=== PATIENT | female | born 1970 | race Caucasian/White ===

== ENCOUNTER 2020-03-18 14:50 | Outpatient (REF) | payer OTHER, SELFPAY ==
--- NOTE | 2020-03-18 14:58 | XR_ITS ---
EXAMINATION: LEFT ANKLE AND LEFT FOOT. CLINICAL INFORMATION: Pain left ankle and left foot. COMPARISON: None TECHNIQUE: 3 views left foot and 2 views left ankle. FINDINGS: LEFT FOOT : There is no visible acute fracture, dislocation or subluxation. LEFT ANKLE: There is a moderate lateral malleolar soft tissue swelling. The ankle mortise and subtalar joints are normal. A small calcaneal heel and retrocalcaneal spurs seen. The soft tissues are normal. IMPRESSION: Unremarkable left foot exam Moderate lateral malleolar soft tissue swelling likely ankle sprain. No visible acute fracture or dislocation seen. Small calcaneal heel and retrocalcaneal enthesophytes.
== END 2020-03-18 14:51 | disposition home or self-care (01) ==
LOC: HO.HMGCX 14:50
PROVIDERS: PCP Nurse Practitioner Family; Visit Provider Hospitalist
DX: M25.572 Pain in left ankle and joints of left foot (principal)
CPT/HCPCS: 73600; 73630

== ENCOUNTER 2020-03-26 02:09 | Emergency (ER) | payer OTHER, SELFPAY ==
[2020-03-26 02:24] VITALS: BP 140/84; PULSE 99; RESP 16; TEMP 37; O2SAT 99; BMI 29.0
--- NOTE | 2020-03-26 02:35 | ED_ITS ---
HPI - Wound/Laceration General Chief Complaint: Wound/Laceration Stated Complaint: Hand Lac Time Seen by Provider: 03/26/20 02:35 History of Present Illness HPI narrative: Patient is a 49-year-old female presents today after cutting her right hand using a knife. It was accidental in nature. Patient not on blood thinners. No systemic complaints. Able to move her fingers well. Bleeding control. Came in for further evaluation. Related Data Home Medications Medication Instructions Recorded Confirmed albuterol sulfate 90 mcg/actuation INHALATION 03/18/20 aerosol inhaler alogliptin 25 mg tablet mg PO 03/18/20 atorvastatin 40 mg tablet 40 mg PO DAILY 03/18/20 beclomethasone dipropionate 80 1 inh INHALATION BID 03/18/20 mcg/actuation HFA breath activated aerosol blood sugar diagnostic #10 ea 03/18/20 blood-glucose meter #1 ea 03/18/20 cholecalciferol (vitamin D3) 50 50 mcg PO BEDTIME 03/18/20 mcg (2,000 unit) capsule clonazepam 0.5 mg tablet 0 mg PO 03/18/20 cyclobenzaprine 10 mg tablet 10 mg PO TID 03/18/20 divalproex 250 mg tablet,delayed 250 mg PO DAILY 03/18/20 release divalproex 500 mg tablet,delayed mg PO 03/18/20 release duloxetine 60 mg capsule,delayed mg PO 03/18/20 release empagliflozin 10 mg tablet 10 mg PO DAILY 03/18/20 flu vacc [id number] 6mos up(PF) ml IM 03/18/20 furosemide 20 mg tablet 20 mg PO DAILY 03/18/20 furosemide 40 mg tablet 40 mg PO DAILY 03/18/20 glimepiride 2 mg tablet 2 mg PO 03/18/20 insulin glargine 100 unit/mL (3 unit SUBCUT 03/18/20 mL) subcutaneous pen levothyroxine 88 mcg tablet 88 mcg PO DAILY 03/18/20 nitrofurantoin 1 cap PO BID 03/18/20 monohydrate/macrocrystals 100 mg capsule ondansetron HCl 4 mg tablet mg PO 03/18/20 oxycodone 5 mg tablet mg PO 03/18/20 pantoprazole 40 mg tablet,delayed 40 mg PO DAILY 03/18/20 release pen needle, diabetic 31 gauge x #1200 ea 10/19/20 5/16 pentosan polysulfate sodium 100 mg 100 mg PO TID 03/18/20 capsule phenazopyridine 100 mg tablet 100 mg PO TID 03/18/20 phenazopyridine 200 mg tablet 200 mg PO TID 03/18/20 suvorexant 15 mg tablet 15 mg PO BEDTIME PRN 03/18/20 triamcinolone acetonide 0.1 % applic TOPICAL 03/18/20 topical cream Previous Rx's Medication Instructions Recorded loratadine 10 mg tablet 10 mg PO DAILY 90 Days #90 tab 03/07/20 sumatriptan succinate 25 mg tablet 25 mg PO ONCE PRN 90 Days #30 tab 03/10/20 prednisone 20 mg tablet 20 mg PO .COMPLEX #18 tab 03/18/20 ropinirole 1 mg tablet 1 mg PO TID #90 tab 03/22/20 Allergies Allergy/AdvReac Type Severity Reaction Status Date / Time No Known Allergies Allergy Verified 03/26/20 02:35 Review of Systems Review of Systems: Constitutional: No Weight loss, No Fever, No Chills, No Night Sweats, No Fatigue, No Malaise ENT/Mouth: No Hearing loss, No Ear Pain, No Nasal Congestion, No Sinus Pain, No Hoarseness, No sore throat, No Rhinorrhea, No Swallowing Difficulty Eyes: No Eye Pain, No Swelling, No Redness, No Foreign Body, No Discharge, No Vision Changes Cardiovascular: No Chest Pain, No SOB, No Dyspnea on Exertion, No Orthopnea, No Edema, No Palpitations Respiratory: No Cough, No Sputum, No Wheezing, No Smoke Exposure, No Dyspnea Gastrointestinal: No Nausea, No Vomiting, No Diarrhea, No Constipation, No abdominal Pain, No Hematochezia, No Melena Genitourinary: no irregular bleeding, No Dysuria, No Urinary Frequency, No Hematuria, No Urinary Incontinence, No Urgency, No Flank Pain, No Urinary Flow Changes, No Hesitancy Musculoskeletal: No joint pain, No Myalgias, No Joint Swelling Skin: Positive laceration to the right hand Neuro: No Weakness, No Numbness, No Paresthesias, No Loss of Consciousness, No Dizziness, No Headache Psych: No Anxiety/Panic, No Depression, No SI/HI/AH/VH, No Social Issues, Heme/Lymph: No Bruising, No Bleeding,No Lymphadenopathy Endocrine: No Polyuria, No Polydipsia, No Temperature Intolerance [facility] Past Medical History Attestation statement: The following information was validated with the patient. Social History Social History Advance Directives: No Advance Directives Information Provided: No Physical Exam Vital Signs: Vital Signs: Vital Signs Temp Pulse Resp BP Pulse Ox 03/26/20 02:24 98.6 F 99 16 140/84 H 99 Body Mass Index 29.0 Appearance: Alert. Oriented X3. No acute distress. Eyes: Pupils equal, round and reactive to light. ENT: Pharynx normal. Neck: Normal inspection. Neck supple. No lymph nodes noted. No crepitus CVS: Normal heart rate and rhythm. Pulses normal. Normal S1 and S2 Respiratory: No respiratory distress. Breath sounds normal. No Wheezing. No rales Abdomen: Soft and nontender. No rigidity. No distention. good BS x4 Skin: Right hand Positive 3 cm laceration to the palmar surface of the hypothenar area. Down to subcutaneous fat. There is good flexion of the pinky at metacarpal pharyngeal joint, proximal IP and distal IP joint. Capillary refill less than 2 seconds. Sensation over the median radial and ulnar nerve intact. Extremities: No lower extremity edema. Neurovascular intact to all extremities. No Lacerations. No Rash Neuro: Oriented X 3. No motor deficit. No sensory deficit. Moving all extermities. No slurred speech Procedures Laceration Laceration 1: Site: hand Side (If applicable): right Size (cm): 3 Description: linear Depth: simple, single layer Local Anesthetic: lidocaine 1% Amount of anesthesia used (mL): 3 Pre-repair: wound explored Skin layer closed with: nylon Size (cm): 5-0 Number of sutures: 3 Technique: simple, interrupted MDM - Wound/Laceration MDM Narrative Medical decision making narrative: Patient's wound closed. No distress. Will discharge patient home. Neurovascularly intact. No evidence of any tendon injury on full exploration of the wound. The hand and fingers were put through full range of motion Differential Diagnosis Differential diagnosis: Likely laceration Medical Records Attestation: I reviewed the patient's medical records. Discharge Plan Discharge Clinical Impression: Laceration Instructions: Laceration (ED) Prescriptions: No Action loratadine [Allergy Relief (loratadine)] 10 mg tablet 10 mg PO DAILY 90 Days Qty: 90 RF: 0 sumatriptan succinate 25 mg tablet 25 mg PO ONCE PRN (Reason: migraine headache) 90 Days Qty: 30 RF: 0 ropinirole 1 mg tablet 1 mg PO TID Qty: 90 RF: 1 Felicita Wang U-100 Insulin 100 unit/mL (3 mL) insulin pen subcut RF: 0 divalproex 500 mg tablet,delayed release (DR/EC) PO RF: 0 pantoprazole 40 mg tablet,delayed release (DR/EC) 40 mg PO DAILY RF: 0 ondansetron HCl 4 mg tablet PO RF: 0 Elmiron 100 mg capsule 100 mg PO TID RF: 0 levothyroxine 88 mcg tablet 88 mcg PO DAILY RF: 0 atorvastatin 40 mg tablet 40 mg PO DAILY RF: 0 duloxetine 60 mg capsule,delayed release(DR/EC) PO RF: 0 albuterol sulfate 90 mcg/actuation HFA aerosol inhaler inhalation RF: 0 glimepiride 2 mg tablet 2 mg PO RF: 0 Belsomra 15 mg tablet 15 mg PO BEDTIME PRNRF: 0 Qvar RediHaler 80 mcg/actuation HFA aerosol breath activated 1 inh inhalation BID RF: 0 clonazepam 0.5 mg tablet 0 mg PO RF: 0 Fluzone Quad [id number] (PF) 60 mcg (15 mcg x 4)/0.5 mL syringe IM RF: 0 (DME) blood-glucose meter Kit See Rx Instructions ea .ROUTE TID Qty: 1 RF: 0 (DME) FreeStyle Lite Strips Strip See Rx Instructions ea Not Applicable TID Qty: 10 RF: 0 alogliptin 25 mg tablet PO RF: 0 divalproex 250 mg tablet,delayed release (DR/EC) 250 mg PO DAILY RF: 0 furosemide 40 mg tablet 40 mg PO DAILY RF: 0 triamcinolone acetonide 0.1 % cream topical RF: 0 nitrofurantoin monohyd/m-cryst 100 mg capsule 1 cap PO BID RF: 0 (DME) pen needle, diabetic 31 gauge x 5/16 needle See Rx Instructions ea subcut DAILY Qty: 1200 RF: 0 furosemide 20 mg tablet 20 mg PO DAILY RF: 0 oxycodone 5 mg tablet PO RF: 0 cholecalciferol (vitamin D3) 50 mcg (2,000 unit) capsule 50 mcg PO BEDTIME RF: 0 phenazopyridine 100 mg tablet 100 mg PO TID RF: 0 cyclobenzaprine 10 mg tablet 10 mg PO TID RF: 0 phenazopyridine 200 mg tablet 200 mg PO TID RF: 0 Jardiance 10 mg tablet 10 mg PO DAILY RF: 0 prednisone 20 mg tablet 20 mg PO .COMPLEX Qty: 18 RF: 0 Referrals: Tamar Jacome MD [Emergency Provider] - 10 days
[2020-03-26] MEDS: Lidocaine HCl 1 % MPF 5 ML VIAL SUBCUT (02:45)
== END 2020-03-26 03:31 | disposition home or self-care (01) ==
PROVIDERS: Emergency Provider Emergency Medicine Emergency Medical Services; PCP Nurse Practitioner Family
DX: S61.411A Laceration without foreign body of right hand, initial encounter (principal); M79.641 Pain in right hand; W26.0XXA Contact with knife, initial encounter; Y93.G3 Activity, cooking and baking; Y92.000 Kitchen of unspecified non-institutional (private) residence as the place of occurrence of the external cause; Z79.899 Other long term (current) drug therapy
CPT/HCPCS: 12002; 99283; 99284

== ENCOUNTER 2020-04-09 13:14 | Outpatient (REF) | payer OTHER, SELFPAY ==
--- NOTE | 2020-04-09 13:20 | MM_ITS ---
EXAMINATION: BONE DENSITOMETRY CLINICAL INDICATION: Osteopenia. COMPARISON: Previous BD dated 04/08/2018 and baseline BD dated 03/27/2014. TECHNIQUE: Using a [employer] DXA System (software version: 13.1) manufactured by [employer], dual-energy x-ray absorptiometry was performed of the lumbar spine and left hip. The images are of good technical quality. Summary results are attached. FINDINGS: AP SPINE L1-L4: Current: BMD 1.100 g/cm2, Z-score -0.7, T-score -0.7, normal, 1.0% increase from previous, 0.2% decrease from baseline (<5% change is not significant). Prior: BMD 1.089 g/cm2. Baseline: BMD 1.102 g/cm2. LEFT FEMUR, NECK: Current: BMD 0.788 g/cm2, Z-score -1.3, T-score -1.8, osteopenia. Prior: BMD 0.773 g/cm2. Baseline: BMD 0.829 g/cm2. LEFT FEMUR, TOTAL: Current: BMD 0.860 g/cm2, Z-score -1.1, T-score -1.2, osteopenia, 1.8% decrease from previous, 8.6% decrease from baseline (<5% change is not significant). Prior: BMD 0.876 g/cm2. Baseline: BMD 0.941 g/cm2. IDENTIFIED RISK FACTORS: Early menopause, secondary osteoporosis, history of fracture (adult), osteoporosis, recurrent falls, height loss, low calcium intake. HISTORY OF FRACTURE: Ribs, extremities. MEDICATIONS: Calcium supplements or multivitamin, vitamin D. MM/XR DEXA axial skeleton IMPRESSION: 1. DIAGNOSIS: Osteopenia based on the lowest T-score value of -1.8 in the femoral neck applying World Health Organization criteria. 2. 10-YEAR FRACTURE RISK PREDICTION, FRAX: Major osteoporotic fracture (clinical spine, forearm, hip or shoulder) 10.2%. Hip fracture 1.2%. 3. Treatment Recommendations: NOF guidelines recommend consideration for treatment in postmenopausal women and men age 50 and older presenting with the following: -A hip or vertebral (clinical or morphometric) fracture. -T-score less than or equal to -2.5 at the femoral neck or spine after appropriate evaluation to exclude secondary causes. -Low bone mass at the hip or spine and a 10-year fracture probability by FRAX of greater than or equal to 3% for hip fracture or greater than or equal to 20% for major osteoporotic fracture based on the [place] adapted WHO algorithm. 4. Other Recommendations: All treatment decisions require clinical judgment and consideration of individual patient factors, including patient preferences, comorbidities, previous drug use, risk factors not captured in the FRAX model (e.g. frailty, falls, vitamin D deficiency, increased bone turnover, interval significant decline in bone density) and possible under or overestimation of fracture risk by FRAX. Additional medical evaluation for secondary cause of low bone mineral density may be appropriate. FUTURE SCAN RECOMMENDATION: People with diagnosed cases of osteoporosis or at high risk for fracture should have regular bone mineral density tests. For patients eligible for Medicare, routine testing is allowed once every 2 years. The testing frequency can be increased to one year for patients who have rapidly progressing disease, those who are receiving or discontinuing medical therapy to restore bone mass, or have additional risk factors.
--- NOTE | 2020-04-09 13:20 | MM_ITS ---
EXAMINATION: MM SCREENING DIGITAL BREAST TOMOSYNTHESIS, BILATERAL CLINICAL INFORMATION: Screening. Asymptomatic. Prior remote history reduction mammoplasty 2001. The lifetime risk of breast cancer based on the Tyrer-Cuzick Model is 11%. COMPARISON: Mammography: 04/08/2018, 08/10/2016 TECHNIQUE: Digital breast tomosynthesis is performed in both the craniocaudal and mediolateral oblique views along with computer-aided detection (CAD). Synthesized 2D images are generated from the tomosynthesis. FINDINGS: The breasts are almost entirely fatty (ACR BI-RADS breast composition Category a). Background stromal tissue is stable. There is minor scarring again seen consistent with the remote reduction mammoplasty. There is no developing density or interval mass or architectural abnormality. Numerous lucent centered calcifications of fat necrosis or distributed right breast and there are some scattered benign calcifications again seen on the left, some appear to be vascular. There are no significant changes. MM/MM tomosynthesis screening BI IMPRESSION: No significant changes from prior studies. ASSESSMENT: BI-RADS 2: Benign RECOMMENDATION: Routine annual mammography screening. This patient's information was entered into a reminder system with a target due date for their next mammogram.
== END 2020-04-09 13:15 | disposition home or self-care (01) ==
LOC: HO.MAMMO 13:14
PROVIDERS: PCP Nurse Practitioner Family; Visit Provider Nurse Practitioner Family
DX: M85.80 Other specified disorders of bone density and structure, unspecified site (principal); Z78.0 Asymptomatic menopausal state
CPT/HCPCS: 77063; 77067; 77080

== ENCOUNTER 2020-04-25 18:05 | Emergency (ER) | payer OTHER, SELFPAY ==
[2020-04-25 18:30] VITALS: BP 121/77; PULSE 87; RESP 18; TEMP 37.1; O2SAT 100; BMI 31.4
--- NOTE | 2020-04-25 19:08 | ED_ITS ---
HPI - General Adult General Chief complaint: General Medical Stated complaint: covid swab Time Seen by Provider: 04/25/20 18:58 Source: patient Mode of arrival: ambulatory Limitations: no limitations History of Present Illness HPI narrative: Patient presents to ED for body aches, fatigue, loss of smell, and loss of taste for the past 2 days. Patient states no one else at home having similar symptoms. Patient states no cough, chest pain, or shortness of breaths Related Data Home Medications Medication Instructions Recorded Confirmed albuterol sulfate 90 mcg/actuation INHALATION 03/18/20 04/04/20 aerosol inhaler alogliptin 25 mg tablet mg PO 03/18/20 04/04/20 atorvastatin 40 mg tablet 40 mg PO DAILY 03/18/20 04/04/20 beclomethasone dipropionate 80 1 inh INHALATION BID 03/18/20 04/04/20 mcg/actuation HFA breath activated aerosol blood sugar diagnostic #10 ea 03/18/20 04/04/20 blood-glucose meter #1 ea 03/18/20 04/04/20 clonazepam 0.5 mg tablet 0 mg PO 03/18/20 04/04/20 cyclobenzaprine 10 mg tablet 10 mg PO TID 03/18/20 04/04/20 divalproex 250 mg tablet,delayed 250 mg PO DAILY 03/18/20 04/04/20 release divalproex 500 mg tablet,delayed mg PO 03/18/20 04/04/20 release duloxetine 60 mg capsule,delayed mg PO 03/18/20 04/04/20 release empagliflozin 10 mg tablet 10 mg PO DAILY 03/18/20 04/04/20 flu vacc [id number] 6mos up(PF) ml IM 03/18/20 04/04/20 furosemide 20 mg tablet 20 mg PO DAILY 03/18/20 04/04/20 glimepiride 2 mg tablet 2 mg PO 03/18/20 04/04/20 insulin glargine 100 unit/mL (3 unit SUBCUT 03/18/20 04/04/20 mL) subcutaneous pen levothyroxine 88 mcg tablet 88 mcg PO DAILY 03/18/20 04/04/20 nitrofurantoin 1 cap PO BID 03/18/20 04/04/20 monohydrate/macrocrystals 100 mg capsule ondansetron HCl 4 mg tablet mg PO 03/18/20 04/04/20 oxycodone 5 mg tablet mg PO 03/18/20 04/04/20 pantoprazole 40 mg tablet,delayed 40 mg PO DAILY 03/18/20 04/04/20 release pen needle, diabetic 31 gauge x #1200 ea 03/18/20 04/04/2010/13 pentosan polysulfate sodium 100 mg 100 mg PO TID 03/18/20 04/04/20 capsule phenazopyridine 100 mg tablet 100 mg PO TID 03/18/20 04/04/20 phenazopyridine 200 mg tablet 200 mg PO TID 03/18/20 04/04/20 suvorexant 15 mg tablet 15 mg PO BEDTIME PRN 03/18/20 04/04/20 triamcinolone acetonide 0.1 % applic TOPICAL 03/18/20 04/04/20 topical cream Previous Rx's Medication Instructions Recorded loratadine 10 mg tablet 10 mg PO DAILY 90 Days #90 tab 03/07/20 sumatriptan succinate 25 mg tablet 25 mg PO ONCE PRN 90 Days #30 tab 03/10/20 prednisone 20 mg tablet 20 mg PO .COMPLEX #18 tab 03/18/20 ropinirole 1 mg tablet 1 mg PO TID #90 tab 03/22/20 furosemide 40 mg tablet 40 mg PO DAILY #90 tab 04/04/20 cholecalciferol (vitamin D3) 50 50 mcg PO BEDTIME #90 cap 04/15/20 mcg (2,000 unit) capsule Allergies Allergy/AdvReac Type Severity Reaction Status Date / Time No Known Allergies Allergy Verified 04/25/20 18:41 Review of Systems Constitutional: Constitutional: Reports as per HPI, Reports no additional constitutional complaints, Reports body ache(s) and Reports chills Comments: loss of smell, loss of taste. Eyes: Eyes: Reports as per HPI and Reports no additional eye complaints ENT: Reports system reviewed and no additional complaints, except as documented and Reports as per HPI Cardiovascular: Cardiovascular: Reports as per HPI and Reports no additional cardiovascular complaints Respiratory: Respiratory: Reports as per HPI and Reports no additional respiratory complaints Gastrointestinal: Gastrointestinal: Reports no additional gastrointestinal complaints Musculoskeletal: Musculoskeletal: Reports no additional musculoskeletal complaints and Reports as per HPI Neurologic: Reports system reviewed and no additional complaints, except as documented and Reports as per HPI Psychiatric: Psychiatric: Reports no additional psychiatric complaints and Reports as per HPI [facility] Past Medical History Medical History (Updated 04/25/20 @ 19:21 by RENETTA Hernandez) Acute Crohn's disease Bipolar 1 disorder Family History Family History (Updated 04/04/20 @ 14:38 by MIKAYLA Swan) Father HTN (hypertension) Mother Heart disease Social History Social History (Updated 04/04/20 @ 14:39 by MIKAYLA Swan) Smoking Status: Never smoker Advance Directives: No Advance Directives Information Provided: Yes Physical Exam Vital Signs: Vital Signs: Last Vital Signs Temp 98.7 F 04/25/20 18:30 Pulse 87 04/25/20 18:30 Resp 18 04/25/20 18:30 BP 121/77 04/25/20 18:30 Pulse Ox 100 04/25/20 18:30 Body Mass Index 31.4 Const: General: cooperative, healthy appearing, comfortable, no acute distress and well developed Orientation/consciousness: oriented to person, oriented to place, oriented to time and patient oriented x3 HENMT: Head: Yes normal to inspection and Yes No palpable skull fracture present Eyes: General: appearance normal, both eyes and all related structures Neck: Neck: Yes normal visual inspection and Yes full ROM Chest: Chest palpation & inspection: normal inspection of the chest, normal palpation of entire chest wall and no localized rib tenderness Resp: Effort & Inspection: normal respiratory effort and able to speak in complete sentences Cardio: Jugular venous distension: no JVD Heart sounds: S1 normal heart sound present and S2 normal heart sound present GI: Inspection: Yes normal to inspection and No abdominal wall ecchymosis : General: No CVA tenderness and Yes no CVA tenderness Back/Spine/Pelvis: Back: no CVA tenderness, No CVA tenderness and No back tenderness Skin: General skin exam: no rashes or lesions noted Neuro: General: oriented to person, oriented to place, oriented to time, patient oriented x3 and CN's II-XI intact bilaterally Cranial nerves: Yes CN's II-XII intact bilaterally Extrem: General: Yes normal to inspection and Yes full ROM Psych: Appearance: grossly normal, well kempt and not disheveled Course Course Course Narrative: Patient will be swabbed for the COVID-19 virus. Patient educated on self-isolation. Reevaluation(s) Reevaluation #1: Patient is swabbed for COVID-19. Patient caring for her 1 7month oldgrandson. Patient informed to wear gloves and mask around her [id number] grandson. Time: 19:19 Medical Decision Making MDM Narrative Medical decision making narrative: viral syndrome Discharge Plan Discharge Clinical Impression: Acute viral syndrome Patient Disposition: Home, Self-Care Instructions: Viral Syndrome (ED) Additional Instructions: return to the ED immediately for any chest pain, shortness of breath, weakness, fever, chills,abdominal pain, coughing, nausea, vomiting, or any other concerning symptoms. Recommend 14 days self-isolation if COVID test come back positive. Prescriptions: No Action loratadine [Allergy Relief (loratadine)] 10 mg tablet 10 mg PO DAILY 90 Days Qty: 90 RF: 0 sumatriptan succinate 25 mg tablet 25 mg PO ONCE PRN (Reason: migraine headache) 90 Days Qty: 30 RF: 0 ropinirole 1 mg tablet 1 mg PO TID Qty: 90 RF: 1 furosemide 40 mg tablet 40 mg PO DAILY Qty: 90 RF: 0 cholecalciferol (vitamin D3) 50 mcg (2,000 unit) capsule 50 mcg PO BEDTIME Qty: 90 RF: 0 Basaglar KwikPen U-100 Insulin 100 unit/mL (3 mL) insulin pen subcut RF: 0 divalproex 500 mg tablet,delayed release (DR/EC) PO RF: 0 pantoprazole 40 mg tablet,delayed release (DR/EC) 40 mg PO DAILY RF: 0 ondansetron HCl 4 mg tablet PO RF: 0 Elmiron 100 mg capsule 100 mg PO TID RF: 0 levothyroxine 88 mcg tablet 88 mcg PO DAILY RF: 0 atorvastatin 40 mg tablet 40 mg PO DAILY RF: 0 duloxetine 60 mg capsule,delayed release(DR/EC) PO RF: 0 albuterol sulfate 90 mcg/actuation HFA aerosol inhaler inhalation RF: 0 glimepiride 2 mg tablet 2 mg PO RF: 0 Belsomra 15 mg tablet 15 mg PO BEDTIME PRNRF: 0 Qvar RediHaler 80 mcg/actuation HFA aerosol breath activated 1 inh inhalation BID RF: 0 clonazepam 0.5 mg tablet 0 mg PO RF: 0 Fluzone Quad [id number] (PF) 60 mcg (15 mcg x 4)/0.5 mL syringe IM RF: 0 (DME) blood-glucose meter Kit See Rx Instructions ea .ROUTE TID Qty: 1 RF: 0 (DME) FreeStyle Lite Strips Strip See Rx Instructions ea Not Applicable TID Qty: 10 RF: 0 alogliptin 25 mg tablet PO RF: 0 divalproex 250 mg tablet,delayed release (DR/EC) 250 mg PO DAILY RF: 0 triamcinolone acetonide 0.1 % cream topical RF: 0 nitrofurantoin monohyd/m-cryst 100 mg capsule 1 cap PO BID RF: 0 (DME) pen needle, diabetic 31 gauge x 5/16 needle See Rx Instructions ea subcut DAILY Qty: 1200 RF: 0 furosemide 20 mg tablet 20 mg PO DAILY RF: 0 oxycodone 5 mg tablet PO RF: 0 phenazopyridine 100 mg tablet 100 mg PO TID RF: 0 cyclobenzaprine 10 mg tablet 10 mg PO TID RF: 0 phenazopyridine 200 mg tablet 200 mg PO TID RF: 0 Jardiance 10 mg tablet 10 mg PO DAILY RF: 0 prednisone 20 mg tablet 20 mg PO .COMPLEX Qty: 18 RF: 0 Referrals: Anand Tabares, [employer] [Primary Care Provider] - 2 days (Viral syndrome. Covid testing pending. ) Interventions: ED Discharge Assessment Last Done: 04/25/20 19:46 Discharge Date/Time: 04/25/20 19:46 Print Language: Nepali
== END 2020-04-25 19:46 | disposition home or self-care (01) ==
PROVIDERS: Physician Assistant; Emergency Provider Emergency Medicine; PCP Nurse Practitioner Family
DX: B34.9 Viral infection, unspecified (principal); M79.10 Myalgia, unspecified site; R43.8 Other disturbances of smell and taste; Z20.828 Contact with and (suspected) exposure to other viral communicable diseases; Z79.899 Other long term (current) drug therapy
CPT/HCPCS: 99283; U0003

== ENCOUNTER → 2020-05-06 09:10 | Outpatient (BNVA) | payer OTHER, SELFPAY | PROVIDERS: PCP Internal Medicine; Referring Provider Nurse Practitioner Family; Visit Provider Internal Medicine | DX: D35.2 Benign neoplasm of pituitary gland (principal); E03.9 Hypothyroidism, unspecified; E55.9 Vitamin D deficiency, unspecified; E78.5 Hyperlipidemia, unspecified; I10 Essential (primary) hypertension; E11.65 Type 2 diabetes mellitus with hyperglycemia; Z79.4 Long term (current) use of insulin; M81.0 Age-related osteoporosis without current pathological fracture | CPT/HCPCS: 82947 ==

== ENCOUNTER 2020-05-13 12:56 | Outpatient (REF) | payer OTHER, SELFPAY ==
[2020-05-13 14:18] LABS: Glucose Urine UA >=1000 MG/DL (NEG); Leukocyte Esterase Urine NEG (NEG); Nitrite Urine NEG (NEG); PH 6.5 (5.0-8.0); Specific Gravity - Urine 1.015 (1.005-1.025); Urine Blood TRACE (NEG); Urine Ketones 5 MG/DL (NEG); Urine Protein NEG (NEG-TRACE)
[2020-05-13 14:24] LABS: Appearance Urine CLEAR; Color Urine YELLOW
[2020-05-13 15:00] LABS: Creatinine Urine 47.87 mg/dL; Microalbum/Creatinine Ratio Ur 16.7 ug/mg cr
[2020-05-13 15:06] LABS: RBC Urine 0-2 /HPF (0); Squamous Epithelial Cell Urine 1+ /LPF; WBC Urine 0-2 /HPF (0-4)
== END 2020-05-13 12:57 | disposition home or self-care (01) ==
LOC: HO.HMGCLDS 12:56
PROVIDERS: Internal Medicine; PCP Nurse Practitioner Family; Visit Provider Nurse Practitioner Family
DX: M81.0 Age-related osteoporosis without current pathological fracture (principal); E11.9 Type 2 diabetes mellitus without complications
CPT/HCPCS: 81001; 82043; 87086

== ENCOUNTER → 2020-05-14 14:43 | Outpatient (BNVA) | payer OTHER, SELFPAY | PROVIDERS: PCP Internal Medicine; Referring Provider Internal Medicine; Visit Provider Student in an Organized Health Care Education/Training Program | DX: Z76.89 Persons encountering health services in other specified circumstances (principal) ==

== ENCOUNTER 2020-05-16 12:18 | Emergency (ER) | payer OTHER, SELFPAY ==
[2020-05-16 12:28] VITALS: BP 141/80; PULSE 85; RESP 16; TEMP 37.3; O2SAT 100; BMI 29.6
--- NOTE | 2020-05-16 13:02 | ED_ITS ---
HPI - Female Genitourinary General Chief complaint: Urogenital-Female Stated complaint: dehydration Time Seen by Provider: 05/16/20 12:25 Source: patient Mode of arrival: ambulatory Limitations: no limitations History of Present Illness HPI Narrative: 49-year-old female who presents to the emergency department for e valuation of urinary frequency. The patient has noted increased urinary frequency for approximately 5-6 days. She states that over the past 24 hours she has been urinating every 5-10 minutes. She states that she has had to wear depends and she soaked through at least 8-10 depends per day. The patient denied increased thirst, change in her vision or dysuria. She does have diabetes mellitus and states that her glucose has been under good control ranging from 100-150. 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 Bobby who ordered a pituitary workup on the patient however the patient has not been able to get to the outpatient laboratory to get this testing done. The patient states she also has interstitial cystitis and frequent urinary tract infections. The patient did speak to her PCP who started her on ciprofloxacin 250 b.i.d. x3 days and the p atient has taken 1 dose of this medication. Patient states that she is feeling very weak and fatigued. She states that she believes that she is dehydrated secondary to the frequent urination. She denies nausea, vomiting or abdominal pain. The patient did have COVID-19 like symptoms approximately 2 weeks prior for tested negative for COVID-19 on April 25, 2020. Related Data Home Medications Medication Instructions Recorded Confirmed albuterol sulfate 90 mcg/actuation INHALATION 03/18/20 05/06/20 aerosol inhaler atorvastatin 40 mg tablet 40 mg PO DAILY 03/18/20 05/06/20 beclomethasone dipropionate 80 1 inh INHALATION BID 03/18/20 05/06/20 mcg/actuation HFA breath activated aerosol blood sugar diagnostic #10 ea 03/18/20 05/06/20 blood-glucose meter #1 ea 03/18/20 05/06/20 clonazepam 0.5 mg tablet 0 mg PO 03/18/20 05/06/20 duloxetine 60 mg capsule,delayed mg PO 03/18/20 05/02/20 release flu vacc [id number] 6mos up(PF) ml IM 03/18/20 05/02/20 levothyroxine 88 mcg tablet 88 mcg PO DAILY 03/18/20 05/06/20 nitrofurantoin 1 cap PO BID 03/18/20 05/06/20 monohydrate/macrocrystals 100 mg capsule ondansetron HCl 4 mg tablet mg PO 03/18/20 05/06/20 pantoprazole 40 mg tablet,delayed 40 mg PO DAILY 03/18/20 05/06/20 release pen needle, diabetic 31 gauge x #1200 ea 03/18/20 05/06/2010/13 pentosan polysulfate sodium 100 mg 100 mg PO TID 03/18/20 05/02/20 capsule phenazopyridine 100 mg tablet 100 mg PO TID 03/18/20 05/02/20 phenazopyridine 200 mg tablet 200 mg PO TID 03/18/20 05/02/20 suvorexant 15 mg tablet 15 mg PO BEDTIME PRN 03/18/20 05/06/20 triamcinolone acetonide 0.1 % applic TOPICAL 03/18/20 05/06/20 topical cream divalproex 500 mg tablet,delayed 1,000 mg PO BID tab 05/02/20 05/06/20 release oxybutynin chloride 5 mg tablet mg PO 05/06/20 05/06/20 Previous Rx's Medication Instructions Recorded loratadine 10 mg tablet 10 mg PO DAILY 90 Days #90 tab 03/07/20 sumatriptan succinate 25 mg tablet 25 mg PO ONCE PRN 90 Days #30 tab 03/10/20 insulin glargine 100 unit/mL (3 45 unit SUBCUT BID #15 ml 04/29/20 mL) subcutaneous pen cholecalciferol (vitamin D3) 50 50 mcg PO BEDTIME 90 Days #90 cap 05/02/20 mcg (2,000 unit) capsule ropinirole 1 mg tablet 3 mg PO DAILY 90 Days #270 tab 05/02/20 ciprofloxacin HCl 250 mg tablet 250 mg PO BID 3 Days #6 tab 05/15/20 glimepiride 2 mg tablet 2 mg PO DAILY #90 tab 05/16/20 Allergies Allergy/AdvReac Type Severity Reaction Status Date / Time amoxicillin [From Augmentin] Allergy Unknown diarrhea Verified 05/14/20 14:45 clavulanic acid Allergy Unknown diarrhea Verified 05/14/20 14:45 [From Augmentin] sulfamethoxazole Allergy Unknown yeast Verified 05/14/20 14:45 [From Bactrim] infection trimethoprim [From Bactrim] Allergy Unknown yeast Verified 05/14/20 14:45 infection Review of Systems Review of Systems: Yes all other systems are reviewed and are negative Constitutional: Constitutional: Reports as per HPI Eyes: Eyes: Reports as per HPI ENT: Reports as per HPI Cardiovascular: Cardiovascular: Reports as per HPI Respiratory: Respiratory: Reports as per HPI Gastrointestinal: Gastrointestinal: Reports as per HPI Genitourinary: Genitourinary: Reports as per HPI Musculoskeletal: Musculoskeletal: Reports as per HPI Integumentary/Breasts: Skin/Breast: Reports as per HPI Neurologic: Reports as per HPI and Reports Abnormal speech present Psychiatric: Psychiatric: Reports as per HPI Allergic/Immunologic: Allergic/Immunologic: Reports as per HPI [facility] Past Medical History Attestation statement: The following information was validated with the patient. [facility] Narrative: The patient denies tobacco, alcohol or drug use. Medical History Acute Crohn's disease Bipolar 1 disorder HLD (hyperlipidemia) HTN (hypertension) Hypothyroidism Interstitial cystitis Osteoporosis Pituitary macroadenoma T2DM (type 2 diabetes mellitus) Uncontrolled diabetes mellitus Vitamin D deficiency Surgical History History of bladder surgery History of section History of surgery History of tubal ligation LAP-BAND surgery status Status post breast reduction Family History Family History Father HTN (hypertension) Mother Heart disease Social History Social History Smoking Status: Never smoker Smoked in Last 30 Days: Yes Use of substances other than those prescribed or required for medical reasons: No Any prior treatment program specific to substance use: No Advance Directives: No Advance Directives Information Provided: No Physical Exam Vital Signs: Vital Signs: Last Vital Signs Temp 99.1 F 05/16/20 14:55 Pulse 65 05/16/20 14:55 Resp 16 05/16/20 14:55 BP 108/55 L 05/16/20 14:55 Pulse Ox 99 05/16/20 14:55 Body Mass Index 29.6 Const: General: cooperative and healthy appearing Nutritional Appearance: average body habitus Orientation/consciousness: oriented to person and oriented to place Limitations: no limitations HENMT: Head: Yes normal to inspection, Yes normocephalic and Yes atraumatic Ears: external ears normal General nose exam: Normal external nose present Face and sinus: Yes normal facial exam Mouth: Normal oral and palatal mucosa present Throat: Yes posterior oropharynx normal Eyes: General: appearance normal, both eyes and all related structures Alignment and Position: alignment normal Periorbital: periorbital findings normal Eyelids: Yes eyelids normal Conjunctivae: conjunctivae normal Sclerae: sclerae normal Pupils: Equal, round and reactive pupils present Direct Ophthalmoscopy: normal light reflex Neck: Neck: Yes normal visual inspection and Yes supple Thyroid: Thyroid normal Chest: Chest palpation & inspection: normal inspection of the chest and normal palpation of entire chest wall Resp: Effort & Inspection: normal respiratory effort and able to speak in complete sentences Auscultation: clear to auscultation bilaterally, no crackles, no rales and no rhonchi Cardio: Rate: regular rate Rhythm: regular rhythm Heart sounds: S1 normal heart sound present, S2 normal heart sound present and no murmurs GI: Inspection: Yes normal to inspection Palpation (GI): Soft to palpation, Tenderness to palpation present (GI) ([id number] suprapubic) and no guarding Auscultation: normal bowel sounds : General: Yes no CVA tenderness Back/Spine/Pelvis: Back: no CVA tenderness Cervical Spine: normal cervical lordosis Thoracic/Lumbar Spine: thoracic and lumbar spine normal to inspection Skin: General skin exam: no rashes or lesions noted Lesions: no lesions Rashes: no rashes Trauma: no lacerations or abrasions Neuro: General: oriented to person and oriented to place Cranial nerves: Yes CN's II-XII intact bilaterally and Yes Equal, round and reactive pupils present Cognition (Neuro): normal cognition Speech: Abnormal speech present Motor exam (neuro): 5/5 motor strength present throughout Extrem: Right upper extremity: normal to inspection and full ROM Psych: Appearance: grossly normal and well kempt Mental Status: mental status grossly normal Speech and movement: Normal speech and movement present Affect: normal affect Attitude: cooperative Thought process: Normal thought process present Thought content: Normal thought content present Insight: Good insight present (Psych) Judgement: Good judgement present (Psych) Course Course Course Narrative: 49-year-old female with history of diabetes mellitus and a recurrence pituitary macroadenoma currently undergoing evaluation by her donor specialist who presents emergency department for evaluation of urinary frequency. The patient's exam did reveal suprapubic tenderness otherwise was unremarkable. The differential does include diabetes insipidus verses urinary tract infection verses hyperglycemia as the cause of her symptoms. I did di scuss the patient's presentation with her donor specialist, Dr. Bobby who recommended checking the patient's sodium and serum osmolality. I did order blood work on this patient. I did speak to the lab about also getting the patient's endocrinology outpatient workup done today however so overall these tests need to be done between 7:00 a.m. and 10:00 a.m. and also need to be done after 12 hours of fasting therefore the patient will need to get these tests done as an outpatient I did discuss this with the patient. 1633: The patient's laboratory evaluation revealed a normal sodium of 137, elevated BUN of 24 with a normal creatinine of 1.0. The patient's serum glucose was elevated at 412. Serum osmoles were also elevated 313. Urinalysis did reveal white blood cells and bacteria with negative leukocyte esterase and negative nitrates. I I did discuss these findings with the patient's donor specialist. At this time, the patient's urinary frequency is most likely secondary to hyperglycemia and I did discuss this with the patient. The patient was ordered to get normal saline x1 L and regular insulin 10 units IV. The patient will be discharged home after she completes this treatment. She was advised to continue to try to be compliant with her diabetic diet and to continue to take her medications as prescribed by her providers. I did discuss getting the outpatient workup as ordered by her donor specialist with the patient and the need for her to Fast 12 hours prior to getting the studies and to get the studies at 7:00 a.m. in the morning. I did tell the patient to continue taking her ciprofloxacin as prescribed by her doctor. MDM - Female Genitourinary Lab Data Result diagrams: 05/16/20 13:47 05/16/20 13:47 Labs: Lab Results 05/16/20 05/16/20 05/16/20 Range/Units 13:47 13:47 13:47 WBC 12.2 H (4.8-10.8) X10*3/uL RBC 4.36 (4.20-5.50) X10*6/uL Hgb 13.7 (12.0-16.0) g/dl Hct 39.4 (37-47) % MCV 90.4 (80-98) fL MCH 31.4 (27.0-33.0) pg MCHC 34.8 (31.0-35.0) g/dl RDW 12.7 (11.0-16.0) % Plt Count 161 (160-400) X10*3/uL MPV 11.1 (9.4-12.3) fL Immature Gran % (Auto) 1.7 H (0.0-0.4) % Neut % (Auto) 45.3 (45-73) % Lymph % (Auto) 45.0 H (20-40) % Motley % (Auto) 7.6 (2-11) % Eos % (Auto) 0.2 (0-4) % Baso % (Auto) 0.2 (0-2) % Lymph # (Auto) 5.5 H (1.2-4.9) X10*3/uL Motley # (Auto) 0.9 (0.1-1.2) X10*3/uL Eos # (Auto) 0.0 (0.0-0.4) X10*3/uL Baso # (Auto) 0.0 (0.0-0.2) X10*3/uL Abs Immat Gran (auto) 0.21 H (0.00-0.03) X10*3/uL Absolute Neuts (auto) 5.5 (2.0-8.3) X10*3/uL Absolute Nucleated RBC 0.000 (0.0-0.012) X10*3/uL Nucleated RBC % (auto) 0.0 (0.0-0.2) /100WBC Smear Tech's Comments VERIFIED Sodium 137 (135-145) mmol/L Potassium 4.6 (3.3-5.1) mmol/l Chloride 98 (96-108) mmol/L Carbon Dioxide 29 (22-29) mmol/L Anion Gap 15 (12-20) BUN 24 H (9-16) mg/dL Creatinine 1.02 (0.5-1.4) mg/dL Estim Creat Clear Calc 70.9 Estimated GFR 57 Random Glucose 412 H* (60-115) mg/dL Osmolality 313 H (281-305) mosm/kg Lactic Acid (0.5-2.0) mmol/L Calcium 9.4 (8.4-10.2) mg/dL Total Bilirubin 0.3 (0.0-1.0) mg/dL AST 16 (5-31) U/L ALT 17 (0-31) U/L Alkaline Phosphatase 106 (39-117) U/L Total Protein 7.3 (6.5-8.0) g/dL Albumin 4.5 (3.5-5.0) g/dL Lipase 130 H (8-78) U/L Urine Color Urine Appearance Urine pH (5.0-8.0) Ur Specific Elgin (1.005-1.025) Urine Protein (NEG-TRACE) MG/DL Urine Glucose (UA) (NEG) MG/DL Urine Ketones (NEG) MG/DL Urine Blood (NEG) Urine Nitrite (NEG) Ur Leukocyte Esterase (NEG) Urine RBC (0) /HPF Urine WBC (0-4) /HPF Ur Squamous Epith Cells /LPF Urine Bacteria /LPF 05/16/20 05/16/20 Range/Units 13:47 13:47 WBC (4.8-10.8) X10*3/uL RBC (4.20-5.50) X10*6/uL Hgb (12.0-16.0) g/dl Hct (37-47) % MCV (80-98) fL MCH (27.0-33.0) pg MCHC (31.0-35.0) g/dl RDW (11.0-16.0) % Plt Count (160-400) X10*3/uL MPV (9.4-12.3) fL Immature Gran % (Auto) (0.0-0.4) % Neut % (Auto) (45-73) % Lymph % (Auto) (20-40) % Motley % (Auto) (2-11) % Eos % (Auto) (0-4) % Baso % (Auto) (0-2) % Lymph # (Auto) (1.2-4.9) X10*3/uL Motley # (Auto) (0.1-1.2) X10*3/uL Eos # (Auto) (0.0-0.4) X10*3/uL Baso # (Auto) (0.0-0.2) X10*3/uL Abs Immat Gran (auto) (0.00-0.03) X10*3/uL Absolute Neuts (auto) (2.0-8.3) X10*3/uL Absolute Nucleated RBC (0.0-0.012) X10*3/uL Nucleated RBC % (auto) (0.0-0.2) /100WBC Smear Tech's Comments Sodium (135-145) mmol/L Potassium (3.3-5.1) mmol/l Chloride (96-108) mmol/L Carbon Dioxide (22-29) mmol/L Anion Gap (12-20) BUN (9-16) mg/dL Creatinine (0.5-1.4) mg/dL Estim Creat Clear Calc Estimated GFR Random Glucose (60-115) mg/dL Osmolality (281-305) mosm/kg Lactic Acid 2.1 H* (0.5-2.0) mmol/L Calcium (8.4-10.2) mg/dL Total Bilirubin (0.0-1.0) mg/dL AST (5-31) U/L ALT (0-31) U/L Alkaline Phosphatase (39-117) U/L Total Protein (6.5-8.0) g/dL Albumin (3.5-5.0) g/dL Lipase (8-78) U/L Urine Color YELLOW Urine Appearance CLEAR Urine pH 6.0 (5.0-8.0) Ur Specific Elgin 1.020 (1.005-1.025) Urine Protein NEG (NEG-TRACE) MG/DL Urine Glucose (UA) >=1000 H (NEG) MG/DL Urine Ketones 5 (NEG) MG/DL Urine Blood 1+ H (NEG) Urine Nitrite NEG (NEG) Ur Leukocyte Esterase NEG (NEG) Urine RBC 1-4 (0) /HPF Urine WBC 15-29 H (0-4) /HPF Ur Squamous Epith Cells 1+ /LPF Urine Bacteria NONE /LPF Discharge Plan Discharge Clinical Impression: Acute hyperglycemia, Increased urinary frequency Urinary tract infection Qualifiers: Urinary tract infection type: acute cystitis Patient Disposition: Home, Self-Care Instructions: Urinary Tract Infection in Women (ED) Additional Instructions: Your urinary frequency is most likely caused by your high sugar as well as a urinary tract infection. Continue to follow your diabetic diet. Continue to take your medications for your diabetes as prescribed by your doctors. Finish the ciprofloxacin as prescribed by your doctor. Your donor specialist, Dr. Bobby ordered blood work to be done as an outpatient. This blood work needs to be done at between 7:00 a.m. and 10:00 a.m. you need to fast for 12 hours prior to getting this blood work. The [facility] outpatient laboratory opens at 6:30 a.m. and it is important that you get her early to get these labs done. Follow-up with your doctor in 2 days. Please return to emergency department if her symptoms get worse or if you develop any new symptoms that are concerning to you. Prescriptions: No Action loratadine [Allergy Relief (loratadine)] 10 mg tablet 10 mg PO DAILY 90 Days Qty: 90 RF: 0 sumatriptan succinate 25 mg tablet 25 mg PO ONCE PRN (Reason: migraine headache) 90 Days Qty: 30 RF: 0 insulin glargine [Basaglar KwikPen U-100 Insulin] 100 unit/mL (3 mL) insulin pen 45 unit subcut BID Qty: 15 RF: 0 ciprofloxacin HCl [Cipro] 250 mg tablet 250 mg PO BID 3 Days Qty: 6 RF: 0 glimepiride 2 mg tablet 2 mg PO DAILY Qty: 90 RF: 0 pantoprazole 40 mg tablet,delayed release (DR/EC) 40 mg PO DAILY RF: 0 ondansetron HCl 4 mg tablet PO RF: 0 Elmiron 100 mg capsule 100 mg PO TID RF: 0 levothyroxine 88 mcg tablet 88 mcg PO DAILY RF: 0 atorvastatin 40 mg tablet 40 mg PO DAILY RF: 0 duloxetine 60 mg capsule,delayed release(DR/EC) PO RF: 0 albuterol sulfate 90 mcg/actuation HFA aerosol inhaler inhalation RF: 0 Belsomra 15 mg tablet 15 mg PO BEDTIME PRNRF: 0 Qvar RediHaler 80 mcg/actuation HFA aerosol breath activated 1 inh inhalation BID RF: 0 clonazepam 0.5 mg tablet 0 mg PO RF: 0 Fluzone Quad [id number] (PF) 60 mcg (15 mcg x 4)/0.5 mL syringe IM RF: 0 (DME) blood-glucose meter Kit See Rx Instructions ea .ROUTE TID Qty: 1 RF: 0 (DME) FreeStyle Lite Strips Strip See Rx Instructions ea Not Applicable TID Qty: 10 RF: 0 triamcinolone acetonide 0.1 % cream topical RF: 0 nitrofurantoin monohyd/m-cryst 100 mg capsule 1 cap PO BID RF: 0 (DME) pen needle, diabetic 31 gauge x 5/16 needle See Rx Instructions ea subcut DAILY Qty: 1200 RF: 0 phenazopyridine 100 mg tablet 100 mg PO TID RF: 0 phenazopyridine 200 mg tablet 200 mg PO TID RF: 0 divalproex 500 mg tablet,delayed release (DR/EC) 1,000 mg PO BID RF: 0 cholecalciferol (vitamin D3) 50 mcg (2,000 unit) capsule 50 mcg PO BEDTIME 90 Days Qty: 90 RF: 3 ropinirole 1 mg tablet 3 mg PO DAILY 90 Days Qty: 270 RF: 1 oxybutynin chloride 5 mg tablet PO RF: 0
[2020-05-16 13:54] VITALS: BP 117/77; PULSE 101; RESP 16; O2SAT 97
[2020-05-16 13:59] LABS: Basophils Percent Auto 0.2 % (0-2); Eosinophils Percent Auto 0.2 % (0-4); Hematocrit 39.4 % (37-47); Hemoglobin 13.7 g/dl (12.0-16.0); Imm Gran Abs Auto 0.21 X10*3/uL (0.00-0.03); Imm Gran Pct Auto 1.7 % (0.0-0.4); Lymphocytes Absolute Auto 5.5 X10*3/uL (1.2-4.9); MANUAL DIFF FLAG SCAN; Mean Corpuscular HGB Conc 34.8 g/dl (31.0-35.0); Mean Corpuscular Hemoglobin 31.4 pg (27.0-33.0); Mean Corpuscular Volume 90.4 fL (80-98); Mean Platelet Volume 11.1 fL (9.4-12.3); Monocytes Absolute Auto 0.9 X10*3/uL (0.1-1.2); Monocytes Percent Auto 7.6 % (2-11); Neutrophils Absolute Auto 5.5 X10*3/uL (2.0-8.3); Neutrophils Percent Auto 45.3 % (45-73); Platelet Count 161 X10*3/uL (160-400); Red Blood Count 4.36 X10*6/uL (4.20-5.50); Red Cell Distribution Width 12.7 % (11.0-16.0); SCAN SMEAR FLAG 1; White Blood Count 12.2 X10*3/uL (4.8-10.8)
[2020-05-16 14:03] LABS: Glucose Urine UA >=1000 MG/DL (NEG); Leukocyte Esterase Urine NEG (NEG); Nitrite Urine NEG (NEG); Urine Blood 1+ (NEG); Urine Ketones 5 MG/DL (NEG); Urine Protein NEG (NEG-TRACE)
[2020-05-16 14:06] LABS: Appearance Urine CLEAR; Color Urine YELLOW
[2020-05-16 14:11] LABS: Squamous Epithelial Cell Urine 1+ /LPF; UACC CULT YES
[2020-05-16 14:26] LABS: SLIDE REVIEW VERIFIED
[2020-05-16 14:28] LABS: Lactic Acid 2.1 mmol/L (0.5-2.0)
[2020-05-16 14:37] LABS: Alanine Aminotransferase 17 U/L (0-31); Albumin Level 4.5 g/dL (3.5-5.0); Alkaline Phosphatase 106 U/L (39-117); Anion Gap 15 (12-20); Aspartate Amino Transferase 16 U/L (5-31); Bilirubin Total 0.3 mg/dL (0.0-1.0); Blood Urea Nitrogen 24 mg/dL (9-16); Calcium 9.4 mg/dL (8.4-10.2); Carbon Dioxide 29 mmol/L (22-29); Chloride 98 mmol/L (96-108); Creatinine Clr Calc Pharmacy 70.9; Estimated Glomerular Filt Rate 57; Potassium 4.6 mmol/l (3.3-5.1); Sodium 137 mmol/L (135-145); Total Protein 7.3 g/dL (6.5-8.0)
[2020-05-16 14:38] LABS: Glucose Random 412 mg/dL (60-115)
[2020-05-16 14:39] LABS: Osmolality, Serum 313 mosm/kg (281-305)
[2020-05-16 14:45] LABS: Lipase 130 U/L (8-78)
[2020-05-16 14:55] VITALS: BP 108/55; PULSE 65; RESP 16; TEMP 37.3; O2SAT 99
[2020-05-16 15:56] LABS: Reflex Lactate? Lactic Acid Added
--- NOTE | 2020-05-16 16:08 | PC.NURSE ---
Pt requested to be medicated w/ requip before repeat lactic is drawn- states she is unable to hold still for draw. Pharmacy called for med. RICARDO aware
[2020-05-16] MEDS: 0.9 % Sodium Chloride 1,000 ML 999 ML IV (16:12)
[2020-05-16] MEDS: Insulin Regular, Human 100 UNIT/ML 3 ML VIAL 10 UNIT IVPUSH (16:12)
[2020-05-16] MEDS: rOPINIRole HCL 2 MG TABLET 3 MG PO (16:20)
[2020-05-16 16:43] VITALS: BP 124/80; PULSE 96; RESP 18; TEMP 37; O2SAT 100
[2020-05-16 16:48] LABS: Glucose, Whole Blood 295 mg/dL (60-115)
--- NOTE | 2020-05-16 17:06 | PC.NURSE ---
Pt requesting to leave prior to lactic result, aware and ok. Pt reports increased restless leg pain despite Requip medication, declined further medication.
[2020-05-16 17:24] LABS: ~Lactic Acid-LAB USE ONLY 2.3 mmol/L (0.5-2.0)
--- NOTE | 2020-05-16 17:28 | PC.NURSE ---
REPEAT LACTIC CALLED TO ED AFTER PT WAS D/C ATTENDING MD NO LONGER ON SHIFT CURRENT ATTENDING MADE AWARE
[2020-05-16 18:48] LABS: Reflex Lactate? 2 Y
== END 2020-05-16 17:13 | disposition home or self-care (01) ==
PROVIDERS: Emergency Provider Emergency Medicine Emergency Medical Services; PCP Nurse Practitioner Family
DX: N30.00 Acute cystitis without hematuria (principal); E11.65 Type 2 diabetes mellitus with hyperglycemia; E86.0 Dehydration; Z79.899 Other long term (current) drug therapy; R35.0 Frequency of micturition; Z79.4 Long term (current) use of insulin
CPT/HCPCS: 36415; 80053; 81001; 81003; 82947; 83605; 83690; 83930; 85025; 87086; 96361; 96374; 99284; 99285

== ENCOUNTER → 2020-05-27 07:52 | Outpatient (BNVA) | payer OTHER, SELFPAY | PROVIDERS: PCP Nurse Practitioner Family; Visit Provider Internal Medicine | DX: Z76.89 Persons encountering health services in other specified circumstances (principal) ==

== ENCOUNTER 2020-06-10 07:51 | Outpatient (REF) | payer OTHER, SELFPAY ==
[2020-06-10 09:55] LABS: Estimated Average Glucose 217 mg/dL; Hemoglobin A1c % 9.2 %
[2020-06-10 09:57] LABS: Alanine Aminotransferase 19 U/L (0-31); Albumin Level 4.2 g/dL (3.5-5.0); Alkaline Phosphatase 107 U/L (39-117); Anion Gap 12 (12-20); Aspartate Amino Transferase 14 U/L (5-31); Bilirubin Total 0.4 mg/dL (0.0-1.0); Blood Urea Nitrogen 11 mg/dL (9-16); Calcium 8.7 mg/dL (8.4-10.2); Calcium 8.8 mg/dL (8.4-10.2); Carbon Dioxide 29 mmol/L (22-29); Chloride 101 mmol/L (96-108); Cholesterol 201 mg/dL; Estimated Glomerular Filt Rate > 60; Glucose Fasting 285 mg/dL (60-99); HDL Cholesterol 41 mg/dL; LDL Cholesterol Calculated 129 mg/dl; Phosphorus 4.2 mg/dL (2.7-4.5); Potassium 4.1 mmol/l (3.3-5.1); Sodium 138 mmol/L (135-145); Total Protein 6.5 g/dL (6.5-8.0); Triglycerides 156 mg/dL
[2020-06-10 10:21] LABS: Free T4 (Free Thyroxine) 0.73 ng/dL (0.71-1.85); Thyroid Stimulating Hormone 0.48 uIU/mL (0.32-4.0); Vitamin D 25-OH Total 24.9 ng/mL (>30)
[2020-06-10 10:36] LABS: Osmolality, Serum 298 mosm/kg (281-305)
[2020-06-10 11:05] LABS: Glucose Urine UA >=1000 MG/DL (NEG); Leukocyte Esterase Urine NEG (NEG); Nitrite Urine NEG (NEG); Specific Gravity - Urine 1.025 (1.005-1.025); Urine Blood TRACE (NEG); Urine Ketones NEG (NEG); Urine Protein NEG (NEG-TRACE)
[2020-06-10 11:24] LABS: Appearance Urine CLEAR; Color Urine YELLOW
[2020-06-10 11:29] LABS: Creatinine Urine 77.64 mg/dL
[2020-06-10 11:32] LABS: Osmolality Urine 846 mosm/kg (373-1093)
[2020-06-10 11:37] LABS: RBC Urine 0-2 /HPF (0); Squamous Epithelial Cell Urine TRACE /LPF
[2020-06-11 13:52] LABS: LDL Cholesterol Direct 136 mg/dL (<100)
[2020-06-11 17:27] LABS: Triiodothyronine T3 Total 111 ng/dL (76-181)
[2020-06-11 19:47] LABS: Sex Hormone Binding Globulin 64 nmol/L (17-124)
[2020-06-12 15:26] LABS: Calcium, Ionized 4.8 mg/dL (4.8-5.6); Prot Elec - Albumin 3.9 g/dL (3.8-4.8); Prot Elec - Alpha1 0.3 g/dL (0.2-0.3); Prot Elec - Alpha2 0.7 g/dL (0.5-0.9); Prot Elec - Beta 1 0.4 g/dL (0.4-0.6); Prot Elec - Beta 2 0.3 g/dL (0.2-0.5); Prot Elec - Gamma 0.7 g/dL (0.8-1.7); Prot Elec - Total Protein 6.3 g/dL (6.1-8.1)
[2020-06-12 17:22] LABS: Lutenizing Hormone <0.2 mIU/mL; Prolactin Undiluted <1.0 ng/mL
[2020-06-12 23:18] LABS: Adrenocorticotropic Hormone 43 pg/mL (6-50)
[2020-06-14 23:13] LABS: Estradiol Ultra Sensitive <2 pg/mL
[2020-06-15 21:02] LABS: IGF-1 (Somatomedin C) <10 ng/mL (50-317)
[2020-06-17 11:22] LABS: Calcium (PTHI) 8.8 mg/dL (8.6-10.4)
[2020-06-18 22:13] LABS: N-Telopeptide 45 (see note); NTXCreaRU 76 mg/dL (20-275)
[2020-06-20 15:48] LABS: Estradiol Free <0.04 pg/mL; Estradiol, Ultrasensitive <2 pg/mL
== END 2020-06-10 07:52 | disposition home or self-care (01) ==
LOC: HO.LAB 07:51
PROVIDERS: Internal Medicine; Physician Assistant; Absent Provider Nurse Practitioner Family; PCP Nurse Practitioner Family; Visit Provider Family Medicine Adult Medicine
DX: N39.0 Urinary tract infection, site not specified (principal); E11.65 Type 2 diabetes mellitus with hyperglycemia; D35.2 Benign neoplasm of pituitary gland; M81.0 Age-related osteoporosis without current pathological fracture; E55.9 Vitamin D deficiency, unspecified
CPT/HCPCS: 36415; 80053; 80061; 81001; 82024; 82040; 82306; 82310; 82330; 82523; 82533; 82670; 83001; 83002; 83036; 83721; 83930; 83935; 83970; 84075; 84100; 84146; 84155; 84165; 84270; 84305; 84439; 84443; 84480; 87086

== ENCOUNTER → 2020-07-01 08:34 | Outpatient (BNVA) | payer OTHER, SELFPAY | PROVIDERS: PCP Nurse Practitioner Family; Visit Provider Internal Medicine ==

== ENCOUNTER 2020-07-05 07:46 | Outpatient (REF) | payer OTHER, SELFPAY ==
[2020-07-08 23:18] LABS: Adrenocorticotropic Hormone 58 pg/mL (6-50)
[2020-07-12 09:22] LABS: Cortisol 60 Minute 13.1 mcg/dL
== END 2020-07-05 07:47 | disposition home or self-care (01) ==
LOC: HO.MDS 07:46
PROVIDERS: PCP Nurse Practitioner Family; Visit Provider Internal Medicine
DX: E27.40 Unspecified adrenocortical insufficiency (principal)
CPT/HCPCS: 36415; 82024; 82533; 96374; J0834

== ENCOUNTER → 2020-07-11 13:50 | Outpatient (BNVA) | payer OTHER, SELFPAY | PROVIDERS: PCP Nurse Practitioner Family; Visit Provider Internal Medicine | DX: E11.69 Type 2 diabetes mellitus with other specified complication (principal); D35.2 Benign neoplasm of pituitary gland; E03.9 Hypothyroidism, unspecified; E55.9 Vitamin D deficiency, unspecified; E78.5 Hyperlipidemia, unspecified; I10 Essential (primary) hypertension; M81.0 Age-related osteoporosis without current pathological fracture | CPT/HCPCS: 82947; 99212 ==

== ENCOUNTER 2020-08-08 12:19 | Outpatient (REF) | payer OTHER, SELFPAY | END 2020-08-08 12:20 | disposition home or self-care (01) | LOC: HO.LAB 12:19 | PROVIDERS: Visit Provider Nurse Practitioner Family | DX: J40 Bronchitis, not specified as acute or chronic (principal); Z20.822 Contact with and (suspected) exposure to COVID-19 | CPT/HCPCS: 36415; U0003; U0005 ==

== ENCOUNTER → 2020-09-04 08:53 | Outpatient (BNVA) | payer OTHER, SELFPAY | PROVIDERS: PCP Nurse Practitioner Family; Visit Provider Internal Medicine ==

== ENCOUNTER 2020-10-09 11:06 | Outpatient (REF) | payer OTHER, SELFPAY ==
[2020-10-09 13:55] LABS: MANUAL DIFF FLAG NO
[2020-10-09 14:02] LABS: Basophils Percent Auto 0.3 % (0-2); Eosinophils Percent Auto 0.6 % (0-4); Hematocrit 39.3 % (37-47); Hemoglobin 12.9 g/dl (12.0-16.0); Imm Gran Abs Auto 0.04 X10*3/uL (0.00-0.03); Imm Gran Pct Auto 0.6 % (0.0-0.4); Lymphocytes Absolute Auto 3.1 X10*3/uL (1.2-4.9); Lymphocytes Percent Auto 48.5 % (20-40); Mean Corpuscular HGB Conc 32.8 g/dl (31.0-35.0); Mean Corpuscular Hemoglobin 29.9 pg (27.0-33.0); Mean Corpuscular Volume 91.2 fL (80-98); Mean Platelet Volume 9.8 fL (9.4-12.3); Monocytes Absolute Auto 0.6 X10*3/uL (0.1-1.2); Monocytes Percent Auto 9.6 % (2-11); Neutrophils Absolute Auto 2.6 X10*3/uL (2.0-8.3); Neutrophils Percent Auto 40.4 % (45-73); Platelet Count 198 X10*3/uL (160-400); Red Blood Count 4.31 X10*6/uL (4.20-5.50); Red Cell Distribution Width 13.9 % (11.0-16.0); White Blood Count 6.5 X10*3/uL (4.8-10.8)
[2020-10-09 14:23] LABS: Glucose Urine UA NEG (NEG); Leukocyte Esterase Urine NEG (NEG); Nitrite Urine NEG (NEG); PH 7.5 (5.0-8.0); Urine Blood NEG (NEG); Urine Ketones NEG (NEG); Urine Protein NEG (NEG-TRACE)
[2020-10-09 14:28] LABS: Alanine Aminotransferase 20 U/L (0-31); Albumin Level 4.4 g/dL (3.5-5.0); Alkaline Phosphatase 78 U/L (39-117); Anion Gap 12 (12-20); Aspartate Amino Transferase 18 U/L (5-31); Bilirubin Total 0.4 mg/dL (0.0-1.0); Blood Urea Nitrogen 11 mg/dL (9-16); Calcium 8.9 mg/dL (8.4-10.2); Carbon Dioxide 31 mmol/L (22-29); Chloride 104 mmol/L (96-108); Cholesterol 183 mg/dL; Estimated Glomerular Filt Rate > 60; Glucose Random 133 mg/dL (60-115); HDL Cholesterol 61 mg/dL; LDL Cholesterol Calculated 97 mg/dl; Potassium 4.2 mmol/L (3.3-5.1); Sodium 143 mmol/L (135-145); Total Protein 6.8 g/dL (6.5-8.0); Triglycerides 125 mg/dL
[2020-10-09 14:34] LABS: Appearance Urine CLEAR; Color Urine YELLOW
[2020-10-09 14:42] LABS: Valproate 19.6 mcg/mL (50.0-100.0)
[2020-10-09 14:48] LABS: Ferritin 90 ng/mL (10-250)
[2020-10-09 14:50] LABS: RBC Urine 0-2 /HPF (0); Squamous Epithelial Cell Urine TRACE /LPF; WBC Urine 0 /HPF (0-4)
[2020-10-09 14:51] LABS: Thyroid Stimulating Hormone 1.41 uIU/mL (0.32-4.0); Vitamin D 25-OH Total 18.4 ng/mL (>30)
[2020-10-09 14:52] LABS: Iron 99 mcg/dL (30-160); Percent Iron Saturation 28 % (15-50); Total Iron Binding Capacity 353 mcg/dL (228-428); Unsaturated Iron Binding 254 ug/dL
== END 2020-10-09 11:07 | disposition home or self-care (01) ==
LOC: HO.HMGCLDS 11:06
PROVIDERS: Physician Assistant; Absent Provider Internal Medicine; PCP Nurse Practitioner Family; Referring Provider Psychiatry & Neurology Psychiatry; Visit Provider Nurse Practitioner Family
DX: D64.9 Anemia, unspecified (principal); Z79.899 Other long term (current) drug therapy
CPT/HCPCS: 36415; 80053; 80061; 80164; 81001; 81003; 82306; 82728; 83540; 84443; 85025

== ENCOUNTER 2020-10-15 22:19 | Emergency (ER) | payer OTHER, SELFPAY ==
--- NOTE | ~2020-10-15 | CT_ITS ---
EXAMINATION: CT CHEST WITHOUT CONTRAST CLINICAL INFORMATION: fall . COMPARISON: CT scan. TECHNIQUE: Multidetector volumetric imaging was performed from the thoracic inlet through the lung bases without contrast. Sagittal and coronal reformatted images were obtained on the technologist workstation. Soft tissue and lung algorithms evaluated. Thick slab MIP images were performed to increase nodule conspicuity. This CT examination was performed using dose optimization techniques as appropriate, variously including the following: *Automated exposure control *Adjustment of mA and/or kV according to patient size (this includes techniques or standardized protocols for targeted exams where dose is matched to indication/reason for exam; i.e. extremities or head) *Use of iterative reconstruction technique DLP: 541 mGy-cm. FINDINGS: LUNG: Bibasilar dependent atelectatic change. No dense consolidation. Central airways are unremarkable. MEDIASTINUM: The mediastinum is normal. The central vascular structures are unremarkable. No hilar or mediastinal lymphadenopathy. PERICARDIUM/PLEURA: No significant effusion. No pleural mass or thickening. THYROID/VISUALIZED LOWER NECK: Unremarkable. CHEST WALL/AXILLA: Unremarkable. VISUALIZED UPPER ABDOMEN: Unremarkable. BONES: There is a very subtle cortical irregularity along the anterior aspect of the right third rib with suggestion of chronic healed fracture of the anterior right fourth rib and slight deformity to the anterior right fifth rib. These may represent old healed injuries although had a more normal appearance on the 12/04/[address]/CT chest wo con IMPRESSION: Subtle deformities to the anterior right third, fourth, and fifth ribs likely representing subtle post running changes of indeterminate age although this had a more normal appearance on the 2016 CT scan. Would clinically correlate for point tenderness in this location. Otherwise no displaced rib fracture seen.
--- NOTE | ~2020-10-15 | CT_ITS ---
EXAMINATION: NONCONTRAST HEAD CT NONCONTRAST CERVICAL SPINE CT INDICATION INFORMATION: Fall COMPARISON: 11/11/2017 TECHNIQUE: Separate noncontrast CT examinations of the head and cervical spine were performed. Coronal head CT images and coronal and sagittal cervical spine images were created at the technologist workstation. DLP: 1758 mGy-cm DOSE LOWERING TECHNIQUES: This CT examination was performed using dose optimization techniques as appropriate, variously including the following: - Automated exposure control - Adjustment of mA and/or kV according to patient size (this includes techniques or standardized protocols for targeted exams were dose is matched to indication/reason for exam; i.e. extremities or head) - Use of iterative reconstruction technique FINDINGS: Head: There is no evidence of acute intracranial hemorrhage or territorial infarction. No abnormal mass-effect or midline shift is seen. Thompson to white matter differentiation is well preserved. No extra-axial fluid collections are identified. The ventricles are normal in size. Chronic changes related to transsphenoidal resection of pituitary mass. The osseous structures and soft tissues are normal. The mastoid air cells and visualized portions of the paranasal sinuses are well-aerated. Cervical spine: There is anatomic alignment of the vertebral bodies and posterior elements. Vertebral body heights are maintained. Intervertebral disc spaces are preserved. There is right-sided facet arthropathy at C5-C6. No evidence of acute fracture. No prevertebral soft tissue swelling. Visualized portions of the lung apices are unremarkable. The thyroid gland is unremarkable. CT/CT cervical spine wo con IMPRESSION: No acute findings identified in the head or cervical spine.
--- NOTE | ~2020-10-15 | CT_ITS ---
EXAMINATION: NONCONTRAST HEAD CT NONCONTRAST CERVICAL SPINE CT INDICATION INFORMATION: Fall COMPARISON: 11/11/2017 TECHNIQUE: Separate noncontrast CT examinations of the head and cervical spine were performed. Coronal head CT images and coronal and sagittal cervical spine images were created at the technologist workstation. DLP: 1758 mGy-cm DOSE LOWERING TECHNIQUES: This CT examination was performed using dose optimization techniques as appropriate, variously including the following: - Automated exposure control - Adjustment of mA and/or kV according to patient size (this includes techniques or standardized protocols for targeted exams were dose is matched to indication/reason for exam; i.e. extremities or head) - Use of iterative reconstruction technique FINDINGS: Head: There is no evidence of acute intracranial hemorrhage or territorial infarction. No abnormal mass-effect or midline shift is seen. Thompson to white matter differentiation is well preserved. No extra-axial fluid collections are identified. The ventricles are normal in size. Chronic changes related to transsphenoidal resection of pituitary mass. The osseous structures and soft tissues are normal. The mastoid air cells and visualized portions of the paranasal sinuses are well-aerated. Cervical spine: There is anatomic alignment of the vertebral bodies and posterior elements. Vertebral body heights are maintained. Intervertebral disc spaces are preserved. There is right-sided facet arthropathy at C5-C6. No evidence of acute fracture. No prevertebral soft tissue swelling. Visualized portions of the lung apices are unremarkable. The thyroid gland is unremarkable. CT/CT head/brain wo con IMPRESSION: No acute findings identified in the head or cervical spine.
[2020-10-15 22:33] VITALS: BP 129/74; PULSE 94; RESP 16; TEMP 36.6; O2SAT 98; BMI 27.4
--- NOTE | 2020-10-15 22:34 | ED_ITS ---
HPI - Fall General Chief Complaint: Fall Stated Complaint: fall Time Seen by Provider: 10/15/20 22:34 Source: patient and EMS Mode of arrival: EMS Limitations: no limitations History of Present Illness HPI Narrative: 50 yo female with HTN, HLD, DM - was carrying a carpet down the stairs and fell down 4 steps hitting head on metal door and a plastic large crate landed on chest c/o pain at sternum, no LOC, was not on floor for a long time MD complaint: fall Onset (ago): minute(s) Fall from: down stairs (#) (4) Fall witnessed: no Place fall occurred: home Loss of consciousness: none Prolonged down time: no Symptoms prior to fall: none Context: tripped/slipped Location of injury: head and chest Severity: moderate Quality: sharp Associated symptoms (after fall): denies Related Data Home Medications Medication Instructions Recorded Confirmed blood sugar diagnostic #10 ea 03/18/20 09/04/20 blood-glucose meter #1 ea 03/18/20 09/04/20 pen needle, diabetic 31 gauge x #1200 ea 03/18/20 09/04/2010/13 divalproex 500 mg tablet,delayed 1,000 mg PO BID tab 05/02/20 09/04/20 release oxybutynin chloride 5 mg tablet 5 mg PO tab 05/27/20 09/04/20 levothyroxine 100 mcg tablet 100 mcg PO DAILY 07/09/20 09/04/20 ondansetron HCl 4 mg tablet 4 mg PO DAILY PRN tab 07/11/20 09/04/20 suvorexant 15 mg tablet 15 mg PO BEDTIME PRN 07/11/20 09/04/20 clonazepam 0.5 mg tablet 0.5 mg PO PRN tab 09/04/20 09/04/20 duloxetine 60 mg capsule,delayed 60 mg PO cap 09/04/20 09/04/20 release pentosan polysulfate sodium 100 mg 100 mg PO TID 09/04/20 09/04/20 capsule Previous Rx's Medication Instructions Recorded pantoprazole 40 mg tablet,delayed 40 mg PO DAILY #90 tab 05/20/20 release flash glucose scanning reader #1 ea 05/27/20 flash glucose sensor #2 ea 05/27/20 atorvastatin 80 mg tablet 80 mg PO BEDTIME 30 Days #30 tab 07/01/20 cholecalciferol (vitamin D3) 50 50 mcg PO BEDTIME 90 Days #90 cap 07/01/20 mcg (2,000 unit) capsule albuterol sulfate 90 mcg/actuation 2 puff INHALATION Q6H PRN 3 Days 07/19/20 aerosol inhaler #8.5 g albuterol sulfate 90 mcg/actuation 2 puff INHALATION Q4-6H PRN #6.7 g 08/08/20 aerosol inhaler prednisone 20 mg tablet 20 mg PO DAILY 9 Days #18 tab 08/08/20 prednisone 5 mg tablet 5 mg PO DAILY 30 Days #30 tab 08/21/20 furosemide 40 mg tablet 40 mg PO DAILY #90 tab 08/27/20 insulin glargine 100 unit/mL (3 See Rx Instructions SUBCUT QPM 30 09/05/20 mL) subcutaneous pen Days #24 ml beclomethasone dipropionate 80 1 inh INHALATION BID #10.6 g 09/19/20 mcg/actuation HFA breath activated aerosol loratadine 10 mg tablet 10 mg PO DAILY #30 tab 09/19/20 ropinirole 1 mg tablet 3 mg PO DAILY 90 Days #270 tab 10/14/20 cyclobenzaprine 10 mg PO TID PRN #14 tab 10/15/20 hydrocodone-acetaminophen 1 tab PO Q6H PRN #12 tab 10/15/20 lidocaine 1 patch TOPICAL DAILY PRN #10 ea 10/15/20 Allergies Allergy/AdvReac Type Severity Reaction Status Date / Time No Known Allergies Allergy Verified 09/04/20 09:33 Review of Systems Review of Systems: Constitutional : No Fever, No Chills ENT/Mouth : No Ear Pain, No Hoarseness, No sore throat Eyes: No Eye Pain, No Swelling, No Redness, No Foreign Body Cardiovascular : pos Chest Pain, No SOB Respiratory : No Cough, No Dyspnea Gastrointestinal : No Nausea, No Vomiting, No Diarrhea, No abdominal Pain Genitourinary : No Dysuria, No Hematuria Musculoskeletal : no joint pain, No Myalgias, No Joint Swelling Skin : No Skin lacerations, No rash Neuro : No Weakness, No Numbness, No Loss of Consciousness, No Dizziness, No Headache Psych : No Anxiety/Panic, No Depression Heme/Lymph: no easy bruising, no Lymphadenopathy Endocrine : No Polyuria, No Polydipsia All other systems reviewed and are negative PMFSH Past Medical History Attestation statement: The following information was validated with the patient. Medical History Acute Crohn's disease Bipolar 1 disorder HLD (hyperlipidemia) HTN (hypertension) Hypothyroidism Interstitial cystitis Osteoporosis Pituitary macroadenoma T2DM (type 2 diabetes mellitus) Uncontrolled diabetes mellitus Vitamin D deficiency Surgical History History of bladder surgery History of section History of surgery History of tubal ligation LAP-BAND surgery status Status post breast reduction Family History Family History Father HTN (hypertension) Mother Heart disease Social History Social History Household Members: Children Smoking Status: Never smoker Advance Directives: No Advance Directives Information Provided: Yes Patient : No Physical Exam Vital Signs: Vital Signs: Last Vital Signs Temp 97.8 F 10/15/20 22:33 Pulse 94 10/15/20 22:33 Resp 16 10/15/20 22:33 BP 129/74 10/15/20 22:33 Pulse Ox 98 10/15/20 22:33 Body Mass Index 27.4 Appearance: slightly sedated, states she is sleepy due to taking care of a 2 year old. Oriented X3. No acute distress. Eyes: Pupils equal, round and reactive to light. ENT: Pharynx normal. Neck: Normal inspection. Neck supple. collar in place CVS: Normal heart rate and rhythm. Pulses normal. Chest: ttp along sternum Respiratory: No respiratory distress. Breath sounds normal. Abdomen: Soft and nontender. Back: mid thoracic ttp no step offs noted Skin: Skin warm and dry. Normal skin color. Normal skin turgor. Extremities: No lower extremity edema. No calf ttp full ROM OF extremities no pain Neuro: Oriented X 3. No motor deficit. No sensory deficit. Course Course Course Narrative: GCS 15, stable for DC< can go home with adult at this time, possible rib fractures not flail chest, she was very somnolent and snoring, I had to wake her up to discuss her findings, suspect her home medications interacting with hydrocodone at this time, discussed no obvious rib fracture but possible cortical irregularity could be injury but not displaced, aware of plan for DC MDM - Fall MDM Narrative Medical decision making narrative: 50 yo female fall down 4 stairs, no LOC, no AC therapy c/o head, some neck pain, sternum pain - at this time will need CT head/cervical spine/CT chest to r/o trauma, mechanical in nature, dispo per results and findings. Discharge Plan Discharge Clinical Impression: Fall Qualifiers: Encounter type: initial encounter Qualified Code(s): W19.XXXA - Unspecified fall, initial encounter Closed rib fracture Qualifiers: Encounter type: initial encounter Rib fracture type: multiple ribs Laterality: right Qualified Code(s): S22.41XA - Multiple fractures of ribs, right side, initial encounter for closed fracture Patient Disposition: Home, Self-Care Additional Instructions: return to ED for any worsening symptoms or concerns possible small cracks on anterior 3rd 4th 5th ribs not displaced, no heavy lifting over 10lbs for 2 weeks Prescriptions: New cyclobenzaprine 10 mg tablet 10 mg PO TID PRN (Reason: muscle spasm) Qty: 14 RF: 0 lidocaine 4 % adhesive patch,medicated 1 patch topical DAILY PRN (Reason: pain) Qty: 10 RF: 0 hydrocodone-acetaminophen 5-325 mg tablet 1 tab PO Q6H PRN (Reason: pain) Qty: 12 RF: 0 No Action pantoprazole 40 mg tablet,delayed release (DR/EC) 40 mg PO DAILY Qty: 90 RF: 0 albuterol sulfate [ProAir HFA] 90 mcg/actuation HFA aerosol inhaler 2 puff inhalation Q6H PRN (Reason: bronchospasm) 3 Days Qty: 8.5 RF: 0 prednisone 5 mg tablet 5 mg PO DAILY 30 Days Qty: 30 RF: 11 furosemide 40 mg tablet 40 mg PO DAILY Qty: 90 RF: 0 Lantus Solostar U-100 Insulin 100 unit/mL (3 mL) insulin pen See Rx Instructions subcut QPM 30 Days Qty: 24 RF: 3 beclomethasone dipropionate [Qvar RediHaler] 80 mcg/actuation HFA aerosol breath activated 1 inh inhalation BID Qty: 10.6 RF: 5 loratadine 10 mg tablet 10 mg PO DAILY Qty: 30 RF: 2 ropinirole 1 mg tablet 3 mg PO DAILY 90 Days Qty: 270 RF: 1 (DME) blood-glucose meter Kit See Rx Instructions ea .ROUTE TID Qty: 1 RF: 0 (DME) FreeStyle Lite Strips Strip See Rx Instructions ea Not Applicable TID Qty: 10 RF: 0 (DME) pen needle, diabetic 31 gauge x 5/16 needle See Rx Instructions ea subcut DAILY Qty: 1200 RF: 0 divalproex 500 mg tablet,delayed release (DR/EC) 1,000 mg PO BID RF: 0 ondansetron HCl 4 mg tablet 4 mg PO DAILY PRNRF: 0 suvorexant 15 mg tablet 15 mg PO BEDTIME PRNRF: 0 clonazepam 0.5 mg tablet 0.5 mg PO PRNRF: 0 duloxetine 60 mg capsule,delayed release(DR/EC) 60 mg PO RF: 0 pentosan polysulfate sodium 100 mg capsule 100 mg PO TID RF: 0 levothyroxine 100 mcg tablet 100 mcg PO DAILY RF: 0 albuterol sulfate 90 mcg/actuation HFA aerosol inhaler 2 puff inhalation Q4-6H PRN (Reason: shortness of breath or wheezing) Qty: 6.7 RF: 0 prednisone 20 mg tablet 20 mg PO DAILY 9 Days Qty: 18 RF: 0 oxybutynin chloride 5 mg tablet 5 mg PO RF: 0 atorvastatin 80 mg tablet 80 mg PO BEDTIME 30 Days Qty: 30 RF: 11 cholecalciferol (vitamin D3) 50 mcg (2,000 unit) capsule 50 mcg PO BEDTIME 90 Days Qty: 90 RF: 3 (DME) FreeStyle Kourtney 14 Day Sensor Kit See Rx Instructions .ROUTE .MEDSUPPLY Qty: 2 RF: 11 (DME) FreeStyle Kourtney 14 Day [place] Misc See Rx Instructions .ROUTE .MEDSUPPLY Qty: 1 RF: 0
[2020-10-15] MEDS: HYDROcodone Bit/Acetam 5/325 TABLET 1 TAB PO (22:58)
== END 2020-10-16 00:21 | disposition home or self-care (01) ==
PROVIDERS: Emergency Provider Emergency Medicine
DX: S22.41XA Multiple fractures of ribs, right side, initial encounter for closed fracture (principal); W10.8XXA Fall (on) (from) other stairs and steps, initial encounter; Y93.89 Activity, other specified; Y92.018 Other place in single-family (private) house as the place of occurrence of the external cause; Y99.9 Unspecified external cause status; I10 Essential (primary) hypertension; E78.5 Hyperlipidemia, unspecified; E11.9 Type 2 diabetes mellitus without complications; Z79.4 Long term (current) use of insulin; Z79.899 Other long term (current) drug therapy; Z79.02 Long term (current) use of antithrombotics/antiplatelets
CPT/HCPCS: 70450; 71250; 72125; 99283; 99284

== ENCOUNTER 2020-10-16 12:07 | Outpatient (REF) | payer OTHER, SELFPAY ==
--- NOTE | ~2020-10-16 | XR_ITS ---
EXAMINATION: RIGHT HAND X-RAY CLINICAL INFORMATION: Fall COMPARISON: None TECHNIQUE: 3 views of the right hand FINDINGS: Bone alignment is normal. No fracture or dislocation is seen. There is osteopenia. Joint spaces are normal. Soft tissues are normal. XR/XR hand wrist RT IMPRESSION: No fracture or dislocation seen. Osteopenia.
== END 2020-10-16 12:08 | disposition home or self-care (01) ==
LOC: HO.HMGCX 12:07
PROVIDERS: PCP Nurse Practitioner Family; Visit Provider Nurse Practitioner Family
DX: M25.531 Pain in right wrist (principal); Z91.81 History of falling
CPT/HCPCS: 73110; 73130

== ENCOUNTER 2020-11-24 21:03 | Emergency (ER) | payer OTHER, SELFPAY ==
[2020-11-24 21:09] VITALS: BP 142/68; PULSE 95; RESP 18; TEMP 36.8; O2SAT 98; BMI 29.0
--- NOTE | 2020-11-24 22:04 | ED.GENADULT ---
HPI - General Adult General Chief complaint: General Medical Stated complaint: MED REFILL Time Seen by Provider: 11/24/20 21:40 Source: patient Mode of arrival: ambulatory Limitations: no limitations History of Present Illness HPI narrative: 48-year-old female with below past medical history Presented today with complaint of back pain states she has had back pain for some time now worsened about a month ago when she had a fall she was already evaluated for this and had CT scans there was couple rib fractures and she has been prescribed pain medication to her doctor. States she gets oxycodone and another prescription was called in Wednesday however the prescription was called in for another narcotic medication and the pharmacy did not feel it and given this she still has pain. She otherwise denies any chest pain or shortness of breath. Pain is similar to previous this is no different, no GI symptoms. No fever. No knee injury. Onset (ago): day(s) Radiation: non-radiation Severity: moderate Quality: aching Pain Consistency: intermittent Relieving factors: none Exacerbating factors: none Associated symptoms: denies other symptoms Treatments prior to arrival: none Related Data Home Medications Medication Instructions Recorded Confirmed blood sugar diagnostic #10 ea 03/18/20 11/20/20 blood-glucose meter #1 ea 03/18/20 11/20/20 pen needle, diabetic 31 gauge x #1200 ea 03/18/20 11/20/2010/13 divalproex 500 mg tablet,delayed 1,000 mg PO BID tab 05/02/20 11/20/20 release levothyroxine 100 mcg tablet 100 mcg PO DAILY 07/09/20 11/20/20 ondansetron HCl 4 mg tablet 4 mg PO DAILY PRN tab 07/11/20 11/20/20 suvorexant 15 mg tablet 15 mg PO BEDTIME PRN 07/11/20 11/20/20 clonazepam 0.5 mg tablet 0.5 mg PO PRN tab 09/04/20 11/20/20 duloxetine 60 mg capsule,delayed 60 mg PO cap 09/04/20 11/20/20 release Previous Rx's Medication Instructions Recorded pantoprazole 40 mg tablet,delayed 40 mg PO DAILY #90 tab 05/20/20 release flash glucose scanning reader #1 ea 05/27/20 flash glucose sensor #2 ea 05/27/20 atorvastatin 80 mg tablet 80 mg PO BEDTIME 30 Days #30 tab 07/01/20 cholecalciferol (vitamin D3) 50 50 mcg PO BEDTIME 90 Days #90 cap 07/01/20 mcg (2,000 unit) capsule albuterol sulfate 90 mcg/actuation 2 puff INHALATION Q6H PRN 3 Days 07/19/20 aerosol inhaler #8.5 g albuterol sulfate 90 mcg/actuation 2 puff INHALATION Q4-6H PRN #6.7 g 08/08/20 aerosol inhaler furosemide 40 mg tablet 40 mg PO DAILY #90 tab 08/27/20 insulin glargine 100 unit/mL (3 See Rx Instructions SUBCUT QPM 30 09/05/20 mL) subcutaneous pen Days #24 ml beclomethasone dipropionate 80 1 inh INHALATION BID #10.6 g 09/19/20 mcg/actuation HFA breath activated aerosol loratadine 10 mg tablet 10 mg PO DAILY #30 tab 09/19/20 ropinirole 1 mg tablet 3 mg PO DAILY 90 Days #270 tab 10/14/20 hydrocodone 2.5 mg-acetaminophen 1 tab PO BID PRN 7 Days #14 tab 11/20/20 325 mg tablet cyclobenzaprine 5 mg PO BEDTIME PRN #14 tab 11/24/20 Allergies Allergy/AdvReac Type Severity Reaction Status Date / Time No Known Allergies Allergy Verified 11/20/20 10:03 Review of Systems Review of Systems: Constitutional: No Weight loss, No Fever, No Chills, No Night Sweats, No Fatigue, No Malaise ENT/Mouth: No Hearing loss, No Ear Pain, No Nasal Congestion, No Sinus Pain, No Hoarseness, No sore throat, No Rhinorrhea, No Swallowing Difficulty Eyes: No Eye Pain, No Swelling, No Redness, No Foreign Body, No Discharge, No Vision Changes Cardiovascular: No Chest Pain, No SOB, No Dyspnea on Exertion, No Orthopnea, No Edema, No Palpitations Respiratory: No Cough, No Sputum, No Wheezing, No Dyspnea Gastrointestinal: No Nausea, No Vomiting, No Diarrhea, No Constipation, No abdominal Pain, No Hematochezia, No Melena Genitourinary: No Dysuria, No Urinary Frequency, No Hematuria, No Urinary Incontinence, No Urgency, No Flank Pain, No Urinary Flow Changes, No Hesitancy Musculoskeletal: No joint pain, No Myalgias, No Joint Swelling, as noted per HPI Skin: No Skin Lesions, No rash Neuro: No Weakness, No Numbness, No Paresthesias, No Loss of Consciousness, No Dizziness, No Headache Psych: No Social Issues Heme/Lymph: No Bruising, No Bleeding,No Lymphadenopathy Endocrine: No Polyuria, No Polydipsia, No Temperature Intolerance Yes all other systems are reviewed and are negative [facility] Past Medical History Medical History Acute Crohn's disease Bipolar 1 disorder HLD (hyperlipidemia) HTN (hypertension) Hypothyroidism Interstitial cystitis Osteoporosis Pituitary macroadenoma T2DM (type 2 diabetes mellitus) Uncontrolled diabetes mellitus Vitamin D deficiency Surgical History History of bladder surgery History of section History of surgery History of tubal ligation LAP-BAND surgery status Status post breast reduction Family History Family History Father HTN (hypertension) Mother Heart disease Brother Mental health disorder Sister Mental health disorder Social History Social History Household Members: Children Housing: Apartment Patient Tobacco Use Status: Never used Tobacco e-Cigarette/Vaping Use: Never Used Second Hand Smoke Exposure: Yes Advance Directives: No Patient : No service: No Current occupational status: disabled Physical Exam Vital Signs: Vital Signs: Last Vital Signs Temp 98.2 F 11/24/20 21:09 Pulse 95 11/24/20 21:09 Resp 18 11/24/20 21:09 BP 142/68 H 11/24/20 21:09 Pulse Ox 98 11/24/20 21:09 Body Mass Index 29.0 Reviewed Const: General: cooperative and healthy appearing; No acute distress or intoxicated appearing Nutritional Appearance: average body habitus Orientation/consciousness: patient oriented x3 HENMT: Head: Yes normal to inspection Ears: hearing grossly normal bilaterally Eyes: General: appearance normal, both eyes and all related structures Visual Ferrera: normal visual ferrera by confrontation Neck: Neck: Yes normal visual inspection, No positive Brudzinski's sign, No positive Kernig's sign and No tender Thyroid: Thyroid normal Chest: Chest palpation & inspection: normal inspection of the chest Resp: Effort & Inspection: normal respiratory effort Auscultation: clear to auscultation bilaterally Cardio: Jugular venous distension: no JVD Rhythm: regular rhythm Heart sounds: S1 normal heart sound present and S2 normal heart sound present GI: Inspection: Yes normal to inspection Percussion: Yes normal to percussion Auscultation: normal bowel sounds : General: Yes no CVA tenderness Back/Spine/Pelvis: Back: no CVA tenderness Thoracic/Lumbar Spine: thoracic and lumbar spine normal to inspection Skin: General skin exam: no rashes or lesions noted Neuro: General: patient oriented x3 Extrem: General: Yes normal to inspection Course Course Course Narrative: mass pad reviewed pain prescriptions couple different providers aware of this. She will be given 5 mg oxycodone tablet here and Flexeril for home. Given today is Wednesday she can contact her primary care doctor for management of chronic pain. Otherwise exam is stable, will nontoxic appearing. Resting comfortably. She is out of bed ambulatory Steady/with gait. Discharge Plan Discharge Clinical Impression: Back pain Patient Disposition: Home, Self-Care Instructions: Back Pain (ED) Prescriptions: New cyclobenzaprine 5 mg tablet 5 mg PO BEDTIME PRN (Reason: muscle spasm) Qty: 14 RF: 0 No Action pantoprazole 40 mg tablet,delayed release (DR/EC) 40 mg PO DAILY Qty: 90 RF: 0 albuterol sulfate [ProAir HFA] 90 mcg/actuation HFA aerosol inhaler 2 puff inhalation Q6H PRN (Reason: bronchospasm) 3 Days Qty: 8.5 RF: 0 furosemide 40 mg tablet 40 mg PO DAILY Qty: 90 RF: 0 Lantus Solostar U-100 Insulin 100 unit/mL (3 mL) insulin pen See Rx Instructions subcut QPM 30 Days Qty: 24 RF: 3 beclomethasone dipropionate [Qvar RediHaler] 80 mcg/actuation HFA aerosol breath activated 1 inh inhalation BID Qty: 10.6 RF: 5 loratadine 10 mg tablet 10 mg PO DAILY Qty: 30 RF: 2 ropinirole 1 mg tablet 3 mg PO DAILY 90 Days Qty: 270 RF: 1 (DME) blood-glucose meter Kit See Rx Instructions ea .ROUTE TID Qty: 1 RF: 0 (DME) FreeStyle Lite Strips Strip See Rx Instructions ea Not Applicable TID Qty: 10 RF: 0 (DME) pen needle, diabetic 31 gauge x 5/16 needle See Rx Instructions ea subcut DAILY Qty: 1200 RF: 0 divalproex 500 mg tablet,delayed release (DR/EC) 1,000 mg PO BID RF: 0 ondansetron HCl 4 mg tablet 4 mg PO DAILY PRNRF: 0 suvorexant 15 mg tablet 15 mg PO BEDTIME PRNRF: 0 clonazepam 0.5 mg tablet 0.5 mg PO PRNRF: 0 duloxetine 60 mg capsule,delayed release(DR/EC) 60 mg PO RF: 0 levothyroxine 100 mcg tablet 100 mcg PO DAILY RF: 0 albuterol sulfate 90 mcg/actuation HFA aerosol inhaler 2 puff inhalation Q4-6H PRN (Reason: shortness of breath or wheezing) Qty: 6.7 RF: 0 hydrocodone-acetaminophen 2.5-325 mg tablet 1 tab PO BID PRN (Reason: pain) 7 Days Qty: 14 RF: 0 atorvastatin 80 mg tablet 80 mg PO BEDTIME 30 Days Qty: 30 RF: 11 cholecalciferol (vitamin D3) 50 mcg (2,000 unit) capsule 50 mcg PO BEDTIME 90 Days Qty: 90 RF: 3 (DME) FreeStyle Kourtney 14 Day Sensor Kit See Rx Instructions .ROUTE .MEDSUPPLY Qty: 2 RF: 11 (DME) FreeStyle Kourtney 14 Day [place] Misc See Rx Instructions .ROUTE .MEDSUPPLY Qty: 1 RF: 0 Referrals: Anand Tabares, TEMPLATE CLERK-BC [Primary Care Provider] - 1 week
[2020-11-24] MEDS: oxyCODONE HCl Immed Release 5 MG TABLET PO (22:32)
== END 2020-11-24 22:43 | disposition home or self-care (01) ==
PROVIDERS: Emergency Provider Internal Medicine; PCP Nurse Practitioner Family
DX: M54.9 Dorsalgia, unspecified (principal); S22.49XD Multiple fractures of ribs, unspecified side, subsequent encounter for fracture with routine healing; W19.XXXD Unspecified fall, subsequent encounter; I10 Essential (primary) hypertension; E11.9 Type 2 diabetes mellitus without complications; Z79.4 Long term (current) use of insulin; Z79.899 Other long term (current) drug therapy
CPT/HCPCS: 99283; 99284

== ENCOUNTER 2021-01-05 13:33 | Emergency (ER) | payer OTHER, SELFPAY | END 2021-01-05 15:48 | disposition left against medical advice (07) | PROVIDERS: Emergency Provider Emergency Medicine; PCP Nurse Practitioner Family | DX: R10.9 Unspecified abdominal pain (principal) ==

== ENCOUNTER 2021-02-24 09:17 | Outpatient (REF) | payer OTHER, SELFPAY ==
[2021-02-24 11:43] LABS: Estimated Average Glucose 280 mg/dL; Hemoglobin A1c % 11.4 %
[2021-02-24 11:54] LABS: Alanine Aminotransferase 37 U/L (0-31); Albumin Level 4.3 g/dL (3.5-5.0); Alkaline Phosphatase 57 U/L (39-117); Anion Gap 17 (12-20); Aspartate Amino Transferase 32 U/L (5-31); Bilirubin Total 0.7 mg/dL (0.0-1.0); Blood Urea Nitrogen 11 mg/dL (9-16); Calcium 8.9 mg/dL (8.4-10.2); Carbon Dioxide 25 mmol/L (22-29); Chloride 102 mmol/L (96-108); Cholesterol 222 mg/dL; Estimated Glomerular Filt Rate > 60; Glucose Random 97 mg/dL (60-115); HDL Cholesterol 45 mg/dL; LDL Cholesterol Calculated 148 mg/dl; Potassium 4.1 mmol/L (3.3-5.1); Sodium 140 mmol/L (135-145); Total Protein 6.9 g/dL (6.5-8.0); Triglycerides 149 mg/dL
[2021-02-24 12:07] LABS: Creatinine Urine 197.69 mg/dL
== END 2021-02-24 09:18 | disposition home or self-care (01) ==
LOC: HO.HMGCLDS 09:17
PROVIDERS: PCP Nurse Practitioner Family; Visit Provider Nurse Practitioner Family
DX: E11.69 Type 2 diabetes mellitus with other specified complication (principal); Z79.4 Long term (current) use of insulin
CPT/HCPCS: 36415; 80053; 80061; 82043; 83036

== ENCOUNTER 2021-03-09 09:10 | Emergency (ER) | payer OTHER, SELFPAY ==
[2021-03-09 09:49] VITALS: BP 128/89; PULSE 100; RESP 18; TEMP 35.8; O2SAT 99
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
== END 2021-03-09 11:47 | disposition home or self-care (01) ==
PROVIDERS: Emergency Provider Emergency Medicine; PCP Nurse Practitioner Family
DX: T23.261A Burn of second degree of back of right hand, initial encounter (principal); T31.0 Burns involving less than 10% of body surface; I10 Essential (primary) hypertension; E11.9 Type 2 diabetes mellitus without complications; Z79.4 Long term (current) use of insulin; Z79.899 Other long term (current) drug therapy; X10.0XXA Contact with hot drinks, initial encounter; Y93.9 Activity, unspecified; Y92.9 Unspecified place or not applicable; Y99.9 Unspecified external cause status
CPT/HCPCS: 99283

== ENCOUNTER 2021-03-11 09:33 | Outpatient (REF) | payer OTHER, SELFPAY ==
[2021-03-11 10:27] LABS: Blood Urea Nitrogen 12 mg/dL (9-16); Estimated Glomerular Filt Rate > 60
[2021-03-13 12:11] LABS: Prolactin <1.0 ng/mL
== END 2021-03-11 09:34 | disposition home or self-care (01) ==
LOC: HO.LAB 09:33
PROVIDERS: PCP Nurse Practitioner Family; Visit Provider Psychiatry & Neurology Neurology
DX: D35.2 Benign neoplasm of pituitary gland (principal)
CPT/HCPCS: 36415; 82565; 84146; 84520

== ENCOUNTER 2021-03-14 10:12 | Outpatient (RCR) | payer OTHER, SELFPAY | END 2021-05-28 13:29 | disposition home or self-care (01) | LOC: HO.WCC 10:12 | PROVIDERS: PCP Nurse Practitioner Family; Visit Provider Physician Assistant | DX: E11.628 Type 2 diabetes mellitus with other skin complications (principal); T23.292A Burn of second degree of multiple sites of left wrist and hand, initial encounter; T23.242A Burn of second degree of multiple left fingers (nail), including thumb, initial encounter; T31.0 Burns involving less than 10% of body surface; X10.2XXA Contact with fats and cooking oils, initial encounter; L08.9 Local infection of the skin and subcutaneous tissue, unspecified; Z79.2 Long term (current) use of antibiotics; E11.65 Type 2 diabetes mellitus with hyperglycemia; D35.2 Benign neoplasm of pituitary gland | CPT/HCPCS: 16020; 99213 ==

== ENCOUNTER 2021-03-14 12:43 | Emergency (ER) | payer OTHER, SELFPAY ==
--- NOTE | ~2021-03-14 | XR_ITS ---
EXAMINATION: XR CHEST CLINICAL INFORMATION: Chest pain COMPARISON: CT chest October 15, 2020 TECHNIQUE: Frontal view of the chest was obtained. FINDINGS: No significant abnormality is noted involving the heart, lungs, mediastinum, bony thorax or soft tissues. XR/XR chest 1V IMPRESSION: Unremarkable examination.
--- NOTE | ~2021-03-14 | XR_ITS ---
EXAMINATION: XR SOFT TISSUE NECK CLINICAL INDICATION: Throat pain. COMPARISON: CT cervical spine dated 10/15/2020. TECHNIQUE: 2 views of the soft tissue neck were obtained. FINDINGS: Soft tissue films of the neck demonstrate a normal larynx, pharynx and upper trachea. No soft tissue swelling or opaque foreign body is demonstrated. XR/XR soft tissue neck IMPRESSION: Unremarkable examination.
[2021-03-14 12:51] VITALS: PULSE 92; RESP 20; TEMP 36.7; O2SAT 100; BMI 29.8
--- NOTE | 2021-03-14 16:39 | ECG_ITS ---
Test Reason : CHEST PAIN Blood Pressure : / mmHG Vent. Rate : 091 BPM Atrial Rate : 091 BPM P-R Int : 126 ms QRS Dur : 102 ms QT Int : 410 ms P-R-T Axes : 025 -08 038 degrees QTc Int : 504 ms Normal sinus rhythm Nonspecific T wave abnormality Intra-ventricular conduction delay Abnormal ECG No significant changes seen Referred By: Tamar Jacome Electronically Signed By:LANE BEATTY MD
--- NOTE | 2021-03-14 16:41 | ED.GENADULT ---
HPI - General Adult General Chief complaint: General Medical Stated complaint: diff breathing Time Seen by Provider: 03/14/21 16:25 History of Present Illness HPI narrative: Patient is a 50-year-old female with a history of diabetes, hypertension, high cholesterol. Presented today with having pain in the epigastric area. Patient attempted to eat some crackers. Thought was heartburn. There is no shortness of breath no diaphoresis. The pain has been constant since last night. Presents to the emergency department for further evaluation. No coughing or congestion or upper respiratory symptoms. No diaphoresis. Patient claims he might have a small heart attack in the past. Patient is from home Related Data Home Medications Medication Instructions Recorded Confirmed blood sugar diagnostic #10 ea 03/18/20 02/27/21 blood-glucose meter #1 ea 03/18/20 02/27/21 divalproex 500 mg tablet,delayed 1,000 mg PO BID tab 05/02/20 02/27/21 release levothyroxine 100 mcg tablet 100 mcg PO DAILY 07/09/20 02/27/21 ondansetron HCl 4 mg tablet 4 mg PO DAILY PRN tab 07/11/20 02/27/21 suvorexant 15 mg tablet 15 mg PO BEDTIME PRN 07/11/20 02/27/21 clonazepam 0.5 mg tablet 0.5 mg PO PRN tab 09/04/20 02/27/21 duloxetine 60 mg capsule,delayed 60 mg PO cap 09/04/20 02/27/21 release Previous Rx's Medication Instructions Recorded atorvastatin 80 mg tablet 80 mg PO BEDTIME 30 Days #30 tab 07/01/20 cholecalciferol (vitamin D3) 50 50 mcg PO BEDTIME 90 Days #90 cap 07/01/20 mcg (2,000 unit) capsule albuterol sulfate 90 mcg/actuation 2 puff INHALATION Q6H PRN 3 Days 07/19/20 aerosol inhaler (ProAir HFA) #8.5 g beclomethasone dipropionate 80 1 inh INHALATION BID #10.6 g 09/19/20 mcg/actuation HFA breath activated aerosol (Qvar RediHaler) loratadine 10 mg tablet 10 mg PO DAILY #30 tab 09/19/20 ropinirole 1 mg tablet 3 mg PO DAILY 90 Days #270 tab 10/14/20 cyclobenzaprine 5 mg tablet 5 mg PO BEDTIME PRN #14 tab 11/24/20 diphenoxylate-atropine 2.5 1 tab PO BID PRN #20 tab 01/11/21 mg-0.025 mg tablet (Lomotil) diphenoxylate-atropine 2.5 1 tab PO BID PRN #30 tab 01/11/21 mg-0.025 mg tablet (Lomotil) ondansetron HCl 4 mg tablet 4 mg PO Q8H #20 tab 01/11/21 (Zofran) ondansetron HCl 4 mg tablet 4 mg PO Q8H #30 tab 01/11/21 (Zofran) pantoprazole 40 mg tablet,delayed 40 mg PO DAILY #90 tab 01/23/21 release insulin glargine 100 unit/mL (3 See Rx Instructions SUBCUT QPM 30 02/06/21 mL) subcutaneous pen (Lantus Days #24 ml Solostar U-100 Insulin) pen needle, diabetic 31 gauge x #1200 ea 02/11/2110/13 ezetimibe 10 mg tablet 10 mg PO DAILY 90 Days #90 tab 02/24/21 insulin lispro 200 unit/mL (3 mL) 8 unit SUBCUT TID 30 Days #3.6 ml 02/27/21 subcutaneous pen (Humalog KwikPen U-200 Insulin) albuterol sulfate 90 mcg/actuation 2 puff INHALATION Q4-6H PRN #6.7 g 03/06/21 aerosol inhaler bacitracin 500 unit/gram topical 1 appl TOPICAL BID 10 Days #28 g 03/09/21 ointment cephalexin 500 mg capsule 500 mg PO QID #28 cap 03/09/21 triamcinolone acetonide 55 mcg 2 spray INTRANASAL DAILY 7 Days 03/09/21 nasal spray aerosol (Nasacort) #16.9 ml ondansetron 4 mg disintegrating 4 mg PO TID PRN 5 Days #10 tab 03/14/21 tablet pantoprazole 40 mg tablet,delayed 40 mg PO DAILY 14 Days #14 tab 03/14/21 release (Protonix) Allergies Allergy/AdvReac Type Severity Reaction Status Date / Time No Known Allergies Allergy Verified 03/14/21 12:51 Review of Systems Review of Systems: No fever no chills no diaphoresis No cough no congestion or upper respiratory symptoms All systems reviewed otherwise negative Yes all other systems are reviewed and are negative FOR[facility]LY [facility], [facility] Past Medical History Attestation statement: The following information was validated with the patient. Medical History Acute Crohn's disease Bipolar 1 disorder GERD (gastroesophageal reflux disease) HLD (hyperlipidemia) HTN (hypertension) Hypothyroidism Interstitial cystitis Osteoporosis Pituitary macroadenoma T2DM (type 2 diabetes mellitus) Uncontrolled diabetes mellitus Vitamin D deficiency Surgical History History of bladder surgery History of section History of surgery History of tubal ligation LAP-BAND surgery status Status post breast reduction Family History Family History Father HTN (hypertension) Mother Heart disease Brother Mental health disorder Sister Mental health disorder Social History Social History Household Members: Children Housing: Apartment Patient Tobacco Use Status: Never used Tobacco e-Cigarette/Vaping Use: Never Used Second Hand Smoke Exposure: Yes Advance Directives: No Advance Directives Information Provided: Yes Patient : No service: No Current occupational status: disabled Physical Exam Vital Signs: Vital Signs: Last Vital Signs Temp 98.5 F 03/14/21 18:19 Pulse 92 03/14/21 18:19 Resp 20 03/14/21 18:19 BP 134/77 03/14/21 18:19 Pulse Ox 97 03/14/21 18:19 Body Mass Index 29.8 Appearance: Alert. Oriented X3. No acute distress. Eyes: Pupils equal, round and reactive to light. ENT: Pharynx normal. Neck: Normal inspection. Neck supple. No lymph nodes noted. No crepitus CVS: Normal heart rate and rhythm. Pulses normal. Normal S1 and S2 Respiratory: No respiratory distress. Breath sounds normal. No Wheezing. No rales Abdomen: Soft and nontender. No rigidity. No distention. good BS x4 Skin: Skin warm and dry. Normal skin color. Normal skin turgor. Extremities: No lower extremity edema. Neurovascular intact to all extremities. No Lacerations. No Rash Neuro: Oriented X 3. No motor deficit. No sensory deficit. Moving all extermities. No slurred speech Medical Decision Making MDM Narrative Medical decision making narrative: Patient has epigastric pain since yesterday. At 1st patient thought she had reflux. Try some Maalox and moderate relief. Try some crackers but did not make symptoms better. There is no change in voice. There is no change in being able to tolerate own saliva. Patient able to drink liquids without any disuse. No vomiting. No nausea. Patient's electrolytes are normal. LFTs are normal. Lipase is normal there is no evidence for pancreatitis the pain has been ongoing. One set of cardiac enzyme was negative. Pain greater than 6 hours history not consistent making symptom unlikely secondary to ACS. Patient's EKG showed a sinus pattern heart rate is 90 MI QRS QT within normal limits is no acute ST segment elevation. Will discharge patient home on PPI. Currently in stable condition. Symptom relief with Maalox. Lab Data Result diagrams: 03/14/21 17:20 03/14/21 17:20 Labs: Lab Results 03/14/21 03/14/21 03/14/21 Range/Units 17:20 17:20 17:20 WBC 13.5 H (4.8-10.8) X10*3/uL RBC 4.07 L (4.20-5.50) X10*6/uL Hgb 12.7 (12.0-16.0) g/dl Hct 36.2 L (37-47) % MCV 88.9 (80-98) fL MCH 31.2 (27.0-33.0) pg MCHC 35.1 H (31.0-35.0) g/dl RDW 13.0 (11.0-16.0) % Plt Count 139 L D (160-400) X10*3/uL MPV 9.3 L (9.4-12.3) fL Immature Gran % (Auto) 1.6 H (0.0-0.4) % Neut % (Auto) 65.6 (45-73) % Lymph % (Auto) 23.4 (20-40) % Ashe % (Auto) 9.1 (2-11) % Eos % (Auto) 0.2 (0-4) % Baso % (Auto) 0.1 (0-2) % Lymph # (Auto) 3.2 (1.2-4.9) X10*3/uL Ashe # (Auto) 1.2 (0.1-1.2) X10*3/uL Eos # (Auto) 0.0 (0.0-0.4) X10*3/uL Baso # (Auto) 0.0 (0.0-0.2) X10*3/uL Abs Immat Gran (auto) 0.21 H (0.00-0.03) X10*3/uL Absolute Neuts (auto) 8.8 H (2.0-8.3) X10*3/uL Absolute Nucleated RBC 0.000 (0.0-0.012) X10*3/uL Nucleated RBC % (auto) 0.0 (0.0-0.2) /100WBC PT 12.5 (9.9-13.0) SEC INR 1.1 (0.9-1.1) Sodium 138 (135-145) mmol/L Potassium 3.8 (3.3-5.1) mmol/L Chloride 101 (96-108) mmol/L Carbon Dioxide 30 H (22-29) mmol/L Anion Gap 11 L (12-20) BUN 4 L D (9-16) mg/dL Creatinine 0.78 (0.5-1.4) mg/dL Estim Creat Clear Calc 92.1 Estimated GFR > 60 Random Glucose 169 H (60-115) mg/dL Calcium 8.8 (8.4-10.2) mg/dL Total Bilirubin 0.7 (0.0-1.0) mg/dL Direct Bilirubin 0.2 (0.0-0.5) mg/dL AST 26 (5-31) U/L ALT 24 (0-31) U/L Alkaline Phosphatase 59 (39-117) U/L Troponin I High Sens (<3.5-17.0) ng/L Total Protein 6.8 (6.5-8.0) g/dL Albumin 4.3 (3.5-5.0) g/dL Lipase 40 (8-78) U/L 03/14/ Range/Units 17:20 WBC (4.8-10.8) X10*3/uL RBC (4.20-5.50) X10*6/uL Hgb (12.0-16.0) g/dl Hct (37-47) % MCV (80-98) fL MCH (27.0-33.0) pg MCHC (31.0-35.0) g/dl RDW (11.0-16.0) % Plt Count (160-400) X10*3/uL MPV (9.4-12.3) fL Immature Gran % (Auto) (0.0-0.4) % Neut % (Auto) (45-73) % Lymph % (Auto) (20-40) % Ashe % (Auto) (2-11) % Eos % (Auto) (0-4) % Baso % (Auto) (0-2) % Lymph # (Auto) (1.2-4.9) X10*3/uL Ashe # (Auto) (0.1-1.2) X10*3/uL Eos # (Auto) (0.0-0.4) X10*3/uL Baso # (Auto) (0.0-0.2) X10*3/uL Abs Immat Gran (auto) (0.00-0.03) X10*3/uL Absolute Neuts (auto) (2.0-8.3) X10*3/uL Absolute Nucleated RBC (0.0-0.012) X10*3/uL Nucleated RBC % (auto) (0.0-0.2) /100WBC PT (9.9-13.0) SEC INR (0.9-1.1) Sodium (135-145) mmol/L Potassium (3.3-5.1) mmol/L Chloride (96-108) mmol/L Carbon Dioxide (22-29) mmol/L Anion Gap (12-20) BUN (9-16) mg/dL Creatinine (0.5-1.4) mg/dL Estim Creat Clear Calc Estimated GFR Random Glucose (60-115) mg/dL Calcium (8.4-10.2) mg/dL Total Bilirubin (0.0-1.0) mg/dL Direct Bilirubin (0.0-0.5) mg/dL AST (5-31) U/L ALT (0-31) U/L Alkaline Phosphatase (39-117) U/L Troponin I High Sens < 3.5 (<3.5-17.0) ng/L Total Protein (6.5-8.0) g/dL Albumin (3.5-5.0) g/dL Lipase (8-78) U/L Discharge Plan Discharge Clinical Impression: Acid reflux Patient Disposition: Home, Self-Care Instructions: Diet for Stomach Ulcers and Gastritis (ED), Gastroesophageal Reflux Disease (ED) Prescriptions: New pantoprazole [Protonix] 40 mg tablet,delayed release (DR/EC) 40 mg PO DAILY 14 Days Qty: 14 RF: 0 ondansetron 4 mg tablet,disintegrating 4 mg PO TID PRN (Reason: nausea and vomiting) 5 Days Qty: 10 RF: 0 No Action albuterol sulfate [ProAir HFA] 90 mcg/actuation HFA aerosol inhaler 2 puff inhalation Q6H PRN (Reason: bronchospasm) 3 Days Qty: 8.5 RF: 0 beclomethasone dipropionate [Qvar RediHaler] 80 mcg/actuation HFA aerosol breath activated 1 inh inhalation BID Qty: 10.6 RF: 5 loratadine 10 mg tablet 10 mg PO DAILY Qty: 30 RF: 2 ropinirole 1 mg tablet 3 mg PO DAILY 90 Days Qty: 270 RF: 1 pantoprazole 40 mg tablet,delayed release (DR/EC) 40 mg PO DAILY Qty: 90 RF: 0 Lantus Solostar U-100 Insulin 100 unit/mL (3 mL) insulin pen See Rx Instructions subcut QPM 30 Days Qty: 24 RF: 3 (DME) pen needle, diabetic 31 gauge x 5/16 needle See Rx Instructions ea subcut DAILY Qty: 1200 RF: 3 ezetimibe 10 mg tablet 10 mg PO DAILY 90 Days Qty: 90 RF: 0 albuterol sulfate 90 mcg/actuation HFA aerosol inhaler 2 puff inhalation Q4-6H PRN (Reason: shortness of breath or wheezing) Qty: 6.7 RF: 0 cyclobenzaprine 5 mg tablet 5 mg PO BEDTIME PRN (Reason: muscle spasm) Qty: 14 RF: 0 cephalexin 500 mg capsule 500 mg PO QID Qty: 28 RF: 0 triamcinolone acetonide [Nasacort] 55 mcg aerosol,spray 2 spray intranasal DAILY 7 Days Qty: 16.9 RF: 0 bacitracin 500 unit/gram ointment 1 appl topical BID 10 Days Qty: 28 RF: 0 (DME) blood-glucose meter Kit See Rx Instructions ea .ROUTE TID Qty: 1 RF: 0 (DME) FreeStyle Lite Strips Strip See Rx Instructions ea Not Applicable TID Qty: 10 RF: 0 divalproex 500 mg tablet,delayed release (DR/EC) 1,000 mg PO BID RF: 0 ondansetron HCl 4 mg tablet 4 mg PO DAILY PRNRF: 0 suvorexant 15 mg tablet 15 mg PO BEDTIME PRNRF: 0 clonazepam 0.5 mg tablet 0.5 mg PO PRNRF: 0 duloxetine 60 mg capsule,delayed release(DR/EC) 60 mg PO RF: 0 levothyroxine 100 mcg tablet 100 mcg PO DAILY RF: 0 ondansetron HCl [Zofran] 4 mg tablet 4 mg PO Q8H Qty: 30 RF: 0 diphenoxylate-atropine [Lomotil] 2.5-0.025 mg tablet 1 tab PO BID PRN (Reason: diarrhea) Qty: 30 RF: 0 diphenoxylate-atropine [Lomotil] 2.5-0.025 mg tablet 1 tab PO BID PRN (Reason: diarrhea) Qty: 20 RF: 0 ondansetron HCl [Zofran] 4 mg tablet 4 mg PO Q8H Qty: 20 RF: 0 Humalog KwikPen Insulin 200 unit/mL (3 mL) insulin pen 8 unit subcut TID 30 Days Qty: 3.6 RF: 3 atorvastatin 80 mg tablet 80 mg PO BEDTIME 30 Days Qty: 30 RF: 11 cholecalciferol (vitamin D3) 50 mcg (2,000 unit) capsule 50 mcg PO BEDTIME 90 Days Qty: 90 RF: 3 Referrals: Tamar Jacome MD [Emergency Provider] - 2 days
[2021-03-14] MEDS: Magnesium Hydrox/Alum Hydrox 30 ML ORAL.SUSP PO (17:24)
[2021-03-14 17:26] LABS: MANUAL DIFF FLAG NO
[2021-03-14 17:29] LABS: Basophils Percent Auto 0.1 % (0-2); Eosinophils Percent Auto 0.2 % (0-4); Hematocrit 36.2 % (37-47); Hemoglobin 12.7 g/dl (12.0-16.0); Imm Gran Abs Auto 0.21 X10*3/uL (0.00-0.03); Imm Gran Pct Auto 1.6 % (0.0-0.4); Lymphocytes Absolute Auto 3.2 X10*3/uL (1.2-4.9); Lymphocytes Percent Auto 23.4 % (20-40); Mean Corpuscular HGB Conc 35.1 g/dl (31.0-35.0); Mean Corpuscular Hemoglobin 31.2 pg (27.0-33.0); Mean Corpuscular Volume 88.9 fL (80-98); Mean Platelet Volume 9.3 fL (9.4-12.3); Monocytes Absolute Auto 1.2 X10*3/uL (0.1-1.2); Monocytes Percent Auto 9.1 % (2-11); Neutrophils Absolute Auto 8.8 X10*3/uL (2.0-8.3); Neutrophils Percent Auto 65.6 % (45-73); Platelet Count 139 X10*3/uL (160-400); Red Blood Count 4.07 X10*6/uL (4.20-5.50); White Blood Count 13.5 X10*3/uL (4.8-10.8)
[2021-03-14 17:33] LABS: INTERNATIONAL NORM RATIO 1.1 (0.9-1.1); Prothrombin Time 12.5 SEC (9.9-13.0)
[2021-03-14 17:47] LABS: Troponin-I High Sensitivity < 3.5 ng/L (<3.5-17.0)
[2021-03-14 17:50] LABS: Alanine Aminotransferase 24 U/L (0-31); Albumin Level 4.3 g/dL (3.5-5.0); Alkaline Phosphatase 59 U/L (39-117); Anion Gap 11 (12-20); Aspartate Amino Transferase 26 U/L (5-31); Bilirubin Direct 0.2 mg/dL (0.0-0.5); Bilirubin Total 0.7 mg/dL (0.0-1.0); Blood Urea Nitrogen 4 mg/dL (9-16); Calcium 8.8 mg/dL (8.4-10.2); Carbon Dioxide 30 mmol/L (22-29); Chloride 101 mmol/L (96-108); Creatinine Clr Calc Pharmacy 92.1; Estimated Glomerular Filt Rate > 60; Glucose Random 169 mg/dL (60-115); Lipase 40 U/L (8-78); Potassium 3.8 mmol/L (3.3-5.1); Sodium 138 mmol/L (135-145); Total Protein 6.8 g/dL (6.5-8.0)
[2021-03-14 18:19] VITALS: BP 134/77; PULSE 92; RESP 20; TEMP 36.9; O2SAT 97
== END 2021-03-14 19:04 | disposition home or self-care (01) ==
PROVIDERS: Emergency Provider Emergency Medicine Emergency Medical Services; PCP Nurse Practitioner Family
DX: K21.9 Gastro-esophageal reflux disease without esophagitis (principal); M54.2 Cervicalgia; R06.02 Shortness of breath; R10.13 Epigastric pain; I10 Essential (primary) hypertension; Z79.899 Other long term (current) drug therapy
CPT/HCPCS: 36415; 70360; 71045; 80048; 80076; 83690; 84484; 85025; 85610; 93005; 99283; 99284

== ENCOUNTER 2021-03-20 08:23 | Outpatient (REF) | payer OTHER, SELFPAY ==
--- NOTE | ~2021-03-20 | US_ITS ---
EXAMINATION: US ABDOMEN COMPLETE CLINICAL INFORMATION: Elevated liver enzymes. COMPARISON: MRI abdomen 09/30/2018. CT abdomen and pelvis 08/05/2018. KUB 03/11/2014. Abdominal ultrasound 09/15/2007. TECHNIQUE: Real-time imaging of the abdominal viscera. FINDINGS: PANCREAS: Not well visualized due to bowel gas. ABDOMINAL AORTA: The proximal, mid, and distal segments are normal in caliber. INFERIOR VENA CAVA: Visualized portions are normal. LIVER: The liver is normal in size. The liver contour is normal. Liver echotexture is increased. No focal hepatic lesion. There is no intrahepatic biliary duct dilatation seen. GALLBLADDER: The gallbladder is contracted. No gallstones are seen. COMMON BILE DUCT: Normal in caliber measuring 0.30 cm in diameter. RIGHT KIDNEY: There is a 7 x 8 x 8 mm cyst in the lower pole. No hydronephrosis or renal calculi. The kidney measures 11.4 cm in maximum dimension. LEFT KIDNEY: No hydronephrosis. No renal calculi or focal parenchymal lesions. The kidney measures 11.7 cm in maximum dimension. SPLEEN: Normal. The spleen measures 10.3 cm in maximum dimension. FREE FLUID: None. US/US abdomen complete IMPRESSION: Echogenic liver probably representing fatty infiltration. Contracted gallbladder. Small right renal cyst. Limited visualization of the pancreas.
== END 2021-03-20 08:24 | disposition home or self-care (01) ==
LOC: HO.HMGCX 08:23
PROVIDERS: PCP Nurse Practitioner Family; Visit Provider Nurse Practitioner Family
DX: R74.8 Abnormal levels of other serum enzymes (principal)
CPT/HCPCS: 76700

== ENCOUNTER 2021-03-24 09:47 | Outpatient (REF) | payer OTHER, SELFPAY ==
--- NOTE | ~2021-03-24 | MR_ITS ---
EXAMINATION: MR BRAIN WITHOUT AND WITH CONTRAST CLINICAL INFORMATION: Pituitary adenoma. COMPARISON: Brain MRI 02/22/2020. TECHNIQUE: Multiplanar MR imaging of the brain was performed without and with contrast. A total of 4 mL Gadavist was utilized for this examination. FINDINGS: There are chronic postoperative changes related to the transnasal resection of a pituitary macroadenoma. Again there is residual heterogeneously enhancing intrasellar tissue that invades the right cavernous sinus and encases a short segment of the right internal carotid artery. There has been no substantial change in the size of the residual enhancing disease. No suprasellar mass effect or chiasmatic compression. Postcontrast images of the whole brain reveal no abnormal mass or enhancement elsewhere within the intracranial compartment. No intracranial mass effect or midline shift. No abnormal extra-axial collection. Lateral and third ventricles are normal. No hydrocephalus. The cervicomedullary junction is normal. Intracranial vascular flow voids are maintained. There is no acute territorial infarct. Intracranial vascular flow voids are maintained. There is no mastoid middle ear effusion. Mild to moderate paranasal sinus disease primarily affecting the ethmoid air cells. Globes and orbits are symmetric. MR/MR head/brain wo/w con IMPRESSION: Stable disease. The size of residual enhancing tissue located along the right lateral aspect of the sella turcica that invades the right cavernous sinus and encases a short segment of the right internal carotid artery has remained unchanged.
== END 2021-03-24 09:48 | disposition home or self-care (01) ==
LOC: HO.MRI 09:47
PROVIDERS: Visit Provider Psychiatry & Neurology Neurology
DX: D35.2 Benign neoplasm of pituitary gland (principal)
CPT/HCPCS: 70553; A9585

== ENCOUNTER 2021-04-02 10:56 | Day surgery (SDC) | payer OTHER, SELFPAY ==
--- NOTE | 2021-04-01 11:38 | HO.ANESPROP2 ---
Documented by User: Claire Davidson NP 04/01/21 11:54 HPI - Anesthesia Eval Consult details Narrative: 50yo F for Upper Endoscopy h/o lap band surgery PMFSH Active Problems Active Problems: All Active Problems (Updated 03/15/21 @ 00:02 by Piedad Beasley) Pain in left ankle and joints of left foot (Acute) Encounter for removal of sutures (Acute) Viral illness (Acute) UTI (urinary tract infection) (Acute) Hemosiderin pigmentation of lower extremity due to varicose veins (Acute) Urinary incontinence (Acute) Increased frequency of urination (Acute) Bronchitis (Acute) Anemia (Acute) Wrist pain (Acute) Rib fractures (Acute) Acute sinusitis (Acute) Diarrhea (Acute ~12/2020) Elevated liver enzymes (Acute) Dyslipidemia (Acute) Uncontrolled diabetes mellitus (Acute) Hypothyroidism (Acute) Vitamin D deficiency (Acute) HLD (hyperlipidemia) (Acute) HTN (hypertension) (Acute) T2DM (type 2 diabetes mellitus) (Acute) Pituitary macroadenoma (Acute) Osteoporosis (Acute) Uncontrolled diabetes mellitus (Acute) Past Medical History Medical History Acute Crohn's disease Bipolar 1 disorder GERD (gastroesophageal reflux disease) HLD (hyperlipidemia) HTN (hypertension) Hypothyroidism Interstitial cystitis Osteoporosis Pituitary macroadenoma T2DM (type 2 diabetes mellitus) Uncontrolled diabetes mellitus Vitamin D deficiency Family History Family History Father HTN (hypertension) Mother Heart disease Brother Mental health disorder Sister Mental health disorder Surgical History Surgical History History of bladder surgery History of section History of surgery History of tubal ligation LAP-BAND surgery status Status post breast reduction Social History Social History Household Members: Children Housing: Apartment Patient Tobacco Use Status: Never used Tobacco e-Cigarette/Vaping Use: Never Used Second Hand Smoke Exposure: Yes Use of substances other than those prescribed or required for medical reasons: No Are you DNR?: No Advance Directives: No Advance Directives Information Provided: Yes service: No Current occupational status: disabled Meds Allergies Allergy/AdvReac Type Severity Reaction Status Date / Time No Known Allergies Allergy Verified 03/14/21 12:51 Home Medications Medication Instructions Recorded Confirmed Last Taken Type blood sugar diagnostic #10 ea 03/18/20 02/27/21 Unknown History blood-glucose meter #1 ea 03/18/20 02/27/21 Unknown History divalproex 500 mg tablet,delayed 1,000 mg PO BID tab 05/02/20 02/27/21 Unknown History release levothyroxine 100 mcg tablet 100 mcg PO DAILY 07/09/20 02/27/21 Unknown History ondansetron HCl 4 mg tablet 4 mg PO DAILY PRN tab 07/11/20 02/27/21 Unknown History suvorexant 15 mg tablet 15 mg PO BEDTIME PRN 07/11/20 02/27/21 Unknown History clonazepam 0.5 mg tablet 0.5 mg PO PRN tab 09/04/20 02/27/21 Unknown History duloxetine 60 mg capsule,delayed 60 mg PO cap 09/04/20 02/27/21 Unknown History release blood sugar diagnostic (FreeStyle 04/01/21 Unknown History Lite Strips) Exam Exam Date and Time: April 01, 2021 1138 Pertinent Lab Results Pertinent Lab Results: Laboratory Tests 03/14/21 03/14/21 17:20 17:20 WBC 13.5 H Hgb 12.7 Hct 36.2 L Plt Count 139 L D Sodium 138 Potassium 3.8 Chloride 101 Carbon Dioxide 30 H BUN 4 L D Creatinine 0.78 Narrative Narrative: EKG 02/2021 Vent. Rate : 091 BPM ? ? Atrial Rate : 091 BPM ?? P-R Int : 126 ms? QRS Dur : 102 ms ? ? QT Int : 410 ms ? ? ? P-R-T Axes : 025 -08 038 degrees ?? QTc Int : 504 ms ? Normal sinus rhythm Nonspecific T wave abnormality Intra-ventricular conduction delay Abnormal ECG No significant changes seen Assessment and Plan Assessment Anesthesia Assessment: Chart Reviewed Documented by User: Marline Redding MD 04/02/21 11:59 [facility] Past Medical History Medical History Acute Crohn's disease Bipolar 1 disorder GERD (gastroesophageal reflux disease) HLD (hyperlipidemia) HTN (hypertension) Hypothyroidism Interstitial cystitis Osteoporosis Pituitary macroadenoma T2DM (type 2 diabetes mellitus) Uncontrolled diabetes mellitus Vitamin D deficiency Family History Family History Father HTN (hypertension) Mother Heart disease Brother Mental health disorder Sister Mental health disorder Surgical History Surgical History History of bladder surgery History of section History of surgery History of tubal ligation LAP-BAND surgery status Status post breast reduction History of Problems with Anesthesia: No Social History Social History Household Members: Children Housing: Apartment Patient Tobacco Use Status: Never used Tobacco e-Cigarette/Vaping Use: Never Used Second Hand Smoke Exposure: Yes Use of substances other than those prescribed or required for medical reasons: No Are you DNR?: No Advance Directives: No Advance Directives Information Provided: Yes service: No Current occupational status: disabled Meds Allergies Allergy/AdvReac Type Severity Reaction Status Date / Time No Known Allergies Allergy Verified 03/14/21 12:51 Home Medications Medication Instructions Recorded Confirmed Last Taken Type blood sugar diagnostic #10 ea 03/18/20 02/27/21 Unknown History blood-glucose meter #1 ea 03/18/20 02/27/21 Unknown History divalproex 500 mg tablet,delayed 1,000 mg PO BID tab 05/02/20 02/27/21 Unknown History release levothyroxine 100 mcg tablet 100 mcg PO DAILY 07/09/20 02/27/21 Unknown History ondansetron HCl 4 mg tablet 4 mg PO DAILY PRN tab 07/11/20 02/27/21 Unknown History suvorexant 15 mg tablet 15 mg PO BEDTIME PRN 07/11/20 02/27/21 Unknown History clonazepam 0.5 mg tablet 0.5 mg PO PRN tab 09/04/20 02/27/21 Unknown History duloxetine 60 mg capsule,delayed 60 mg PO cap 09/04/20 02/27/21 Unknown History release blood sugar diagnostic (Amanda 04/01/21 Unknown History Lite Strips) Exam Airway Mallampati Class: II (Edentulous upper) TM Dist: >3cm Neck ROM: Full Loose/Missing/Broken Teeth: Yes, Upper and Lower Heart: RRR Lungs: CTA Assessment and Plan Assessment Anesthesia Assessment: Anesthesia Plan Discussed Final Anesthetic Review History of Problems with Anesthesia: No NPO: Yes ASA Class: II Final Preanesthetic Review: Meds/Allgs Chart Reviewed and Consent Obtained/Reviewed Patient Risk: Low Procedure Risk: Intermediate Anesthetic Plan Anesthetic Plan: MAC: Disposition: Standard PACU
[2021-04-02 11:35] LABS: Glucose, Whole Blood 286 mg/dL (60-115)
[2021-04-02 11:39] VITALS: BP 113/71; PULSE 98; RESP 18; TEMP 35.9; O2SAT 98; BMI 30.2
--- NOTE | 2021-04-02 11:45 | MHC.SHP ---
Pre-Procedural Eval Section A Date of Service: 04/02/21 Section B Chief Complaint: dysphagia Relevant Family History (Specify if Yes): No Relevant Social History: None Present Medications: see Short Stay Collaborative assessment Medical History: Significant History (Acute Crohn's disease Bipolar 1 disorder GERD (gastroesophageal reflux disease) HLD (hyperlipidemia) HTN (hypertension) Hypothyroidism Interstitial cystitis Osteoporosis Pituitary macroadenoma T2DM (type 2 diabetes mellitus) Uncontrolled diabetes mellitus Vitamin D deficiency) History of Previous Operations: Relevant previous surgery/procedure and date(s) (History of bladder surgery History of section History of surgery History of tubal ligation LAP-BAND surgery status Status post breast reduction) Allergies: Allergies Allergy/AdvReac Type Severity Reaction Status Date / Time No Known Allergies Allergy Verified 03/14/21 12:51 Review of Systems Sugical H&P ROS: Negative: Constitution, Cardiovascular, Respiratory, Neurological, Psychiatric, Hem-Onc, Allergic/Immunologic, Gastrointestinal, Genitourinary, Musculoskeletal, Integumentary, Endocrine and Eyes/Ears/Nose/Throat Exam Surgical H&P Exam: Normal: HEENT, Normal: Heart, Normal: Lungs, Normal: Extremities, Normal: Abdomen, Normal: Skin and Normal: Neurological Plan Diagnosis/Plan: Unchanged I have reviewed the history and physical and performed a pertinent physical examination on my patient. No changes have occurred unless specified.
[2021-04-02] MEDS: Lactated Ringers 1,000 ML 100 ML IVCONT (11:49)
--- NOTE | 2021-04-02 12:18 | PM.OP ---
Brief Operative Note Date of Service: 04/02/21 Pre-op diagnosis: dysphagia Post-op diagnosis: same Procedure: see op note Surgeon: Khirs Betts MD Anesthesia: MAC Was an Communications Director used for this Procedure?: No Estimated blood loss (mL): 0 Condition: stable Disposition: PACU
--- NOTE | 2021-04-02 12:18 | W.PM.OPN ---
Operative Note Operative Note Date of Service: 04/02/21 Narrative: Procedure Description: EGD FLEXIBLE TRANSORAL UPPER GASTROINTESTINAL ENDOSCOPY UPPER ENDOSCOPY Consent: Indications for the procedure and potential complications of bleeding, perforation, reaction to medications and missed diagnosis were discussed with the patient and informed consent was obtained. Instrument: Olympus GIF H 190 J mid size upper endoscope Monitoring: Vital signs and clinical assessment, continuous EKG monitoring, Pulse oximetry, Carbon Dioxide monitoring and blood pressure monitoring were done throughout the procedure. Procedure: The patient was placed in the left lateral decubitis position and pre-procedure medications were administered and a bite block was placed. The endoscope was inserted into the mouth and advanced under direct vision to the third part of duodenum. A careful inspection was made as the upper endoscope was withdrawn including a retroflexed examination of the proximal stomach; Findings and interventions are described below. Findings: Larynx:normal Esophagus: GE junction at 38 cm, diaphragm hiatus at 38 cm, no varices or esophagitis. random bx taken, esophagus appeared patent and no obvious strictures seen Stomach: Large amount of food in stomach, unable to see mucosa fully, no retroflexion done due to large vol of food Duodenum: not entered Intervention: Biopsies as noted above Impression/Findings: possible gastroparesis PLAN: check timing of last meal, if didn't eat past midnight then gastric emptying study recommend gastroparesis diet for the meantime i.e small vol meals, avoid high fiber and high fat meals, more liquids in diet check for use of narcotics consider repeat EGD at later point with 1 d of soft diet or clears
[2021-04-02 12:34] VITALS: BP 105/65; PULSE 103; RESP 161; TEMP 36.2; O2SAT 96
[2021-04-02 12:49] VITALS: BP 106/57; PULSE 96; RESP 18; TEMP 36.2; O2SAT 97
== END 2021-04-02 13:25 | disposition home or self-care (01) ==
PROVIDERS: PCP Nurse Practitioner Family; Visit Provider Internal Medicine Gastroenterology
PROC: 0DJ08ZZ Inspection of Upper Intestinal Tract, Via Natural or Artificial Opening Endoscopic (ICD-10-PCS; CPT 43235; principal; 2021-04-02 12:20)
DX: R13.10 Dysphagia, unspecified (principal); K31.84 Gastroparesis; K31.89 Other diseases of stomach and duodenum; K21.9 Gastro-esophageal reflux disease without esophagitis; K50.90 Crohn's disease, unspecified, without complications; I10 Essential (primary) hypertension; E11.43 Type 2 diabetes mellitus with diabetic autonomic (poly)neuropathy; E78.5 Hyperlipidemia, unspecified; E03.9 Hypothyroidism, unspecified; E55.9 Vitamin D deficiency, unspecified; D35.2 Benign neoplasm of pituitary gland; M81.0 Age-related osteoporosis without current pathological fracture; Z79.899 Other long term (current) drug therapy; Z98.84 Bariatric surgery status
CPT/HCPCS: 43239; 82947; 88305; J2765; J3010

== ENCOUNTER 2021-04-04 11:52 | Outpatient (REF) | payer OTHER, SELFPAY ==
[2021-04-04 13:15] LABS: Influenza A PCR NEGATIVE (Negative); Influenza B PCR NEGATIVE (Negative); Resp Syncy Virus RNA Qual PCR NEGATIVE (Negative); SARS COV2 PCR INHOUSE NEGATIVE (Negative)
== END 2021-04-04 11:53 | disposition home or self-care (01) ==
LOC: HO.LNP 11:52
PROVIDERS: Visit Provider Internal Medicine
DX: Z20.822 Contact with and (suspected) exposure to COVID-19 (principal); J06.9 Acute upper respiratory infection, unspecified
CPT/HCPCS: 0241U

== ENCOUNTER 2021-04-17 | Outpatient (REF) | payer OTHER, SELFPAY ==
[2021-04-18 12:54] LABS: Influenza A PCR NEGATIVE (Negative); Influenza B PCR NEGATIVE (Negative); Resp Syncy Virus RNA Qual PCR NEGATIVE (Negative); SARS COV2 PCR INHOUSE NEGATIVE (Negative)
== END 2021-04-17 00:01 | disposition home or self-care (01) ==
LOC: HO.LNP
PROVIDERS: Visit Provider Physician Assistant Medical
DX: Z20.822 Contact with and (suspected) exposure to COVID-19 (principal); J06.9 Acute upper respiratory infection, unspecified
CPT/HCPCS: 0241U

== ENCOUNTER 2021-04-17 15:53 | Outpatient (REF) | payer OTHER, SELFPAY ==
--- NOTE | ~2021-04-17 | XR_ITS ---
EXAMINATION: XR CHEST CLINICAL INFORMATION: Acute upper respiratory infection. COMPARISON: None TECHNIQUE: 2 views of the chest were obtained. FINDINGS: The lungs are expanded with no acute pneumonic process seen. Heart size and pulmonary vascularity is normal. No gross bony abnormality seen. XR/XR chest 2V IMPRESSION: Expanded lungs without acute process.
== END 2021-04-17 15:54 | disposition home or self-care (01) ==
LOC: HO.HMGCX 15:53
PROVIDERS: PCP Nurse Practitioner Family; Visit Provider Physician Assistant Medical
DX: J06.9 Acute upper respiratory infection, unspecified (principal)
CPT/HCPCS: 71046

== ENCOUNTER → 2021-04-21 09:11 | Outpatient (BNVA) | payer OTHER, SELFPAY | PROVIDERS: PCP Nurse Practitioner Family; Visit Provider Internal Medicine Gastroenterology ==

== ENCOUNTER 2021-05-15 20:50 | Emergency (ER) | payer OTHER, SELFPAY ==
--- NOTE | ~2021-05-15 | XR_ITS ---
EXAMINATION: XR ELBOW, LEFT CLINICAL INFORMATION: Pain. COMPARISON: Multiple priors. Most recent radiograph of the left elbow dated from 08/25/2019. TECHNIQUE: AP, lateral, and oblique views of the left elbow. FINDINGS: There is a very subtle essentially nondisplaced fracture of the radial head. No other fractures. Joint alignment is maintained. No unexpected radiopaque foreign bodies or large joint effusions. XR/XR elbow LT min 3V IMPRESSION: Very subtle nondisplaced fracture of the radial head.
[2021-05-15 20:59] VITALS: BP 147/92; PULSE 109; RESP 20; TEMP 36.1; O2SAT 98; BMI 30.7
[2021-05-15 21:25] LABS: MANUAL DIFF FLAG NO
[2021-05-15 21:49] LABS: Alanine Aminotransferase 24 U/L (0-31); Albumin Level 4.4 g/dL (3.5-5.0); Alkaline Phosphatase 83 U/L (39-117); Anion Gap 13 (12-20); Aspartate Amino Transferase 21 U/L (5-31); Basophils Percent Auto 0.3 % (0-2); Bilirubin Total 0.6 mg/dL (0.0-1.0); Blood Urea Nitrogen 12 mg/dL (9-16); Calcium 9.6 mg/dL (8.4-10.2); Carbon Dioxide 26 mmol/L (22-29); Chloride 105 mmol/L (96-108); Creatinine Clr Calc Pharmacy 80.8; Eosinophils Percent Auto 0.3 % (0-4); Estimated Glomerular Filt Rate > 60; Glucose Random 305 mg/dL (60-115); Hematocrit 34.8 % (37.0-47.0); Hemoglobin 12.1 g/dl (12.0-16.0); Imm Gran Abs Auto 0.04 X10*3/uL (0.00-0.03); Imm Gran Pct Auto 0.4 % (0.0-0.4); Lymphocytes Absolute Auto 3.9 X10*3/uL (1.2-4.9); Lymphocytes Percent Auto 39.9 % (20-40); Mean Corpuscular HGB Conc 34.8 g/dl (31.0-35.0); Mean Corpuscular Hemoglobin 31.2 pg (27.0-33.0); Mean Corpuscular Volume 89.7 fL (80.0-98.0); Mean Platelet Volume 10.2 fL (9.4-12.3); Monocytes Absolute Auto 0.9 X10*3/uL (0.1-1.2); Monocytes Percent Auto 9.7 % (2-11); Neutrophils Absolute Auto 4.8 x10*3/uL (2.0-8.3); Neutrophils Percent Auto 49.4 % (45-73); Platelet Count 198 X10*3/uL (160-400); Potassium 4.1 mmol/L (3.3-5.1); Red Blood Count 3.88 X10*6/uL (4.20-5.50); Sodium 140 mmol/L (135-145); Total Protein 7.3 g/dL (6.5-8.0); White Blood Count 9.7 X10*3/uL (4.8-10.8)
[2021-05-15 23:44] VITALS: BP 128/71; PULSE 93; RESP 16; TEMP 36.7; O2SAT 100
[2021-05-15 23:44] LABS: Glucose, Whole Blood 260 mg/dL (60-115)
--- NOTE | 2021-05-16 01:55 | PC.NURSE ---
pt is resting in room, no sign of distress. Will continue to monitor.
--- NOTE | 2021-05-16 02:05 | PC.NURSE ---
pt requesting to leave due to wait time. provider is aware. This RN reassured pt that provider would come see her after seeing as soon as possible. pt requesting to still leave.
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
[2021-05-16 02:28] VITALS: BP 159/90; PULSE 90; RESP 16; O2SAT 98
== END 2021-05-16 02:29 | disposition left against medical advice (07) ==
PROVIDERS: Emergency Provider Emergency Medicine Emergency Medical Services; PCP Nurse Practitioner Family
DX: E11.65 Type 2 diabetes mellitus with hyperglycemia (principal); S52.125D Nondisplaced fracture of head of left radius, subsequent encounter for closed fracture with routine healing; X58.XXXD Exposure to other specified factors, subsequent encounter; I10 Essential (primary) hypertension; E78.5 Hyperlipidemia, unspecified; Z79.4 Long term (current) use of insulin
CPT/HCPCS: 36415; 73080; 80053; 82947; 85025; 99283; 99284

== ENCOUNTER 2021-05-24 11:06 | Emergency (ER) | payer OTHER, SELFPAY ==
--- NOTE | ~2021-05-24 | XR_ITS ---
EXAMINATION: XR KNEE, RIGHT CLINICAL INFORMATION: Slipped on ice. Right knee lateral injury and pain. COMPARISON: None TECHNIQUE: AP, lateral, bilateral oblique radiographs of the right knee. FINDINGS: Indistinctness and irregularity of the cortical margin of the lateral tibial plateau is noted with approximate 3 mm inferior to the impression of the lateral tibial plateau and accentuation of the trabecular pattern medially inferior to the tibial plateau suspicious for trabecular impaction. The oblique view suggests one-2 mm cortical step-off of the medial aspect of the lateral tibial plateau posteriorly. The medial compartment demonstrates mild joint space narrowing, subchondral sclerosis and osteophytosis. No erosive osseous lesions. No prepatellar soft tissue inflammatory changes identified. XR/XR knee RT 3V IMPRESSION: *Acute intra-articular depressed lateral tibial plateau fracture. *Mild osteoarthritis of the medial compartment.
[2021-05-24 11:23] VITALS: BP 150/94; BP 162/107; PULSE 80; PULSE 83; RESP 16; TEMP 36.7; O2SAT 98; BMI 28.3
[2021-05-24 12:00] LABS: Glucose, Whole Blood 374 mg/dL (60-115)
[2021-05-24] MEDS: Acetaminophen 325 MG TABLET 975 MG PO (12:25)
[2021-05-24] MEDS: oxyCODONE HCl Immed Release 5 MG TABLET 10 MG PO (12:25)
--- NOTE | 2021-05-24 12:27 | ED.LOWEXIN ---
HPI - Extremity Injury (Lower) General Chief Complaint: Extremity Injury, Lower Stated Complaint: fall from standing, r knee pain Time Seen by Provider: 05/24/21 11:53 Source: patient Mode of arrival: EMS Limitations: no limitations History of Present Illness HPI Narrative: 50-year-old female who presents emergency department for evaluation of right knee injury. The patient states that approximately 6 years prior she fractured her right patella. She states that since then she has had chronic pain and is got cortisone injections in the right knee every 3 months. She states she had a cortisone injection yesterday. The patient was staying at her sister's house and when outside her car to get something. She states that the drive was slippery secondary to ice and she fell landing on her right knee. She states she developed immediate pain and swelling in her right knee and was unable to stand and walk. Patient states that the pain is currently 8/10 and is worse with movement, the pain is a sharp pain which is constant. The patient denied any other injury from the fall. She did not take any pain medications prior to coming to the emergency department. The patient is a diabetic. She states that her sugar was 466 at home and she gave herself 10 units of heme along prior to coming to the emergency department. Related Data Home Medications Medication Instructions Recorded Confirmed blood sugar diagnostic #10 ea 03/18/20 04/16/21 blood-glucose meter #1 ea 03/18/20 04/16/21 divalproex 500 mg tablet,delayed 1,000 mg PO BID tab 05/02/20 04/16/21 release levothyroxine 100 mcg tablet 100 mcg PO DAILY 07/09/20 04/16/21 suvorexant 15 mg tablet 15 mg PO BEDTIME PRN 07/11/20 04/16/21 clonazepam 0.5 mg tablet 0.5 mg PO PRN tab 09/04/20 04/16/21 duloxetine 60 mg capsule,delayed 60 mg PO cap 09/04/20 04/16/21 release fluticasone propionate 50 spray INTRANASAL 04/21/21 mcg/actuation nasal spray,suspension silver sulfadiazine 1 % topical appl TOPICAL 04/21/21 cream Previous Rx's Medication Instructions Recorded atorvastatin 80 mg tablet 80 mg PO BEDTIME 30 Days #30 tab 07/01/20 cholecalciferol (vitamin D3) 50 50 mcg PO BEDTIME 90 Days #90 cap 07/01/20 mcg (2,000 unit) capsule beclomethasone dipropionate 80 1 inh INHALATION BID #10.6 g 09/19/20 mcg/actuation HFA breath activated aerosol (Qvar RediHaler) loratadine 10 mg tablet 10 mg PO DAILY #30 tab 09/19/20 diphenoxylate-atropine 2.5 1 tab PO BID PRN #30 tab 01/11/21 mg-0.025 mg tablet (Lomotil) insulin glargine 100 unit/mL (3 See Rx Instructions SUBCUT QPM 30 02/06/21 mL) subcutaneous pen (Lantus Days #24 ml Solostar U-100 Insulin) pen needle, diabetic 31 gauge x #1200 ea 02/11/2110/13 insulin lispro 200 unit/mL (3 mL) 8 unit (0.04 mL) SUBCUT TID 30 02/27/21 subcutaneous pen (Humalog KwikPen Days #3.6 ml U-200 Insulin) albuterol sulfate 90 mcg/actuation 2 puff INHALATION Q4-6H PRN #6.7 g 03/06/21 aerosol inhaler bacitracin 500 unit/gram topical 1 appl TOPICAL BID 10 Days #28 g 03/09/21 ointment ondansetron 4 mg disintegrating 4 mg PO TID PRN 5 Days #10 tab 03/14/21 tablet blood sugar diagnostic (FreeStyle #100 ea 04/03/21 Lite Strips) ropinirole 1 mg tablet 3 mg PO DAILY 90 Days #270 tab 04/04/21 benzonatate 100 mg capsule 100 mg PO TID PRN #30 cap 04/17/21 prednisone 20 mg tablet 20 mg PO DAILY 3 Days #3 tab 04/17/21 blood-glucose meter (FreeStyle #1 ea 05/05/21 Lite Meter) famotidine 40 mg tablet 40 mg PO BEDTIME #30 tab 05/12/21 pantoprazole 40 mg tablet,delayed 40 mg PO DAILY #30 tab 05/12/21 release ezetimibe 10 mg tablet 10 mg PO DAILY 90 Days #90 tab 05/19/21 oxycodone 5 mg tablet 5 mg PO Q4H PRN #20 tab 05/24/21 Allergies Allergy/AdvReac Type Severity Reaction Status Date / Time No Known Allergies Allergy Verified 04/21/21 09:12 Review of Systems Review of Systems: Yes all other systems are reviewed and are negative [facility] Past Medical History [facility] Narrative: Social history: She denies tobacco use. She occasionally drinks alcohol. She denies drug use. Medical History Acute Crohn's disease Bipolar 1 disorder GERD (gastroesophageal reflux disease) HLD (hyperlipidemia) HTN (hypertension) Hypothyroidism Interstitial cystitis Osteoporosis Pituitary macroadenoma T2DM (type 2 diabetes mellitus) Uncontrolled diabetes mellitus Vitamin D deficiency Surgical History History of bladder surgery History of section History of surgery History of tubal ligation LAP-BAND surgery status Status post breast reduction Family History Family History Father HTN (hypertension) Mother Heart disease Brother Mental health disorder Sister Mental health disorder Social History Social History Household Members: Children Housing: Apartment Patient Tobacco Use Status: Never used Tobacco e-Cigarette/Vaping Use: Never Used Second Hand Smoke Exposure: Yes Advance Directives: No Advance Directives Information Provided: No service: No Current occupational status: disabled Physical Exam Vital Signs: Vital Signs: Last Vital Signs Temp 98.1 F 05/24/21 11:23 Pulse 83 05/24/21 11:23 Resp 16 05/24/21 11:23 BP 150/94 H 05/24/21 11:23 Pulse Ox 98 05/24/21 11:23 BMI result Body Mass Index 28.3 Const: Other: Awake, alert, female patient, very pleasant and cooperative, does not appear to be in distress but is having pain in her right knee. HENMT: Head: Yes normal to inspection, Yes normocephalic and Yes atraumatic Ears: external ears normal General nose exam: Normal external nose present Face and sinus: Yes normal facial exam Mouth: Normal oral and palatal mucosa present Throat: Yes posterior oropharynx normal Eyes: General: appearance normal, both eyes and all related structures Pupils: Equal, round and reactive pupils present Neck: Neck: Yes normal visual inspection, Yes no lymphadenopathy, Yes trachea midline and Yes supple Chest: Chest palpation & inspection: normal inspection of the chest and normal palpation of entire chest wall Resp: Effort & Inspection: normal respiratory effort and able to speak in complete sentences Auscultation: clear to auscultation bilaterally Cardio: Rate: regular rate Rhythm: regular rhythm Heart sounds: S1 normal heart sound present, S2 normal heart sound present and no murmurs GI: Inspection: Yes normal to inspection Palpation (GI): Soft to palpation, nontender and no guarding Auscultation: normal bowel sounds : General: Yes no CVA tenderness Back/Spine/Pelvis: Back: no CVA tenderness Skin: General skin exam: no rashes or lesions noted Neuro: Cranial nerves: Yes CN's II-XII intact bilaterally and Yes Equal, round and reactive pupils present Cognition (Neuro): normal cognition Motor exam (neuro): 5/5 motor strength present throughout Extrem: Other: The patient has soft tissue swelling and tenderness with palpation over the right lateral knee, she has limited range of motion secondary to pain, the patient's patella appears to be normal, the patient's extremity is neurovascularly intact. Psych: Appearance: grossly normal Speech and movement: Normal speech and movement present Affect: normal affect Attitude: cooperative Course Course Course Narrative: 50-year-old female who presents emergency department for evaluation slip and fall on ice with injury to her right knee that occurred just prior to emergency department. Vital signs revealed an elevated blood pressure of 150/94 otherwise unremarkable. The patient's right knee exam did reveal soft tissue swelling over the medial aspect of the knee, exam was otherwise limited secondary to pain and decreased range of motion. I did order a x-ray of the right knee. The patient's pain was treated with Tylenol 975 mg orally and oxycodone 10 mg orally. 1248: The patient's right knee x-ray was interpreted by the radiologist as follows: mildly displaced comminuted transverse fracture at the junctions of the mid and distal thirds of the ulna without significant angulation and with 3 mm of medial displacement of the distal fracture fragment. No regional fracture appreciated . I did discuss this finding with the patient. The patient gets her orthopedic care through [facility], Dr. Adame. I will contact his service to discuss further management of this fracture. 1316: I did discuss the patient's right tibial plateau fracture with the covering [facility] orthopedic provider, Dr. Troy Dumont. He recommended a knee immobilizer, walker and non-weightbearing and discharged home with office follow-up on 05/26/2021 and scheduled outpatient surgery with 1 of their traumatologists. If the patient cannot ambulate the plan will be to transfer the patient to [facility]. MDM - Extremity Injury (Lower) Lab Data Labs: Lab Results 05/24/21 Range/Units 11:53 POC Glucose 374 H* (60-115) mg/dL Discharge Plan Discharge Clinical Impression: Closed fracture of right tibial plateau Qualifiers: Encounter type: initial encounter Qualified Code(s): S82.141A - Displaced bicondylar fracture of right tibia, initial encounter for closed fracture Fall Qualifiers: Encounter type: initial encounter Qualified Code(s): W19.XXXA - Unspecified fall, initial encounter Patient Disposition: Home, Self-Care Instructions: Leg Fracture (ED) Additional Instructions: You broke/fractured the tibial plateau or your right knee. The tibial plateau is the main weight-bearing surface of your lower legs bone (the tibia) and this needs to be fixed surgically. Usually this is done within a week of the injury. Keep the knee immobilizer on until your recheck by the orthopedic provider Use the walker to walk and do not put any weight on your right leg (nonweightbearing). Take ibuprofen 200 mg pills, 3 pills every 6 hours as needed for pain. Take Tylenol (acetaminophen) 500 mg pills, 2 pills every 6 hours as needed for pain. For pain not relieved by ibuprofen or Tylenol take oxycodone 5 mg pills, 1 pill every 4-6 hours as needed for pain. Do not drive or work while taking this medication since they can cause sleepiness. Oxycodone is a narcotic medication that can be addicting. If you are concerned about addiction you can ask the pharmacist for less pills or do not get this prescription filled. I discussed your fracture with the covering [facility] provider, Dr. Troy Dumont. Call the [facility] office on Wednesday morning, Dr. Dumont wants you to see one of their traumatologists on Wednesday so that they can set you up for surgery next week. If the pain is getting worse and you are not able to take care of yourself at home, then you should go to [facility] Emergency Department so that you can be seen by ED and one of the [facility] orthopedic providers. Prescriptions: New oxycodone 5 mg tablet 5 mg PO Q4H PRN (Reason: pain) Qty: 20 RF: 0 No Action beclomethasone dipropionate [Qvar RediHaler] 80 mcg/actuation HFA aerosol breath activated 1 inh inhalation BID Qty: 10.6 RF: 5 loratadine 10 mg tablet 10 mg PO DAILY Qty: 30 RF: 2 Lantus Solostar U-100 Insulin 100 unit/mL (3 mL) insulin pen See Rx Instructions subcut QPM 30 Days Qty: 24 RF: 3 (DME) pen needle, diabetic 31 gauge x 5/16 needle See Rx Instructions ea subcut DAILY Qty: 1200 RF: 3 albuterol sulfate 90 mcg/actuation HFA aerosol inhaler 2 puff inhalation Q4-6H PRN (Reason: shortness of breath or wheezing) Qty: 6.7 RF: 0 (DME) FreeStyle Lite Strips Strip See Rx Instructions .Route Qty: 100 RF: 3 ropinirole 1 mg tablet 3 mg PO DAILY 90 Days Qty: 270 RF: 1 (DME) blood-glucose meter [FreeStyle Lite Meter] Kit See Rx Instructions .Route Qty: 1 RF: 0 famotidine 40 mg tablet 40 mg PO BEDTIME Qty: 30 RF: 0 pantoprazole 40 mg tablet,delayed release (DR/EC) 40 mg PO DAILY Qty: 30 RF: 0 ezetimibe 10 mg tablet 10 mg PO DAILY 90 Days Qty: 90 RF: 0 bacitracin 500 unit/gram ointment 1 appl topical BID 10 Days Qty: 28 RF: 0 ondansetron 4 mg tablet,disintegrating 4 mg PO TID PRN (Reason: nausea and vomiting) 5 Days Qty: 10 RF: 0 (DME) blood-glucose meter Kit See Rx Instructions ea .ROUTE TID Qty: 1 RF: 0 (DME) FreeStyle Lite Strips Strip See Rx Instructions ea Not Applicable TID Qty: 10 RF: 0 divalproex 500 mg tablet,delayed release (DR/EC) 1,000 mg PO BID RF: 0 suvorexant 15 mg tablet 15 mg PO BEDTIME PRNRF: 0 clonazepam 0.5 mg tablet 0.5 mg PO PRNRF: 0 duloxetine 60 mg capsule,delayed release(DR/EC) 60 mg PO RF: 0 levothyroxine 100 mcg tablet 100 mcg PO DAILY RF: 0 diphenoxylate-atropine [Lomotil] 2.5-0.025 mg tablet 1 tab PO BID PRN (Reason: diarrhea) Qty: 30 RF: 0 Humalog KwikPen Insulin 200 unit/mL (3 mL) insulin pen 8 unit subcut TID 30 Days Qty: 3.6 RF: 3 prednisone 20 mg tablet 20 mg PO DAILY 3 Days Qty: 3 RF: 0 benzonatate 100 mg capsule 100 mg PO TID PRN (Reason: cough) Qty: 30 RF: 0 atorvastatin 80 mg tablet 80 mg PO BEDTIME 30 Days Qty: 30 RF: 11 cholecalciferol (vitamin D3) 50 mcg (2,000 unit) capsule 50 mcg PO BEDTIME 90 Days Qty: 90 RF: 3 silver sulfadiazine 1 % cream topical RF: 0 fluticasone propionate 50 mcg/actuation spray,suspension intranasal RF: 0
--- NOTE | 2021-05-24 12:52 | PC.NURSE ---
call placed to [facility]
== END 2021-05-24 14:29 | disposition home or self-care (01) ==
PROVIDERS: Emergency Provider Emergency Medicine Emergency Medical Services; PCP Nurse Practitioner Family
DX: S82.141A Displaced bicondylar fracture of right tibia, initial encounter for closed fracture (principal); I10 Essential (primary) hypertension; E11.9 Type 2 diabetes mellitus without complications; W00.0XXA Fall on same level due to ice and snow, initial encounter; Y93.9 Activity, unspecified; Y92.9 Unspecified place or not applicable; Y99.9 Unspecified external cause status
CPT/HCPCS: 73562; 82947; 99283; 99284

== ENCOUNTER → 2021-07-18 09:25 | Outpatient (BNVA) | payer OTHER, SELFPAY | PROVIDERS: PCP Nurse Practitioner Family; Visit Provider Internal Medicine Gastroenterology ==

== ENCOUNTER → 2021-08-29 12:50 | Outpatient (BNVA) | payer OTHER, SELFPAY | PROVIDERS: PCP Nurse Practitioner Family; Visit Provider Internal Medicine Gastroenterology | DX: K31.84 Gastroparesis (principal); N39.0 Urinary tract infection, site not specified; R10.10 Upper abdominal pain, unspecified | CPT/HCPCS: 99212 ==

== ENCOUNTER 2021-09-01 07:22 | Outpatient (REF) | payer OTHER, SELFPAY ==
--- NOTE | ~2021-09-01 | US_ITS ---
EXAMINATION: US ABDOMEN COMPLETE CLINICAL INFORMATION: Gastroparesis, nausea, mid abdominal pain. COMPARISON: Ultrasound abdomen complete 03/20/2021. MR abdomen and pelvis 09/30/2018. CT abdomen and pelvis 08/05/2018. XR abdomen KUB 03/11/2014. TECHNIQUE: Real-time imaging of the abdominal viscera. Technically extremely limited study secondary to bowel gas. FINDINGS: PANCREAS: Limited. The visualized pancreatic head and body are normal in appearance. The remainder of the pancreas is obscured from visualization by the overlying bowel gas. ABDOMINAL AORTA: The visualized proximal, mid and distal segments are normal in caliber. Evaluation of the mid segment is somewhat limited by overlapping bowel gas. INFERIOR VENA CAVA: Visualized portions are normal. LIVER: There is diffuse increased liver parenchymal echogenicity. No focal hepatic mass is seen. The liver is normal in size and contour. No biliary ductal dilatation. GALLBLADDER: Normal. The gallbladder is somewhat contracted, without evidence of stones, sludge, polyps, wall thickening or pericholecystic fluid. COMMON BILE DUCT: Normal in caliber measuring 0.4 cm in diameter. RIGHT KIDNEY: Normal. No hydronephrosis. No renal calculi or focal parenchymal lesions. The kidney measures 11.4 cm in maximum dimension. LEFT KIDNEY: Normal. No hydronephrosis. No renal calculi or focal parenchymal lesions. The kidney measures 10.8 cm in maximum dimension. SPLEEN: Normal. The spleen measures 11.1 cm in maximum dimension. FREE FLUID: None. US/US abdomen complete IMPRESSION: 1. There is generalized increase in hepatic echotexture, consistent with fatty infiltration or hepatocellular disease. Please correlate clinically. No focal hepatic mass or intrahepatic biliary dilatation is seen. 2. Technically limited ultrasound examination, in particular of the pancreatic tail, abdominal aorta and gallbladder.
--- NOTE | ~2021-09-01 | NM_ITS ---
EXAMINATION: RADIONUCLIDE SOLID FOOD GASTRIC EMPTYING 4-HOUR STUDY CLINICAL INFORMATION: Early satiety. COMPARISON: No previous gastric emptying study is available for comparison. TECHNIQUE: A standard meal consisting of 4 oz of Egg Beaters brand equivalent tagged was 1.0 mCi Tc-99m Sulfur Colloid, 8 oz water and 2 slices of toast with jelly was administered orally to the patient. Images were obtained using a dual head gamma camera in the anterior and posterior projections over of the stomach immediately post ingestion and at hourly intervals up to 4 hours post ingestion. The anterior and posterior counts at each time interval were averaged using the geometric mean and expressed as percentage of the immediate post ingestion counts. FINDINGS: There is good visualization of activity in the stomach immediately post ingestion. As the study progresses, there is almost no clearance of activity from the stomach, no definite small bowel activity is well visualized. Retention in the stomach at each time interval was: 1 hour 93% (normal 37%-90%) 2 hours 90% (normal 30%-60%) 3 hours 89% 4 hours 84% (normal 0%-10%) NM/NM gastric emptying study IMPRESSION: Markedly abnormal study. No significant gastric emptying is visualized during this study and there is marked abnormal retention of solid food in the stomach present at 4 hours.
== END 2021-09-01 07:23 | disposition home or self-care (01) ==
LOC: HO.US 07:22
PROVIDERS: Visit Provider Internal Medicine Gastroenterology
DX: K31.84 Gastroparesis (principal); R10.10 Upper abdominal pain, unspecified; R68.81 Early satiety
CPT/HCPCS: 76700; 78264; A9541

== ENCOUNTER 2021-09-18 13:38 | Emergency (ER) | payer OTHER, SELFPAY ==
--- NOTE | ~2021-09-18 | XR_ITS ---
EXAMINATION: XR HAND, RIGHT CLINICAL INFORMATION: Hand pain COMPARISON: None TECHNIQUE: PA, lateral, and oblique views of the right hand. FINDINGS: There is no acute fracture or dislocation. Some degenerative changes are noted here. No acute bony erosion or osteopenia. XR/XR hand RT 2V IMPRESSION: No acute bony finding. Degenerative changes are present.
--- NOTE | ~2021-09-18 | XR_ITS ---
EXAMINATION: XR CHEST CLINICAL INFORMATION: Chest pain COMPARISON: 04/17/2021 and prior TECHNIQUE: 2 views of the chest were obtained. FINDINGS: Persistent low lung volumes. Stable heart and mediastinum. No pneumonia or effusion. Nonobstructive gas pattern. No acute osseous finding. ECG leads overlie the chest. XR/XR chest 2V IMPRESSION: Persistent low lung volumes.
[2021-09-18 14:13] VITALS: BP 136/94; PULSE 94; RESP 20; TEMP 36.1; O2SAT 99; BMI 31.6
--- NOTE | 2021-09-18 14:27 | ECG_ITS ---
Test Reason : cp Blood Pressure : / mmHG Vent. Rate : 085 BPM Atrial Rate : 085 BPM P-R Int : 144 ms QRS Dur : 098 ms QT Int : 420 ms P-R-T Axes : 037 -18 030 degrees QTc Int : 499 ms Normal sinus rhythm Prolonged QT Abnormal ECG When compared with ECG of 14-MAR-2021 17:06, No significant change was found Referred By: Generic ED Physician Electronically Signed By:DEISI ROCA MD
[2021-09-18 14:47] LABS: MANUAL DIFF FLAG NO
[2021-09-18 14:54] LABS: Basophils Percent Auto 0.4 % (0-2); Eosinophils Absolute Auto 0.1 X10*3/uL (0.0-0.4); Hematocrit 39.7 % (37.0-47.0); Hemoglobin 13.4 g/dl (12.0-16.0); Imm Gran Abs Auto 0.04 X10*3/uL (0.00-0.03); Imm Gran Pct Auto 0.5 % (0.0-0.4); Lymphocytes Percent Auto 27.5 % (20-40); Mean Corpuscular HGB Conc 33.8 g/dl (31.0-35.0); Mean Corpuscular Hemoglobin 29.5 pg (27.0-33.0); Mean Corpuscular Volume 87.3 fL (80.0-98.0); Mean Platelet Volume 9.3 fL (9.4-12.3); Monocytes Absolute Auto 0.6 X10*3/uL (0.1-1.2); Monocytes Percent Auto 7.9 % (2-11); Neutrophils Absolute Auto 4.6 x10*3/uL (2.0-8.3); Neutrophils Percent Auto 62.7 % (45-73); Platelet Count 217 X10*3/uL (160-400); Red Blood Count 4.55 X10*6/uL (4.20-5.50); Red Cell Distribution Width 14.2 % (11.0-16.0); White Blood Count 7.4 X10*3/uL (4.8-10.8)
[2021-09-18 15:05] VITALS: BP 136/82; PULSE 89; RESP 18; TEMP 37.2; O2SAT 97
[2021-09-18 15:07] LABS: Alanine Aminotransferase 41 U/L (0-31); Albumin Level 4.6 g/dL (3.5-5.0); Alkaline Phosphatase 80 U/L (39-117); Anion Gap 14 (12-20); Aspartate Amino Transferase 40 U/L (5-31); Bilirubin Total 0.9 mg/dL (0.0-1.0); Blood Urea Nitrogen 11 mg/dL (9-16); Calcium 9.3 mg/dL (8.4-10.2); Carbon Dioxide 30 mmol/L (22-29); Chloride 98 mmol/L (96-108); Creatinine Clr Calc Pharmacy 72.8; Estimated Glomerular Filt Rate > 60; Glucose Random 176 mg/dL (60-115); Potassium 3.9 mmol/L (3.3-5.1); Sodium 138 mmol/L (135-145); Total Protein 7.7 g/dL (6.5-8.0)
--- NOTE | 2021-09-18 15:08 | ED_ITS ---
HPI - General Adult General Chief complaint: General Medical Stated complaint: whole body cramping coughing Time Seen by Provider: 09/18/21 14:58 Source: patient Mode of arrival: ambulatory Limitations: no limitations History of Present Illness HPI narrative: 51-year-old female presents emergency department complaining multiple cramps states started left leg is really hurts with her mother rub there is feeling be tter now she denies taking medications for it she does have history of gastroparesis denies any falls or injuries she denies chest pain shortness of breath states she has intermittent cramps of her abdomen and her upper belly . She denies ever come to emergency for this in the past does have a efrem roenterologist Manjinder and she is also complaining of chronic right thumb pain that she has had for the past 2 years. Onset (ago): day(s) Related Data Home Medications Medication Instructions Recorded Confirmed blood sugar diagnostic #10 ea 03/18/20 08/13/21 blood-glucose meter #1 ea 03/18/20 08/13/21 levothyroxine 100 mcg tablet 100 mcg PO DAILY 07/09/20 08/13/21 suvorexant 15 mg tablet 15 mg PO BEDTIME PRN 07/11/20 08/13/21 clonazepam 0.5 mg tablet 0.5 mg PO PRN tab 09/04/20 08/13/21 duloxetine 60 mg capsule,delayed 60 mg PO cap 09/04/20 08/13/21 release Previous Rx's Medication Instructions Recorded atorvastatin 80 mg tablet 80 mg PO BEDTIME 30 Days #30 tab 07/01/20 cholecalciferol (vitamin D3) 50 50 mcg PO BEDTIME 90 Days #90 cap 07/01/20 mcg (2,000 unit) capsule beclomethasone dipropionate 80 1 inh INHALATION BID #10.6 g 09/19/20 mcg/actuation HFA breath activated aerosol (Qvar RediHaler) pen needle, diabetic 31 gauge x #1200 ea 02/11/2110/13 insulin lispro 200 unit/mL (3 mL) 8 unit (0.04 mL) SUBCUT TID 30 02/27/21 subcutaneous pen (Humalog #3.6 ml U-200 Insulin) blood-glucose meter (FreeStyle #1 ea 05/05/21 Lite Meter) loratadine 10 mg tablet 10 mg PO DAILY #30 tab 06/14/21 ezetimibe 10 mg tablet 10 mg PO DAILY 90 Days #90 tab 06/25/21 magnesium oxide 400 mg (241.3 mg 400 mg PO DAILY #30 tab 07/11/21 magnesium) tablet omeprazole 20 mg delayed 20 mg PO DAILY #60 tab 07/18/21 release,disintegrating tablet ropinirole 1 mg tablet 3 mg PO DAILY 90 Days #270 tab 07/19/21 famotidine 40 mg tablet 40 mg PO BEDTIME #30 tab 07/21/21 albuterol sulfate 90 mcg/actuation 2 puff INHALATION Q4-6H PRN #6.7 g 08/02/21 aerosol inhaler blood sugar diagnostic (FreeStyle #100 ea 08/13/21 Lite Strips) vitamin B complex (B 1 tab PO DAILY 30 Days #30 tab 08/13/21 Complex-Vitamin B12) insulin glargine 100 unit/mL (3 See Rx Instructions SUBCUT QPM 90 08/16/21 mL) subcutaneous pen (Lan #24 ml Solostar U-100 Insulin) dicyclomine 10 mg capsule 10 mg PO TID #60 cap 08/29/21 ondansetron 4 mg disintegrating 4 mg PO Q8H PRN #20 tab 08/29/21 tablet benzonatate 100 mg capsule 100 mg PO BID PRN #20 cap 09/18/21 Allergies Allergy/AdvReac Type Severity Reaction Status Date / Time No Known Allergies Allergy Verified 09/18/21 14:24 Review of Systems Review of Systems: Review of systems: General: Patient denies any fever chills recent illness or falls Musculoskeletal: Denies back pain or body aches or other injuries HEENT: denies headache, runny nose, ear pain Respiratory: denies shortness of breath, cough Cardiovascular: no chest pain or palpitations : denies dysuria, frequency Abdomen: no nausea vomiting denies abdominal pain Extremities: no swelling, no pain Skin: no diaphoresis Yes all other systems are reviewed and are negative [facility] Past Medical History Attestation statement: The following information was validated with the patient. Medical History (Updated 09/18/21 @ 16:36 by Madi Adair DO) Acute Crohn's disease Bipolar 1 disorder GERD (gastroesophageal reflux disease) HLD (hyperlipidemia) HTN (hypertension) Hx of fracture of tibia Hypothyroidism Interstitial cystitis Osteoporosis Pituitary macroadenoma T2DM (type 2 diabetes mellitus) Uncontrolled diabetes mellitus Vitamin D deficiency Surgical History History of bladder surgery History of section History of esophagogastroduodenoscopy (EGD) History of surgery History of tubal ligation Hx of brain surgery Hx of colonoscopy LAP-BAND surgery status Status post breast reduction Family History Family History Father HTN (hypertension) Mother Heart disease Brother Mental health disorder Sister Mental health disorder Social History Social History Household Members: Children Housing: Apartment Alcohol intake: current Alcohol intake frequency: holidays/special occasions only Patient Tobacco Use Status: Never used Tobacco e-Cigarette/Vaping Use: Never Used Second Hand Smoke Exposure: Yes Substance Use Type: Marijuana service: No Current occupational status: disabled Physical Exam ED Vital Signs: Vital Signs - 24 hr 09/18/21 14:13 09/18/21 15:05 Temperature 96.9 F 99 F Pulse Rate 94 89 Respiratory Rate 20 18 Blood Pressure 136/94 H 136/82 Pulse Oximetry 99 97 BMI result Body Mass Index 31.6 Physical Exam General: Well-appearing well-nourished in no signs of distress HEENT: Normocephalic atraumatic Neck: No signs of JVD, no masses no tenderness or lymphadenopathy Cardiovascular: Regular rate and rhythm Respiratory: Clear to auscultation bilaterally Abdomen: Soft nontender no masses Extremities: Normal pedal pulses no signs of edema Skin: Dry warm no rashes Back: No tenderness full ROM Medical Decision Making MDM Narrative Medical decision making narrative: Concern for body aches and give the patient Toradol also give patient some Bentyl and check labs make sure the patient is having electrolyte abnormalities give patient fluids well awaiting. the medications given did not change the patient's symptoms labs are unremarkable patient still pending x-ray at this time. Patient looks stable and has normal vitals patient still very upset she states that she was told to go to the ER. NOw that she is in the ER she is told to follow up with her PCP for your chronic cramps.I tried to try to explain to we try to rule out life-threatening cause of disease which we did not find at this time. We have the patient follow- up with a primary care doctor in mild cramping is disabling and is not threatening there is no further testing do on this patient feel comfortable with patient going home is a chronic condition that likely benefit from primary care follow-up. Patient educated to try tonic water for the cramping. She is already on potassium supplementation. Lab Data Result diagrams: 09/18/21 14:37 09/18/21 15:24 Labs: Lab Results 09/18/21 09/18/21 09/18/21 Range/Units 14:37 14:37 14:37 WBC 7.4 (4.8-10.8) X10*3/uL RBC 4.55 (4.20-5.50) X10*6/uL Hgb 13.4 (12.0-16.0) g/dl Hct 39.7 (37.0-47.0) % MCV 87.3 (80.0-98.0) fL MCH 29.5 (27.0-33.0) pg MCHC 33.8 (31.0-35.0) g/dl RDW 14.2 (11.0-16.0) % Plt Count 217 (160-400) X10*3/uL MPV 9.3 L (9.4-12.3) fL Immature Gran % (Auto) 0.5 H (0.0-0.4) % Neut % (Auto) 62.7 (45-73) % Lymph % (Auto) 27.5 (20-40) % [place] % (Auto) 7.9 (2-11) % Eos % (Auto) 1.0 (0-4) % Baso % (Auto) 0.4 (0-2) % Lymph # (Auto) 2.0 (1.2-4.9) X10*3/uL [place] # (Auto) 0.6 (0.1-1.2) X10*3/uL Eos # (Auto) 0.1 (0.0-0.4) X10*3/uL Baso # (Auto) 0.0 (0.0-0.2) X10*3/uL Abs Immat Gran (auto) 0.04 H (0.00-0.03) X10*3/uL Absolute Neuts (auto) 4.6 (2.0-8.3) x10*3/uL Absolute Nucleated RBC 0.000 (0.0-0.012) X10*3/uL Nucleated RBC % (auto) 0.0 (0.0-0.2) /100WBC Sodium 138 (135-145) mmol/L Potassium 3.9 (3.3-5.1) mmol/L Chloride 98 (96-108) mmol/L Carbon Dioxide 30 H (22-29) mmol/L Anion Gap 14 (12-20) BUN 11 (9-16) mg/dL Creatinine 0.97 (0.5-1.4) mg/dL Estim Creat Clear Calc 72.8 Estimated GFR > 60 Random Glucose 176 H (60-115) mg/dL Calcium 9.3 (8.4-10.2) mg/dL Total Bilirubin 0.9 (0.0-1.0) mg/dL AST 40 H D (5-31) U/L ALT 41 H (0-31) U/L Alkaline Phosphatase 80 (39-117) U/L Troponin I High Sens < 3.5 (<3.5-17.0) ng/L Total Protein 7.7 (6.5-8.0) g/dL Albumin 4.6 (3.5-5.0) g/dL COVID-19 (TERELL) (Negative) COVID-19 Clin Com 09/18/21 09/18/21 Range/Units 15:24 15:24 WBC (4.8-10.8) X10*3/uL RBC (4.20-5.50) X10*6/uL Hgb (12.0-16.0) g/dl Hct (37.0-47.0) % MCV (80.0-98.0) fL MCH (27.0-33.0) pg MCHC (31.0-35.0) g/dl RDW (11.0-16.0) % Plt Count (160-400) X10*3/uL MPV (9.4-12.3) fL Immature Gran % (Auto) (0.0-0.4) % Neut % (Auto) (45-73) % Lymph % (Auto) (20-40) % [place] % (Auto) (2-11) % Eos % (Auto) (0-4) % Baso % (Auto) (0-2) % Lymph # (Auto) (1.2-4.9) X10*3/uL [place] # (Auto) (0.1-1.2) X10*3/uL Eos # (Auto) (0.0-0.4) X10*3/uL Baso # (Auto) (0.0-0.2) X10*3/uL Abs Immat Gran (auto) (0.00-0.03) X10*3/uL Absolute Neuts (auto) (2.0-8.3) x10*3/uL Absolute Nucleated RBC (0.0-0.012) X10*3/uL Nucleated RBC % (auto) (0.0-0.2) /100WBC Sodium 138 (135-145) mmol/L Potassium 4.3 (3.3-5.1) mmol/L Chloride 99 (96-108) mmol/L Carbon Dioxide 34 H (22-29) mmol/L Anion Gap 9 L (12-20) BUN 11 (9-16) mg/dL Creatinine 0.93 (0.5-1.4) mg/dL Estim Creat Clear Calc 75.9 Estimated GFR > 60 Random Glucose 151 H (60-115) mg/dL Calcium 9.2 (8.4-10.2) mg/dL Total Bilirubin (0.0-1.0) mg/dL AST (5-31) U/L ALT (0-31) U/L Alkaline Phosphatase (39-117) U/L Troponin I High Sens (<3.5-17.0) ng/L Total Protein (6.5-8.0) g/dL Albumin (3.5-5.0) g/dL COVID-19 (TERELL) Negative (Negative) COVID-19 Clin Com See Note Discharge Plan Discharge Clinical Impression: Abdominal cramps, Cramps of left lower extremity Patient Disposition: Home, Self-Care Instructions: Leg Cramps (ED), Abdominal Pain (ED), Muscle Cramp (ED) Additional Instructions: Your labs and XR's were all normal please call to follow up. Prescriptions: New benzonatate 100 mg capsule 100 mg PO BID PRN (Reason: cough) Qty: 20 0RF No Action beclomethasone dipropionate [Qvar RediHaler] 80 mcg/actuation HFA aerosol breath activated 1 inh inhalation BID Qty: 10.6 5RF (DME) pen needle, diabetic 31 gauge x 5/16 needle See Rx Instructions ea subcut DAILY Qty: 1200 3RF Rx Instructions: BID (DME) blood-glucose meter [FreeStyle Lite Meter] Kit See Rx Instructions .Route Qty: 1 0RF Rx Instructions: TID-QID loratadine 10 mg tablet 10 mg PO DAILY Qty: 30 2RF ezetimibe 10 mg tablet 10 mg PO DAILY 90 Days Qty: 90 0RF magnesium oxide 400 mg (241.3 mg magnesium) tablet 400 mg PO DAILY Qty: 30 0RF ropinirole 1 mg tablet 3 mg PO DAILY 90 Days Qty: 270 1RF famotidine 40 mg tablet 40 mg PO BEDTIME Qty: 30 2RF albuterol sulfate 90 mcg/actuation HFA aerosol inhaler 2 puff inhalation Q4-6H PRN (Reason: shortness of breath or wheezing) Qty: 6.7 0RF (DME) FreeStyle Lite Strips Strip See Rx Instructions .Route Qty: 100 3RF Rx Instructions: test 3 times daily Lantus Solostar U-100 Insulin 100 unit/mL (3 mL) insulin pen See Rx Instructions subcut QPM 90 Days Qty: 24 3RF Rx Instructions: 35 units q AM and 45 units q PM subcut every evening; (DME) blood-glucose meter Kit See Rx Instructions ea .ROUTE TID Qty: 1 0RF Rx Instructions: As directed (DME) FreeStyle Lite Strips Strip See Rx Instructions ea Not Applicable TID Qty: 10 0RF Rx Instructions: As directed suvorexant 15 mg tablet 15 mg PO BEDTIME PRN0RF clonazepam 0.5 mg tablet 0.5 mg PO PRN0RF duloxetine 60 mg capsule,delayed release(DR/EC) 60 mg PO 0RF levothyroxine 100 mcg tablet 100 mcg PO DAILY 0RF Humalog KwikPen Insulin 200 unit/mL (3 mL) insulin pen 8 unit subcut TID 30 Days Qty: 3.6 3RF Rx Instructions: give before meals when sugar is above 140 vitamin B complex [B Complex-Vitamin B12] Tablet 1 tab PO DAILY 30 Days Qty: 30 3RF atorvastatin 80 mg tablet 80 mg PO BEDTIME 30 Days Qty: 30 11RF cholecalciferol (vitamin D3) 50 mcg (2,000 unit) capsule 50 mcg PO BEDTIME 90 Days Qty: 90 3RF omeprazole 20 mg tablet,disintegrat, delay rel 20 mg PO DAILY Qty: 60 3RF dicyclomine 10 mg capsule 10 mg PO TID Qty: 60 0RF ondansetron 4 mg tablet,disintegrating 4 mg PO Q8H PRN (Reason: nausea and vomiting) Qty: 20 0RF
[2021-09-18 15:13] LABS: Troponin-I High Sensitivity < 3.5 ng/L (<3.5-17.0)
[2021-09-18 15:44] LABS: COVID-19 Test Negative (Negative); IDNOW Serial# 55D5AD1C
[2021-09-18 15:51] LABS: Anion Gap 9 (12-20); Blood Urea Nitrogen 11 mg/dL (9-16); Calcium 9.2 mg/dL (8.4-10.2); Carbon Dioxide 34 mmol/L (22-29); Chloride 99 mmol/L (96-108); Creatinine Clr Calc Pharmacy 75.9; Estimated Glomerular Filt Rate > 60; Glucose Random 151 mg/dL (60-115); Potassium 4.3 mmol/L (3.3-5.1); Sodium 138 mmol/L (135-145)
[2021-09-18] MEDS: Ketorolac Tromethamine 30 MG/ML VIAL 15 MG IM (16:03)
[2021-09-18] MEDS: Acetaminophen 325 MG TABLET 650 MG PO (16:04)
[2021-09-18] MEDS: Dicyclomine HCl 10 MG CAPSULE PO (16:05)
--- NOTE | 2021-09-18 16:12 | PC.NURSE ---
pt a&ox3, vss, this nurse and another unable to place an IV, provider notified, order for IV flds cancelled, medicated per provider order. xrays pending.
[2021-09-18 18:13] LABS: Magnesium 1.8 mg/dL (1.6-2.6)
== END 2021-09-18 18:29 | disposition home or self-care (01) ==
PROVIDERS: Student in an Organized Health Care Education/Training Program; Emergency Provider Internal Medicine; PCP Nurse Practitioner Family
DX: R05.9 Cough, unspecified (principal); M79.644 Pain in right finger(s); R25.2 Cramp and spasm; Z20.822 Contact with and (suspected) exposure to COVID-19; Z79.899 Other long term (current) drug therapy
CPT/HCPCS: 36415; 71046; 73120; 80048; 80053; 82550; 83735; 84484; 85025; 87635; 93005; 96360; 96361; 96372; 99284; J1885

== ENCOUNTER 2021-09-19 10:04 | Outpatient (REF) | payer OTHER, SELFPAY ==
[2021-09-19 11:27] LABS: Appearance Urine CLEAR; Color Urine YELLOW; Glucose Urine UA NEG (NEG); Leukocyte Esterase Urine NEG (NEG); MANUAL DIFF FLAG NO; Nitrite Urine NEG (NEG); PH 7.5 (5.0-8.0); Specific Gravity - Urine 1.015 (1.005-1.025); Urine Blood NEG (NEG); Urine Ketones NEG (NEG); Urine Protein NEG (NEG-TRACE)
[2021-09-19 11:31] LABS: Basophils Percent Auto 0.4 % (0-2); Eosinophils Percent Auto 0.6 % (0-4); Hematocrit 39.1 % (37.0-47.0); Hemoglobin 13.3 g/dl (12.0-16.0); Imm Gran Abs Auto 0.02 X10*3/uL (0.00-0.03); Imm Gran Pct Auto 0.4 % (0.0-0.4); Lymphocytes Percent Auto 20.1 % (20-40); Mean Corpuscular Hemoglobin 29.6 pg (27.0-33.0); Mean Corpuscular Volume 86.9 fL (80.0-98.0); Mean Platelet Volume 9.2 fL (9.4-12.3); Monocytes Absolute Auto 0.4 X10*3/uL (0.1-1.2); Monocytes Percent Auto 8.4 % (2-11); Neutrophils Absolute Auto 3.6 x10*3/uL (2.0-8.3); Neutrophils Percent Auto 70.1 % (45-73); Platelet Count 182 X10*3/uL (160-400); Red Cell Distribution Width 14.3 % (11.0-16.0); White Blood Count 5.1 X10*3/uL (4.8-10.8)
[2021-09-19 12:00] LABS: Ferritin 150 ng/mL (10-250)
[2021-09-19 12:14] LABS: Alanine Aminotransferase 53 U/L (0-31); Albumin Level 4.4 g/dL (3.5-5.0); Alkaline Phosphatase 78 U/L (39-117); Anion Gap 12 (12-20); Aspartate Amino Transferase 64 U/L (5-31); Bilirubin Total 0.8 mg/dL (0.0-1.0); Blood Urea Nitrogen 13 mg/dL (9-16); C Reactive Protein 1.98 mg/dL (< or = 0.50); Calcium 8.7 mg/dL (8.4-10.2); Carbon Dioxide 30 mmol/L (22-29); Chloride 96 mmol/L (96-108); Cholesterol 190 mg/dL; Estimated Glomerular Filt Rate 52; Glucose Fasting 136 mg/dL (60-99); HDL Cholesterol 41 mg/dL; LDL Cholesterol Calculated 113 mg/dl; Potassium 3.9 mmol/L (3.3-5.1); Sodium 134 mmol/L (135-145); Total Protein 7.3 g/dL (6.5-8.0); Triglycerides 181 mg/dL
[2021-09-19 12:19] LABS: TSH reflex Free T4 2.54 uIU/mL (0.32-4.0); Vitamin D 25-OH Total 44.1 ng/mL (>30)
[2021-09-19 12:20] LABS: Folate 7.4 ng/mL (> or = 4.0); Vitamin B12 603 pg/mL (200-900)
== END 2021-09-19 10:05 | disposition home or self-care (01) ==
LOC: HO.HMGCLDS 10:04
PROVIDERS: Absent Provider Internal Medicine Gastroenterology; PCP Nurse Practitioner Family; Visit Provider Nurse Practitioner Family
DX: Z00.00 Encounter for general adult medical examination without abnormal findings (principal); K75.81 Nonalcoholic steatohepatitis (NASH); N39.0 Urinary tract infection, site not specified; K31.84 Gastroparesis; Z78.0 Asymptomatic menopausal state
CPT/HCPCS: 36415; 80053; 80061; 81003; 82306; 82607; 82728; 82746; 84443; 85025; 86140

== ENCOUNTER 2021-09-25 11:10 | Outpatient (REF) | payer OTHER, SELFPAY ==
[2021-09-25 14:44] LABS: Influenza A PCR POSITIVE (Negative); Influenza B PCR NEGATIVE (Negative); Resp Syncy Virus RNA Qual PCR NEGATIVE (Negative); SARS COV2 PCR INHOUSE NEGATIVE (Negative)
== END 2021-09-25 11:11 | disposition home or self-care (01) ==
LOC: HO.LAB 11:10
PROVIDERS: Visit Provider Nurse Practitioner Acute Care
DX: Z20.822 Contact with and (suspected) exposure to COVID-19 (principal); R68.89 Other general symptoms and signs
CPT/HCPCS: 0241U

== ENCOUNTER 2021-10-21 12:10 | Outpatient (REF) | payer OTHER, SELFPAY ==
--- NOTE | ~2021-10-21 | MM_ITS ---
EXAMINATION: MM SCREENING DIGITAL BREAST TOMOSYNTHESIS, BILATERAL CLINICAL INFORMATION: Screening. Asymptomatic. Remote reduction mammoplasty, 2001. The lifetime risk of breast cancer based on the Tyrer-Cuzick Model is 7%. COMPARISON: Mammography: 04/09/2020, 04/08/2018, 08/10/2016 TECHNIQUE: Digital breast tomosynthesis is performed in both the craniocaudal and mediolateral oblique views along with computer-aided detection (CAD). Synthesized 2D images are generated from the tomosynthesis. FINDINGS: The breasts are almost entirely fatty (ACR BI-RADS breast composition Category a). There are no significant masses, abnormal calcifications, or other abnormalities. Stromal markings are stable. No interval mass or architectural abnormality. There are multiple benign rim lucent centered calcifications on the right and some scattered benign calcifications on the left. No significant changes. MM/MM tomosynthesis screening BI IMPRESSION: No mammographic evidence of malignancy. ASSESSMENT: BI-RADS 2: Benign RECOMMENDATION: Routine annual mammography screening. This patient's information was entered into a reminder system with a target due date for their next mammogram.
== END 2021-10-21 12:11 | disposition home or self-care (01) ==
LOC: HO.MAMMO 12:10
PROVIDERS: Visit Provider Nurse Practitioner Family
DX: Z12.31 Encounter for screening mammogram for malignant neoplasm of breast (principal)
CPT/HCPCS: 77063; 77067

== ENCOUNTER → 2021-11-03 10:38 | Outpatient (BNVA) | payer OTHER, SELFPAY | PROVIDERS: PCP Nurse Practitioner Family; Referring Provider Nurse Practitioner Family; Visit Provider Internal Medicine Gastroenterology | DX: K31.84 Gastroparesis (principal); R19.7 Diarrhea, unspecified; E11.9 Type 2 diabetes mellitus without complications | CPT/HCPCS: 99212 ==

== ENCOUNTER 2022-01-21 20:51 | Emergency (ER) | payer OTHER, SELFPAY ==
[2022-01-21 20:59] VITALS: BP 129/86; PULSE 84; O2SAT 94
[2022-01-21 21:15] VITALS: BP 145/84; PULSE 87; RESP 18; TEMP 36.7; O2SAT 99; BMI 29.0
== END 2022-01-21 21:32 | disposition left against medical advice (07) ==
LOC: HO.ED 21:29
PROVIDERS: Emergency Provider Emergency Medicine; PCP Nurse Practitioner Family
DX: M79.604 Pain in right leg (principal); M79.605 Pain in left leg
CPT/HCPCS: 99281

== ENCOUNTER 2022-02-19 11:56 | Outpatient (REF) | payer OTHER, SELFPAY ==
--- NOTE | ~2022-02-19 | XR_ITS ---
Indication: Fall EXAMINATION: SI joints, sacrum coccyx, lumbar sacral spine. 3 views of the lumbar sacral spine demonstrate degenerative changes. Scoliosis convex left apex at L4. No listhesis or compression injury. No fracture line is seen here. 3 views of the sacrum coccyx does not demonstrate evidence for an acute fracture. 2 views of the SI joints does not demonstrate acute finding. There is no widening felt to be present. Some sclerosis on both sides of the joint. This may be degenerative. An element of sacroiliitis cannot be excluded but no acute finding. No bony erosion or ankylosis. XR/XR sacroiliac joint 1-2V IMPRESSION: Multiple studies. No acute finding.
--- NOTE | ~2022-02-19 | XR_ITS ---
Indication: Fall EXAMINATION: SI joints, sacrum coccyx, lumbar sacral spine. 3 views of the lumbar sacral spine demonstrate degenerative changes. Scoliosis convex left apex at L4. No listhesis or compression injury. No fracture line is seen here. 3 views of the sacrum coccyx does not demonstrate evidence for an acute fracture. 2 views of the SI joints does not demonstrate acute finding. There is no widening felt to be present. Some sclerosis on both sides of the joint. This may be degenerative. An element of sacroiliitis cannot be excluded but no acute finding. No bony erosion or ankylosis. XR/XR sacrum coccyx min 2V IMPRESSION: Multiple studies. No acute finding.
--- NOTE | ~2022-02-19 | XR_ITS ---
Indication: Fall EXAMINATION: SI joints, sacrum coccyx, lumbar sacral spine. 3 views of the lumbar sacral spine demonstrate degenerative changes. Scoliosis convex left apex at L4. No listhesis or compression injury. No fracture line is seen here. 3 views of the sacrum coccyx does not demonstrate evidence for an acute fracture. 2 views of the SI joints does not demonstrate acute finding. There is no widening felt to be present. Some sclerosis on both sides of the joint. This may be degenerative. An element of sacroiliitis cannot be excluded but no acute finding. No bony erosion or ankylosis. XR/XR lumbar spine 2-3V IMPRESSION: Multiple studies. No acute finding.
== END 2022-02-19 11:57 | disposition home or self-care (01) ==
LOC: HO.HMGCX 11:56
PROVIDERS: PCP Nurse Practitioner Family; Visit Provider Nurse Practitioner Family
DX: S39.92XA Unspecified injury of lower back, initial encounter (principal); M54.50 Low back pain, unspecified; M53.3 Sacrococcygeal disorders, not elsewhere classified; W10.8XXA Fall (on) (from) other stairs and steps, initial encounter
CPT/HCPCS: 72100; 72200; 72220

== ENCOUNTER 2022-06-22 14:28 | Outpatient (REF) | payer OTHER, SELFPAY ==
[2022-06-23 11:50] LABS: Appearance Urine Clear; Color Urine Dark Yellow; Glucose Urine UA Negative (Negative); Leukocyte Esterase Urine Moderate (2+) (Negative); Nitrite Urine Negative (Negative); PH 6.5 (5.0-9.0); Specific Gravity - Urine 1.025 (1.005-1.025); UMIC TRIGGER UA YES; Urine Blood Negative (Negative); Urine Ketones Trace mg/dL (Negative); Urine Protein Trace mg/dL (Neg-Trace)
[2022-06-23 11:55] LABS: Bacteria Urine None Seen (None Seen); Hyaline Casts Urine 0-2 /LPF (0-2); RBC Urine 0-2 /HPF (0-2); Squamous Epithelial Cell Urine 0-2 /HPF (0-2); WBC Urine >50 /HPF (0-5)
== END 2022-06-22 14:29 | disposition home or self-care (01) ==
LOC: HO.LAB 14:28
PROVIDERS: Visit Provider Family Medicine
DX: R30.0 Dysuria (principal)
CPT/HCPCS: 81001; 87086; 87088; 87186

== ENCOUNTER 2022-06-25 16:40 | Outpatient (REF) | payer OTHER, SELFPAY ==
[2022-06-25 16:59] LABS: Appearance Urine Turbid; Color Urine Dark Yellow; Glucose Urine UA Negative (Negative); Leukocyte Esterase Urine Large (3+) (Negative); Nitrite Urine Positive (Negative); Specific Gravity - Urine 1.015 (1.005-1.025); UMIC TRIGGER UACC YES; Urine Blood Large (3+) (Negative); Urine Ketones Negative (Negative); Urine Protein 100 (2+) mg/dL (Neg-Trace)
[2022-06-25 18:10] LABS: Bacteria Urine Trace (None Seen); Hyaline Casts Urine 0-2 /LPF (0-2); RBC Urine >20 /HPF (0-2); Squamous Epithelial Cell Urine 0-2 /HPF (0-2); UACC Culture Trigger YES; WBC Urine >50 /HPF (0-5)
== END 2022-06-25 16:41 | disposition home or self-care (01) ==
LOC: HO.LNP 16:40
PROVIDERS: Visit Provider Physician Assistant Medical
DX: R30.0 Dysuria (principal)
CPT/HCPCS: 81001; 87086; 87088; 87186

== ENCOUNTER 2022-06-30 09:47 | Outpatient (REF) | payer OTHER, SELFPAY ==
[2022-06-30 11:44] LABS: MANUAL DIFF FLAG NO
[2022-06-30 11:45] LABS: Appearance Urine Clear; Color Urine Yellow; Glucose Urine UA Negative (Negative); Leukocyte Esterase Urine Negative (Negative); Nitrite Urine Negative (Negative); Specific Gravity - Urine 1.015 (1.005-1.025); Urine Blood Negative (Negative); Urine Ketones Negative (Negative); Urine Protein Negative (Neg-Trace)
[2022-06-30 11:47] LABS: Basophils Percent Auto 0.6 % (0-2); Eosinophils Absolute Auto 0.1 X10*3/uL (0.0-0.4); Eosinophils Percent Auto 1.1 % (0-4); Hematocrit 37.4 % (37.0-47.0); Hemoglobin 13.2 g/dl (12.0-16.0); Imm Gran Abs Auto 0.04 X10*3/uL (0.00-0.03); Imm Gran Pct Auto 0.8 % (0.0-0.4); Lymphocytes Absolute Auto 2.6 X10*3/uL (1.2-4.9); Lymphocytes Percent Auto 49.2 % (20-40); Mean Corpuscular HGB Conc 35.3 g/dl (31.0-35.0); Mean Corpuscular Hemoglobin 30.4 pg (27.0-33.0); Mean Corpuscular Volume 86.2 fL (80.0-98.0); Mean Platelet Volume 9.9 fL (9.4-12.3); Monocytes Absolute Auto 0.5 X10*3/uL (0.1-1.2); Monocytes Percent Auto 8.6 % (2-11); Neutrophils Absolute Auto 2.1 x10*3/uL (2.0-8.3); Neutrophils Percent Auto 39.7 % (45-73); Platelet Count 235 X10*3/uL (160-400); Red Blood Count 4.34 X10*6/uL (4.20-5.50); Red Cell Distribution Width 12.1 % (11.0-16.0); White Blood Count 5.3 X10*3/uL (4.8-10.8)
[2022-06-30 12:33] LABS: Estimated Average Glucose 148 mg/dL; Hemoglobin A1c % 6.8 %
[2022-06-30 12:43] LABS: Alanine Aminotransferase 48 U/L (0-31); Albumin Level 4.2 g/dL (3.5-5.0); Alkaline Phosphatase 67 U/L (39-117); Anion Gap 13 (12-20); Aspartate Amino Transferase 34 U/L (5-31); Bilirubin Total 0.5 mg/dL (0.0-1.0); Blood Urea Nitrogen 6 mg/dL (9-16); Calcium 8.9 mg/dL (8.4-10.2); Carbon Dioxide 29 mmol/L (22-29); Chloride 104 mmol/L (96-108); Estimated Glomerular Filt Rate > 60; Glucose Fasting 111 mg/dL (60-99); Potassium 3.9 mmol/L (3.3-5.1); Sodium 142 mmol/L (135-145); Total Protein 6.8 g/dL (6.5-8.0)
[2022-06-30 12:52] LABS: Valproate 12.5 mcg/mL (50.0-100.0)
[2022-06-30 13:02] LABS: TSH reflex Free T4 2.26 uIU/mL (0.32-4.0)
[2022-07-01 22:43] LABS: Lutenizing Hormone <0.2 mIU/mL; Prolactin 1.2 ng/mL
== END 2022-06-30 09:48 | disposition home or self-care (01) ==
LOC: HO.WFDLDS 09:47
PROVIDERS: Absent Provider Psychiatry & Neurology Psychiatry; Visit Provider Family Medicine
DX: Z00.00 Encounter for general adult medical examination without abnormal findings (principal); R73.01 Impaired fasting glucose; H53.9 Unspecified visual disturbance; R30.0 Dysuria; Z79.899 Other long term (current) drug therapy; Z86.018 Personal history of other benign neoplasm
CPT/HCPCS: 36415; 80053; 80164; 81003; 83002; 83036; 84146; 84443; 85025

== ENCOUNTER 2022-07-07 16:50 | Outpatient (REF) | payer OTHER, SELFPAY ==
--- NOTE | ~2022-07-07 | MR_ITS ---
EXAMINATION: MR BRAIN WITHOUT AND WITH CONTRAST CLINICAL INFORMATION: Dizziness. Blurry vision. Pituitary adenoma. COMPARISON: Brain MRI from 03/24/2021. TECHNIQUE: MRI of the brain was obtained using pituitary protocol without and following the administration of 3.5 mL of Gadavist intravenous contrast. FINDINGS: Changes of prior transnasal/transsphenoidal resection of a pituitary fossa mass. Stable appearance of residual enhancing soft tissue centered within the right-sided and inferior aspects of the expanded sella turcica with extension into the sphenoid sinus. This mass is again noted to extend into the right cavernous sinus encasing approximately 50% of the cavernous segment of the right ICA. Overall, this lesion measures up to 2.2 x 2 x 2.3 cm (unchanged). Similar degree of restricted diffusion associated with this lesion. Unchanged leftward deviation of the pituitary infundibulum. Similar prior exam, the optic chiasm is distorted inferiorly. No new abnormal enhancement of the optic chiasm or intracranial optic nerves. No focal restricted diffusion is demonstrated to suggest acute or subacute cerebral ischemia. Normal parenchymal signal characteristics. The ventricles are normal in morphology and size. No abnormal mass effect. No midline shift. Normal positioning of the cerebellar tonsils. Normal arterial and venous vascular flow voids are present. No additional abnormal contrast enhancement. Normal, homogeneous marrow signal. Mild mucosal thickening of the paranasal sinuses. No signal abnormalities within the mastoids. MR/MR head/brain wo/w con IMPRESSION: 1. Stable appearance of residual pituitary macroadenoma centered within the right-sided and inferior aspects of the sella turcica with extension into the sphenoid sinus. This lesion is again noted to extend into the right cavernous sinus encasing approximately 50% of the cavernous segment of the right ICA. 2. No acute intracranial abnormalities. No additional abnormal intracranial enhancement.
== END 2022-07-07 16:51 | disposition home or self-care (01) ==
LOC: HO.MRI 16:50
PROVIDERS: Visit Provider Family Medicine
DX: H53.9 Unspecified visual disturbance (principal); Z86.010 Personal history of colon polyps
CPT/HCPCS: 70553; A9585

== ENCOUNTER 2022-07-10 08:06 | Outpatient (REF) | payer OTHER, SELFPAY | END 2022-07-10 08:07 | disposition home or self-care (01) | LOC: HO.HOSX 08:06 | PROVIDERS: Visit Provider Physician Assistant | DX: Z13.89 Encounter for screening for other disorder (principal) ==

== ENCOUNTER → 2022-08-14 11:30 | Outpatient (BNVA) | payer OTHER, SELFPAY | PROVIDERS: PCP Nurse Practitioner Family; Visit Provider Internal Medicine Gastroenterology ==

== ENCOUNTER 2022-09-18 09:04 | Outpatient (REF) | payer OTHER, SELFPAY ==
[2022-09-18 12:21] LABS: Estimated Average Glucose 128 mg/dL; Hemoglobin A1C 147.4141 umol/L; Hemoglobin A1c % 6.1 %
[2022-09-18 12:40] LABS: Creatinine Urine 175.66 mg/dL; Microalbum/Creatinine Ratio Ur 5.6 ug/mg cr
[2022-09-18 12:54] LABS: TSH reflex Free T4 4.86 uIU/mL (0.32-4.0)
[2022-09-18 13:48] LABS: Free T4 (Free Thyroxine) 0.64 ng/dL (0.71-1.85)
== END 2022-09-18 09:05 | disposition home or self-care (01) ==
LOC: HO.HMGCLDS 09:04
PROVIDERS: PCP Nurse Practitioner Family; Visit Provider Nurse Practitioner Family
DX: E11.65 Type 2 diabetes mellitus with hyperglycemia (principal)
CPT/HCPCS: 36415; 82043; 83036; 84439; 84443

== ENCOUNTER 2022-12-23 12:52 | Outpatient (AMB) | payer OTHER, SELFPAY ==
--- NOTE | 2022-12-23 13:01 | AM.OFFWIN_ITS ---
Intake Vital Signs 12/23/22 13:06 BP 100/68 Blood Pressure Location Rt brachial Position Sitting Pulse 84 Pulse Source Pulse Oximeter Pulse Oximetry (%) 98 Oxygen Delivery Method Room Air Intake Visit Reasons: Ep, Left side pain due to fall Intake Note: Patient here because about 2 weeks ago she slipped and fell backwards and hit herself with tv on the left side and has had pain since then. she also has left arm pain and has broken it in the past but it is very painful now. Patient Tobacco Use Status: Never used Tobacco Allergies No Known Allergies Allergy (Verified 12/23/22 13:05) Do you need a note to return to daycare/school/sports/work: No HPI Ep, Left side pain due to fall HPI Details Patient presents today with left arm and left-sided lower back pain following a fall out of bed about 2 weeks ago. She states that her son about 1 month ago, and she has been having very restless sleep. She fell out of bed onto her left side, and has had pain since then. She has been using lidocaine patches, heat, ice, Tylenol as needed. She also reports urinary frequency and is not sure if she has a UTI. Denies any pain, fever, chills, or odor to urine. Reports she is often incontinent of urine but recently has been incontinent a very large amounts of urine, more so than usual. [facility] Medical History Acute Crohn's disease Bipolar 1 disorder GERD (gastroesophageal reflux disease) HLD (hyperlipidemia) HTN (hypertension) Hx of fracture of tibia Hypothyroidism Interstitial cystitis Osteoporosis Pituitary macroadenoma T2DM (type 2 diabetes mellitus) Uncontrolled diabetes mellitus Vitamin D deficiency Surgical History History of bladder surgery History of section History of esophagogastroduodenoscopy (EGD) History of surgery History of tubal ligation Hx of brain surgery Hx of colonoscopy LAP-BAND surgery status Status post breast reduction Family History Father HTN (hypertension) Mother Heart disease Brother Mental health disorder Sister Mental health disorder Social History Household Members: Children Housing: Apartment Alcohol intake: current Alcohol intake frequency: holidays/special occasions only Patient Tobacco Use Status: Never used Tobacco e-Cigarette/Vaping Use: Never Used Second Hand Smoke Exposure: Yes Substance Use Type: Marijuana service: No Current occupational status: disabled Cognitive needs: No Hearing needs: No Vision needs: Yes Review of Systems Const All systems reviewed & are unremarkable except as noted in HPI and below Physical Exam Vital Signs: Last Vital Signs Pulse 84 12/23/22 13:06 BP 100/68 12/23/22 13:06 Pulse Ox 98 12/23/22 13:06 Oxygen Delivery Method Room Air 12/23/22 13:06 Const General: cooperative, healthy appearing and no acute distress Neck Neck: Yes no lymphadenopathy Resp Effort & Inspection: normal respiratory effort and able to speak in complete sentences Auscultation: clear to auscultation bilaterally Cardio Jugular venous distension: no JVD Palpation: normal PMI Rate: regular rate Rhythm: regular rhythm General: Yes no CVA tenderness Back/Spine/Pelvis Back: no CVA tenderness Cervical Spine: normal cervical lordosis and cervical ROM normal Thoracic/Lumbar Spine: thoracic and lumbar spine normal to inspection, straight leg raise negative bilaterally and paraspinal muscle tenderness on the left in the mid lumbar and in the lower lumbar Skin General skin exam: no rashes or lesions noted Extrem General: Yes capillary refill normal and Yes no clubbing, cyanosis or edema Left upper extremity: elbow/forearm Details: normal to inspection and tenderness Location: of the distal humerus and of the proximal forearm Psych Appearance: grossly normal Mental Status: mental status grossly normal Speech and movement: Normal speech and movement present Results AMB Urinalysis, Automated UA Leukoctes 0 Oswald/uL Last Edit by VEGA Waggoner on 12/23/22 13:45 UA Nitrite Negative Last Edit by VEGA Waggoner on 12/23/22 13:45 UA Urobilinogen 0.2 mg/dL Last Edit by VEGA Waggoner on 12/23/22 13:45 UA Protein 0 mg/dL Last Edit by VEGA Waggoner on 12/23/22 13:45 UA pH 6.0 Last Edit by VEGA Waggoner on 12/23/22 13:45 UA Blood 0 Derrick/uL Last Edit by Monty Islas [facility] on 12/23/22 13:45 UA Specific [place] 1.030 Last Edit by Monty Islas [facility] on 12/23/22 13:45 UA Ketone Positive Last Edit by Monty Islas [facility] on 12/23/22 13:45 UA Bilirubin 0 mg/dL Last Edit by Monty Islas [facility] on 12/23/22 13:45 UA Glucose 0 mg/dL Last Edit by Monty Islas [facility] on 12/23/22 13:45 Assessment & Plan Assessment & Plan (1) Lower back pain: Code(s): M54.50 - Low back pain, unspecified Qualifiers: Chronicity: acute Back pain laterality: left Sciatica presence: without sciatica Qualified Code(s): M54.50 - Low back pain, unspecified Plan: Patient with left lower back and left elbow/ forearm pain following fall out of bed about two weeks ago. Imaging does not reveal any acute findings. I discussed this with patient. Will also await official radiology read. I reviewed conservative treatment with patient including, heat, ice, lidocaine patch application. she cannot take NSAIDs. Advised to take Tylenol prn for pain and I will also start her on a short course of muscle relaxers to take, primarily at HS. We reviewed indications, use, possible side effects of medication. If she does not improve with time and conservative treatment, or if new symptoms develop, she should return to the clinic for further evaluation and follow-up with PCP as scheduled. (2) Left elbow pain: Code(s): M25.522 - Pain in left elbow (3) Status post fall: Code(s): Z91.81 - History of falling (4) Urinary frequency: Code(s): R35.0 - Frequency of micturition Plan: History of interstitial cystitis. Has seen Urology in the past, however not in many years. Urine dip in the office does not reveal UTI. Patient would like to follow-up with local female urology provider if possible. Will refer to Vero Meyers at [facility] [place]. Orders: Orders XR elbow LT 2V Today M25.522 - Pain in left elbow, Z91.81 - History of falling XR lumbar spine 2-3V Today M54.50 - Low back pain, unspecified, Z91.81 - History of falling AMB Urinalysis Automated Today Z13.9 - Encounter for screening, unspecified Referrals Urology Referral R35.0 - Frequency of micturition Medications: New cyclobenzaprine 10 mg PO BEDTIME PRN 10 tabs 0RF muscle spasm 10 days Coding Level of Care Code Est Pt Level 4 (14840) Diagnoses Lower back pain M54.50 Chronicity: acute Back pain laterality: left Sciatica presence: without sciatica Left elbow pain M25.522 Status post fall Z91.81 Urinary frequency R35.0
[2022-12-23 13:06] VITALS: BP 100/68; PULSE 84; O2SAT 98
== END 2022-12-23 14:36 | disposition home or self-care (01) ==
PROVIDERS: PCP Nurse Practitioner Family; Visit Provider Nurse Practitioner Family
DX: M54.50 Low back pain, unspecified (principal); M25.522 Pain in left elbow; Z91.81 History of falling; R35.0 Frequency of micturition
CPT/HCPCS: 81003; 99214

== ENCOUNTER 2022-12-23 13:39 | Outpatient (REF) | payer OTHER, SELFPAY ==
--- NOTE | ~2022-12-23 | XR_ITS ---
EXAMINATION: XR ELBOW, LEFT CLINICAL INFORMATION: Left elbow pain with history of falling. COMPARISON: None available. TECHNIQUE: AP, lateral, and oblique views of the left elbow. FINDINGS: The bones and soft tissues are normal. No fracture or joint effusion. Alignment is anatomic. Joint spaces are maintained. XR/XR elbow LT 2V IMPRESSION: Unremarkable left elbow.
--- NOTE | ~2022-12-23 | XR_ITS ---
EXAMINATION: XR LUMBOSACRAL SPINE CLINICAL INFORMATION: Low back pain. COMPARISON: None available. TECHNIQUE: Three views of the lumbosacral spine. FINDINGS: Mild lumbar levoscoliosis. There is normal lumbar lordosis and spinal alignment. Minimal multilevel degenerative changes. There is no acute fracture. The soft tissues are unremarkable. XR/XR lumbar spine 2-3V IMPRESSION: Mild lumbar levoscoliosis and minimal multilevel degenerative changes. No acute abnormality.
== END 2022-12-23 13:40 | disposition home or self-care (01) ==
LOC: HO.HMGCX 13:39
PROVIDERS: PCP Nurse Practitioner Family; Visit Provider Nurse Practitioner Family
DX: M25.522 Pain in left elbow (principal); M54.50 Low back pain, unspecified; Z91.81 History of falling
CPT/HCPCS: 72100; 73070

== ENCOUNTER 2023-02-15 08:50 | Outpatient (AMB) | payer OTHER, SELFPAY ==
--- NOTE | 2023-02-15 07:25 | MHC.PC.OV ---
Intake Visit Reasons: telehealth, missed appt 02/10 Allergies No Known Allergies Allergy (Verified 12/23/22 13:05) Medication List - Last Reconciled 02/15/23 by STACY Rice- [Adult incontinence small pull up 1 unit Not Applicable DAILY PRN 30 days] albuterol sulfate 90 mcg/actuation 2 puffs inhalation Q4-6H PRN alprazolam 0.5 mg PO BID PRN blood sugar diagnostic (FreeStyle Lite Strips) test 3 times daily blood-glucose meter (FreeStyle Lite Meter kit) TID-QID cholecalciferol (vitamin D3) 50 mcg PO BEDTIME 90 days cyclobenzaprine 10 mg PO BEDTIME PRN 10 days diaper,brief,adult,disposable (Annie Briefs-Small) use daily dicyclomine 10 mg PO TID divalproex 1,000 mg PO BEDTIME duloxetine 60 mg PO ezetimibe 10 mg PO DAILY flash glucose sensor (FreeStyle Kourtney 2 Sensor kit) As directed insulin glargine (Lantus Solostar U-100 Insulin) 35 units q AM and 45 units q PM subcut every evening; Future refills from Endo insulin lispro (Humalog KwikPen U-200 Insulin) 8 units (0.04 mL) subcut TID 30 days ketoconazole 2% 1 appl topical DAILY lancets (FreeStyle Lancets) tid testing levothyroxine 88 mcg PO DAILY loratadine 10 mg PO DAILY lumateperone (Caplyta) 42 mg PO DAILY ondansetron 4 mg PO Q8H PRN pantoprazole 40 mg PO DAILY pen needle, diabetic BID-Future refills from Endo ropinirole 3 mg (3 x 1 mg) PO DAILY triamcinolone acetonide 0.1% 1 appl topical BID-TID Tobacco use date assessed: 06/22/22 HPI telehealth, missed appt 02/10 HPI Details Pt reports a rash to her lower pannus. She reports that this does itch. Pt has tried nystatin which did not help. Will send ketoconazole. Denies fever, chills, and dizziness. reinforced importance of keeping the region dry. [facility] Medical History Acute Crohn's disease Bipolar 1 disorder GERD (gastroesophageal reflux disease) HLD (hyperlipidemia) HTN (hypertension) Hx of fracture of tibia Hypothyroidism Interstitial cystitis Osteoporosis Pituitary macroadenoma T2DM (type 2 diabetes mellitus) Uncontrolled diabetes mellitus Vitamin D deficiency Surgical History History of bladder surgery History of section History of esophagogastroduodenoscopy (EGD) History of surgery History of tubal ligation Hx of brain surgery Hx of colonoscopy LAP-BAND surgery status Status post breast reduction Family History Father HTN (hypertension) Mother Heart disease Brother Mental health disorder Sister Mental health disorder Social History Household Members: Children Housing: Apartment Alcohol intake: current Alcohol intake frequency: holidays/special occasions only Patient Tobacco Use Status: Never used Tobacco e-Cigarette/Vaping Use: Never Used Second Hand Smoke Exposure: Yes Substance Use Type: Marijuana service: No Current occupational status: disabled Cognitive needs: No Hearing needs: No Vision needs: Yes Questionnaire Thrive Questionnaire Date Thrive assessed: 06/12/22 PETER-7 AMB Questionnaire PETER-7 Date PETER - 7 assessed: 06/12/22 Source: Developed by Drs. Xiang Griffin, Belen Garcia, Hernan Perez and colleagues, with an educational kendall from [employer] Review of Systems Const Reports as per HPI Physical exam (Primary Care) Tobacco/Smoking Status: Tobacco use Status Tobacco use date assessed 06/22/22 02/15/23 07:26 Patient Tobacco Use Status Never used Tobacco 02/15/23 07:26 e-Cigarette/Vaping Use Never Used 02/15/23 07:26 Thrive Assessment: Date of Thrive Assessment Date Thrive assessed 06/12/22 02/15/23 07:26 Const General: cooperative Orientation/consciousness: patient oriented x3 Skin Other: lower pannus with what appears to be tinea Neuro General: patient oriented x3 Psych Appearance: grossly normal Mental Status: mental status grossly normal Speech and movement: Clear speech present Affect: normal affect Attitude: cooperative Thought process: Normal thought process present Thought content: Normal thought content present Insight: Good insight present (Psych) Judgement: Good judgement present (Psych) Telehealth Telehealth Location of provider rendering services: practice address Location of patient: address on file Patient Identification confirmed using: Name, : Yes Telehealth method: video Patient verbally consented to treatment: Yes Patient verbally consented to billing insurance company: Yes Patient informed of any privacy concerns related to visit: Yes Minutes spent on Phone/Video with Pt.: 10 Assessment and Plan Assessment & Plan (1) Screening for cervical cancer: Code(s): Z12.4 - Encounter for screening for malignant neoplasm of cervix (2) Tinea: Code(s): B35.9 - Dermatophytosis, unspecified Plan The patient agreed to the use of a medical insurance coder for this encounter. Scribed for BIMAL Brizuela by Carlota Phoenix medical insurance coder, on 02/15/2023 at 07:25 EST. Orders: Referrals PSYCHOLOGY TECH Referral Z12.4 - Encounter for screening for malignant neoplasm of cervix Medications: New ketoconazole 2% 1 appl topical DAILY 30 grams 0RF Coding Level of Care Code Tele Est Pt Level 3 (23492) Diagnoses Screening for cervical cancer Z12.4 Tinea B35.9
== END 2023-02-15 09:23 | disposition home or self-care (01) ==
LOC: HO.HMGC 08:50
PROVIDERS: PCP Nurse Practitioner Family; Visit Provider Nurse Practitioner Family
DX: Z12.4 Encounter for screening for malignant neoplasm of cervix (principal); B35.9 Dermatophytosis, unspecified
CPT/HCPCS: 99213

== ENCOUNTER 2023-06-21 13:47 | Outpatient (AMB) | payer OTHER, SELFPAY ==
--- NOTE | 2023-06-21 13:27 | MHC.PC.OV ---
Vital Signs 06/21/23 13:55 Height 5 ft 4 in Weight 150 lb BMI 25.7 BP 126/70 Blood Pressure Location Rt brachial Position Sitting Pulse 95 Pulse Source Pulse Oximeter Pulse Oximetry (%) 99 Oxygen Delivery Method Room Air Intake Visit Reasons: Annual PE Intake Note: Patient here for physical exam. pt would like to have labs ordered. Allergies No Known Allergies Allergy (Verified 06/21/23 13:56) Medication List - Last Reconciled 06/21/23 by STACY Rice-KIRAN [Adult incontinence small pull up 1 unit Not Applicable DAILY PRN 30 days] albuterol sulfate 90 mcg/actuation 2 puffs inhalation Q4-6H PRN alprazolam 0.5 mg PO BID PRN blood sugar diagnostic (FreeStyle Lite Strips) test 3 times daily blood-glucose meter (FreeStyle Lite Meter kit) TID-QID cholecalciferol (vitamin D3) 50 mcg PO BEDTIME 90 days diaper,brief,adult,disposable (Annie Briefs-Small) use daily dicyclomine 10 mg PO TID divalproex 1,000 mg PO BEDTIME duloxetine 60 mg PO ezetimibe 10 mg PO DAILY flash glucose sensor (FreeStyle Kourtney 2 Sensor kit) As directed insulin glargine (Lantus Solostar U-100 Insulin) 35 units q AM and 45 units q PM subcut every evening; Future refills from Endo insulin lispro (Humalog KwikPen U-200 Insulin) 8 units (0.04 mL) subcut TID 30 days ketoconazole 2% 1 appl topical DAILY lancets (FreeStyle Lancets) tid testing levothyroxine 88 mcg PO DAILY loratadine 10 mg PO DAILY lumateperone (Caplyta) 42 mg PO DAILY ondansetron 4 mg PO Q8H PRN pantoprazole 40 mg PO DAILY pen needle, diabetic BID-Future refills from Endo ropinirole 3 mg (3 x 1 mg) PO DAILY triamcinolone acetonide 0.1% 1 appl topical BID-TID Tobacco use date assessed: 06/21/23 Dental Screening Dental Screen Date: 06/21/23 Did you have a dental visit in the last 12 months?: No Did you have a dental problem in the last 6 months where you did not have access to dental care?: No HPI Annual PE HPI Details Pt is here for a PE. Labs have already been ordered. Pt follows up with GI. 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 Due for mammo, will order. Pt is a diabetic, A1C in office today is 6.2. Microalbumin is up to date. Denies polyuria, polydipsia, does report neuropathy. Pt denies any signs and symptoms of hypoglycemia and does know how to correct it. Pt reports that her blood sugar has been around 100s with an occasional reading of 120. Pt has a hx of osteopenia, will order bone density. Hx of vitamin D deficiency, will order labs. Pt sees a therapist biweekly and a psychiatrist monthly. Pt follows up with podiatry. She had an ingrown toenail of her left big toe removed on Wednesday, denies any s/s of infection. [facility] Medical History Hx of fracture of tibia GERD (gastroesophageal reflux disease) Interstitial cystitis Hypothyroidism Vitamin D deficiency HLD (hyperlipidemia) HTN (hypertension) T2DM (type 2 diabetes mellitus) Pituitary macroadenoma Osteoporosis Uncontrolled diabetes mellitus Bipolar 1 disorder Acute Crohn's disease Surgical History Hx of colonoscopy History of esophagogastroduodenoscopy (EGD) Hx of brain surgery History of surgery History of tubal ligation Status post breast reduction LAP-BAND surgery status History of bladder surgery History of section Family History Father HTN (hypertension) Mother Heart disease Brother Mental health disorder Sister Mental health disorder Social History Household Members: Children Housing: Apartment Alcohol intake: current Alcohol intake frequency: holidays/special occasions only Patient Tobacco Use Status: Never used Tobacco e-Cigarette/Vaping Use: Never Used Second Hand Smoke Exposure: Yes Substance Use Type: Marijuana service: No Current occupational status: disabled Cognitive needs: No Hearing needs: No Vision needs: Yes Questionnaire Thrive Questionnaire Date Thrive assessed: 06/12/22 PETER-7 AMB Questionnaire PETER-7 Date PETER - 7 assessed: 06/12/22 Source: Developed by Drs. Xiang Griffin, Belen Garcia, Hernan Perez and colleagues, with an educational kendall from [employer]. Review of Systems Const Denies chills and Denies fever(s) Eyes Denies blurry vision ENT Denies vertigo, Denies dizziness and Denies sore throat Card Denies chest pain at rest, Denies chest pain with activity, Denies diaphoresis, Denies dyspnea and Denies dyspnea on exertion Resp Denies cough, Denies dyspnea, Denies dyspnea on exertion and Denies wheezing GI Denies abdominal pain, Denies melena, Denies hematochezia, Denies constipation, Denies diarrhea and Denies loose stools Denies hematuria Musc Denies numbness and Denies tingling Skin/Breast Denies lesions Neuro Denies vertigo, Denies dizziness, Denies numbness and Denies tingling Psych Denies anxiety, Denies depression, Denies homicidal ideation, Denies suicidal ideation and Denies other (substance abuse) Aller/Immun Denies wheezing Physical exam (Primary Care) Vital Signs: Last Vital Signs Pulse 95 06/21/23 13:55 BP 126/70 06/21/23 13:55 Pulse Ox 99 06/21/23 13:55 Oxygen Delivery Method Room Air 06/21/23 13:55 BMI result Body Mass Index 25.7 Tobacco/Smoking Status: Tobacco use Status Tobacco use date assessed 06/21/23 06/21/23 14:04 Patient Tobacco Use Status Never used Tobacco 06/21/23 13:27 e-Cigarette/Vaping Use Never Used 06/21/23 13:27 Thrive Assessment: Date of Thrive Assessment Date Thrive assessed 06/12/22 06/21/23 13:27 Const General: cooperative Nutritional Appearance: well nourished Orientation/consciousness: patient oriented x3 HENMT Head: Yes normal to inspection, Yes normocephalic and Yes atraumatic Ears: TM's normal bilaterally Eyes General: appearance normal, both eyes and all related structures Alignment and Position: alignment normal and position normal Neck Neck: Yes normal visual inspection and Yes no lymphadenopathy Thyroid: Thyroid normal Resp Effort & Inspection: normal respiratory effort Auscultation: clear to auscultation bilaterally Cardio Rate: regular rate Rhythm: regular rhythm Heart sounds: S1 normal heart sound present, S2 normal heart sound present and no murmurs GI Palpation (GI): Soft to palpation and nontender Auscultation: normal bowel sounds Skin Rashes: no rashes Neuro General: patient oriented x3, moves all extremities, no focal motor deficits and deep tendon reflexes 2+ bilaterally Romberg Test: Negative Extrem Other: bilat feet: + sensation with use of monofilament, left foot lateral aspect of big toenail surgically removed, healing, no signs of infection, healing well Psych Appearance: grossly normal Mental Status: mental status grossly normal Speech and movement: Normal speech and movement present Affect: normal affect Attitude: cooperative Thought process: Normal thought process present Thought content: Normal thought content present Insight: Good insight present (Psych) Judgement: Good judgement present (Psych) Results AMB Hemoglobin A1c AMB Hemoglobin A1c 6.2 % Last Edit by VEGA Waggoner on 06/21/23 14:42 Results Reviewed Results Reviewed: Laboratory Last Values Hgb A1c (Clinic) 6.2 % (4.0-6.0) H 06/21/23 14:10 Assessment and Plan Assessment & Plan (1) Vitamin D deficiency: Code(s): E55.9 - Vitamin D deficiency, unspecified Plan: Labs ordered (2) T2DM (type 2 diabetes mellitus): Code(s): E11.9 - Type 2 diabetes mellitus without complications Qualifiers: Diabetes mellitus complication status: with other specified complication Diabetes mellitus longterm insulin use: with kennel supervisor use Qualified Code(s): E11.69 - Type 2 diabetes mellitus with other specified complication; Z79.4 - group home (current) use of insulin Plan: Labs ordered Plan The patient agreed to the use of a medical staff specialist for this encounter. Scribed for TAMIA Brizuela by Carlota Phoenix medical staff specialist, on 06/21/2023 at 14:05 EST. Orders: Orders Vitamin D 25-OH Total Today E55.9 - Vitamin D deficiency, unspecified XR DEXA axial skeleton Today E11.9 - Type 2 diabetes mellitus without complications, E55.9 - Vitamin D deficiency, unspecified AMB Hemoglobin A1c Today E11.9 - Type 2 diabetes mellitus without complications MM screening mammo BI Today Z12.31 - Encounter for screening mammogram for malignant neoplasm of breast Coding Level of Care Code Est Pt Level 3 (41361) Diagnoses Vitamin D deficiency E55.9 Type 2 diabetes mellitus with other specified complication, with long-term current use of insulin E11.69; Z79.4 Diabetes mellitus complication status: with other specified complication Diabetes mellitus kennel supervisor insulin use: with longterm use
[2023-06-21 13:55] VITALS: BP 126/70; PULSE 95; O2SAT 99; BMI 25.7
== END 2023-06-21 16:36 | disposition home or self-care (01) ==
PROVIDERS: PCP Nurse Practitioner Family; Visit Provider Nurse Practitioner Family
DX: E11.69 Type 2 diabetes mellitus with other specified complication (principal); Z79.4 Long term (current) use of insulin; E55.9 Vitamin D deficiency, unspecified
CPT/HCPCS: 83036; 99213

== ENCOUNTER 2023-06-21 14:42 | Outpatient (REF) | payer OTHER, SELFPAY ==
[2023-06-21 16:14] LABS: MANUAL DIFF FLAG NO
[2023-06-21 16:23] LABS: Basophils Percent Auto 0.6 % (0-2); Eosinophils Absolute Auto 0.1 X10*3/uL (0.0-0.4); Eosinophils Percent Auto 1.3 % (0-4); Hematocrit 39.1 % (37.0-47.0); Hemoglobin 13.4 g/dl (12.0-16.0); Imm Gran Abs Auto 0.01 X10*3/uL (0.00-0.03); Imm Gran Pct Auto 0.2 % (0.0-0.4); Lymphocytes Absolute Auto 2.7 X10*3/uL (1.2-4.9); Lymphocytes Percent Auto 52.6 % (20-40); Mean Corpuscular HGB Conc 34.3 g/dl (31.0-35.0); Mean Corpuscular Hemoglobin 30.7 pg (27.0-33.0); Mean Corpuscular Volume 89.5 fL (80.0-98.0); Mean Platelet Volume 10.2 fL (9.4-12.3); Monocytes Absolute Auto 0.4 X10*3/uL (0.1-1.2); Monocytes Percent Auto 7.9 % (2-11); Neutrophils Percent Auto 37.4 % (45-73); Platelet Count 221 X10*3/uL (160-400); Red Blood Count 4.37 X10*6/uL (4.20-5.50); White Blood Count 5.2 X10*3/uL (4.8-10.8)
[2023-06-21 16:25] LABS: Appearance Urine Clear; Color Urine Yellow; Glucose Urine UA Negative (Negative); Leukocyte Esterase Urine Trace (Negative); Nitrite Urine Negative (Negative); UMIC TRIGGER UACC YES; Urine Blood Negative (Negative); Urine Ketones Trace mg/dL (Negative); Urine Protein Negative (Neg-Trace)
[2023-06-21 16:30] LABS: Estimated Average Glucose 105 mg/dL; Hemoglobin A1C 118.8604 umol/L; Hemoglobin A1c % 5.3 % (<6.0)
[2023-06-21 16:32] LABS: Bacteria Urine None Seen (None Seen); Hyaline Casts Urine 0-2 /LPF (0-2); RBC Urine 0-2 /HPF (0-2); Squamous Epithelial Cell Urine 0-2 /HPF (0-2); WBC Urine 0-5 /HPF (0-5)
[2023-06-21 16:52] LABS: Alanine Aminotransferase 17 U/L (0-31); Albumin Level 4.5 g/dL (3.5-5.0); Alkaline Phosphatase 71 U/L (39-117); Anion Gap 13 (12-20); Aspartate Amino Transferase 19 U/L (5-31); Bilirubin Total 0.4 mg/dL (0.0-1.0); Blood Urea Nitrogen 10 mg/dL (9-16); Calcium 9.1 mg/dL (8.4-10.2); Carbon Dioxide 28 mmol/L (22-29); Chloride 107 mmol/L (96-108); Cholesterol 216 mg/dL (<200); Estimated Glomerular Filt Rate > 60; Glucose Fasting 86 mg/dL (60-99); HDL Cholesterol 52 mg/dL (>40); LDL Cholesterol Calculated 136 mg/dL (<100); Potassium 4.2 mmol/L (3.3-5.1); Sodium 144 mmol/L (135-145); Total Protein 7.4 g/dL (6.5-8.0); Triglycerides 144 mg/dL (<150)
[2023-06-21 17:00] LABS: Vitamin D 25-OH Total 48.5 ng/mL (>30)
[2023-06-21 17:57] LABS: Creatinine Urine 124.53 mg/dL; Microalbum/Creatinine Ratio Ur 6.4 ug/mg cr (<30)
== END 2023-06-21 14:43 | disposition home or self-care (01) ==
LOC: HO.HMGCLDS 14:42
PROVIDERS: PCP Nurse Practitioner Family; Visit Provider Nurse Practitioner Family
DX: I10 Essential (primary) hypertension (principal); E11.9 Type 2 diabetes mellitus without complications; E55.9 Vitamin D deficiency, unspecified
CPT/HCPCS: 36415; 80053; 80061; 81001; 82043; 82306; 82570; 83036; 84443; 85025

== ENCOUNTER 2023-09-29 13:03 | Outpatient (AMB) | payer OTHER, SELFPAY ==
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
[2023-09-29 13:19] VITALS: BP 120/80; PULSE 95; O2SAT 98; BMI 26.1
== END 2023-09-29 13:50 | disposition home or self-care (01) ==
LOC: HO.HMGC 13:03
PROVIDERS: PCP Nurse Practitioner Family; Visit Provider Nurse Practitioner Family
DX: E11.69 Type 2 diabetes mellitus with other specified complication (principal); Z79.4 Long term (current) use of insulin; E11.65 Type 2 diabetes mellitus with hyperglycemia; E78.5 Hyperlipidemia, unspecified
CPT/HCPCS: 83036; 99213

== ENCOUNTER 2023-09-30 08:29 | Outpatient (AMB) | payer OTHER, SELFPAY ==
[2023-09-30 08:34] VITALS: BP 126/80; PULSE 83; TEMP 36.4; O2SAT 97; BMI 26.3
--- NOTE | 2023-09-30 08:34 | MHC.OFFWIV ---
Intake Vital Signs 09/30/23 08:34 Height 5 ft 4 in Weight 153 lb BMI 26.3 BP 126/80 Blood Pressure Location Lt brachial Position Sitting Pulse 83 Pulse Source Pulse Oximeter Temp 97.6 F Temp Source Temporal Artery Scan Pulse Oximetry (%) 97 Oxygen Delivery Method Room Air Intake Visit Reasons: EP Broken rib? Intake Note: pt is here today for broken rib started yesterday Patient Tobacco Use Status: Never used Tobacco Allergies No Known Allergies Allergy (Verified 09/30/23 08:37) Do you need a note to return to daycare/school/sports/work: Yes HPI HPI Comments History of Present Illness Details 53-year-old female presents today complaining of right-sided rib pain. She states yesterday she made a sudden movement and felt a crack under her right breast and felt immediate rib pain. She states she has pleuritic chest pain. She relates to having a past medical history of severe osteoporosis. [facility] Medical History Hx of fracture of tibia GERD (gastroesophageal reflux disease) Interstitial cystitis Hypothyroidism Vitamin D deficiency HLD (hyperlipidemia) HTN (hypertension) T2DM (type 2 diabetes mellitus) Pituitary macroadenoma Osteoporosis Uncontrolled diabetes mellitus Bipolar 1 disorder Acute Crohn's disease Surgical History Hx of colonoscopy History of esophagogastroduodenoscopy (EGD) Hx of brain surgery History of surgery History of tubal ligation Status post breast reduction LAP-BAND surgery status History of bladder surgery History of section Family History Father HTN (hypertension) Mother Heart disease Brother Mental health disorder Sister Mental health disorder Social History Household Members: Children Housing: Apartment Alcohol intake: current Alcohol intake frequency: holidays/special occasions only Patient Tobacco Use Status: Never used Tobacco e-Cigarette/Vaping Use: Never Used Second Hand Smoke Exposure: Yes Substance Use Type: Marijuana service: No Current occupational status: disabled Cognitive needs: No Hearing needs: No Vision needs: Yes Review of Systems Const All systems reviewed & are unremarkable except as noted in HPI and below Eyes Reports no additional complaints ENT Reports no additional complaints Card Reports no additional complaints Resp Reports pain on inspiration GI Reports no additional complaints Physical Exam Vital Signs: Last Vital Signs Temp 97.6 F 09/30/23 08:34 Pulse 83 09/30/23 08:34 BP 126/80 09/30/23 08:34 Pulse Ox 97 09/30/23 08:34 Oxygen Delivery Method Room Air 09/30/23 08:34 BMI result Body Mass Index 26.3 Const General: acute distress mild HEENT Head: Yes normal to inspection, Yes normocephalic and Yes atraumatic Ears: hearing grossly normal bilaterally General nose exam: Normal external nose present Face and sinus: Yes normal facial exam Throat: Yes posterior oropharynx normal Chest Chest palpation & inspection: normal inspection of the chest and localized rib tenderness with anteroposterior compression (Right-sided) Resp Effort & Inspection: normal respiratory effort and other (Pleuritic chest pain) Cardio Rate: regular rate Rhythm: regular rhythm Results Reviewed Results Reviewed: X-ray of the right ribs were reviewed and are negative for fracture. This was discussed with the patient. Assessment & Plan Assessment & Plan (1) Costochondral chest pain: Code(s): R07.89 - Other chest pain Plan: The patient will continue using the heating pad on her costochondral pain. If she becomes severe short of breath we will report to the emergency department Plan See plan Orders: Orders XR ribs RT min 3V w CXR1V Today R07.81 - Pleurodynia Coding Level of Care Code Est Pt Level 3 (00466) Diagnoses Costochondral chest pain R07.89
== END 2023-09-30 09:31 | disposition home or self-care (01) ==
PROVIDERS: PCP Nurse Practitioner Family; Visit Provider Physician Assistant Medical
DX: R07.89 Other chest pain (principal)
CPT/HCPCS: 99213

== ENCOUNTER 2023-09-30 08:50 | Outpatient (REF) | payer OTHER, SELFPAY ==
--- NOTE | ~2023-09-30 | XR_ITS ---
EXAMINATION: XR RIBS, RIGHT CLINICAL INFORMATION: Pleurodynia. COMPARISON: 09/18/2021 TECHNIQUE: 3 views of the right ribs were obtained. PA view of the chest. FINDINGS: The lungs are moderately expanded. No focal consolidation. No pleural effusion. Cardiac silhouette is within normal limits. No displaced right-sided rib fracture. XR/XR ribs RT min 3V w CXR1V IMPRESSION: No acute abnormality.
== END 2023-09-30 08:51 | disposition home or self-care (01) ==
LOC: HO.HMGCX 08:50
PROVIDERS: PCP Nurse Practitioner Family; Visit Provider Physician Assistant Medical
DX: R07.81 Pleurodynia (principal)
CPT/HCPCS: 71101

== ENCOUNTER 2023-11-25 10:40 | Outpatient (REF) | payer OTHER, SELFPAY ==
[2023-11-25 14:03] LABS: MANUAL DIFF FLAG NO
[2023-11-25 14:14] LABS: Basophils Percent Auto 0.6 % (0-2); Eosinophils Percent Auto 0.7 % (0-4); Hematocrit 35.9 % (37.0-47.0); Hemoglobin 12.7 g/dl (12.0-16.0); Imm Gran Abs Auto 0.03 X10*3/uL (0.00-0.03); Imm Gran Pct Auto 0.6 % (0.0-0.4); Lymphocytes Absolute Auto 2.7 X10*3/uL (1.2-4.9); Lymphocytes Percent Auto 49.2 % (20-40); Mean Corpuscular HGB Conc 35.4 g/dl (31.0-35.0); Mean Corpuscular Hemoglobin 30.6 pg (27.0-33.0); Mean Corpuscular Volume 86.5 fL (80.0-98.0); Mean Platelet Volume 10.9 fL (9.4-12.3); Monocytes Absolute Auto 0.6 X10*3/uL (0.1-1.2); Monocytes Percent Auto 11.8 % (2-11); Neutrophils Percent Auto 37.1 % (45-73); Platelet Count 162 X10*3/uL (160-400); Red Blood Count 4.15 X10*6/uL (4.20-5.50); Red Cell Distribution Width 12.7 % (11.0-16.0); White Blood Count 5.4 X10*3/uL (4.8-10.8)
[2023-11-25 14:27] LABS: Alanine Aminotransferase 13 U/L (0-31); Albumin Level 4.1 g/dL (3.5-5.0); Alkaline Phosphatase 79 U/L (39-117); Anion Gap 13 (12-20); Aspartate Amino Transferase 15 U/L (5-31); Bilirubin Total 0.2 mg/dL (0.0-1.0); Blood Urea Nitrogen 10 mg/dL (9-16); Calcium 8.9 mg/dL (8.4-10.2); Carbon Dioxide 27 mmol/L (22-29); Chloride 108 mmol/L (96-108); Estimated Glomerular Filt Rate > 60; Glucose Random 153 mg/dL (60-115); Potassium 3.8 mmol/L (3.3-5.1); Sodium 144 mmol/L (135-145); Total Protein 6.7 g/dL (6.5-8.0)
[2023-11-25 14:42] LABS: Thyroid Stimulating Hormone 6.78 uIU/mL (0.32-4.0)
[2023-11-25 14:50] LABS: Valproate 55.4 mcg/mL (50.0-100.0)
== END 2023-11-25 10:41 | disposition home or self-care (01) ==
LOC: HO.HMGCLDS 10:40
PROVIDERS: PCP Nurse Practitioner Family; Visit Provider Psychiatry & Neurology Psychiatry
DX: Z79.899 Other long term (current) drug therapy (principal)
CPT/HCPCS: 36415; 80053; 80164; 84443; 85025

== ENCOUNTER 2024-01-11 15:59 | Outpatient (AMB) | payer OTHER, SELFPAY ==
[2024-01-11 16:00] VITALS: BP 128/80; PULSE 73; O2SAT 94; BMI 29.5
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
== END 2024-01-11 17:20 | disposition home or self-care (01) ==
PROVIDERS: PCP Nurse Practitioner Family; Visit Provider Nurse Practitioner Family
DX: E03.9 Hypothyroidism, unspecified (principal); E11.69 Type 2 diabetes mellitus with other specified complication; Z79.4 Long term (current) use of insulin
CPT/HCPCS: 83036; 99213

== ENCOUNTER 2024-01-18 12:45 | Outpatient (AMB) | payer OTHER, SELFPAY ==
[2024-01-18 12:47] VITALS: BP 118/80; PULSE 62; TEMP 36.8; O2SAT 95; BMI 28.5
--- NOTE | 2024-01-18 12:47 | AM.OFFWIN_ITS ---
Intake Vital Signs 01/18/24 12:47 Height 5 ft 4 in Weight 166 lb BMI 28.5 BP 118/80 Blood Pressure Location Rt brachial Position Sitting Pulse 62 Pulse Source Pulse Oximeter Temp 98.3 F Temp Source Oral Pulse Oximetry (%) 95 Oxygen Delivery Method Room Air Intake Visit Reasons: EP very tired, Lethargic, has not slept in 3 days Intake Note: Pt c/o fatigue, has not slept in 3 days Patient Tobacco Use Status: Never used Tobacco Allergies No Known Allergies Allergy (Verified 01/18/24 12:47) Do you need a note to return to daycare/school/sports/work: No HPI HPI Comments History of Present Illness Details Patient is a 53-year-old female complaining of not sleeping for 3 days. She states she takes 750 mg of Depakote twice a day for her bipolar disorder. She states her psychiatrist prescribes it to her and they are slowly ramping up her medication, she is unsure of when the last dose change was. She states that she has leg cramps in can not sleep and she does not feel good and she is exhausted. She denies any other complaints at this time [facility] Medical History Hx of fracture of tibia GERD (gastroesophageal reflux disease) Interstitial cystitis Hypothyroidism Vitamin D deficiency HLD (hyperlipidemia) HTN (hypertension) T2DM (type 2 diabetes mellitus) Pituitary macroadenoma Osteoporosis Uncontrolled diabetes mellitus Bipolar 1 disorder Acute Crohn's disease Surgical History Hx of colonoscopy History of esophagogastroduodenoscopy (EGD) Hx of brain surgery History of surgery History of tubal ligation Status post breast reduction LAP-BAND surgery status History of bladder surgery History of section Family History Father HTN (hypertension) Mother Heart disease Brother Mental health disorder Sister Mental health disorder Social History Household Members: Children Housing: Apartment Alcohol intake: current Alcohol intake frequency: holidays/special occasions only Patient Tobacco Use Status: Never used Tobacco e-Cigarette/Vaping Use: Never Used Second Hand Smoke Exposure: Yes Substance Use Type: Marijuana service: No Current occupational status: disabled Cognitive needs: No Hearing needs: No Vision needs: Yes Review of Systems Const All systems reviewed & are unremarkable except as noted in HPI and below Physical Exam Vital Signs: Last Vital Signs Temp 98.3 F 01/18/24 12:47 Pulse 62 01/18/24 12:47 BP 118/80 01/18/24 12:47 Pulse Ox 95 01/18/24 12:47 Oxygen Delivery Method Room Air 01/18/24 12:47 BMI result Body Mass Index 28.5 Const General: cooperative, healthy appearing, comfortable, no acute distress and well developed Orientation/consciousness: patient oriented x3 Limitations: no limitations HEENT Head: Yes normal to inspection Ears: hearing grossly normal bilaterally General nose exam: Normal external nose present Face and sinus: Yes normal facial exam Eyes General: appearance normal, both eyes and all related structures Neck Neck: Yes normal visual inspection and Yes full ROM Resp Effort & Inspection: normal respiratory effort and able to speak in complete sentences Skin General skin exam: no rashes or lesions noted Neuro General: patient oriented x3 Extrem General: Yes normal to inspection Assessment & Plan Assessment & Plan (1) Medication side effects: Code(s): T88.7XXA - Unspecified adverse effect of drug or medicament, initial encounter Plan: Patient's vital signs are stable and she is well-appearing though tired. Insomnia likely secondary to dosing of Depakote. Recommended patient call her prescriber and let them know the side effects that she is experiencing so they can make an appropriate change. Plan See above Coding Level of Care Code Est Pt Level 3 (43326) Diagnoses Medication side effects T88.7XXA
== END 2024-01-18 13:36 | disposition home or self-care (01) ==
PROVIDERS: PCP Nurse Practitioner Family; Visit Provider Physician Assistant
DX: T88.7XXA Unspecified adverse effect of drug or medicament, initial encounter (principal)
CPT/HCPCS: 99213

== ENCOUNTER 2024-02-07 13:42 | Outpatient (AMB) | payer OTHER, SELFPAY ==
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
== END 2024-02-07 14:43 | disposition home or self-care (01) ==
PROVIDERS: PCP Nurse Practitioner Family; Visit Provider Internal Medicine
DX: D35.2 Benign neoplasm of pituitary gland (principal); E03.9 Hypothyroidism, unspecified; E11.69 Type 2 diabetes mellitus with other specified complication; F31.9 Bipolar disorder, unspecified; Z79.4 Long term (current) use of insulin; F43.21 Adjustment disorder with depressed mood
CPT/HCPCS: 96127; 99215

== ENCOUNTER 2024-02-07 14:49 | Outpatient (REF) | payer OTHER, SELFPAY ==
[2024-02-07 18:01] LABS: Appearance Urine Clear; Color Urine Yellow; Glucose Urine UA Negative (Negative); Leukocyte Esterase Urine Negative (Negative); Nitrite Urine Negative (Negative); Urine Blood Negative (Negative); Urine Ketones Trace mg/dL (Negative); Urine Protein Negative (Neg-Trace)
[2024-02-07 22:44] LABS: MANUAL DIFF FLAG NO
[2024-02-07 22:51] LABS: Basophils Percent Auto 0.2 % (0-2); Eosinophils Percent Auto 0.7 % (0-4); Hematocrit 39.2 % (37.0-47.0); Hemoglobin 13.2 g/dl (12.0-16.0); Imm Gran Abs Auto 0.02 X10*3/uL (0.00-0.03); Imm Gran Pct Auto 0.4 % (0.0-0.4); Lymphocytes Absolute Auto 2.2 X10*3/uL (1.2-4.9); Lymphocytes Percent Auto 49.7 % (20-40); Mean Corpuscular HGB Conc 33.7 g/dl (31.0-35.0); Mean Corpuscular Hemoglobin 30.1 pg (27.0-33.0); Mean Corpuscular Volume 89.3 fL (80.0-98.0); Mean Platelet Volume 10.6 fL (9.4-12.3); Monocytes Absolute Auto 0.5 X10*3/uL (0.1-1.2); Monocytes Percent Auto 10.1 % (2-11); Neutrophils Absolute Auto 1.7 x10*3/uL (2.0-8.3); Neutrophils Percent Auto 38.9 % (45-73); Platelet Count 107 X10*3/uL (160-400); Red Blood Count 4.39 X10*6/uL (4.20-5.50); Red Cell Distribution Width 13.2 % (11.0-16.0); White Blood Count 4.5 X10*3/uL (4.8-10.8)
== END 2024-02-07 14:50 | disposition home or self-care (01) ==
LOC: HO.WFDLDS 14:49
PROVIDERS: Referring Provider Nurse Practitioner Family; Visit Provider Internal Medicine
DX: E03.9 Hypothyroidism, unspecified (principal)
CPT/HCPCS: 36415; 81003; 85025

== ENCOUNTER 2024-02-11 07:24 | Outpatient (REF) | payer OTHER, SELFPAY ==
[2024-02-11 12:37] LABS: Alanine Aminotransferase 18 U/L (0-31); Albumin Level 4.3 g/dL (3.5-5.0); Alkaline Phosphatase 60 U/L (39-117); Anion Gap 14 (12-20); Aspartate Amino Transferase 26 U/L (5-31); Bilirubin Total 0.4 mg/dL (0.0-1.0); Blood Urea Nitrogen 15 mg/dL (9-16); Calcium 9.1 mg/dL (8.4-10.2); Carbon Dioxide 27 mmol/L (22-29); Chloride 109 mmol/L (96-108); Cholesterol 132 mg/dL (<200); Estimated Glomerular Filt Rate > 60; Glucose Fasting 108 mg/dL (60-99); Glucose Random 108 mg/dL (60-115); HDL Cholesterol 46 mg/dL (>40); LDL Cholesterol Calculated 67 mg/dL (<100); Potassium 3.5 mmol/L (3.3-5.1); Sodium 146 mmol/L (135-145); Total Protein 6.9 g/dL (6.5-8.0); Triglycerides 99 mg/dL (<150)
[2024-02-11 12:49] LABS: Free T4 (Free Thyroxine) 0.86 ng/dL (0.71-1.85)
[2024-02-11 12:51] LABS: TSH reflex Free T4 0.25 uIU/mL (0.32-4.0)
[2024-02-13 04:13] LABS: Triiodothyronine T3 Free 2.4 pg/mL (2.3-4.2)
== END 2024-02-11 07:25 | disposition home or self-care (01) ==
LOC: HO.WFDLDS 07:24
PROVIDERS: Referring Provider Nurse Practitioner Family; Visit Provider Internal Medicine
DX: D72.819 Decreased white blood cell count, unspecified (principal); E03.9 Hypothyroidism, unspecified; D69.6 Thrombocytopenia, unspecified; E11.65 Type 2 diabetes mellitus with hyperglycemia
CPT/HCPCS: 36415; 80053; 80061; 84439; 84443; 84481

== ENCOUNTER 2024-03-21 13:57 | Outpatient (REF) | payer OTHER, SELFPAY ==
--- NOTE | ~2024-03-21 | MM_ITS ---
EXAMINATION: MM SCREENING DIGITAL BREAST TOMOSYNTHESIS, BILATERAL CLINICAL INFORMATION: Screening. Asymptomatic. COMPARISON: Mammography: Comparison is made with available priors TECHNIQUE: Digital breast mammography with tomosynthesis is performed in both the craniocaudal and mediolateral oblique views along with computer-aided detection (CAD). FINDINGS: There are scattered areas of fibroglandular density (ACR BI-RADS breast composition Category b). There are no significant masses, abnormal calcifications, or other abnormalities. MM/MM tomosynthesis screening BI IMPRESSION: No mammographic evidence of malignancy. ASSESSMENT: BI-RADS BI-RADS 1 - Negative RECOMMENDATION: Routine annual mammography screening. 1 year F/U This examination should not preclude the clinical evaluation of a suspicious palpable abnormality. This patient's information was entered into a reminder system with a target due date for their next mammogram. Electronically signed by: Danyelle Lopez DO 04/03/2024 03:47 PM CHET
--- NOTE | ~2024-03-21 | MM_ITS ---
EXAMINATION: BONE DENSITOMETRY CLINICAL INDICATION: Age-related osteoporosis without current pathological fracture. COMPARISON: Previous BD dated 04/09/2020 and baseline BD dated 03/27/2014. TECHNIQUE: Using a [employer] DXA System (software version: 13.1) manufactured by [employer], dual-energy x-ray absorptiometry was performed of the lumbar spine and left hip. The images are of good technical quality. Summary results are attached. FINDINGS: LEFT FEMUR, NECK: Current: BMD 0.755 g/cm2, Z-score -1.1, T-score -2.0, osteopenia. Prior: BMD 0.788 g/cm2. Baseline: BMD 0.829 g/cm2. LEFT FEMUR, TOTAL: Current: BMD 0.814 g/cm2, Z-score -0.9, T-score -1.5, osteopenia, 5.3% decrease from previous, 13.5% decrease from baseline (<5% change is not significant). Prior: BMD 0.860 g/cm2. Baseline: BMD 0.941 g/cm2. AP SPINE L1-L4: Current: BMD 0.999 g/cm2, Z-score -0.8, T-score -1.5, osteopenia, 9.2% decrease from previous, 9.3% decrease from baseline (<5% change is not significant). Prior: BMD 1.100 g/cm2. Baseline: BMD 1.102 g/cm2. IDENTIFIED RISK FACTORS: Early menopause, glucocorticoids (chronic), height loss, history of fracture (adult), osteoporosis, recurrent falls, secondary osteoporosis (intestinal or bowel disease, type 1 diabetes). HISTORY OF FRACTURE: Spine, other. MEDICATIONS: Calcium or multivitamin. Vitamin D. MM/XR DEXA axial skeleton IMPRESSION: 1. DIAGNOSIS: Osteopenia based on the lowest T-score value of -2.0 in the femoral neck applying World Health Organization criteria. 2. 10-YEAR FRACTURE RISK PREDICTION, FRAX: Major osteoporotic fracture (clinical spine, forearm, hip or shoulder) 14.5%. Hip fracture 2.0%. 3. Treatment Recommendations: NOF guidelines recommend consideration for treatment in postmenopausal women and men age 50 and older presenting with the following: -A hip or vertebral (clinical or morphometric) fracture. -T-score less than or equal to -2.5 at the femoral neck or spine after appropriate evaluation to exclude secondary causes. -Low bone mass at the hip or spine and a 10-year fracture probability by FRAX of greater than or equal to 3% for hip fracture or greater than or equal to 20% for major osteoporotic fracture based on the [place] adapted WHO algorithm. 4. Other Recommendations: All treatment decisions require clinical judgment and consideration of individual patient factors, including patient preferences, comorbidities, previous drug use, risk factors not captured in the FRAX model (e.g. frailty, falls, vitamin D deficiency, increased bone turnover, interval significant decline in bone density) and possible under or overestimation of fracture risk by FRAX. Additional medical evaluation for secondary cause of low bone mineral density may be appropriate. FUTURE SCAN RECOMMENDATION: People with diagnosed cases of osteoporosis or at high risk for fracture should have regular bone mineral density tests. For patients eligible for Medicare, routine testing is allowed once every 2 years. The testing frequency can be increased to one year for patients who have rapidly progressing disease, those who are receiving or discontinuing medical therapy to restore bone mass, or have additional risk factors. Electronically signed by: Miguelito Real MD 03/23/2024 11:01 AM EDT
== END 2024-03-21 13:58 | disposition home or self-care (01) ==
LOC: HO.MAMMO 13:57
PROVIDERS: PCP Internal Medicine; Visit Provider Internal Medicine
DX: Z12.31 Encounter for screening mammogram for malignant neoplasm of breast (principal); M81.0 Age-related osteoporosis without current pathological fracture
CPT/HCPCS: 77063; 77067; 77080

== ENCOUNTER → 2024-03-21 14:15 | Outpatient (BNV) | payer OTHER, SELFPAY | PROVIDERS: PCP Internal Medicine; Visit Provider Internal Medicine | DX: Z12.31 Encounter for screening mammogram for malignant neoplasm of breast (principal) | CPT/HCPCS: 77063; 77067 ==

== ENCOUNTER 2024-04-17 13:01 | Outpatient (REF) | payer OTHER, SELFPAY ==
[2024-04-17] MEDS: gadobutroL 2 ML VIAL IVPUSH ×2 (14:17→14:18)
== END 2024-04-17 13:02 | disposition home or self-care (01) ==
LOC: HO.MRI 13:01
PROVIDERS: PCP Internal Medicine; Visit Provider Nurse Practitioner Family
DX: D35.2 Benign neoplasm of pituitary gland (principal)
CPT/HCPCS: 70553; A9585

== ENCOUNTER 2024-05-01 08:11 | Outpatient (REF) | payer OTHER, SELFPAY ==
[2024-05-01 11:04] LABS: Influenza A PCR NEGATIVE (Negative); Influenza B PCR NEGATIVE (Negative); Resp Syncy Virus RNA Qual PCR NEGATIVE (Negative); SARS COV2 PCR INHOUSE NEGATIVE (Negative)
== END 2024-05-01 08:12 | disposition home or self-care (01) ==
LOC: HO.LAB 08:11
PROVIDERS: PCP Internal Medicine; Visit Provider Physician Assistant
DX: J18.9 Pneumonia, unspecified organism (principal); R11.2 Nausea with vomiting, unspecified; R09.89 Other specified symptoms and signs involving the circulatory and respiratory systems
CPT/HCPCS: 0241U; 99212

== ENCOUNTER 2024-05-01 08:11 | Outpatient (AMB) | payer OTHER, SELFPAY ==
--- NOTE | 2024-05-01 08:58 | AM.OFFWIN_ITS ---
Intake Vital Signs 05/01/24 09:02 Weight 166 lb BP 120/82 Blood Pressure Location Rt brachial Position Sitting Pulse 92 Pulse Source Pulse Oximeter Temp 97.5 F Temp Source Oral Pulse Oximetry (%) 97 Oxygen Delivery Method Room Air Intake Visit Reasons: EP cough, nausea, vomiting Intake Note: Patient here for cough, chest congestion, sinus pressure, nausea,vomiting and diarrhea since Wednesday Patient Tobacco Use Status: Never used Tobacco Allergies No Known Allergies Allergy (Verified 05/01/24 09:02) Do you need a note to return to daycare/school/sports/work: No HPI HPI Comments History of Present Illness Details History of Present Illness The patient is a 53-year-old female presenting with acute respiratory symptoms and gastrointestinal concerns. She reports a persistent cough that began five days ago, preceding Thanksgiving, described as tight and scratchy, similar to her past bronchitis episodes. There is no fever, but she has experienced fatigue, shortness of breath, and wheezing, which initially dissipated with her albuterol inhaler. She is prescribed albuterol for diagnosed asthma and confirms increased use due to symptoms. Concurrently, the patient describes gastrointestinal symptoms including nausea, vomiting, and diarrhea, which started recently. She notes black discoloration in the stool occurring two to three times, raising concerns for gastrointestinal bleeding. Her recent medical history does not indicate prior bleeding or diagnosis of ulcers or esophageal varices, yet she once had liver issues years ago but that has since resolved. Her mother is hospitalized and experiencing similar respiratory symptoms. She has not tested for COVID at home. Regarding medications, in addition to albuterol, she uses NyQuil and DayQuil as an typi-myr-enzqbva decongestant. She experiences diminished appetite and has trouble retaining food. The patient's symptoms spurred towards potential walk ing pneumonia, given the upper respiratory nature and gastrointestinal overlap. Physical Exam General: Cooperative, healthy appearing, comfortable and no acute distress Orientation/consciousness: Patient oriented x3 Limitations: No limitations Head: Normal to inspection Ears: Hearing grossly normal bilaterally, external ears normal and TM's normal bilaterally Nose: Normal external nose present, Normal nares present and No nasal discharge present Face and sinus: Normal facial exam and Yes sinuses nontender Mouth: Normal oral and palatal mucosa present and moist mucous membranes Throat: Yes tonsils normal, Yes uvula midline. Posterior oropharynx erythema Eyes: Appearance normal, both eyes and all related structures Neck: Normal visual inspection Respirtory: Clear to auscultation bilaterally. Normal respiratory effort, able to speak in complete sentences, Actively coughing, no respiratory distress, not tachypneic, no tripod positioning and no use of accessory muscles Cardiovascular: Regular rate and rhythm. Normal S1 and S2 Skin: No rashes or lesions noted Neuro: Patient oriented x3 Extremities: Normal to inspection and Yes no clubbing, cyanosis or edema PFSH Medical History Hx of fracture of tibia GERD (gastroesophageal reflux disease) Interstitial cystitis Hypothyroidism Vitamin D deficiency HLD (hyperlipidemia) HTN (hypertension) T2DM (type 2 diabetes mellitus) Pituitary macroadenoma Osteoporosis Uncontrolled diabetes mellitus Bipolar 1 disorder Acute Crohn's disease Surgical History Hx of colonoscopy History of esophagogastroduodenoscopy (EGD) Hx of brain surgery History of surgery History of tubal ligation Status post breast reduction LAP-BAND surgery status History of bladder surgery History of section Family History Father HTN (hypertension) Mother Heart disease Brother Mental health disorder Sister Mental health disorder Social History Household Members: Children Housing: Apartment Alcohol intake: current Alcohol intake frequency: holidays/special occasions only Patient Tobacco Use Status: Never used Tobacco e-Cigarette/Vaping Use: Never Used Second Hand Smoke Exposure: Yes Substance Use Type: Marijuana service: No Current occupational status: disabled Cognitive needs: No Hearing needs: No Vision needs: Yes Review of Systems Const All systems reviewed & are unremarkable except as noted in HPI and below Physical Exam Vital Signs: Last Vital Signs Temp 97.5 F 05/01/24 09:02 Pulse 92 05/01/24 09:02 BP 120/82 05/01/24 09:02 Pulse Ox 97 05/01/24 09:02 Oxygen Delivery Method Room Air 05/01/24 09:02 Assessment & Plan Assessment & Plan (1) Atypical pneumonia: Code(s): J18.9 - Pneumonia, unspecified organism Plan: - Continue use of albuterol inhaler for symptomatic relief as needed. - Monitor respiratory symptoms and seek emergency care if shortness of breath worsens. - Prescribe Azithromycin Zithromax Z-Vinayak, dosing as two tablets on the first day followed by one tablet daily for four days, for suspected walking pneumonia. - Advise symptomatic treatment and hydration with fluids like Gatorade to prevent further dehydration. - Encourage increased fluid intake and diet with light foods upon improvement of nausea. - Recommend monitoring of symptoms such as further vomiting or signs of dyspnea. - Instructed patient to monitor stool color and seek immediate care if black stools persist or worsen, suggestive of potential gastrointestinal bleeding however unlikely as patient has no history of ulcers, esophageal varices or liver issues. Recommended she go to the emergency department if the black stools continue today. - Performed flu, COVID, and RSV testing to rule out viral causes and follow up with results for further guidance. (2) Nausea and vomiting: Code(s): R11.2 - Nausea with vomiting, unspecified Qualifiers: Vomiting type: unspecified Qualified Code(s): R11.2 - Nausea with vomiting, unspecified Plan: see above Medications: New azithromycin For 250 mg dose pack: take 500 mg today (day 1), then 250 mg for 4 days (days 2-5) PO 6 tabs 0RF Coding Level of Care Code Est Pt Level 4 (31462) Diagnoses Atypical pneumonia J18.9 Nausea and vomiting, unspecified vomiting type R11.2 Vomiting type: unspecified
[2024-05-01 09:02] VITALS: BP 120/82; PULSE 92; TEMP 36.4; O2SAT 97
== END 2024-05-01 09:26 | disposition home or self-care (01) ==
PROVIDERS: PCP Internal Medicine; Visit Provider Physician Assistant
DX: J18.9 Pneumonia, unspecified organism (principal); R11.2 Nausea with vomiting, unspecified

== ENCOUNTER 2024-06-30 12:36 | Outpatient (AMB) | payer OTHER, SELFPAY ==
--- NOTE | 2024-06-30 12:41 | AM.OFFWIN_ITS ---
Intake Vital Signs 06/30/24 12:42 Weight 174 lb BP 122/80 Blood Pressure Location Rt brachial Position Sitting Pulse 88 Pulse Source Pulse Oximeter Pulse Oximetry (%) 97 Oxygen Delivery Method Room Air Intake Visit Reasons: EP run down, fatigue, not sleeping Intake Note: Patient here for fatigue, not being able to sleep, nodding off during the day even while having a conversation which has been going on for about 2 weeks. Patient Tobacco Use Status: Never used Tobacco Allergies No Known Allergies Allergy (Verified 05/01/24 09:02) Do you need a note to return to daycare/school/sports/work: No HPI HPI Comments History of Present Illness Details 53 y/o female patient who presents to [facility] walk in clinic with c/o Urinary frequency but denies dysuria. Denies fevers, chills, nausea or vomiting. Pt also c/o Fatigue, generalized Malaise, daytime somnolence, insomnia, and B/L wrist/hand pain. She thinks her Thyroid medication is causing most of these symptoms. [facility] Medical History (Updated 06/30/24 @ 13:00 by Ariadna Bowles NP) Acute respiratory disease Hx of fracture of tibia GERD (gastroesophageal reflux disease) Interstitial cystitis Hypothyroidism Vitamin D deficiency HLD (hyperlipidemia) HTN (hypertension) T2DM (type 2 diabetes mellitus) Pituitary macroadenoma Osteoporosis Uncontrolled diabetes mellitus Bipolar 1 disorder Acute Crohn's disease Surgical History Hx of colonoscopy History of esophagogastroduodenoscopy (EGD) Hx of brain surgery History of surgery History of tubal ligation Status post breast reduction LAP-BAND surgery status History of bladder surgery History of section Family History Father HTN (hypertension) Mother Heart disease Brother Mental health disorder Sister Mental health disorder Social History Household Members: Children Housing: Apartment Alcohol intake: current Alcohol intake frequency: holidays/special occasions only Patient Tobacco Use Status: Never used Tobacco e-Cigarette/Vaping Use: Never Used Second Hand Smoke Exposure: Yes Substance Use Type: Marijuana service: No Current occupational status: disabled Cognitive needs: No Hearing needs: No Vision needs: Yes Review of Systems Const All systems reviewed & are unremarkable except as noted in HPI and below Physical Exam Vital Signs: Last Vital Signs Pulse 88 06/30/24 12:42 BP 122/80 06/30/24 12:42 Pulse Ox 97 06/30/24 12:42 Oxygen Delivery Method Room Air 06/30/24 12:42 Const General: cooperative and no acute distress Orientation/consciousness: patient oriented x3 Resp Effort & Inspection: normal respiratory effort Auscultation: clear to auscultation bilaterally Cardio Heart sounds: S1 normal heart sound present and S2 normal heart sound present Neuro General: patient oriented x3, gait normal and moves all extremities Psych Speech and movement: Normal speech and movement present Results AMB Urinalysis, Automated UA Leukoctes 0 Oswald/uL Last Edit by Monty Islas [facility] on 06/30/24 13:24 UA Nitrite Negative Last Edit by Monty Islas [facility] on 06/30/24 13:24 UA Urobilinogen 0.2 mg/dL Last Edit by Monty Islas [facility] on 06/30/24 13:24 UA Protein 15 mg/dL Last Edit by Monty Islas [facility] on 06/30/24 13:24 UA pH 5.5 Last Edit by Monty Islas [facility] on 06/30/24 13:24 UA Blood 0 Derrick/uL Last Edit by JesJose Miguel Islas [facility] on 06/30/24 13:24 UA Specific Nemo 1.030 Last Edit by Monty Islas [facility] on 06/30/24 13:24 UA Ketone Negative Last Edit by Monty Islas [facility] on 06/30/24 13:24 UA Bilirubin 2 mg/dL Last Edit by JesJose Miguel Islas [facility] on 06/30/24 13:24 UA Glucose 0 mg/dL Last Edit by Monty Islas [facility] on 06/30/24 13:24 Assessment & Plan Assessment & Plan (1) Increased frequency of urination: Code(s): R35.0 - Frequency of micturition Plan: U/A negative. (2) Malaise and fatigue: Code(s): R53.81 - Other malaise; R53.83 - Other fatigue Plan: Pt does admit to taking her sleeping medications very late at night (after 11 pm), which causes daytime Somnolence. Advised to f/u with PCP Orders: Orders AMB Urinalysis Automated Today Z13.9 - Encounter for screening, unspecified Coding Level of Care Code Est Pt Level 4 (44367) Diagnoses Increased frequency of urination R35.0 Malaise and fatigue R53.81; R53.83 Time Spent (min) 20
[2024-06-30 12:42] VITALS: BP 122/80; PULSE 88; O2SAT 97
--- OUTSIDE RECORDS SUMMARY | 2024-06-30 12:55 | XMS_ITS | Clinical Summary ---
Author Organization [facility] Address [address] [place] [address] Care Team Providers Care Checkering Machine Operator Name Role Phone Unavailable Primary Care Provider Unavailabl e Source Comments PLEASE NOTE, if this patient is a minor, it may be UNLAWFUL to discuss sensitive information that is contained in these records (such as FAMILY PLANNING, MENTAL HEALTH or SUBSTANCE ABUSE) with the minor patient's parent or other person without the patient's specific authorization.[facility] Immunizations Name Administration Dates Next Due PFIZER COVID VACCINE, PURPLE CAP, 12+ 02/08/2021 ,10/17/2020,09/26/2020 Social History Tobacco Use Types Packs/Day Years Used Date Smoking Tobacco: Never Assessed Social Connections Answer Date Recorded Connectedness 0 02/10/2024 Financial Resource Strain Answer Date R ecorded Financial Resource Strain 0 2023 Stress Answer Date Recorded Stress 0 02/10/2024 Physical Activity Answer Date Recorded Physical Activity 0 02/10/2024 Food Insecurity Answer Date Recorded Food 0 02/24/2024 Transportation Needs Answer Date Record ed Transportation 0 02/10/2024 Housing Stability Answer Date Recorded Housing 0 02/10/2024 Safety and Environment Answer Date Ronen rded Safety 0 02/10/2024 Utilities Answer Date Recorded Utilities 0 02/10/2024 Employment Answer Date Recorded Stress 0 02/10/2024 Comments Unknown Sex and Gender Information Value Date Recorded Sex Assigned at Not on file Legal Sex Female 12:36 PM PDT Gender Identity Not on file Sexual Orientation Not on file Plan of Treatment Health Maintenance Due Date Last Done Comments Diabetes Screening 1968 HPV Screening 1968 Hepatitis C Screening 1968 Lipid Screening 1968 Pap + HPV 1968 Tobacco Screening 1968 HIV Screening 08/07/1983 Annual Preventive Care Visit 1986 Hypertension Screening (#1) 1986 Imm-Hepatitis B (1 of 3 - 19 + 3-dose series) 08/07/1987 Cervical Cancer Screening 1989 Pap Smear 1989 Breast Cancer Screening (Mammogram) 2008 CT Colonography 2013 Colonoscopy 2013 Colorectal Cancer Screening 2013 FIT/gFOBT 2013 Fecal DNA 2013 Flexible Sigmoidoscopy 2013 Imm-Zoster, Recombinant (1 of 2) 2018 Alcohol and Drug Screen 05/31/2023 Depression Annual Screen 05/31/2023 [id number] ( season) 2024 02/08/2021, 10/17/2020, 09/26/2020 Imm-Influenza (#1) 2024 02/05/2020, 1 06/19/2018, 03/08/2018 Imm-DTaP/Tdap/Td (3 - Td or Tdap) 03/19/2029 019, 08/05/2010 Cervical Ablation/Cold-Knife Conization Discontinued Cervical Cryotherapy Discontinued Colposcopy Discontinued Endometrial Biopsy Discontinued Excision/Leep Discontinued HPV Genotyping Discontinued Vaginal Pap Discontinued Vulvoscopy Discontinued Insurance [employer] PLAN Member Subscriber Plan / Payer (Ef fective 2021-Present) Name:Nia Singer Relation to Subscriber:Self Name:Nia Singer Payer ID:[id number] Group ID:Not on file Type:Medicaid Address: [facility] [address] [place] [address]
== END 2024-06-30 13:27 | disposition home or self-care (01) ==
PROVIDERS: PCP Internal Medicine; Visit Provider Nurse Practitioner Family
DX: R35.0 Frequency of micturition (principal); R53.81 Other malaise; R53.83 Other fatigue; Z13.9 Encounter for screening, unspecified

== ENCOUNTER → 2024-06-30 12:36 | Outpatient (BNVA) | payer OTHER, SELFPAY | PROVIDERS: PCP Internal Medicine | DX: R35.0 Frequency of micturition (principal); R53.81 Other malaise; R53.83 Other fatigue | CPT/HCPCS: 81003; 99212 ==

== ENCOUNTER 2024-07-31 08:32 | Outpatient (AMB) | payer OTHER, SELFPAY ==
--- NOTE | 2024-07-31 08:52 | AM.OFFWIN_ITS ---
Intake Vital Signs 07/31/24 08:53 Height 5 ft 4 in Weight 172 lb BMI 29.5 BP 122/78 Blood Pressure Location Lt brachial Position Sitting Pulse 87 Pulse Source Pulse Oximeter Temp 98.5 F Temp Source Oral Pulse Oximetry (%) 96 Oxygen Delivery Method Room Air Intake Visit Reasons: EP-cough with phlegm, body ache Intake Note: Patient here for cough, head congestion, body aches which started 3 days ago and worsening. Patient Tobacco Use Status: Never used Tobacco Allergies No Known Allergies Allergy (Verified 07/31/24 08:54) Do you need a note to return to daycare/school/sports/work: No HPI HPI Comments History of Present Illness Details History - The patient is a 53-year-old female pr esenting with upper respiratory symptoms, including wheezing and difficulty breathing. - She experienced symptoms onset three d ays ago after being in contact with a relative with confirmed upper respiratory infection. - Symptoms included nasal congestion, dr y cough, fatigue, and headache without associated fever but with shortness of breath and wheezing. - She reports a history of asthma, with absence of an inhaler currently. - She used Robitussin over the weekend w ith no improvement. - A request for Fluticasone (Flonase) na ha spray was made, noting its previous efficacy. Physical Exam General: Cooperative, healthy appearing, comfortable and no acute distress Orientation/consciousness: Patient oriented x3 Limitations: No limitations Head: Normal to inspection Ears: Hearing grossly normal bilaterally, external ears normal and TM's normal left, right TM blocked with cerumen Nose: Normal external nose present, Normal nares present and No nasal discharge present Face and sinus: Normal facial exam and Sinuses tender on palpation Mouth: Normal oral and palatal mucosa present and moist mucous membranes Throat: Yes tonsils normal, Yes uvula midline. Posterior oropharynx erythema Eyes: Appearance normal, both eyes and all related structures Neck: Normal visual inspection Respiratory: slight exp wheeze. Normal respiratory effort, able to speak in complete sentences, Actively coughing, no respiratory distress, not tachypneic, no tripod positioning and no use of accessory muscles, expiratory wheeze present Cardiovascular: Regular rate and rhythm. Normal S1 and S2 Skin: No rashes or lesions noted Neuro: Patient oriented x3 Extremities: Normal to inspection and Yes no clubbing, cyanosis or edema [facility] Medical History (Updated 06/30/24 @ 13:00 by Ariadna Bowles NP) Acute respiratory disease Hx of fracture of tibia GERD (gastroesophageal reflux disease) Interstitial cystitis Hypothyroidism Vitamin D deficiency HLD (hyperlipidemia) HTN (hypertension) T2DM (type 2 diabetes mellitus) Pituitary macroadenoma Osteoporosis Uncontrolled diabetes mellitus Bipolar 1 disorder Acute Crohn's disease Surgical History Hx of colonoscopy History of esophagogastroduodenoscopy (EGD) Hx of brain surgery History of surgery History of tubal ligation Status post breast reduction LAP-BAND surgery status History of bladder surgery History of section Family History Father HTN (hypertension) Mother Heart disease Brother Mental health disorder Sister Mental health disorder Social History Household Members: Children Housing: Apartment Alcohol intake: current Alcohol intake frequency: holidays/special occasions only Patient Tobacco Use Status: Never used Tobacco e-Cigarette/Vaping Use: Never Used Second Hand Smoke Exposure: Yes Substance Use Type: Marijuana service: No Current occupational status: disabled Cognitive needs: No Hearing needs: No Vision needs: Yes Review of Systems Const All systems reviewed & are unremarkable except as noted in HPI and below Physical Exam Vital Signs: Last Vital Signs Temp 98.5 F 07/31/24 08:53 Pulse 87 07/31/24 08:53 BP 122/78 07/31/24 08:53 Pulse Ox 96 07/31/24 08:53 Oxygen Delivery Method Room Air 07/31/24 08:53 BMI result Body Mass Index 29.5 Assessment & Plan Assessment & Plan (1) Acute respiratory disease: Code(s): J06.9 - Acute upper respiratory infection, unspecified Plan: VSS, pt well appearing, PE remarkable for exp wheeze. The patient will commence prednisone 20 mg daily for 5 days to aid lung function and address wheezing related to asthma. A new inhaler will be provisioned for asthma management. Fluticasone Flonase will be prescribed to mitigate nasal congestion. COVID-19, influenza, and RSV testing will be performed via swab. Tamiflu was considered for potential influenza treatment but will not be prescribed due to potential adverse effects. Immediate efforts are focused on alleviating respiratory symptoms and ensuring effective management of the current upper respiratory ailment. Patient was informed and verbally consented to the use of an ambient scribe for clinic note documentation during this visit Orders: Orders SARS-CoV2/FLU/RSV Today R09.89 - Other specified symptoms and signs involving the circulatory and respiratory systems Medications: New prednisone 20 mg PO QAM 5 tabs 0RF fluticasone propionate 50 mcg/actuation administer into each nostril 1 spray intranasal Q12H 16 grams 0RF Refilled albuterol sulfate 90 mcg/actuation 2 puffs inhalation Q4-6H PRN 6.7 grams 0RF shortness of breath or wheezing J40 - Bronchitis, not specified as acute or chronic, R05 - Cough Coding Level of Care Code Est Pt Level 4 (32139) Diagnoses Acute respiratory disease J06.9
[2024-07-31 08:53] VITALS: BP 122/78; PULSE 87; TEMP 36.9; O2SAT 96; BMI 29.5
--- OUTSIDE RECORDS SUMMARY | 2024-07-31 08:56 | XMS_ITS | Clinical Summary ---
Author Organization [facility] Address [address] [place] [address] Care Team Providers Care Account Executive Software Sales Name Role Phone Unavailable Primary Care Provider [...] Drug Screen 05/31/2023 Depression Annual Screen 05/31/2023 [id number] ( season) 2024 02/08/2021, 10/17/2020, 09/26/2020 Imm-Influenza (#1) 2024 02/05/2020, 1 06/19/2018, 03/08/2018 Imm-DTaP/Tdap/Td (3 - Td or Tdap) 03/19/2029 019, 08/05/2010 Cervical Ablation/Cold-Knife Conization Discontinued Cervical Cryotherapy Discontinued Colposcopy Discontinued Endometrial Biopsy Discontinued Excision/Leep Discontinued HPV Genotyping Discontinued Vaginal Pap Discontinued Vulvoscopy Discontinued Insurance [employer] PLAN Member Subscriber Plan / Payer (Ef fective 2021-Present) Name:Nia Singer Relation to Subscriber:Self Name:Nia Singer Payer ID:[id number] Group ID:Not on file Type:Medicaid Address: [facility] [id number] [place] [address]
== END 2024-07-31 09:37 | disposition home or self-care (01) ==
PROVIDERS: PCP Internal Medicine; Visit Provider Physician Assistant
DX: J06.9 Acute upper respiratory infection, unspecified (principal)

== ENCOUNTER 2024-07-31 08:32 | Outpatient (REF) | payer OTHER, SELFPAY ==
[2024-07-31 11:58] LABS: Influenza A PCR NEGATIVE (Negative); Influenza B PCR NEGATIVE (Negative); Resp Syncy Virus RNA Qual PCR POSITIVE (Negative); SARS COV2 PCR INHOUSE NEGATIVE (Negative)
== END 2024-07-31 08:33 | disposition home or self-care (01) ==
LOC: HO.LAB 08:32
PROVIDERS: PCP Internal Medicine; Visit Provider Physician Assistant
DX: J06.9 Acute upper respiratory infection, unspecified (principal); R09.89 Other specified symptoms and signs involving the circulatory and respiratory systems
CPT/HCPCS: 0241U; 99212

== ENCOUNTER 2024-08-09 09:58 | Outpatient (AMB) | payer OTHER, SELFPAY ==
[2024-08-09 10:00] VITALS: BP 120/80; PULSE 90; TEMP 36.8; O2SAT 98; BMI 29.1
--- NOTE | 2024-08-09 10:00 | MHC.OFFWIV ---
Intake Vital Signs 08/09/24 10:00 Height 5 ft 4 in Weight 169 lb 8 oz BMI 29.1 BP 120/80 Blood Pressure Location Lt brachial Position Sitting Pulse 90 Pulse Source Pulse Oximeter Temp 98.2 F Temp Source Oral Pulse Oximetry (%) 98 Oxygen Delivery Method Room Air Intake Visit Reasons: EP ? UTI Patient Tobacco Use Status: Never used Tobacco Allergies No Known Allergies Allergy (Verified 08/09/24 10:03) Medication List - Last Reconciled 08/09/24 by Myesha Cordova MD albuterol sulfate 90 mcg/actuation 2 puffs inhalation Q4-6H PRN atorvastatin 20 mg PO BEDTIME blood sugar diagnostic (FreeStyle Lite Strips) test 3 times daily blood-glucose meter (FreeStyle Lite Meter kit) TID-QID cholecalciferol (vitamin D3) 50 mcg PO BEDTIME 90 days diaper,brief,adult,disposable (Annie Briefs-Small) use daily divalproex 750 mg PO BID duloxetine 120 mg PO DAILY ezetimibe 10 mg PO DAILY flash glucose sensor (Atria Brindavan PowerStyle Kourtney 2 Sensor kit) As directed fluticasone propionate 50 mcg/actuation 1 spray intranasal Q12H insulin glargine (Lantus Solostar U-100 Insulin) 25 units (0.25 mL) subcut QPM 30 days insulin lispro (Humalog KwikPen U-200 Insulin) 8 units (0.04 mL) subcut TID 30 days insulin lispro (Humalog KwikPen U-200 Insulin) 8 units subcut TID ketoconazole 2% 1 appl topical DAILY lancets (FreeStyle Lancets) tid testing levothyroxine 88 mcg PO DAILY loratadine 10 mg PO DAILY lorazepam 1 mg PO BID lumateperone (Caplyta) 42 mg PO DAILY ondansetron 4 mg PO Q8H PRN pantoprazole 40 mg PO DAILY pen needle, diabetic BID-Future refills from End[facility] ropinirole 3 mg (3 x 1 mg) PO DAILY suvorexant (Belsomra) 15 mg PO BEDTIME PRN triamcinolone acetonide 0.1% 1 appl topical BID-TID Do you need a note to return to daycare/school/sports/work: No HPI EP ? UTI HPI Details History - The patient is a 54-year-old female presenting with urinary symptoms, including burning, frequency, urgency, and hematuria. - Symptoms began approximately two weeks ago and included increased frequency and urgency, leading to the use of absorbent products. - Notably, the patient denies associated back pain, nausea, vomiting, fever, or chills. Problem List - Urinary Tract Infection - Hematuria Patient Instructions - Start the antibiotic medication promptly as prescribed. - push fluids Review of Systems - General: No fever no chills - Neurological: No headaches no dizziness - Ear nose throat: No sore throat no hearing difficulty no ear pain - Cardiovascular: No syncope, no chest pain, no palpitations - Gastrointestinal: No nausea vomiting or diarrhea Physical Exam - General: No acute distress - HEENT: No acute findings - Neck: Supple - Respiratory system: Able to talk in full sentences, no audible wheeze - cardiovascular: S1-S2 Back - no CVAT - Extremities: No new findings - BREAKFAST COOK: Alert awake oriented x3 motor sensory intact - Skin: Normal turgor PFSH Medical History Acute respiratory disease Hx of fracture of tibia GERD (gastroesophageal reflux disease) Interstitial cystitis Hypothyroidism Vitamin D deficiency HLD (hyperlipidemia) HTN (hypertension) T2DM (type 2 diabetes mellitus) Pituitary macroadenoma Osteoporosis Uncontrolled diabetes mellitus Bipolar 1 disorder Acute Crohn's disease Surgical History Hx of colonoscopy History of esophagogastroduodenoscopy (EGD) Hx of brain surgery History of surgery History of tubal ligation Status post breast reduction LAP-BAND surgery status History of bladder surgery History of section Family History Father HTN (hypertension) Mother Heart disease Brother Mental health disorder Sister Mental health disorder Social History Household Members: Children Housing: Apartment Alcohol intake: current Alcohol intake frequency: holidays/special occasions only Patient Tobacco Use Status: Never used Tobacco e-Cigarette/Vaping Use: Never Used Second Hand Smoke Exposure: Yes Substance Use Type: Marijuana service: No Current occupational status: disabled Cognitive needs: No Hearing needs: No Vision needs: Yes Physical Exam Vital Signs: Last Vital Signs Temp 98.2 F 08/09/24 10:00 Pulse 90 08/09/24 10:00 BP 120/80 08/09/24 10:00 Pulse Ox 98 08/09/24 10:00 Oxygen Delivery Method Room Air 08/09/24 10:00 BMI result Body Mass Index 29.1 Results AMB Urinalysis, Automated UA Leukoctes 500 Oswald/uL Last Edit by Monty Islas [facility] on 08/09/24 10:22 UA Nitrite Positive Last Edit by Monty Islas [facility] on 08/09/24 10:22 UA Urobilinogen 1 mg/dL Last Edit by Monty Islas [facility] on 08/09/24 10:22 UA Protein 300 mg/dL Last Edit by Monty Islas [facility] on 08/09/24 10:22 UA pH 6.0 Last Edit by JesJose Miguel Islas [facility] on 08/09/24 10:22 UA Blood 200 Derrick/uL Last Edit by Monty Islas [facility] on 08/09/24 10:22 UA Specific [place] 1.025 Last Edit by JesJose Miguel Islas [facility] on 08/09/24 10:22 UA Ketone Negative Last Edit by Monty Islas [facility] on 08/09/24 10:22 UA Bilirubin 1 mg/dL Last Edit by Monty Islas [facility] on 08/09/24 10:22 UA Glucose 0 mg/dL Last Edit by JesJose Miguel Islas [facility] on 08/09/24 10:22 Assessment & Plan Assessment & Plan (1) Acute cystitis with hematuria: Code(s): N30.01 - Acute cystitis with hematuria Plan History - The patient is a 54-year-old female presenting with urinary symptoms, including burning, frequency, urgency, and hematuria. - Symptoms began approximately two weeks ago and included increased frequency and urgency, leading to the use of absorbent products. - Notably, the patient denies associated back pain, nausea, vomiting, fever, or chills. Problem List - Urinary Tract Infection - Hematuria Patient Instructions - Start the antibiotic medication promptly as prescribed. - push fluids Orders: Orders AMB Urinalysis Automated Today Z13.9 - Encounter for screening, unspecified UA CC w/rflx Micro + Cult Today N30.01 - Acute cystitis with hematuria Medications: New phenazopyridine (Pyridium) 200 mg PO TID PRN 6 tabs 0RF pain 2 days nitrofurantoin monohyd/m-cryst 100 mg (Macrobid) must administer with a meal/food 100 mg PO Q12H 10 caps 0RF 5 days Coding Level of Care Code Est Pt Level 3 (61107) Diagnoses Acute cystitis with hematuria N30.01
--- OUTSIDE RECORDS SUMMARY | 2024-08-09 11:19 | XMS_ITS | Clinical Summary ---
Author Organization [facility] Address [address] [place] [address] Care Team Providers Care Power Operator Name Role Phone Unavailable Primary Care [...] Drug Screen 05/31/2023 Depression Annual Screen 05/31/2023 [id number] ( season) 2024 02/08/2021, 10/17/2020, 09/26/2020 Imm-Influenza (#1) 2024 02/05/2020, 1 06/19/2018, 03/08/2018 Imm-DTaP/Tdap/Td (3 - Td or Tdap) 03/19/2029 019, 08/05/2010 Cervical Ablation/Cold-Knife Conization Discontinued Cervical Cryotherapy Discontinued Colposcopy Discontinued Endometrial Biopsy Discontinued Excision/Leep Discontinued HPV Genotyping Discontinued Vaginal Pap Discontinued Vulvoscopy Discontinued Insurance [employer] PL[employer] Member Subscriber Plan / Payer (Ef fective 2021-Present) Name:Nia Singer Relation to Subscriber:Self Name:Nia Singer Payer ID:[id number] Group ID:Not on file Type:Medicaid Address: [facility] [address] [place] [address]
== END 2024-08-09 10:48 | disposition home or self-care (01) ==
PROVIDERS: PCP Internal Medicine; Visit Provider Internal Medicine
DX: Z13.9 Encounter for screening, unspecified (principal); N30.01 Acute cystitis with hematuria

== ENCOUNTER 2024-08-09 09:58 | Outpatient (REF) | payer OTHER, SELFPAY ==
--- OUTSIDE RECORDS SUMMARY | 2024-08-09 15:58 | XMS_ITS | Clinical Summary ---
Author Organization [facility] Address [address] [place] [address] Care Team Providers Care Furniture Installer Name Role Phone Unavailable Primary Care Provider [...] Drug Screen 05/31/2023 Depression Annual Screen 05/31/2023 [id number] ( season) 2024 02/08/2021, 10/17/2020, 09/26/2020 Imm-Influenza (#1) 2024 02/05/2020, 1 06/19/2018, 03/08/2018 Imm-DTaP/Tdap/Td (3 - Td or Tdap) 03/19/2029 019, 08/05/2010 Cervical Ablation/Cold-Knife Conization Discontinued Cervical Cryotherapy Discontinued Colposcopy Discontinued Endometrial Biopsy Discontinued Excision/Leep Discontinued HPV Genotyping Discontinued Vaginal Pap Discontinued Vulvoscopy Discontinued Insurance [employer] PLAN Member Subscriber Plan / Payer (Ef fective 2021-Present) Name:Nia Singer Relation to Subscriber:Self Name:Nia Singer Payer ID:[id number] Group ID:Not on file Type:Medicaid Address: [facility] [address] [place] [address]
== END 2024-08-09 09:59 | disposition home or self-care (01) ==
LOC: HO.CHCLNP 09:58
PROVIDERS: PCP Internal Medicine; Visit Provider Internal Medicine
DX: N30.01 Acute cystitis with hematuria (principal)
CPT/HCPCS: 81003; 99212

== ENCOUNTER 2024-08-21 10:11 | Outpatient (REF) | payer OTHER, SELFPAY | END 2024-08-21 10:12 | disposition home or self-care (01) | LOC: HO.LAB 10:11 | PROVIDERS: PCP Internal Medicine | DX: N30.00 Acute cystitis without hematuria (principal) | CPT/HCPCS: 81003; 87086; 99212 ==

== ENCOUNTER 2024-08-21 10:11 | Outpatient (AMB) | payer OTHER, SELFPAY ==
--- NOTE | 2024-08-21 11:28 | MHC.OFFWIV ---
Intake Vital Signs 08/21/24 11:36 BP 128/76 Blood Pressure Location Lt brachial Position Sitting Pulse 88 Pulse Source Pulse Oximeter Pulse Oximetry (%) 97 Oxygen Delivery Method Room Air Intake Visit Reasons: EP-uti Patient Tobacco Use Status: Never used Tobacco Allergies No Known Allergies Allergy (Verified 08/09/24 10:03) HPI HPI Comments History of Present Illness Details History of Present Illness - The patient is a 54-year-old female presenting with persistent symptoms following treatment for a urinary tract infection. - She was previously diagnosed with a urinary tract infection in July 2022, which presented with blood in her urine and was treated with macrobid - Despite the resolution of blood in her urine, she continues to experience pain with urination and urgency, resulting in incontinence. - She reports a new onset of abdominal bloating and swelling, which began today. - Significant fatigue has been noted, with prolonged sleeping periods over the weekend. - A history of Proteus infection in May indicates a resistant strain to macrobid, but sensitive to cephalosporins. - The patient's existing medication regimen for other conditions, such as Crohn's Disease and GERD, complicates treatment choices. Physical Exam General: Cooperative, healthy appearing, comfortable, no acute distress and well developed Orientation: Patient oriented x3 Limitations: No limitations Head: Normal to inspection Ears: Hearing grossly normal bilaterally Nose: Normal External nose present Face and sinus: Normal facial exam Eyes: Appearance normal, both eyes and all related structures Neck: Normal visual inspection and Yes full ROM Respiratory: Normal respiratory effort and able to speak in complete sentences. Skin: No rashes or lesions noted Neuro: Patient oriented x3 Extremities: Normal to inspection [facility] Medical History Acute respiratory disease Hx of fracture of tibia GERD (gastroesophageal reflux disease) Interstitial cystitis Hypothyroidism Vitamin D deficiency HLD (hyperlipidemia) HTN (hypertension) T2DM (type 2 diabetes mellitus) Pituitary macroadenoma Osteoporosis Uncontrolled diabetes mellitus Bipolar 1 disorder Acute Crohn's disease Surgical History Hx of colonoscopy History of esophagogastroduodenoscopy (EGD) Hx of brain surgery History of surgery History of tubal ligation Status post breast reduction LAP-BAND surgery status History of bladder surgery History of section Family History Father HTN (hypertension) Mother Heart disease Brother Mental health disorder Sister Mental health disorder Social History Household Members: Children Housing: Apartment Alcohol intake: current Alcohol intake frequency: holidays/special occasions only Patient Tobacco Use Status: Never used Tobacco e-Cigarette/Vaping Use: Never Used Second Hand Smoke Exposure: Yes Substance Use Type: Marijuana service: No Current occupational status: disabled Cognitive needs: No Hearing needs: No Vision needs: Yes Review of Systems Const All systems reviewed & are unremarkable except as noted in HPI and below Physical Exam Vital Signs: Last Vital Signs Pulse 88 08/21/24 11:36 BP 128/76 08/21/24 11:36 Pulse Ox 97 08/21/24 11:36 Oxygen Delivery Method Room Air 08/21/24 11:36 Results AMB Urinalysis, Automated UA Leukoctes 0 Oswald/uL Last Edit by Monty Islas [facility] on 08/21/24 11:45 UA Nitrite Negative Last Edit by Monty Islas [facility] on 08/21/24 11:45 UA Urobilinogen 0.2 mg/dL Last Edit by Monty Islas [facility] on 08/21/24 11:45 UA Protein 15 mg/dL Last Edit by Monty Islas [facility] on 08/21/24 11:45 UA pH 6.0 Last Edit by Monty Islas [facility] on 08/21/24 11:45 UA Blood 0 Derrick/uL Last Edit by Monty Islas [facility] on 08/21/24 11:45 UA Specific [place] 1.020 Last Edit by Monty Islas [facility] on 08/21/24 11:45 UA Ketone Negative Last Edit by Monty Islas [facility] on 08/21/24 11:45 UA Bilirubin 1 mg/dL Last Edit by Monty Islas [facility] on 08/21/24 11:45 UA Glucose 0 mg/dL Last Edit by Monty Islas [facility] on 08/21/24 11:45 Assessment & Plan Assessment & Plan (1) UTI (urinary tract infection): Code(s): N39.0 - Urinary tract infection, site not specified Qualifiers: Urinary tract infection type: acute cystitis Hematuria presence: without hematuria Qualified Code(s): N30.00 - Acute cystitis without hematuria Plan: UA neg for infection or blood but will treat pt based on persistent symptoms and previous urine cx grew out proteus, resistant to macrobid which is what she was treated with for this infection. Cefuroxime is prescribed for the persistent urinary tract infection, considering previous resistance patterns. A urine culture will provide detailed insights into antimicrobial susceptibility. The patient is advised to modify her Omeprazole intake to optimize antibiotic absorption, taking it every other day during the antibiotic therapy. Peridium is provided for dysuria relief. Monitoring symptom progression will dictate further actions; returning with unresolved or aggravated symptoms is advised. Patient was informed and verbally consented to the use of an ambient scribe for clinic note documentation during this visit. Orders: Orders Urine Culture Today N39.0 - Urinary tract infection, site not specified AMB Urinalysis Automated Today Z13.9 - Encounter for screening, unspecified Medications: New cefuroxime axetil 500 mg PO Q12H 10 tabs 0RF Refilled phenazopyridine (Pyridium) 200 mg PO TID 2 days PRN 6 tabs 0RF pain Coding Level of Care Code Est Pt Level 3 (04230) Diagnoses Acute cystitis without hematuria N30.00 Urinary tract infection type: acute cystitis Hematuria presence: without hematuria
[2024-08-21 11:36] VITALS: BP 128/76; PULSE 88; O2SAT 97
== END 2024-08-21 12:14 | disposition home or self-care (01) ==
PROVIDERS: PCP Internal Medicine; Visit Provider Physician Assistant
DX: Z13.9 Encounter for screening, unspecified (principal); N30.00 Acute cystitis without hematuria

== ENCOUNTER 2024-09-20 15:04 | Outpatient (AMB) | payer OTHER, SELFPAY ==
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
[2024-09-20 15:10] VITALS: BP 110/70; PULSE 92; TEMP 36.5; O2SAT 99; BMI 28.9
--- OUTSIDE RECORDS SUMMARY | 2024-09-20 17:53 | XMS_ITS | Clinical Summary ---
Author Organization [facility] Address [address] [place] [address] Care Team Providers Care Healthcare Advisory Services Manager Name Role Phone Unavailable Primary Care Provider Unavailabl e Source Comments PLEASE NOTE, if this patient is a minor, it may be UNLAWFUL to discuss sensitive information that is contained in these records (such as FAMILY PLANNING, MENTAL HEALTH or SUBSTANCE ABUSE) with the minor patient's parent or other person without the patient's specific authorization.[facility] Immunizations Immunization Administration Dates Next Due PFIZER COVID VACCINE, [...] Health Maintenance Due Date Last Done Comments Anxiety Screening 1968 Diabetes Screening 1968 HPV Screening 1968 Hepatitis C Screening 1968 Lipid Screening 1968 Pap + HPV 1968 Tobacco Screening 1968 HIV Screening 08/07/1983 Hypertension Screening (#1) 1986 Imm-Hepatitis B (1 of 3 - 19 + 3-dose series) 08/07/1987 Cervical Cancer Screening 1989 Pap Smear 1989 Breast Cancer Screening (Mammogram) 2008 CT Colonography 2013 Colonoscopy 2013 Colorectal Cancer Screening 2013 FIT/gFOBT 2013 Fecal DNA 2013 Flexible Sigmoidoscopy 2013 Imm-Zoster, Recombinant (1 of 2) 2018 [id number] ( season) 2024 02/08/2021, 10/17/2020, 09/26/2020 Imm-Influenza (#1) 2024 02/05/2020, 1 06/19/2018, 03/08/2018 Alcohol and Drug Screen 05/31/2024 Depression Annual Screen 05/31/2024 Imm-DTaP/Tdap/Td (3 - Td or Tdap) 03/19/2029 019, 08/05/2010 Cervical Ablation/Cold-Knife Conization Discontinued Cervical Cryotherapy Discontinued Colposcopy Discontinued Endometrial Biopsy Discontinued Excision/Leep Discontinued HPV Genotyping Discontinued Vaginal Pap Discontinued Vulvoscopy Discontinued Insurance [employer] Member Subscriber Plan / Payer (Ef fective 2021-Present) Name:Nia Singer Relation to Subscriber:Self Name:Nia Singer Payer ID:[id number] Group ID:Not on file Type:Medicaid Address: [facility] [address] [place] [address]
== END 2024-09-20 16:02 | disposition home or self-care (01) ==
DX: E11.65 Type 2 diabetes mellitus with hyperglycemia (principal)

== ENCOUNTER → 2024-09-20 15:04 | Outpatient (BNVA) | payer OTHER, SELFPAY | PROVIDERS: PCP Internal Medicine | DX: I10 Essential (primary) hypertension (principal); E78.5 Hyperlipidemia, unspecified; M81.0 Age-related osteoporosis without current pathological fracture; E55.9 Vitamin D deficiency, unspecified; E03.9 Hypothyroidism, unspecified; E11.65 Type 2 diabetes mellitus with hyperglycemia; M79.644 Pain in right finger(s); Z79.899 Other long term (current) drug therapy | CPT/HCPCS: 83036; 96127; 99202 ==

== ENCOUNTER 2024-09-22 20:07 | Emergency (ER) | payer OTHER, SELFPAY ==
--- NOTE | ~2024-09-22 | CT_ITS ---
CLINICAL HISTORY: tia CT head without contrast Comparison: MR/SR - MR HEAD/BRAIN WO/W CON - 04/17/24 13:10 EST Findings: There is no acute intracranial hemorrhage. Ventricles are within normal limits in size. No mass effect or midline shift is present. The rodríguez-white matter differentiation appears normal. 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 There is unchanged extension of the mass into the right cavernous sinus and sphenoid sinuses. No acute fractures are identified. IMPRESSION: 1. No acute intracranial abnormality. 2. Sellar mass appears stable. This document has been electronically signed by: Long Wynne MD on 09/23/2024 01:47:54
[2024-09-22 20:13] VITALS: BP 132/91; PULSE 115; O2SAT 94
[2024-09-22 20:19] VITALS: BP 138/81; PULSE 104; RESP 13; TEMP 36.8; O2SAT 96; BMI 30.5
--- OUTSIDE RECORDS SUMMARY | 2024-09-22 21:21 | XMS_ITS | Clinical Summary ---
Author Organization [facility] Address [address] [place] [address] Care Team Providers Care Framing Mechanic Name Role Phone Unavailable Primary Care Provider [...] 2013 Imm-Zoster, Recombinant (1 of 2) 2018 [id number] ( season) 2024 02/08/2021, 10/17/2020, 09/26/2020 Imm-Influenza (#1) 2024 02/05/2020, 1 06/19/2018, 03/08/2018 Alcohol and Drug Screen 05/31/2024 Depression Annual Screen 05/31/2024 Imm-DTaP/Tdap/Td (3 - Td or Tdap) 03/19/2029 019, 08/05/2010 Cervical Ablation/Cold-Knife Conization Discontinued Cervical Cryotherapy Discontinued Colposcopy Discontinued Endometrial Biopsy Discontinued Excision/Leep Discontinued HPV Genotyping Discontinued Vaginal Pap Discontinued Vulvoscopy Discontinued Insurance in[employer] PLAN Member Subscriber Plan / Payer (Ef fective 2021-Present) Name:Nia Singer Relation to Subscriber:Self Name:Nia Singer Payer ID:[id number] Group ID:Not on file Type:Medicaid Address: [facility] [address] [place] [address]
[2024-09-22 22:15] VITALS: BP 128/66; PULSE 87; RESP 16; TEMP 36.7; O2SAT 97
[2024-09-22 22:40] LABS: Appearance Urine Clear; Color Urine Yellow; Glucose Urine UA >=1000 mg/dL (Negative); Leukocyte Esterase Urine Negative (Negative); Nitrite Urine Negative (Negative); UMIC TRIGGER UACC YES; Urine Blood Negative (Negative); Urine Ketones Trace mg/dL (Negative); Urine Protein Negative (Neg-Trace)
[2024-09-22 22:45] LABS: Bacteria Urine None Seen (None Seen); Hyaline Casts Urine 0-2 /LPF (0-2); RBC Urine 0-2 /HPF (0-2); Squamous Epithelial Cell Urine 0-2 /HPF (0-2); WBC Urine 0-5 /HPF (0-5)
[2024-09-22 22:50] LABS: Amphetamine Screen Urine Not Detected (Not Detect); Barbiturates, Urine Not Detected (Not Detect); Benzodiazepines Screen Urine Not Detected (Not Detect); Buprenorphine Scr Not Detected (Not Detect); Cannabinoid Screen Urine POSITIVE (Not Detect); Cocaine Screen Urine Not Detected (Not Detect); Fentanyl, urine Not Detected (Not Detect); Methadone Screen, Urine Not Detected (Not Detect); Opiate Screen Urine Not Detected (Not Detect); Oxycodone Screen Urine Not Detected (Not Detect); Phencyclidine Screen Urine Not Detected (Not Detect)
[2024-09-23 00:42] LABS: Glucose, Whole Blood 250 mg/dL (60-115)
[2024-09-23 00:45] LABS: MANUAL DIFF FLAG NO
[2024-09-23 00:47] LABS: Basophils Percent Auto 0.4 % (0-2); Eosinophils Percent Auto 0.5 % (0-4); Hematocrit 37.4 % (37.0-47.0); Hemoglobin 13.4 g/dl (12.0-16.0); Imm Gran Abs Auto 0.06 X10*3/uL (0.00-0.03); Imm Gran Pct Auto 0.8 % (0.0-0.4); Lymphocytes Absolute Auto 4.1 X10*3/uL (1.2-4.9); Lymphocytes Percent Auto 52.1 % (20-40); Mean Corpuscular HGB Conc 35.8 g/dl (31.0-35.0); Mean Corpuscular Hemoglobin 31.2 pg (27.0-33.0); Mean Platelet Volume 10.6 fL (9.4-12.3); Monocytes Absolute Auto 0.9 X10*3/uL (0.1-1.2); Monocytes Percent Auto 11.2 % (2-11); Neutrophils Absolute Auto 2.7 x10*3/uL (2.0-8.3); Platelet Count 143 X10*3/uL (160-400); Red Cell Distribution Width 12.5 % (11.0-16.0); White Blood Count 7.8 X10*3/uL (4.8-10.8)
[2024-09-23 01:13] LABS: Alanine Aminotransferase 29 U/L (0-31); Albumin Level 4.3 g/dL (3.5-5.0); Alkaline Phosphatase 110 U/L (39-117); Anion Gap 15 (12-20); Aspartate Amino Transferase 28 U/L (5-31); Bilirubin Total 0.3 mg/dL (0.0-1.0); Blood Urea Nitrogen 8 mg/dL (9-16); Calcium 9.2 mg/dL (8.4-10.2); Carbon Dioxide 24 mmol/L (22-29); Chloride 104 mmol/L (96-108); Creatinine Clr Calc Pharmacy 84.8; Estimated Glomerular Filt Rate > 60; Glucose Random 269 mg/dL (60-115); Magnesium 1.6 mg/dL (1.6-2.6); Potassium 4.4 mmol/L (3.3-5.1); Sodium 139 mmol/L (135-145); Total Protein 7.1 g/dL (6.5-8.0)
[2024-09-23 01:18] VITALS: BP 116/82; PULSE 92; RESP 16; TEMP 36.9; O2SAT 97
--- NOTE | 2024-09-23 01:30 | ED_ITS ---
HPI - Altered Mental Status General Chief Complaint: Altered Mental Status Stated Complaint: period of confusion Time Seen by Provider: 09/22/24 23:29 Source: patient Mode of arrival: ambulatory Limitations: no limitations History of Present Illness ED Provider: HPI narrative: Patient is 54 years old with history of uncontrolled diabetes mellitus, osteoporosis, hype no seizure activity no history of similar episode hypertension, hyperlipidemia, leukopenia and thrombocytopenia does smoke marijuana comes here for around 15:00 her sister noticed that she has not making any sense and talking gibberish patient does not remember anything no history of similar episode in the past at this time patient is well oriented times in place Related Data Home Medications ?Medication ?Instructions ?Recorded ?Confirmed lumateperone 42 mg capsule 42 mg PO DAILY 02/19/22 09/20/24 (Caplyta) lorazepam 1 mg tablet 1 mg PO BID 09/29/23 09/20/24 divalproex 250 mg tablet,delayed 750 mg PO BID 01/18/24 09/20/24 release duloxetine 60 mg capsule,delayed 120 mg PO DAILY 01/18/24 09/20/24 release suvorexant 5 mg tablet (Belsomra) 15 mg PO BEDTIME PRN 07/31/24 09/20/24 Previous Rx's ?Medication ?Instructions ?Recorded diaper,brief,adult,disposable #96 ea 12/29/21 (Annie Briefs-Small) lancets 28 gauge (FreeStyle #300 ea 09/02/22 Lancets) pen needle, diabetic 31 gauge x #100 ea 09/02/2210/13 blood-glucose meter (FreeStyle #1 ea 12/11/22 Lite Meter kit) ondansetron 4 mg disintegrating 4 mg PO Q8H PRN for 03/05/23 tablet nausea/vomiting #20 tabs ezetimibe 10 mg tablet 10 mg PO DAILY #90 tabs 09/07/23 blood sugar diagnostic (FreeStyle #300 ea 10/17/23 Lite Strips) insulin lispro 200 unit/mL (3 mL) 8 unit (0.04 mL) subcut TID 30 02/07/24 subcutaneous pen (Humalog Kwik days #3.6 mL U-200 Insulin) triamcinolone acetonide 0.1 % 1 appl topical BID-TID #80 grams 02/12/24 topical cream cholecalciferol (vitamin D3) 50 50 mcg PO BEDTIME 90 days #90 caps 04/15/24 mcg (2,000 unit) capsule atorvastatin 20 mg tablet 20 mg PO BEDTIME #90 tabs 06/06/24 levothyroxine 88 mcg tablet 88 mcg PO DAILY #90 tabs 06/20/24 ropinirole 1 mg tablet 3 mg (3 x 1 mg) PO DAILY #270 tabs 07/12/24 loratadine 10 mg tablet 10 mg PO DAILY #90 tabs 07/19/24 ketoconazole 2 % topical cream 1 appl topical DAILY #30 grams 07/24/24 albuterol sulfate 90 mcg/actuation 2 puff inhalation Q4-6H PRN 07/31/24 aerosol inhaler shortness of breath or wheezing #6.7 grams fluticasone propionate 50 1 spray intranasal Q12H #16 grams 07/31/24 mcg/actuation nasal spray,suspension insulin glargine 100 unit/mL (3 25 unit (0.25 mL) subcut DAILY #45 08/11/24 mL) subcutaneous pen (Lantus mL Solostar U-100 Insulin) pantoprazole 40 mg tablet,delayed 40 mg PO DAILY #90 tabs 08/14/24 release flash glucose scanning reader #1 ea 09/22/24 (FreeStyle Kourtney 2 [place]) flash glucose sensor (FreeStyle #1 ea 09/22/24 Kourtney 2 Sensor kit) Allergies Allergy/AdvReac Type Severity Reaction Status Date / Time codeine Allergy Shortness Verified 09/22/24 20:21 of Breath Review of Systems 2 Review of Systems: Yes all other systems are reviewed and are negative FOR[facility]LY [facility], [facility] Past Medical History Medical History Upper abdominal pain Gastroparesis Acute respiratory disease Hx of fracture of tibia GERD (gastroesophageal reflux disease) Interstitial cystitis Hypothyroidism Vitamin D deficiency HLD (hyperlipidemia) HTN (hypertension) T2DM (type 2 diabetes mellitus) Pituitary macroadenoma Osteoporosis Bipolar 1 disorder Acute Crohn's disease Surgical History Hx of colonoscopy History of esophagogastroduodenoscopy (EGD) Hx of brain surgery History of surgery History of tubal ligation Status post breast reduction LAP-BAND surgery status History of bladder surgery History of section Family History Family History Father HTN (hypertension) Mother Heart disease Brother Mental health disorder Sister Mental health disorder Social History Social History Household Members: Children Housing: Apartment Alcohol intake: current Alcohol intake frequency: holidays/special occasions only Patient Tobacco Use Status: Never used Tobacco e-Cigarette/Vaping Use: Never Used Second Hand Smoke Exposure: Yes Substance Use Type: Marijuana service: No Current occupational status: disabled Cognitive needs: No Hearing needs: No Vision needs: Yes Physical Exam ED Vital Signs: Vital Signs - 24 hr 09/22/24 20:19 09/22/24 22:15 09/23/24 01:18 Temperature 98.3 F 98.0 F 98.5 F Pulse Rate 104 H 87 92 Respiratory Rate 13 16 16 Blood Pressure 138/81 128/66 116/82 Pulse Oximetry 96 97 97 Oxygen Delivery Method Room Air Room Air Room Air 09/23/24 02:25 Temperature 98.5 F Pulse Rate 92 Respiratory Rate 16 Blood Pressure 116/82 Pulse Oximetry 97 Oxygen Delivery Method Room Air BMI result Body Mass Index 30.5 Appearance: Alert. Oriented X3. No acute distress. Eyes: PERRLA, No Nystagmus ENT: Pharynx normal. Oral Mucosa moist Neck: Normal inspection. Neck supple. CVS: Normal heart rate and rhythm. Pulses normal. Respiratory: No respiratory distress. Equal air entry bilateral, no wheezing/rales/rhonchi Abdomen: Soft and nontender. Bowel sounds are present, no mass palpable, no CVA tenderness Skin: Skin warm and dry. Normal skin color. Normal skin turgor. Extremities: No lower extremity edema. No calf tenderness Neuro: Oriented X 3. No motor deficit. No sensory deficit.No cerebellar signs , cranial nerves II-XII intact NIH Stroke Scale Internal: Initial- Upon Arrival Level of Consciousness: Alert Level of Consciousness Questions: Answers both questions correctly Level of Consciousness Commands: Performs both tasks correctly Best Gaze: Normal Visual: No visual loss Facial Palsy: Normal Motor Arm (Right): No drift Motor Arm (Left): No drift Motor Leg (Right): No drift Motor Leg (Left): No drift Limb Ataxia: Absent Sensory: Normal Best Language: No aphasia Dysarthia: Normal Extinction and Inattention: No abnormality Score: 0 Medical Decision Making Medical Decision Making [facility] Narrative: Patient with transient confusion CT scan of the head is negative no focal deficit noticed likely patient has transient global amnesia labs are stable discharge patient home advised to follow up with neurologist/PCP Differential Diagnosis Differential Diagnoses: The differential diagnosis associated with the presentation includes TIA/CVA/transient global amnesia Admission/Observation Consideration of admission/observation: Escalation of care including admission/observation considered Lab Data [facility] Lab Attestation statement: I reviewed the patient's lab results. 09/23/24 00:41 09/23/24 00:41 Labs: Lab Results 09/22/24 09/23/24 09/23/24 Range/Units 22:31 00:38 00:41 WBC 7.8 (4.8-10.8) X10*3/uL RBC 4.30 (4.20-5.50) X10*6/uL Hgb 13.4 (12.0-16.0) g/dl Hct 37.4 (37.0-47.0) % MCV 87.0 (80.0-98.0) fL MCH 31.2 (27.0-33.0) pg MCHC 35.8 H (31.0-35.0) g/dl RDW 12.5 (11.0-16.0) % Plt Count 143 L D (160-400) X10*3/uL MPV 10.6 (9.4-12.3) fL Immature Gran % (Auto) 0.8 H (0.0-0.4) % Neut % (Auto) 35.0 L (45-73) % Lymph % (Auto) 52.1 H (20-40) % Jerome % (Auto) 11.2 H (2-11) % Eos % (Auto) 0.5 (0-4) % Baso % (Auto) 0.4 (0-2) % Lymph # (Auto) 4.1 (1.2-4.9) X10*3/uL Jerome # (Auto) 0.9 (0.1-1.2) X10*3/uL Eos # (Auto) 0.0 (0.0-0.4) X10*3/uL Baso # (Auto) 0.0 (0.0-0.2) X10*3/uL Abs Immat Gran (auto) 0.06 H (0.00-0.03) X10*3/uL Absolute Neuts (auto) 2.7 (2.0-8.3) x10*3/uL Absolute Nucleated RBC 0.000 (0.0-0.012) X10*3/uL Nucleated RBC % (auto) 0.0 (0.0-0.2) /100WBC Sodium 139 (135-145) mmol/L Potassium 4.4 D (3.3-5.1) mmol/L Chloride 104 (96-108) mmol/L Carbon Dioxide 24 (22-29) mmol/L Anion Gap 15 (12-20) BUN 8 L (9-16) mg/dL Creatinine 0.76 (0.5-1.4) mg/dL Estim Creat Clear Calc 84.8 Estimated GFR > 60 POC Glucose 250 H (60-115) mg/dL Random Glucose 269 H (60-115) mg/dL Calcium 9.2 (8.4-10.2) mg/dL Magnesium 1.6 (1.6-2.6) mg/dL Total Bilirubin 0.3 (0.0-1.0) mg/dL AST 28 (5-31) U/L ALT 29 (0-31) U/L Alkaline Phosphatase 110 (39-117) U/L Total Protein 7.1 (6.5-8.0) g/dL Albumin 4.3 (3.5-5.0) g/dL Urine Color Yellow Urine Appearance Clear Urine pH 8.0 (5.0-9.0) Ur Specific [place] 1.020 (1.005-1.025) Urine Protein Negative (Neg-Trace) mg/dL Urine Glucose (UA) >=1000 H (Negative) mg/dL Urine Ketones Trace (Negative) mg/dL Urine Blood Negative (Negative) Urine Nitrite Negative (Negative) Ur Leukocyte Esterase Negative (Negative) Urine RBC 0-2 (0-2) /HPF Urine WBC 0-5 (0-5) /HPF Ur Squamous Epith Cells 0-2 (0-2) /HPF Urine Bacteria None Seen (None Seen) Hyaline Casts 0-2 (0-2) /LPF Urine Opiates Screen Not Detected (Not Detect) Ur Buprenorphine Scrn Not Detected (Not Detect) ng/mL Ur Oxycodone Screen Not Detected (Not Detect) ng/mL Urine Methadone Screen Not Detected (Not Detect) ng/mL Urine Fentanyl Screen Not Detected (Not Detect) Ur Barbiturates Screen Not Detected (Not Detect) Ur Phencyclidine Scrn Not Detected (Not Detect) Ur Amphetamines Screen Not Detected (Not Detect) U Benzodiazepines Scrn Not Detected (Not Detect) Urine Cocaine Screen Not Detected (Not Detect) U Marijuana (THC) Screen POSITIVE H (Not Detect) Discharge Plan Discharge Clinical Impression: TGA (transient global amnesia) Patient Disposition: Home, Self-Care Instructions: Transient Global Amnesia (ED) Additional Instructions: Continue medication and follow with neurologist Your condition likely benign you may remember part of it with time Follow up with neurologist Prescriptions: No Action (DME) Annie Briefs-Small Misc See Rx Instructions .Route Qty: 96 2RF Rx Instructions: use daily (DME) lancets [FreeStyle Lancets] 28 gauge misc See Rx Instructions .Route Qty: 300 1RF Rx Instructions: tid testing (DME) pen needle, diabetic 31 gauge x 5/16 needle See Rx Instructions subcut DAILY Qty: 100 0RF Rx Instructions: BID-Future refills from [facility] (DME) blood-glucose meter [FreeStyle Lite Meter] Kit See Rx Instructions .Route Qty: 1 0RF Rx Instructions: TID-QID ondansetron 4 mg tablet,disintegrating 4 mg PO Q8H PRN (Reason: for nausea/vomiting) Qty: 20 0RF ezetimibe 10 mg tablet 10 mg PO DAILY Qty: 90 1RF (DME) FreeStyle Lite Strips Strip See Rx Instructions .Route Qty: 300 1RF Rx Instructions: test 3 times daily triamcinolone acetonide 0.1 % cream 1 appl topical BID-TID Qty: 80 0RF cholecalciferol (vitamin D3) 50 mcg (2,000 unit) capsule 50 mcg PO BEDTIME 90 Days Qty: 90 1RF atorvastatin 20 mg tablet 20 mg PO BEDTIME Qty: 90 1RF levothyroxine 88 mcg tablet 88 mcg PO DAILY Qty: 90 1RF ropinirole 1 mg tablet 3 mg PO DAILY Qty: 270 1RF loratadine 10 mg tablet 10 mg PO DAILY Qty: 90 3RF ketoconazole 2 % cream 1 appl topical DAILY Qty: 30 0RF insulin glargine [Lantus Solostar U-100 Insulin] 100 unit/mL (3 mL) insulin pen 25 unit subcut DAILY Qty: 45 1RF pantoprazole 40 mg tablet,delayed release (DR/EC) 40 mg PO DAILY Qty: 90 1RF (DME) FreeStyle Kourtney 2 [place] Misc See Rx Instructions .Route Qty: 1 0RF Rx Instructions: As directed (DME) FreeStyle Kourtney 2 Sensor Kit See Rx Instructions .Route Qty: 1 0RF Rx Instructions: As directed duloxetine 60 mg capsule,delayed release(DR/EC) 120 mg PO DAILY lorazepam 1 mg tablet 1 mg PO BID divalproex 250 mg tablet,delayed release (DR/EC) 750 mg PO BID Belsomra 5 mg tablet 15 mg PO BEDTIME PRN Humalog KwikPen Insulin 200 unit/mL (3 mL) insulin pen 8 unit subcut TID 30 Days Qty: 3.6 0RF Rx Instructions: give before meals when sugar is above 140 Caplyta 42 mg capsule 42 mg PO DAILY albuterol sulfate 90 mcg/actuation HFA aerosol inhaler 2 puff inhalation Q4-6H PRN (Reason: shortness of breath or wheezing) Qty: 6.7 0RF fluticasone propionate 50 mcg/actuation spray,suspension 1 spray intranasal Q12H Qty: 16 0RF Rx Instructions: administer into each nostril Interventions: ED Discharge Assessment Last Done: 09/23/24 02:25 Discharge Date/Time: 09/23/24 02:26 Print Language: Divehi
[2024-09-23 02:25] VITALS: BP 116/82; PULSE 92; RESP 16; TEMP 36.9; O2SAT 97
== END 2024-09-23 02:26 | disposition home or self-care (01) ==
PROVIDERS: Emergency Provider Internal Medicine
DX: G45.4 Transient global amnesia (principal); R41.82 Altered mental status, unspecified; R29.700 NIHSS score 0; E11.9 Type 2 diabetes mellitus without complications; I10 Essential (primary) hypertension; E78.5 Hyperlipidemia, unspecified; E03.9 Hypothyroidism, unspecified; Z79.02 Long term (current) use of antithrombotics/antiplatelets; Z79.899 Other long term (current) drug therapy; Z79.4 Long term (current) use of insulin
CPT/HCPCS: 36415; 70450; 80053; 80307; 81001; 82947; 83735; 85025; 99284

== ENCOUNTER → 2024-09-23 00:34 | Outpatient (BNV) | payer OTHER, SELFPAY | PROVIDERS: Emergency Provider Internal Medicine; Visit Provider Radiology Diagnostic Radiology | DX: R41.82 Altered mental status, unspecified (principal) | CPT/HCPCS: 70450 ==

== ENCOUNTER 2024-10-12 07:07 | Outpatient (REF) | payer OTHER, SELFPAY ==
--- NOTE | ~2024-10-12 | XR_ITS ---
CLINICAL HISTORY: M79.641 - Pain in right hand --- Additional Notes or Special Instructions: Rodrigo hernandez 3 view right hand Comparison: None Findings: Bones intact. No dislocations. Joint space narrowing and periarticular osteophyte formation at the radiocarpal, scaphotrapezial, and 1st carpometacarpal joints is present, indicating osteoarthritis. Periarticular osteophyte formation at the interphalangeal joints of the digits as well as the 1st metacarpophalangeal joint. No erosions. No radiopaque foreign body. IMPRESSION: 1. No acute findings 2. Osteoarthritis. This document has been electronically signed by: Steffi Meeks MD on 10/12/2024 16:44:03
--- OUTSIDE RECORDS SUMMARY | 2024-10-12 07:09 | XMS_ITS | Continuity of Care Document ---
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 [address] [facility], [address], [place], [address], [place]. tel:[phone] Referring Provider: Dora Johnston, [address] [place] [address], [address]. tel:[phone] Family History Family Member Type Diagnosis Age At Onset No Information Payers Payer name Insurance type Covered republican ID Authoriza tilaure(s) Medicaid [id number] Social History Type Description Quantity Date Captured [...]
--- OUTSIDE RECORDS SUMMARY | 2024-10-12 07:09 | XMS_ITS | Clinical Summary ---
Author Organization [facility] Address [address] [place] [address] Care Team Providers Care Supervisor Pleating Name Role Phone Unavailable Primary Care Provider [...] 2013 Imm-Zoster, Recombinant (1 of 2) 2018 [id number] ( season) 2024 02/08/2021, 10/17/2020, 09/26/2020 Imm-Influenza (#1) 2024 02/05/2020, 1 06/19/2018, 03/08/2018 Alcohol and Drug Screen 05/31/2024 Depression Annual Screen 05/31/2024 Imm-DTaP/Tdap/Td (3 - Td or Tdap) 03/19/2029 019, 08/05/2010 Cervical Ablation/Cold-Knife Conization Discontinued Cervical Cryotherapy Discontinued Colposcopy Discontinued Endometrial Biopsy Discontinued Excision/Leep Discontinued HPV Genotyping Discontinued Vaginal Pap Discontinued Vulvoscopy Discontinued Insurance [employer] PL[employer] Member Subscriber Plan / Payer (Ef fective 2021-Present) Name:Nia Singer Relation to Subscriber:Self Name:Nia Singer Payer ID:[id number] Group ID:Not on file Type:Medicaid Address: [facility] [address] [place] [address]
== END 2024-10-12 07:08 | disposition home or self-care (01) ==
LOC: HO.HOSX 07:07
DX: M79.641 Pain in right hand (principal); M18.9 Osteoarthritis of first carpometacarpal joint, unspecified
CPT/HCPCS: 20600; 73130; 99202; J1010; J2003

== ENCOUNTER 2024-10-12 08:52 | Outpatient (AMB) | payer OTHER, SELFPAY ==
--- NOTE | 2024-10-12 09:01 | A.OFFVIS_ITS ---
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 States 2 yrs ago she hurt her thumb on a shovel. States her thumb hyper extended and has had pain and discomfort since. Pain is triggered with thumb movement, lifting and gripping motion. She also has weakness in hand, numbnees and tingling possible due to hx of DM per patient. Allergies codeine Allergy (Verified 10/12/24 09:09) Shortness of Breath PFSH Medical History Upper abdominal pain Gastroparesis Acute respiratory disease Hx of fracture of tibia GERD (gastroesophageal reflux disease) Interstitial cystitis Hypothyroidism Vitamin D deficiency HLD (hyperlipidemia) HTN (hypertension) T2DM (type 2 diabetes mellitus) Pituitary macroadenoma Osteoporosis Bipolar 1 disorder Acute Crohn's disease Surgical History Hx of colonoscopy History of esophagogastroduodenoscopy (EGD) Hx of brain surgery History of surgery History of tubal ligation Status post breast reduction LAP-BAND surgery status History of bladder surgery History of section Family History Father HTN (hypertension) Mother Heart disease Brother Mental health disorder Sister Mental health disorder Social History (Updated 10/12/24 @ 09:10 by VEGA Richmond) Household Members: Children Housing: Apartment Alcohol intake: current Alcohol intake frequency: holidays/special occasions only Patient Tobacco Use Status: Never used Tobacco e-Cigarette/Vaping Use: Never Used Second Hand Smoke Exposure: Yes Substance Use Type: Marijuana service: No Current occupational status: disabled 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 Cognitive needs: No Hearing needs: No Vision needs: Yes Physical Exam Vital Signs: BMI result Body Mass Index 30.4 Office Procedures AMB Joint Injection/Aspiration Joint Injection/Aspiration Primary Site: right thumb Prep: site was prepped using aseptic technique, ethochloride spray was applied and injection warnings given Injected: 40 mg of, DepoMedrol, with 1 mL of and 1% plain lidocaine Procedure: The patient tolerated the procedure well and there was some relief with the local anesthesia Coding 53947 - Small Joint Procedure code (CPT) selection complete Assessment & Plan Assessment & Plan (1) Osteoarthritis of first carpometacarpal (CMC) joint of one hand: Code(s): M18.9 - Osteoarthritis of first carpometacarpal joint, unspecified Category: Medical Plan History of Present Illness The patient is a 54-year-old female presenting with chronic hand pain. The origin of the pain dates back to approximately four years ago during an incident involving a snow shovel, resulting in a hyperextended thumb injury. Ever since, she reports a persistent and severe pain that is notably aggravated by specific hand and thumb movements. The patient describes the pain as relentless and comparable to a toothache, highlighting the severe impact on her daily hand function. Her previous medical evaluations, including x-rays, have pointed towards moderate basal joint arthritis characterized by thinning at the base of the thumb. Additionally, her Type 2 Diabetes Mellitus complicates her condition due to recent stress-induced fluctuations in her blood sugar levels. Review of Systems - Musculoskeletal: Reports chronic thumb and hand pain, tightening with certain thumb movements. - Endocrine: Reports recent stress leading to fluctuations in blood sugar levels; acknowledges diabetes. Systems reviewed and are negative except as per HPI and below Physical Exam - Musculoskeletal- - Thumb maneuver recreates pain, tightness noted with fishing pole motion. - No pain with initial pressure applied to the side of the hand. Results - X-rays indicate moderate basal joint arthritis, with noticeable thinning of the joint at the base of the thumb. Procedure The risks and benefits of a steroid injection including but not limited to risk of damage to blood vessels, nerve, tendon, infection, skin bleaching, persistent or worsening pain, and failure to improve symptoms were discussed with the patient and they wish to proceed with the steroid injection. Once consent was obtained the skin over the dorsum of the right basal joint was sterilely prepped. The joint was then injected with a combination of 1 mL of 40mg/mL Depo-Medrol and 1% plain Lidocaine. The patient appears to have tolerated the procedure well and with no complications. He had good early relief before leaving clinic today. He knows that they may not have another steroid injection into this joint for least 4 months. Plan To address the basal joint arthritis of the patient?s thumb, I plan to initiate conservative treatment with a supportive brace and occupational therapy. Additionally, a steroid injection into the affected joint will be administered, contingent upon monitoring the patient?s blood glucose levels due to her diabetes. Surgical options will be considered if these measures do not alleviate the condition. Should direct injection be challenging, referral for image-guided injection will be made. Injection intervals must be at least four months apart. Patient was informed and verbally consented to the use of an ambient scribe for clinic note documentation during this visit. Discussion Notes I explained to the patient her x-ray results, indicating moderate basal joint arthritis with joint thinning at the thumb base. We discussed conservative management via bracing and occupational therapy, and the option of corticosteroid injections for symptomatic relief. I advised the patient about the impact of steroids on her blood glucose control and emphasized the need for careful monitoring post-injection. Potential surgical intervention was mentioned as a last resort if non-invasive methods fail. The patient opted for the steroid injection, which will be administered unless joint access is problematic. If so, I would coordinate with Dr. Pérez for an image-guided approach. We discussed risks, including blood sugar instability, with scheduled follow-up contingent on patient outcome and response. Patient Instructions - Wear the prescribed brace during daytime activities. - Attend occupational therapy sessions as advised. - Monitor blood sugar levels closely after receiving the steroid injection. - Return for follow-up if experiencing worsening symptoms or inadequate relief. - Contact the office for concerns or new symptoms. Orders: Orders XR hand RT min 3V Today M79.641 - Pain in right hand Coding Level of Care Code New Pt Level 3 (99555) Diagnoses Osteoarthritis of first carpometacarpal (CMC) joint of one hand M18.9 CPT Codes Coding - 72102 - Small joint: 49881 - Small Joint ([id number])
[2024-10-12 09:02] VITALS: BMI 30.4
--- OUTSIDE RECORDS SUMMARY | 2024-10-12 09:20 | XMS_ITS | Continuity of Care Document ---
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 [address] [facility], [address], [place], [address], [place]. tel:[phone] Referring Provider: Dora Johnston, [address] [place] [address], [address]. tel:[phone] Family History Family Member Type Diagnosis Age At Onset No Information Payers Payer name Insurance type Covered alliance party ID Authoriza tilaure(s) Medicaid [id number] Social History Type Description Quantity Date Captured [...]
--- OUTSIDE RECORDS SUMMARY | 2024-10-12 09:20 | XMS_ITS | Clinical Summary ---
Author Organization [facility] Address [address] [place] [address] Care Team Providers Care Funds Transfer Clerk Name Role Phone Unavailable Primary Care Provider [...] 2013 Imm-Zoster, Recombinant (1 of 2) 2018 [id number] ( season) 2024 02/08/2021, 10/17/2020, 09/26/2020 Imm-Influenza (#1) 2024 02/05/2020, 1 06/19/2018, 03/08/2018 Alcohol and Drug Screen 05/31/2024 Depression Annual Screen 05/31/2024 Imm-DTaP/Tdap/Td (3 - Td or Tdap) 03/19/2029 019, 08/05/2010 Cervical Ablation/Cold-Knife Conization Discontinued Cervical Cryotherapy Discontinued Colposcopy Discontinued Endometrial Biopsy Discontinued Excision/Leep Discontinued HPV Genotyping Discontinued Vaginal Pap Discontinued Vulvoscopy Discontinued Insurance [employer] PLAN Member Subscriber Plan / Payer (Ef fective 2021-Present) Name:Nia Singer Relation to Subscriber:Self Name:Nia Singer Payer ID:[id number] Group ID:Not on file Type:Medicaid Address: [facility] [address] [place] [address]
== END 2024-10-12 09:35 | disposition home or self-care (01) ==
LOC: HO.HOS 08:53
DX: M18.9 Osteoarthritis of first carpometacarpal joint, unspecified (principal)
CPT/HCPCS: 20600; 99203

== ENCOUNTER → 2024-10-12 08:54 | Outpatient (BNV) | payer OTHER, SELFPAY | PROVIDERS: Visit Provider Radiology Diagnostic Radiology | DX: M19.041 Primary osteoarthritis, right hand (principal) | CPT/HCPCS: 73130 ==

== ENCOUNTER 2024-10-16 08:44 | Outpatient (REF) | payer OTHER, SELFPAY ==
--- OUTSIDE RECORDS SUMMARY | 2024-10-16 08:50 | XMS_ITS | Clinical Summary ---
Author Organization [facility] Address [address] [place] [address] Care Team Providers Care Manager Assessment Name Role Phone Unavailable Primary Care Provider [...] 2013 Imm-Zoster, Recombinant (1 of 2) 2018 [id number] ( season) 2024 02/08/2021, 10/17/2020, 09/26/2020 Imm-Influenza (#1) 2024 02/05/2020, 1 06/19/2018, 03/08/2018 Alcohol and Drug Screen 05/31/2024 Depression Annual Screen 05/31/2024 Imm-DTaP/Tdap/Td (3 - Td or Tdap) 03/19/2029 019, 08/05/2010 Cervical Ablation/Cold-Knife Conization Discontinued Cervical Cryotherapy Discontinued Colposcopy Discontinued Endometrial Biopsy Discontinued Excision/Leep Discontinued HPV Genotyping Discontinued Vaginal Pap Discontinued Vulvoscopy Discontinued Insurance [employer] PLAN Member Subscriber Plan / Payer (Ef fective 2021-Present) Name:Nia Singer Relation to Subscriber:Self Name:Nia Singer Payer ID:[id number] Group ID:Not on file Type:Medicaid Address: [facility] [address] [place] [address]
--- OUTSIDE RECORDS SUMMARY | 2024-10-16 08:50 | XMS_ITS | Continuity of Care Document ---
Author Organization [facility] Address [address] [place] [address] Phone Care Team Providers Care Health Analyst Name Role Phone Huber Rene MD Unavailable Unavailable Advance Directives Directive Yes / No Effective Date File Name No Information Encounters Encounter Description Practice Location Reason(s) For Visit Diagnoses Date Provider Providers Copied on Encounter [facility], [address] [place], [place], [id number], tel:[phone] [place] [facility] 94 No Information 3 Anju Ngo. [address] [facility], [address], [place], [address], [place]. tel:[phone] Referring Provider: Dora Johnston, [address] [place] [address], [address]. tel:[phone] Family History Family Member Type Diagnosis Age At Onset No Information Payers Payer name Insurance type Covered alliance party ID Authoriza tilaure(s) Medicaid [id number] Social History Type Description Quantity Date Captured [...]
[2024-10-16 10:14] LABS: MANUAL DIFF FLAG NO
[2024-10-16 10:34] LABS: Basophils Percent Auto 0.5 % (0-2); Eosinophils Absolute Auto 0.1 X10*3/uL (0.0-0.4); Eosinophils Percent Auto 1.1 % (0-4); Hematocrit 38.5 % (37.0-47.0); Imm Gran Abs Auto 0.06 X10*3/uL (0.00-0.03); Lymphocytes Absolute Auto 3.6 X10*3/uL (1.2-4.9); Lymphocytes Percent Auto 56.4 % (20-40); Mean Corpuscular HGB Conc 33.8 g/dl (31.0-35.0); Mean Corpuscular Volume 91.9 fL (80.0-98.0); Mean Platelet Volume 10.3 fL (9.4-12.3); Monocytes Absolute Auto 0.5 X10*3/uL (0.1-1.2); Monocytes Percent Auto 8.1 % (2-11); Neutrophils Absolute Auto 2.1 x10*3/uL (2.0-8.3); Neutrophils Percent Auto 32.9 % (45-73); Platelet Count 169 X10*3/uL (160-400); Red Blood Count 4.19 X10*6/uL (4.20-5.50); Red Cell Distribution Width 13.1 % (11.0-16.0); White Blood Count 6.3 X10*3/uL (4.8-10.8)
[2024-10-16 11:18] LABS: Alanine Aminotransferase 36 U/L (0-31); Albumin Level 4.5 g/dL (3.5-5.0); Alkaline Phosphatase 60 U/L (39-117); Anion Gap 13 (12-20); Aspartate Amino Transferase 27 U/L (5-31); Bilirubin Total 0.5 mg/dL (0.0-1.0); Blood Urea Nitrogen 10 mg/dL (9-16); Calcium 9.1 mg/dL (8.4-10.2); Carbon Dioxide 29 mmol/L (22-29); Chloride 105 mmol/L (96-108); Cholesterol 197 mg/dL (<200); Estimated Glomerular Filt Rate > 60; Glucose Random 144 mg/dL (60-115); HDL Cholesterol 58 mg/dL (>40); LDL Cholesterol Calculated 94 mg/dL (<100); Potassium 4.4 mmol/L (3.3-5.1); Sodium 143 mmol/L (135-145); Triglycerides 226 mg/dL (<150)
[2024-10-16 11:19] LABS: TSH reflex Free T4 6.53 uIU/mL (0.32-4.0); Vitamin D 25-OH Total 66.2 ng/mL (>30)
[2024-10-16 11:35] LABS: Folate 5.8 ng/mL (> or = 4.0); Vitamin B12 461 pg/mL (200-900)
== END 2024-10-16 08:45 | disposition home or self-care (01) ==
LOC: HO.HMGCLDS 08:44
DX: Z00.00 Encounter for general adult medical examination without abnormal findings (principal); E78.00 Pure hypercholesterolemia, unspecified
CPT/HCPCS: 36415; 80053; 80061; 82306; 82607; 82746; 84439; 84443; 85025

== ENCOUNTER 2024-10-18 11:06 | Outpatient (AMB) | payer OTHER, SELFPAY ==
--- NOTE | 2024-10-18 11:07 | A.OFFVIS_ITS ---
Vital Signs 10/18/24 11:10 Height 5 ft 4 in Weight 169 lb 12.095 oz BMI 29.1 BP 92/64 Blood Pressure Location Lt brachial Position Sitting Pulse 103 H Pulse Source Pulse Oximeter Pulse Oximetry (%) 98 Oxygen Delivery Method Room Air Intake Visit Reasons: Osteoporosis, T2DM Intake Note: New patient internally referred by PCP for T2DM and Osteoporosis. Last Diabetic Eye exam: Has an appointment tomorrow morning at 9 am Last Podiatry Visit: Does not see a Composition Teacher Random Glucose: 214 mg/dl HgA1C: 8.2% 09/20/2024 Gasoline Tester Required: No Accompanied by: Self / Same As Patient Allergies codeine Allergy (Verified 10/18/24 11:10) Shortness of Breath Medication List - Last Reconciled 10/18/24 by Xiang Farias MD albuterol sulfate 90 mcg/actuation 2 puffs inhalation Q4-6H PRN atorvastatin 20 mg PO BEDTIME blood-glucose sensor (IndexStyle Kourtney 2 Plus Sensor device) As directed cholecalciferol (vitamin D3) 50 mcg PO BEDTIME 90 days diaper,brief,adult,disposable (Annie Briefs-Small) use daily divalproex 750 mg PO BID duloxetine 120 mg PO DAILY ezetimibe 10 mg PO DAILY flash glucose scanning reader (IndexStyle Kourtney 2 [place]) As directed fluticasone propionate 50 mcg/actuation 1 spray intranasal Q12H insulin glargine (Lantus Solostar U-100 Insulin) 25 units (0.25 mL) subcut DAILY insulin lispro (Humalog KwikPen U-200 Insulin) 8 units (0.04 mL) subcut TID 30 days ketoconazole 2% 1 appl topical DAILY lancets (FreeStyle Lancets) tid testing levothyroxine 88 mcg PO DAILY loratadine 10 mg PO DAILY lorazepam 1 mg PO BID lumateperone (Caplyta) 42 mg PO DAILY ondansetron 4 mg PO Q8H PRN pantoprazole 40 mg PO DAILY pen needle, diabetic BID-Future refills from Endo ropinirole 3 mg (3 x 1 mg) PO DAILY suvorexant (Belsomra) 15 mg PO BEDTIME PRN triamcinolone acetonide 0.1% 1 appl topical BID-TID HPI Comments Details: 54 YO F with an extensive PMHx who is seen in F/U for T2DM, Pituitary Macroadenoma, Central hypothyroidism, and Osteoporosis will also be addressed today. The patient last saw Dr. Bobby on 09/04/2020. Saw physical therapy nurse at [facility] Endo 1) Pituitary Macroadenoma: Patient had a Pituitary MRI in 2012 which revealed a large 3.2 cm Pituitary M acroadenoma. She reports having 2 separate transphenoidal surgeries, the first in 2012, and then again in 2014. This was completed at [facility] but she is unsure of the surgeon's name. She was followed by Endocrinology for this. She does have central hypothyroidism and remains on Levothyroxine 88 mcg PO daily. TSH is unreliable, but her FT4 remains low normal with a normal TT3. She had a repeat MRI completed 02/22/2020 which revealed regrowth of this mass. Images were independently reviewed. This was a low quality image and it is unclear if these were appropriate pituitary sections, but the mass is clearly evident. It does not appear to be encroaching on the optic apparatus, but she has not had formal visual field testing in some time. I requested that she find the name of her neurosurgeon, but she has failed to do so. I also requested that she have formal visual field testing, and she has also failed to do this. She continues to be poorly compliant with my recommendations. She had a Cosyntropin stim test which was inappropriate, so she was placed on Prednisone 5 mg PO daily, 2) Osteoporosis: Patient had a prior compression fracture of the T7 vertebrae, which by d efinition gives her Osteoporosis regardless of her DEXA reading as Osteopenia. Her biochemical workup revealed an elevated NTX indicating rapid bone turnover. Her Vitamin D was slightly low and her Calcium was low normal. Unfortunately PTH was not drawn. She has never been treated for Osteoporosis. Has 0-1 servings of dietary calcium per day in the form of. Does not take a Calcium supplement. Does not take Vitamin D. Does use a PPI daily. Denies ever using anticoagulant, antiepileptic or glucocorticoid medication. Does no exercise. Fracture history: Has had many traumatic fractures in the past, as well as a compression fracture of the T7 vertebrae. Height loss: Has lost 1 inch. LOOPER FIXER history: Menarche was age 7. Menses were regular, coming monthly. , did not breast feed. Last menses was 1994. Was using Depo shots, but has not had any more menses since. History of Kidney stones: Has had multiple episodes. Denies a Family history of Osteoporosis or hip fracture. UTD on dental cleanings and sees dentist every 6 months. No planned upcoming dental work or extractions. DXA dated 04/09/2020: FINDINGS: AP SPINE L1-L4: Current: BMD 1.100 g/cm2, Z-score -0.7, T-score -0.7, normal, 1.0% increase from previous, 0.2% decrease from baseline (<5% change is not significant). Prior: BMD 1.089 g/cm2. Baseline: BMD 1.102 g/cm2. LEFT FEMUR, NECK: Current: BMD 0.788 g/cm2, Z-score -1.3, T-score -1.8, osteopenia. Prior: BMD 0.773 g/cm2. Baseline: BMD 0.829 g/cm2. LEFT FEMUR, TOTAL: Current: BMD 0.860 g/cm2, Z-score -1.1, T-score -1.2, osteopenia, 1.8% decrease from previous, 8.6% decrease from baseline (<5% change is not significant). Prior: BMD 0.876 g/cm2. Baseline: BMD 0.941 g/cm2. 3) T2DM: Initially diagnosed with T2DM in 1999. Was initially started on treatment with Metformin. Was started on Insulin just in mid 2019. She has GI distress with Metformin so this was discontinued. She also trialed Victoza but this was also stopped due to GI distress. She also failed treatment with Glimepiride. . Currently on 25 units of Lant and 8 units of lispropremeals Current regimen Lantus 25 q AM . No Humalog She is using the [employer] kourtney. States Kourtney is not working Treats lows with juice or rapid sugar. Checks sugar after to ensure it is rising. Treats according to rule of 15's. Most recent A1C: 8.2% on Rare lows Family history of T2DM in her Mother. Has eyes checked yearly, last eye exam has appt tomorrow , denies retinopathy. Has neuropathy, sees podiatry. Has HLD, on Atorvastatin 40 mg PO daily. . Has CAD, with prior OH. Has not had diabetes education. Labs: Laboratory Tests 06/02/19 10/26/19 02/22/20 08:03 10:15 07:45 Sodium 142 Potassium 3.8 Chloride BUN Creatinine 0.81 Estimated GFR Est GFR (Non-Af Amer) > 60 Fasting Glucose Hemoglobin A1c % Osmolality Calcium Ionized Calcium Phosphorus Alk Phos Bone Specific PEP Interpretation Triglycerides 188 Cholesterol 171 LDL Cholesterol, Calc 98 LDL Cholesterol Direct HDL Cholesterol N-Telopeptide X-linked 25-OH Vitamin D Total 35.5 Free T4 0.66 L TSH TSH 3rd Generation 0.29 L Total T3 Free Estradiol Total Estradiol Estradiol Ultra LCMSMS FSH Luteinizing Hormone Prolactin Undiluted Prolactin Diluted Sex Hormone Bind Glob Somatomedin-C Calcium (PTH Intact) Cortisol ACTH Microalb/Creat Ratio 05/13/20 05/16/20 05/16/20 13:05 13:47 13:47 Sodium 137 Potassium 4.6 Chloride 98 BUN 24 H Creatinine 1.02 Estimated GFR 57 Est GFR (Non-Af Amer) Fasting Glucose Hemoglobin A1c % Osmolality 313 H Calcium 9.4 Ionized Calcium Phosphorus Alk Phos Bone Specific PEP Interpretation Triglycerides Cholesterol LDL Cholesterol, Calc LDL Cholesterol Direct HDL Cholesterol N-Telopeptide X-linked 25-OH Vitamin D Total Free T4 TSH TSH 3rd Generation Total T3 Free Estradiol Total Estradiol Estradiol Ultra LCMSMS FSH Luteinizing Hormone Prolactin Undiluted Prolactin Diluted Sex Hormone Bind Glob Somatomedin-C Calcium (PTH Intact) Cortisol ACTH Microalb/Creat Ratio 16.7 06/10/20 06/10/20 06/10/20 08:30 08:30 08:30 Sodium 138 Potassium 4.1 Chloride BUN Creatinine 0.73 Estimated GFR > 60 Est GFR (Non-Af Amer) Fasting Glucose 285 H Hemoglobin A1c % 9.2 Osmolality Calcium 8.7 Ionized Calcium Phosphorus 4.2 Alk Phos Bone Specific PEP Interpretation Triglycerides 156 Cholesterol 201 LDL Cholesterol, Calc 129 LDL Cholesterol Direct HDL Cholesterol 41 N-Telopeptide X-linked 25-OH Vitamin D Total 24.9 Free T4 0.73 TSH 0.48 TSH 3rd Generation Total T3 Free Estradiol Total Estradiol Estradiol Ultra LCMSMS FSH Luteinizing Hormone Prolactin Undiluted Prolactin Diluted Sex Hormone Bind Glob Somatomedin-C Calcium (PTH Intact) Cortisol ACTH Microalb/Creat Ratio 06/10/20 06/10/20 06/10/20 08:30 08:30 08:30 Sodium Potassium Chloride BUN Creatinine Estimated GFR Est GFR (Non-Af Amer) Fasting Glucose Hemoglobin A1c % Osmolality Calcium Ionized Calcium 4.8 Phosphorus Alk Phos Bone Specific 18.0 PEP Interpretation Triglycerides Cholesterol LDL Cholesterol, Calc LDL Cholesterol Direct 136 H HDL Cholesterol N-Telopeptide X-linked 25-OH Vitamin D Total Free T4 TSH TSH 3rd Generation Total T3 111 Free Estradiol <0.04 Total Estradiol <2 Estradiol Ultra LCMSMS <2 FSH 1.0 L Luteinizing Hormone <0.2 L Prolactin Undiluted <1.0 L Prolactin Diluted SEE NOTE Sex Hormone Bind Glob 64 Somatomedin-C <10 L Calcium (PTH Intact) 8.8 Cortisol ACTH 43 Microalb/Creat Ratio 06/10/20 06/10/20 06/10/20 08:30 08:30 08:30 Sodium Potassium Chloride BUN Creatinine Estimated GFR Est GFR (Non-Af Amer) Fasting Glucose Hemoglobin A1c % Osmolality Calcium Ionized Calcium Phosphorus Alk Phos Bone Specific PEP Interpretation SEE NOTE Triglycerides Cholesterol LDL Cholesterol, Calc LDL Cholesterol Direct HDL Cholesterol N-Telopeptide X-linked 45 25-OH Vitamin D Total Free T4 TSH TSH 3rd Generation Total T3 Free Estradiol Total Estradiol Estradiol Ultra LCMSMS FSH Luteinizing Hormone Prolactin Undiluted Prolactin Diluted Sex Hormone Bind Glob Somatomedin-C Calcium (PTH Intact) Cortisol 3.8 ACTH Microalb/Creat Ratio PFSH Medical History Upper abdominal pain Gastroparesis Acute respiratory disease Hx of fracture of tibia GERD (gastroesophageal reflux disease) Interstitial cystitis Hypothyroidism Vitamin D deficiency HLD (hyperlipidemia) HTN (hypertension) T2DM (type 2 diabetes mellitus) Pituitary macroadenoma Osteoporosis Bipolar 1 disorder Acute Crohn's disease Surgical History Hx of colonoscopy History of esophagogastroduodenoscopy (EGD) Hx of brain surgery History of surgery History of tubal ligation Status post breast reduction LAP-BAND surgery status History of bladder surgery History of section Family History Father HTN (hypertension) Mother Heart disease Brother Mental health disorder Sister Mental health disorder Social History (Updated 10/12/24 @ 09:10 by VEGA Richmond) Household Members: Children Housing: Apartment Alcohol intake: current Alcohol intake frequency: holidays/special occasions only Patient Tobacco Use Status: Never used Tobacco e-Cigarette/Vaping Use: Never Used Second Hand Smoke Exposure: Yes Substance Use Type: Marijuana service: No Current occupational status: disabled 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 Absence of acromegalic features. Neck exam reveals nl size thyroid about 15 gms. No thyroid nodules palpable. No carotid bruits present. Lungs CTA. Heart S1 S2, Reg R/R. No M/R/ G. Skin exam reveals absence of vitiligo or acanthosis nigricans. Abdominal exam reveals Soft NT/ND with NA BS. No organomegaly present. Neck Other: . Extrem Other: Visual exam of foot performed. No ulcerations or open lesions. No onchomycosis, no callouses.Pulses 2 + distally Sensation intact to monofilament exam. Vibratory sensation sensed is decreased with 128 Hz tuning fork Assessment & Plan Assessment & Plan (1) Uncontrolled diabetes mellitus: Code(s): E11.65 - Type 2 diabetes mellitus with hyperglycemia Category: Medical Qualifiers: Diabetes mellitus type: type 2 Glycemic state: with hyperglycemia Qualified Code(s): E11.65 - Type 2 diabetes mellitus with hyperglycemia Plan: This is a 54-year-old female with a history of type 2 diabetes currently being treated with basal-bolus insulin with poor glycemic control and known microvascular and macrovascular complication namely neuropathy and CAD . Plan is to have the patient see the workday consultant and private detective. We will prescribe a new sensor namely Kourtney 3+. Can not make any adjustments in the regimen is no data is available today. May consider use of a different G LP 1 like Ozempic once we have more data considering history of CAD. Have patient follow up with primary care diabetes team after sees workday consultant and has sensor information. (2) Osteoporosis: Code(s): M81.0 - Age-related osteoporosis without current pathological fracture Category: Medical Qualifiers: Osteoporosis type: unspecified Presence of current pathological fracture: unspecified Qualified Code(s): M81.0 - Age-related osteoporosis without current pathological fracture Plan: History of prior compression fracture of the spine with prior negative secondary workup but abnormal SPEP. Will check urine immunofixation and phosphorus level to complete secondary workup. Considering compression fracture of the spine would strongly consider use of anabolic agent initially like Forteo or Tymlos proceeded by an anti resorptive agent. Also impressed on patient to continue the vitamin D3 2000 IU as well as 1200 mg of calcium. We will obtain workup from [facility] endocrine and office notes (3) Pituitary macroadenoma: Code(s): D35.2 - Benign neoplasm of pituitary gland Category: Medical Plan: Patient with a history of a pituitary macroadenoma, s/p 2 transphenoidal resections. Images from her most recent MRI were reviewed during today's visit and this does appear to have regrown. There does not appear to be compression on the optic apparatus. She is currently off levothyroxine and prednisone but is unclear whether this was stopped by the physical therapy nurse with the patient stopped on her own. Explained necessity of following up with Neurosurgery either locally or with specialist at [place] namely Dr. Anh Bhatia. Made referral to Dr. Bhatia who can coordinate a neuro ophthalmological consult. We will reassess pituitary axis checking a.m. cortisol level. We will reinitiate prednisone if needed prior to restarting levothyroxine so as to not precipitate an adrenal crisis. Once prednisone started if needed, we will then reinitiate levothyroxine and recheck free T4 in 4 weeks' time after. I went over at length with the patient the necessity of doing the testing as soon as possible so as to avoid adrenal crisis or thyroid myxedema coma in absence of glucocorticoid and levothyroxine replacement if needed (4) Hypothyroidism: Code(s): E03.9 - Hypothyroidism, unspecified Category: Medical Qualifiers: Hypothyroidism type: unspecified Qualified Code(s): E03.9 - Hypothyroidism, unspecified Plan: History of secondary hypothyroidism. Was being replaced on 88 mcg levothyroxine with low free T4. Plan is to assess the adrenal axis prior to reinitiating levothyroxine Orders: Orders Cortisol Random Today D35.2 - Benign neoplasm of pituitary gland, E03.9 - Hypothyroidism, unspecified Calcium, 24 Hr Ur Today M81.0 - Age-related osteoporosis without current pathological fracture Creatinine, 24 Hr Group Today M81.0 - Age-related osteoporosis without current pathological fracture Phosphorus Today M81.0 - Age-related osteoporosis without current pathological fracture TSH reflex Free T4 02/11/24 E03.9 - Hypothyroidism, unspecified, E11.65 - Type 2 diabetes mellitus with hyperglycemia Free T4 (Free Thyroxine) 4 Weeks E03.9 - Hypothyroidism, unspecified Immunofixation, Random Urine Today M81.0 - Age-related osteoporosis without current pathological fracture Referrals Neurosurgery Referral D35.2 - Benign neoplasm of pituitary gland Diabetes Education Referral E11.65 - Type 2 diabetes mellitus with hyperglycemia Nutrition/Dietitian Referral E11.65 - Type 2 diabetes mellitus with hyperglycemia Medications: New FreeStyle Kourtney 3 Plus Sensor (blood-glucose sensor) As directed change every 14 days 2 ea 4RF NS FreeStyle Kourtney 3 [place] (blood-glucose,template cutter,cont) As directed 1 ea 0RF NS Discontinued blood-glucose sensor (FreeStyle Kourtney 2 Plus Sensor device) Discontinued Reason: Doctor's Order As directed 1 ea 0RF E11.65 - Type 2 diabetes mellitus with hyperglycemia Coding Level of Care Code Est Pt Level 4 (15912) Complex EM visit Add On G2211 Diagnoses Uncontrolled type 2 diabetes mellitus with hyperglycemia E11.65 Diabetes mellitus type: type 2 Glycemic state: with hyperglycemia Osteoporosis, unspecified osteoporosis type, unspecified pathological fracture presence M81.0 Osteoporosis type: unspecified Presence of current pathological fracture: unspecified Pituitary macroadenoma D35.2 Hypothyroidism, unspecified type E03.9 Hypothyroidism type: unspecified
[2024-10-18 11:10] VITALS: BP 92/64; PULSE 103; O2SAT 98; BMI 29.1
[2024-10-18 11:24] LABS: Glucose, Whole Blood 214 mg/dL (60-115)
--- OUTSIDE RECORDS SUMMARY | 2024-10-18 12:27 | XMS_ITS | Clinical Summary ---
Author Organization [facility] Address [address] [place] [address] Care Team Providers Care Inspector And Clipper Name Role Phone Unavailable Primary Care Provider [...] 2013 Imm-Zoster, Recombinant (1 of 2) 2018 [id number] ( season) 2024 02/08/2021, 10/17/2020, 09/26/2020 Imm-Influenza (#1) 2024 02/05/2020, 1 06/19/2018, 03/08/2018 Alcohol and Drug Screen 05/31/2024 Depression Annual Screen 05/31/2024 Imm-DTaP/Tdap/Td (3 - Td or Tdap) 03/19/2029 019, 08/05/2010 Cervical Ablation/Cold-Knife Conization Discontinued Cervical Cryotherapy Discontinued Colposcopy Discontinued Endometrial Biopsy Discontinued Excision/Leep Discontinued HPV Genotyping Discontinued Vaginal Pap Discontinued Vulvoscopy Discontinued Insurance [employer] PLAN Member Subscriber Plan / Payer (Ef fective 2021-Present) Name:Nia Singer Relation to Subscriber:Self Name:Nia Singer Payer ID:[id number] Group ID:Not on file Type:Medicaid Address: [facility] [address] [place] [address]
--- OUTSIDE RECORDS SUMMARY | 2024-10-18 12:27 | XMS_ITS | Continuity of Care Document ---
Author Organization [facility] Address [address] [place] [address] Phone Care Team Providers Care Psych Arnp Name Role Phone Huber Rene MD Unavailable Unavailable Advance Directives Directive Yes / No Effective Date File Name No Information Encounters Encounter Description Practice Location Reason(s) For Visit Diagnoses Date Provider Providers Copied on Encounter [facility], [facility] [place], [place], [id number], tel:[phone] [place] [facility] 94 No Information Anju Ngo. [address] [facility], [address], [place], [address], [place]. tel:[phone] Referring Provider: Dora Johnston, [address] [place] [address], [address]. tel:[phone] Family History Family Member Type Diagnosis Age At Onset No Information Payers Payer name Insurance type Covered libertarian ID Authoriza tilaure(s) Medicaid [id number] Social History Type Description Quantity Date Captured Comments Sex Female Smoking Status No Information Sexual Orientation Bisexual Chief Complaint And Reason For Visit No [...]
== END 2024-10-18 12:26 | disposition home or self-care (01) ==
LOC: HO.ENCR 11:07
PROVIDERS: Visit Provider Internal Medicine Endocrinology, Diabetes & Metabolism
DX: E11.65 Type 2 diabetes mellitus with hyperglycemia (principal); M81.0 Age-related osteoporosis without current pathological fracture; D35.2 Benign neoplasm of pituitary gland; E03.9 Hypothyroidism, unspecified
CPT/HCPCS: 99214; G2211

== ENCOUNTER → 2024-10-18 11:06 | Outpatient (BNVA) | payer OTHER, SELFPAY | PROVIDERS: Visit Provider Internal Medicine Endocrinology, Diabetes & Metabolism | DX: E11.65 Type 2 diabetes mellitus with hyperglycemia (principal); E78.5 Hyperlipidemia, unspecified; M81.0 Age-related osteoporosis without current pathological fracture; E03.9 Hypothyroidism, unspecified; D35.2 Benign neoplasm of pituitary gland; R51.9 Headache, unspecified; H53.9 Unspecified visual disturbance; Z79.4 Long term (current) use of insulin; Z79.899 Other long term (current) drug therapy | CPT/HCPCS: 82947; 99212 ==

== ENCOUNTER 2024-10-18 14:52 | Outpatient (AMB) | payer OTHER, SELFPAY ==
--- OUTSIDE RECORDS SUMMARY | 2024-10-18 14:59 | XMS_ITS | Clinical Summary ---
Author Organization [facility] Address [address] [place] [address] Care Team Providers Care Assistant Chief Engineer Name Role Phone Unavailable Primary Care Provider [...] 2013 Imm-Zoster, Recombinant (1 of 2) 2018 [id number] ( season) 2024 02/08/2021, 10/17/2020, 09/26/2020 Imm-Influenza (#1) 2024 02/05/2020, 1 06/19/2018, 03/08/2018 Alcohol and Drug Screen 05/31/2024 Depression Annual Screen 05/31/2024 Imm-DTaP/Tdap/Td (3 - Td or Tdap) 03/19/2029 019, 08/05/2010 Cervical Ablation/Cold-Knife Conization Discontinued Cervical Cryotherapy Discontinued Colposcopy Discontinued Endometrial Biopsy Discontinued Excision/Leep Discontinued HPV Genotyping Discontinued Vaginal Pap Discontinued Vulvoscopy Discontinued Insurance [employer] PLAN Member Subscriber Plan / Payer (Ef fective 2021-Present) Name:Nia Singer Relation to Subscriber:Self Name:Nia Singer Payer ID:[id number] Group ID:Not on file Type:Medicaid Address: [facility] [address] [place] [address]
--- OUTSIDE RECORDS SUMMARY | 2024-10-18 14:59 | XMS_ITS | Continuity of Care Document ---
Author Organization [facility] Address [address] [place] [address] Phone Care Team Providers Care Accounting Administrator Name Role Phone Huber Rene MD Unavailable Unavailable Advance Directives Directive Yes / No Effective Date File Name No Information Encounters Encounter Description Practice Location Reason(s) For Visit Diagnoses Date Provider Providers Copied on Encounter [facility], [address] [place], [place], [id number], tel:[phone] [place] [facility] 94 No Information 3 Anju Ngo. [address] [facility], [address], [place], [address], [place]. tel:[phone] Referring Provider: Dora Johnston, [address] [place] [address], [address]. tel:[phone] Family History Family Member Type Diagnosis Age At Onset No Information Payers Payer name Insurance type Covered libertarian ID Authoriza tilaure(s) Medicaid [id number] Social History Type Description Quantity Date Captured [...]
--- NOTE | 2024-10-18 15:08 | A.OFFPC_ITS ---
Vital Signs 10/18/24 15:09 Height 5 ft 4 in Weight 168 lb 6 oz BMI 28.9 BP 110/66 Blood Pressure Location Lt brachial Position Sitting Pulse 95 Pulse Source Pulse Oximeter Temp 97.1 F Temp Source Temporal Artery Scan Pulse Oximetry (%) 97 Oxygen Delivery Method Room Air Intake Visit Reasons: f/u DM no A1c Intake Note: Patient is here to follow up on DM. 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: Not Required per policy Accompanied by: Self / Same As Patient Allergies codeine Allergy (Verified 10/18/24 15:22) Shortness of Breath Medication List - Last Reconciled 10/18/24 by Franchesca Infante PA-C albuterol sulfate 90 mcg/actuation 2 puffs inhalation Q4-6H PRN atorvastatin 20 mg PO BEDTIME cholecalciferol (vitamin D3) 50 mcg PO BEDTIME 90 days diaper,brief,adult,disposable (Annie Briefs-Small) use daily divalproex 750 mg PO BID duloxetine 120 mg PO DAILY ezetimibe 10 mg PO DAILY flash glucose scanning reader (Critical MediaStyle Kourtney 2 [place]) As directed fluticasone propionate 50 mcg/actuation 1 spray intranasal Q12H FreeStyle Kourtney 3 Plus Sensor (blood-glucose sensor) As directed change every 14 days NS FreeStyle Kourtney 3 [place] (blood-glucose,technology and engineering teacher,cont) As directed NS insulin glargine (Lantus Solostar U-100 Insulin) 25 units (0.25 mL) subcut DAILY insulin lispro (Humalog KwikPen U-200 Insulin) 8 units (0.04 mL) subcut TID 30 days ketoconazole 2% 1 appl topical DAILY lancets (FreeStyle Lancets) tid testing levothyroxine 88 mcg PO DAILY loratadine 10 mg PO DAILY lorazepam 1 mg PO BID lumateperone (Caplyta) 42 mg PO DAILY ondansetron 4 mg PO Q8H PRN pantoprazole 40 mg PO DAILY pen needle, diabetic BID-Future refills from Endo ropinirole 3 mg (3 x 1 mg) PO DAILY suvorexant (Belsomra) 15 mg PO BEDTIME PRN triamcinolone acetonide 0.1% 1 appl topical BID-TID Tobacco use date assessed: 10/18/24 Dental Screening Dental Screen Date: 09/20/24 HPI f/u DM no A1c HPI Details 54-year-old female with past medical his tory of uncontrolled diabetes mellitus, osteoporosis, hypertension, hyperlipidemia, leukopenia, thrombocytopenia last seen 08/2024 coming in for follow up.? In review of the notes, patient was seen by endocrinology 09/2024 secondary workup initiated for osteoporosis advised to follow up with Neurosurgery for history of pituitary adenoma. Presenting with a follow-up appointment for multiple health concerns, including persistent headaches and management of diabetes and endocrine dysfunction post pituitary adenoma surgery. She reports a history of pituitary adenoma with prior surgical interventions and cessation of hormone therapy post-surgery, leading to low blood pressure and general malaise. Her persistent central frontal headaches have worsened over the past six months, with associated nausea. Balance problems have resulted in multiple falls historically, and she reports blurred vision. Dietary intake is high in processed foods due to convenience post her sister's surgery, influencing triglyceride levels. [facility] Medical History Upper abdominal pain Gastroparesis Acute respiratory disease Hx of fracture of tibia GERD (gastroesophageal reflux disease) Interstitial cystitis Hypothyroidism Vitamin D deficiency HLD (hyperlipidemia) T2DM (type 2 diabetes mellitus) Pituitary macroadenoma Osteoporosis Bipolar 1 disorder Acute Crohn's disease Surgical History Hx of colonoscopy History of esophagogastroduodenoscopy (EGD) Hx of brain surgery History of surgery History of tubal ligation Status post breast reduction LAP-BAND surgery status History of bladder surgery History of section Family History Father HTN (hypertension) Mother Heart disease Brother Mental health disorder Sister Mental health disorder Social History Household Members: Children Housing: Apartment Alcohol intake: current Alcohol intake frequency: holidays/special occasions only Patient Tobacco Use Status: Never used Tobacco e-Cigarette/Vaping Use: Never Used Second Hand Smoke Exposure: Yes Substance Use Type: Marijuana service: No Current occupational status: disabled 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 Xiang Griffin, Belen Garcia, Hernan Perez and colleagues, with an educational kendall from [employer]. Review of Systems Const Denies body aches, Denies chills, Denies fever(s), Reports headache(s) and Denies poor appetite Eyes Reports no additional complaints ENT Reports Normal hearing present, Denies dysphagia, Reports headache(s) and Denies odynophagia Card Denies chest pain, Denies syncope, Denies lightheadedness and Denies dyspnea Resp Denies cough and Denies dyspnea GI Denies dysphagia, Denies nausea, Denies odynophagia and Denies vomiting Reports no additional complaints Musc Denies abnormal gait Skin/Breast Reports system reviewed and no additional complaints, except as documented Neuro Details: Balance issue Reports Normal hearing present, Denies Abnormal speech present, Denies abnormal gait, Reports burning sensations, Denies syncope and Reports headache(s) Psych Reports no additional complaints Physical exam (Primary Care) Vital Signs: Last Vital Signs Temp 97.1 F 10/18/24 15:09 Pulse 95 10/18/24 15:09 BP 110/66 10/18/24 15:09 Pulse Ox 97 10/18/24 15:09 Oxygen Delivery Method Room Air 10/18/24 15:09 BMI result Body Mass Index 28.9 Tobacco/Smoking Status: Tobacco use Status Tobacco use date assessed 10/18/24 10/18/24 15:14 Patient Tobacco Use Status Never used Tobacco 10/18/24 15:14 e-Cigarette/Vaping Use Never Used 10/18/24 15:14 Thrive Assessment: Date of Thrive Assessment Date Thrive assessed 01/11/24 10/18/24 15:14 Const General: cooperative, healthy appearing, comfortable and no acute distress Orientation/consciousness: patient oriented x3 HENMT Head: Yes normocephalic Ears: hearing grossly normal bilaterally General nose exam: Normal external nose present Eyes General: appearance normal, both eyes and all related structures Conjunctivae: conjunctivae normal Pupils: Equal, round and reactive pupils present EOM: No Nystagmus present Neck Neck: Yes full ROM and Yes no lymphadenopathy Resp Effort & Inspection: normal respiratory effort Auscultation: clear to auscultation bilaterally, no crackles, no rales, no rhonchi and no wheezes Cardio Rate: regular rate Rhythm: regular rhythm Skin General skin exam: no rashes or lesions noted Neuro Other: Positive Romberg test, difficulty with walking heel-toe General: patient oriented x3 Cranial nerves: Yes Facial sensation intact/muscles of mastication intact, Yes Equal, round and reactive pupils present, Yes Normal accommodation reflex present, Yes Bilaterally intact EOM present, Yes Normal facial strength present, Yes Midline tongue present, Yes Normal hearing present, Yes Ability to bilaterally rotate head present, Yes Ability to bilaterally elevate shoulders present and No Nystagmus present Cognition (Neuro): normal cognition Speech: No Abnormal speech present Gait exam (Neuro): Normal gait present Motor exam (neuro): Pronator motor function not present Extrem General: Yes normal to inspection, Yes full ROM and No edema Psych Affect: normal affect Attitude: cooperative Insight: Good insight present (Psych) Judgement: Good judgement present (Psych) Coding Level of Care Code Est Pt Level 4 (75416) Diagnoses Hyperlipidemia, unspecified hyperlipidemia type E78.5 Hyperlipidemia type: unspecified Osteoporosis, unspecified osteoporosis type, unspecified pathological fracture presence M81.0 Osteoporosis type: unspecified Presence of current pathological fracture: unspecified Hypothyroidism, unspecified type E03.9 Hypothyroidism type: unspecified Uncontrolled type 2 diabetes mellitus with hyperglycemia E11.65 Diabetes mellitus type: type 2 Glycemic state: with hyperglycemia Pituitary macroadenoma D35.2 Headache R51.9 Vision changes H53.9 Assessment & Plan Assessment & Plan (1) HLD (hyperlipidemia): Code(s): E78.5 - Hyperlipidemia, unspecified Category: Medical Qualifiers: Hyperlipidemia type: unspecified Qualified Code(s): E78.5 - Hyperlipidemia, unspecified Plan: Avoid foods that are high in cholesterol such as red meat, fried foods, eggs and baked goods. Triglyceride goal of less than 150 and LDL goal of less than 100. Continue on Atorvastatin (2) Osteoporosis: Code(s): M81.0 - Age-related osteoporosis without current pathological fracture Category: Medical Qualifiers: Osteoporosis type: unspecified Presence of current pathological fractu re: unspecified Qualified Code(s): M81.0 - Age-related osteoporosis without current pathological fracture Plan: Patient was seen by endocrinology undergoing workup for secondary causes of osteoporosis. (3) Hypothyroidism: Code(s): E03.9 - Hypothyroidism, unspecified Category: Medical Qualifiers: Hypothyroidism type: unspecified Qualified Code(s): E03.9 - Hypothyroidism, unspecified Plan: Seen by endocrinology and advised by them holding Synthroid until blood work has been evaluated. (4) Uncontrolled diabetes mellitus: Code(s): E11.65 - Type 2 diabetes mellitus with hyperglycemia Category: Medical Qualifiers: Diabetes mellitus type: type 2 Glycemic state: with hyperglycemia Qualified Code(s): E11.65 - Type 2 diabetes mellitus with hyperglycemia Plan: Decrease the amount of carbohydrates such as pasta, bread, rice, and potatoes and limit the amount of sweets. Although fruits are generally healthy they should be eaten in moderation as they are still high in sugar. Hemoglobin A1c goal of less than 7%. She is currently seeing endocrinology and has a appointment coming up with them. She was recently given sensors by endocrinology. (5) Pituitary macroadenoma: Code(s): D35.2 - Benign neoplasm of pituitary gland Category: Medical Plan: Patient was recently seen by endocrinology pituitary macro adenoma was addressed and referral was placed to neurosurgeon in [place]. Plan to continue to follow with endocrinology as well as Neurosurgery. Likely will need repeat imaging (6) Headache: Code(s): R51.9 - Headache, unspecified Category: Medical Plan: Patient having headache for many years has been working sitting over the last several months. She will be seeing Neurology in the next few weeks. Plan to start on sumatriptan as needed for migraines. On exam she is neurovascularly intact. She does have a positive Romberg test and we will be seeing Neurology for this. (7) Vision changes: Code(s): H53.9 - Unspecified visual disturbance Category: Medical Plan: Vision changes has been ongoing for several months and have not changed or worsened. She believes it to be related to with a history of the pituitary adenoma. She is seeing her eye doctor tomorrow and is working on reestablishing with Neurosurgery. Plan During this visit, we reviewed the management of her medical conditions, particularly focusing on the persistent headaches and endocrine dysfunction post-pituitary surgery. She is advised to consult a specialized neurosurgeon for ongoing management of the potential residual tumor. Ongoing headaches are tentatively treated with sumatriptan while laboratory tests are pending to consider reinitiating hormone therapy. To manage her hyperlipidemia and elevate her overall health status, dietary modifications with reduced processed food intake are advised. A continued regular exercise regimen is recommended, a ctively mitigating hyperglycemia and promoting cardiovascular health. The patient is scheduled for an ophthalmic evaluation due to reported blurred vision and acknowledged the need for a complete balance assessment, possibly involving neurology. Regular blood sugar monitoring remains imperative, with follow-up endocrine and diabetic care confirmed. This note was constructed using voice recognition software. While every effort has been made to ensure accuracy and executive sales manager, still areas may have been included sometimes these areas may affect the content or meeting of the given symptoms. Total time spent caring for the patient today was 30 minutes. This includes time spent before the visit reviewing the chart, time spent during the visit, and time spent after the visit and documentation. Patient was informed and verbally consented to the use of an ambient scribe for clinic note documentation during this visit. Medications: New sumatriptan succinate take 1 tab at onset of headache; if no relief may repeat 1 tab after at least 2 hrs; max = 4 tabs/24 hr PO 20 tabs 0RF
[2024-10-18 15:09] VITALS: BP 110/66; PULSE 95; TEMP 36.2; O2SAT 97; BMI 28.9
== END 2024-10-18 15:56 | disposition home or self-care (01) ==
LOC: HO.HMCH 14:52
DX: E78.5 Hyperlipidemia, unspecified (principal); E11.65 Type 2 diabetes mellitus with hyperglycemia; D35.2 Benign neoplasm of pituitary gland; M81.0 Age-related osteoporosis without current pathological fracture; E03.9 Hypothyroidism, unspecified; R51.9 Headache, unspecified; H53.9 Unspecified visual disturbance

== ENCOUNTER 2024-10-24 08:23 | Outpatient (REF) | payer OTHER, SELFPAY ==
--- OUTSIDE RECORDS SUMMARY | 2024-10-24 08:41 | XMS_ITS | Continuity of Care Document ---
Author Organization [facility] Address [address] [place] [address] Phone Care Team Providers Care Assistant To The Director Name Role Phone Huber Rene MD Unavailable Unavailable Advance Directives Directive Yes / No Effective Date File Name No Information Encounters Encounter Description Practice Location Reason(s) For Visit Diagnoses Date Provider Providers Copied on Encounter [facility], [address] [place], [place], [id number], tel:[phone] [place] [facility] [address] No Information 3 Anju Ngo. [address] [facility], [address], [place], [address], [place]. tel:[phone] Referring Provider: Dora Johnston, [address] [place] [address], [address]. tel:[phone] Family History Family Member Type Diagnosis Age At Onset No Information Payers Payer name Insurance type Covered green party ID Authoriza tilaure(s) Medicaid [id number] Social History Type Description Quantity Date Captured [...]
[2024-10-24 10:03] LABS: MANUAL DIFF FLAG NO
[2024-10-24 10:17] LABS: Basophils Percent Auto 0.5 % (0-2); Eosinophils Absolute Auto 0.1 X10*3/uL (0.0-0.4); Eosinophils Percent Auto 0.9 % (0-4); Hematocrit 38.4 % (37.0-47.0); Hemoglobin 12.9 g/dl (12.0-16.0); Imm Gran Abs Auto 0.04 X10*3/uL (0.00-0.03); Imm Gran Pct Auto 0.7 % (0.0-0.4); Lymphocytes Percent Auto 50.7 % (20-40); Mean Corpuscular HGB Conc 33.6 g/dl (31.0-35.0); Mean Corpuscular Hemoglobin 30.7 pg (27.0-33.0); Mean Corpuscular Volume 91.4 fL (80.0-98.0); Mean Platelet Volume 10.2 fL (9.4-12.3); Monocytes Absolute Auto 0.6 X10*3/uL (0.1-1.2); Monocytes Percent Auto 10.1 % (2-11); Neutrophils Absolute Auto 2.2 x10*3/uL (2.0-8.3); Neutrophils Percent Auto 37.1 % (45-73); Platelet Count 197 X10*3/uL (160-400); Red Cell Distribution Width 13.3 % (11.0-16.0); White Blood Count 5.8 X10*3/uL (4.8-10.8)
[2024-10-24 10:29] LABS: Phosphorus 4.7 mg/dL (2.7-4.5)
[2024-10-24 10:44] LABS: Alanine Aminotransferase 38 U/L (0-31); Albumin Level 4.7 g/dL (3.5-5.0); Alkaline Phosphatase 65 U/L (39-117); Anion Gap 13 (12-20); Aspartate Amino Transferase 28 U/L (5-31); Bilirubin Total 0.4 mg/dL (0.0-1.0); Blood Urea Nitrogen 11 mg/dL (9-16); Calcium 9.4 mg/dL (8.4-10.2); Carbon Dioxide 28 mmol/L (22-29); Chloride 105 mmol/L (96-108); Cholesterol 226 mg/dL (<200); Estimated Glomerular Filt Rate > 60; Glucose Fasting 163 mg/dL (60-99); HDL Cholesterol 50 mg/dL (>40); LDL Cholesterol Calculated 127 mg/dL (<100); Potassium 3.7 mmol/L (3.3-5.1); Sodium 142 mmol/L (135-145); Total Protein 7.1 g/dL (6.5-8.0); Triglycerides 245 mg/dL (<150)
[2024-10-24 11:07] LABS: Thyroid Stimulating Hormone 3.48 uIU/mL (0.32-4.0); Vitamin D 25-OH Total 58.5 ng/mL (>30)
[2024-10-24 11:11] LABS: Cortisol Random 3.9 ug/dL
== END 2024-10-24 08:24 | disposition home or self-care (01) ==
LOC: HO.HMGCLDS 08:23
PROVIDERS: Referring Provider Psychiatry & Neurology Psychiatry; Visit Provider Internal Medicine Endocrinology, Diabetes & Metabolism
DX: Z79.899 Other long term (current) drug therapy (principal); D35.2 Benign neoplasm of pituitary gland; E03.9 Hypothyroidism, unspecified; M81.0 Age-related osteoporosis without current pathological fracture
CPT/HCPCS: 36415; 80053; 80061; 80164; 82306; 82533; 84100; 84443; 85025; 86335

== ENCOUNTER 2024-10-26 06:00 | Outpatient (REF) | payer OTHER, SELFPAY ==
[2024-10-26 14:19] LABS: Creatinine, mg/dL 78.73
[2024-10-26 14:35] LABS: Creatinine, 24Hr Urine 1.3 G/Day (1.0-2.0); Total Volume 24 Hour Urine 1625 mL
[2024-10-27 17:44] LABS: Calcium, 24 Hr Urine 239 mg/24 h; Calcium/Creatinine Ratio 199 mg/g creat (30-275)
== END 2024-10-26 11:13 | disposition home or self-care (01) ==
LOC: HO.HMGCLNP 06:00
PROVIDERS: Visit Provider Internal Medicine Endocrinology, Diabetes & Metabolism
DX: M81.0 Age-related osteoporosis without current pathological fracture (principal)
CPT/HCPCS: 82340; 82570

== ENCOUNTER 2024-11-01 07:39 | Outpatient (RCR) | payer OTHER, SELFPAY ==
[2024-11-01 07:43] VITALS: BP 139/68; PULSE 90; RESP 16; TEMP 36.4; O2SAT 100
[2024-11-01] MEDS: Cosyntropin 0.25 MG VIAL IVPUSH (07:59)
[2024-11-02 06:33] LABS: Cortisol Baseline 5.8 mcg/dL
== END 2024-11-01 10:07 | disposition home or self-care (01) ==
LOC: HO.INF 07:39
PROVIDERS: Visit Provider Internal Medicine Endocrinology, Diabetes & Metabolism
DX: D35.2 Benign neoplasm of pituitary gland (principal)
CPT/HCPCS: 36415; 82533; 96374; J0834

== ENCOUNTER 2024-11-06 12:36 | Outpatient (AMB) | payer OTHER, SELFPAY ==
--- NOTE | 2024-11-06 13:31 | A.OFFVIS_ITS ---
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 Accompanied by: Self / Same As Patient Allergies codeine Allergy (Verified 10/18/24 15:22) Shortness of Breath HPI Comprehensive Diabetes Asmnt Most Recent Diabetes Results: 2 Hemoglobin A1c 8.1 % 10/26/19 Microalb/Creat Ratio 6.4 ug/mg cr (<30) 06/21/23 Cholesterol 226 mg/dL (<200) H 10/24/24 HDL Cholesterol 50 mg/dL (>40) 10/24/24 Triglycerides 245 mg/dL (<150) H 10/24/24 Creatinine 0.72 mg/dL (0.5-1.4) 10/24/24 Blood Urea Nitrogen 11 mg/dL (9-16) 10/24/24 Sodium 142 mmol/L (135-145) 10/24/24 Potassium 3.7 mmol/L (3.3-5.1) 10/24/24 Chloride 105 mmol/L (96-108) 10/24/24 Carbon Dioxide 28 mmol/L (22-29) 10/24/24 Calcium 9.4 mg/dL (8.4-10.2) 10/24/24 AST 28 U/L (5-31) 10/24/24 ALT 38 U/L (0-31) H 10/24/24 Total Protein 7.1 g/dL (6.5-8.0) 10/24/24 Albumin 4.7 g/dL (3.5-5.0) 10/24/24 [facility] Medical History Upper abdominal pain Gastroparesis Acute respiratory disease Hx of fracture of tibia GERD (gastroesophageal reflux disease) Interstitial cystitis Hypothyroidism Vitamin D deficiency HLD (hyperlipidemia) T2DM (type 2 diabetes mellitus) Pituitary macroadenoma Osteoporosis Bipolar 1 disorder Acute Crohn's disease Surgical History Hx of colonoscopy History of esophagogastroduodenoscopy (EGD) Hx of brain surgery History of surgery History of tubal ligation Status post breast reduction LAP-BAND surgery status History of bladder surgery History of section Family History Father HTN (hypertension) Mother Heart disease Brother Mental health disorder Sister Mental health disorder Social History Household Members: Children Housing: Apartment Alcohol intake: current Alcohol intake frequency: holidays/special occasions only Patient Tobacco Use Status: Never used Tobacco e-Cigarette/Vaping Use: Never Used Second Hand Smoke Exposure: Yes Substance Use Type: Marijuana service: No Current occupational status: disabled 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 2= needs review? 3= comprehend keep point? 4= demonstrates understanding/ competent? NC= Not Covered Topics Learning Objective: Initial visit Initial or post srvc Initial or post srvc Initial or post srvc Initial or post srvc Initial or post srvc Post srvc Comments Pre Edu-assessment/plan Outcome or reassess O utcome or reassess Outcome or reassess Outcome or reassess Outcome or reassess Outcome or reassess Diabetes pathophysiology 1 Healthy eating 2 Being active 1 Taking medication 2 Monitoring glucose 2 Acute complication 1 Chronic complicated 1 Lifestyle and healthy coping 1 Diabetes distress in support 1 ?Diabetes pathophysiology: ?Defined diabetes med identify own type of diabetes; list 3 options for treating diabetes Healthy eating: ?Described effect of type, amount and ?timing of food on blood glucose; list 3 methods for planning meal Being active: ?State effect of exercise on blood glucose level Taking medication: ?State effect of diabetes medications on diabetes; name diabetes medications taking, action and side effects Monitoring glucose: ?Identify recommended blood glucose targets and personal target Acute complication: ?List symptoms and treatment of hyper and hypoglycemia, DKA, sick day guidelines and guidelines for severe weather or situations of crisis and diabetes supply manage Chronic complication: ?To find the relationship of blood glucose levels to long- term complications of diabetes in screening and preventative measures Lifestyle and healthy coping: ?Described lifestyle and healthy coping strategies to rule out diabetes self-management Diabetes to stress and support: ?Recognize Diabetes to stress and be able to identified support options Learning objectives: The patient was provided with verbal and written education on the following topics as outlined below. The patient met all learning objectives and was able to verbalize understanding and provide teach back of education topics discussed . The patient was provided with the opportunity to ask questions and all questions were answered. Patient Assessment Assess patient education level/literacy/barriers, patient's last A1c 8.2%, 09/20/2024. Patient reports she has Crohn's disease, and feels that she is not able to eat many of the foods recommended to people with diabetes that contain fiber. Patient is on Lantus 25 units daily Humalog U200 10 units before meals, patient reports she only eats once or twice a day Patient questions/concerns, patient lives with her mom and her sister. Is currently taking prednisone 5 mg daily What is Diabetes? Pathophysiology How the body produces and uses insulin Identify type of DM Risk factors Signs of Diabetes Brief overview of Diabetes Management Monitoring blood sugar Following a meal plan Regular exercise Maintaining a healthy weight Taking medication as needed Members of the care team (PCP, RN, MA, RD, CDE, putty mixer and applier) Blood glucose monitoring When/how often to test Target blood sugar ranges Introduction to Nutrition Importance of healthy diet in managing DM Diet is personalized to individual preference Review patient?s regular diet/food preferences Who prepares meals/does food shopping/ Dining out?/ Barriers? How diet effects glucose Eating 3 balanced meals a day with small, healthy snacks between meals Review food groups Carbohydrates: What is a carbohydrate/Which food/food groups are considered carbohydrates Effect of carbohydrates on blood glucose Portion sizes Reading food labels Basic carb counting (if applicable per nursing assessment) Plate method Meal planning Recommendations: Follow plate method, consistent carbs and read nutritional labels. Smart Goal: Patient will keep carbohydrate portion at meals to 30-45 g of carbohydrate Educational Materials: The patient was provided with the following written educational materials: Planning Healthy Meals Handout Patient Response to instructions: Comprehension of Instructions: Fair Readiness to make changes: Contemplation How confident they feel about making changes: Positive Portions of this note were created using voice recognition software, please excuse any words or phrases that may have been misinterpreted. Patient Instructions: Increase Lantus from 25 to 30 units, after 3 days if fasting glucose is greater than 150 mg/dL increase to Lantus 35 units follow up with Dr. Farias on 11/22/24 Include regular daily activity. ADA recommends 30 minutes of exercise 5 days a week. Weight loss talk to PCP or Agricultural Real Estate Agent before starting new plan. Test blood sugar as directed; Fasting and 2hpp largest meal. Watch trends in results. Utilize results and to assess how food, physical activity and medications affect blood sugar results. Bring glucometer or CGM to next visit. Be knowledgeable about diabetes medication, its action, side effects, efficacy, toxicity, prescribed dosage, appropriate timing and frequency of administration, effect of missed and delayed doses and instructions for storage, travel and safety. Problem solving techniques to monitor hypo/hyperglycemia episodes and treatments. Reduce risk reduction behaviors, smoking cessation, regular eye, foot and dental examinations. Coding Level of Care Code Est Pt Level 1 (68837) Diagnoses Type 2 diabetes mellitus with other specified complication, with long-term current use of insulin E11.69; Z79.4 Diabetes mellitus wood room hand insulin use: with jail use Diabetes mellitus complication status: with other specified complication
--- OUTSIDE RECORDS SUMMARY | 2024-11-06 14:12 | XMS_ITS | Clinical Summary ---
Author Organization [facility] Address [address] [place] [address] Care Team Providers Care Financial Consultant Name Role Phone Unavailable Primary Care Provider [...] 2013 Imm-Zoster, Recombinant (1 of 2) 2018 Rbw-[id number] ( season) 2024 02/08/2021, 10/17/2020, 09/26/2020 Imm-Influenza (#1) 2024 02/05/2020, 1 06/19/2018, 03/08/2018 Alcohol and Drug Screen 05/31/2024 Depression Annual Screen 05/31/2024 Imm-DTaP/Tdap/Td (3 - Td or Tdap) 03/19/2029 019, 08/05/2010 Cervical Ablation/Cold-Knife Conization Discontinued Cervical Cryotherapy Discontinued Colposcopy Discontinued Endometrial Biopsy Discontinued Excision/Leep Discontinued HPV Genotyping Discontinued Vaginal Pap Discontinued Vulvoscopy Discontinued Insurance Net Transmit & Receive PLAN Member Subscriber Plan / Payer (Ef fective 2021-Present) Name:Nia Singer Relation to Subscriber:Self Name:Nia Singer Payer ID:[id number] Group ID:Not on file Type:Medicaid Address: [facility] [address] [place] [address]
== END 2024-11-06 13:46 | disposition home or self-care (01) ==
LOC: HO.ENCR 12:37
PROVIDERS: Visit Provider Registered Nurse Diabetes Educator
DX: E11.69 Type 2 diabetes mellitus with other specified complication (principal); Z79.4 Long term (current) use of insulin

== ENCOUNTER → 2024-11-06 12:36 | Outpatient (BNVA) | payer OTHER, SELFPAY | PROVIDERS: Visit Provider Registered Nurse Diabetes Educator | DX: E11.69 Type 2 diabetes mellitus with other specified complication (principal); Z79.4 Long term (current) use of insulin | CPT/HCPCS: 99211 ==

== ENCOUNTER 2024-11-22 11:12 | Outpatient (AMB) | payer OTHER, SELFPAY ==
--- OUTSIDE RECORDS SUMMARY | 2003-02-14 06:00 | XMS_ITS | Continuity of Care Document ---
Author Organization [facility] Address [address] [place] [address] Phone Care Team Providers Care Lamp Stack Developer Name Role Phone Huber Rene MD Unavailable Unavailable Advance Directives Directive Yes / No Effective Date File Name No Information Encounters Encounter Description Practice Location Reason(s) For Visit Diagnoses Date Provider Providers Copied on Encounter [facility]ACK[facility], [address] [place], [place], [id number], tel:[phone] [facility] 94 No Information 3 Anju Ngo. [address] [place], [address], . tel:[phone] Referring Provider: Dora Johnston, [address] [place] [address], [address]. tel:[phone] Family History Family Member Type Diagnosis Age At Onset No Information Payers Payer name Insurance type Covered libertarian ID Authoriza tion(s) Medicaid [id number] Social History Type Description Quantity Date Captured [...]
[2024-11-22 11:19] VITALS: BP 84/60; PULSE 86; O2SAT 94; BMI 30.7
--- NOTE | 2024-11-22 11:19 | A.OFFVIS_ITS ---
Vital Signs 11/22/24 11:19 Height 5 ft 4.76 in Weight 183 lb 3.266 oz BMI 30.7 BP 84/60 L Blood Pressure Location Rt brachial Position Sitting Pulse 86 Pulse Source Pulse Oximeter Pulse Oximetry (%) 94 Oxygen Delivery Method Room Air Intake Visit Reasons: T2DM Intake Note: Patient present today for T2DM. C/o feeling fatigue for the past few weeks, has a hard time getting out of bed. Last Diabetic Eye exam: 10/19/2024 [facility] Last Podiatry Visit: Does not see a Book Coverer Random Glucose: 190 mg/dl HgA1C: 8.2% 09/20/2024 Adult Care Manager Required: No Accompanied by: Self / Same As Patient Allergies codeine Allergy (Verified 11/22/24 11:20) Shortness of Breath Medication List - Last Reconciled 11/22/24 by Xiang Farias MD albuterol sulfate 90 mcg/actuation 2 puffs inhalation Q4-6H PRN atorvastatin 20 mg PO BEDTIME cholecalciferol (vitamin D3) 50 mcg PO BEDTIME 90 days diaper,brief,adult,disposable (Annie Briefs-Small) use daily divalproex 750 mg PO BID duloxetine 120 mg PO DAILY ezetimibe 10 mg PO DAILY flash glucose scanning reader (FreeStyle Kourtney 2 [place]) As directed fluticasone propionate 50 mcg/actuation 1 spray intranasal Q12H FreeStyle Kourtney 3 Plus Sensor (blood-glucose sensor) As directed change every 14 days NS FreeStyle Kourtney 3 [place] (blood-glucose,senior management consultant,cont) As directed NS insulin glargine (Lantus Solostar U-100 Insulin) 25 units (0.25 mL) subcut DAILY insulin lispro (Humalog KwikPen U-200 Insulin) 8 units (0.04 mL) subcut TID 30 days ketoconazole 2% 1 appl topical DAILY lancets (FreeStyle Lancets) tid testing levothyroxine 88 mcg PO DAILY loratadine 10 mg PO DAILY lorazepam 1 mg PO BID lumateperone (Caplyta) 42 mg PO DAILY ondansetron 4 mg PO Q8H PRN pantoprazole 40 mg PO DAILY pen needle, diabetic BID-Future refills from Endo prednisone 5 mg PO DAILY ropinirole 3 mg (3 x 1 mg) PO DAILY sumatriptan succinate take 1 tab at onset of headache; if no relief may repeat 1 tab after at least 2 hrs; max = 4 tabs/24 hr PO suvorexant (Belsomra) 15 mg PO BEDTIME PRN triamcinolone acetonide 0.1% 1 appl topical BID-TID HPI Comments Details: 54 YO F with an extensive PMHx who is seen in F/U for T2DM, Pituitary Macroadenoma, Central hypothyroidism, and Osteoporosis . Today's visit focus is on the diabetes. 1) Pituitary Macroadenoma: Patient had a Pituitary MRI in 2012 which revealed a large 3.2 cm Pituitary Macroadenoma. She reports having 2 separate transphenoidal surgeries, the first in 2012, and then again in 2014. This was completed at [facility] but she is unsure of the surgeon's name. She was followed by Endocrinology for this. She does have central hypothyroidism and remains on Levothyroxine 88 mcg PO daily. TSH is unreliable, but her FT4 remains low normal with a normal TT3. She had a repeat MRI completed 02/22/2020 which revealed regrowth of this mass. Images were independently reviewed. This was a low quality image and it is unclear if these were appropriate pituitary sections, but the mass is clearly evident. It does not appear to be encroaching on the optic apparatus, but she has not had formal visual field testing in some time. I requested that she find the name of her neurosurgeon, but she has failed to do so. I also requested that she have formal visual field testing, and she has also failed to do this. She continues to be poorly compliant with my recommendations. She had a Cosyntropin stim test which was inappropriate, so she was placed back on Prednisone 5 mg PO daily, 2) Osteoporosis: Patient had a prior compression fracture of the T7 vertebrae, which by definition gives her Osteoporosis regardless of her DEXA reading as Osteopenia. Her biochemical workup revealed an elevated NTX indicating rapid bone turnover. Her Vitamin D was slightly low and her Calcium was low normal. Unfortunately PTH was not drawn. She has never been treated for Osteoporosis. Has 0-1 servings of dietary calcium per day in the form of. Does not take a Calcium supplement. Does not take Vitamin D. Does use a PPI daily. Denies ever using anticoagulant, antiepileptic or glucocorticoid medication. Does no exercise. Fracture history: Has had many traumatic fractures in the past, as well as a compression fracture of the T7 vertebrae. Height loss: Has lost 1 inch. 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 Menses were regular, coming monthly. , did not breastfeed. Last menses was 1994. Was using Depo shots, but has not had any more menses since. History of Kidney stones: Has had multiple episodes. Denies a Family history of Osteoporosis or hip fracture. UTD on dental cleanings and sees dentist every 6 months. No planned upcoming dental work or extractions. DXA dated 04/09/2020: FINDINGS: AP SPINE L1-L4: Current: BMD 1.100 g/cm2, Z-score -0.7, T-score -0.7, normal, 1.0% increase from previous, 0.2% decrease from baseline (<5% change is not significant). Prior: BMD 1.089 g/cm2. Baseline: BMD 1.102 g/cm2. LEFT FEMUR, NECK: Current: BMD 0.788 g/cm2, Z-score -1.3, T-score -1.8, osteopenia. Prior: BMD 0.773 g/cm2. Baseline: BMD 0.829 g/cm2. LEFT FEMUR, TOTAL: Current: BMD 0.860 g/cm2, Z-score -1.1, T-score -1.2, osteopenia, 1.8% decrease from previous, 8.6% decrease from baseline (<5% change is not significant). Prior: BMD 0.876 g/cm2. Baseline: BMD 0.941 g/cm2. 3) T2DM: Initially diagnosed with T2DM in 1999. Was initially started on treatment with Metformin. Was started on Insulin just in mid 2019. She has GI distress with Metformin so this was discontinued. She also trialed Victoza but this was also stopped due to GI distress. She also failed treatment with Glimepiride. . Currently on 25 units of Lant and 8 units of lispropremeals Current regimen Lantus 25 q AM . Humalog 10 units Ac She is using the freestyle kourtney. . Kourtney download from November 05, 2024 to November 18, 2024 shows she is using Kourtney 93% of the time. Average glucose is 208 with G mi of 8.3% and variability 24.9%. 28% range with 51% hyperglycemia and 21% very hyperglycemic and no hypoglycemia. Patent shows persistently elevated gl ucoses throughout the day without any post-meal spikes No hypoglycemia Treats lows with juice or rapid sugar. Checks sugar after to ensure it is rising. Treats according to rule of 15's. Most recent A1C: 8.2% on Rare lows Family history of T2DM in her Mother. Has eyes checked yearly, last eye exam has appt September 2024 , denies retinopathy. Has neuropathy, sees podiatry. Has HLD, on Atorvastatin 40 mg PO daily. . Has CAD, with prior ME. Has not had diabetes education. Labs: Laboratory Tests 06/02/19 10/26/19 02/22/20 08:03 10:15 07:45 Sodium 142 Potassium 3.8 Chloride BUN Creatinine 0.81 Estimated GFR Est GFR (Non-Af Amer) > 60 Fasting Glucose Hemoglobin A1c % Osmolality Calcium Ionized Calcium Phosphorus Alk Phos Bone Specific PEP Interpretation Triglycerides 188 Cholesterol 171 LDL Cholesterol, Calc 98 LDL Cholesterol Direct HDL Cholesterol N-Telopeptide X-linked 25-OH Vitamin D Total 35.5 Free T4 0.66 L TSH TSH 3rd Generation 0.29 L Total T3 Free Estradiol Total Estradiol Estradiol Ultra LCMSMS FSH Luteinizing Hormone Prolactin Undiluted Prolactin Diluted Sex Hormone Bind Glob Somatomedin-C Calcium (PTH Intact) Cortisol ACTH Microalb/Creat Ratio 05/13/20 05/16/20 05/16/20 13:05 13:47 13:47 Sodium 137 Potassium 4.6 Chloride 98 BUN 24 H Creatinine 1.02 Estimated GFR 57 Est GFR (Non-Af Amer) Fasting Glucose Hemoglobin A1c % Osmolality 313 H Calcium 9.4 Ionized Calcium Phosphorus Alk Phos Bone Specific PEP Interpretation Triglycerides Cholesterol LDL Cholesterol, Calc LDL Cholesterol Direct HDL Cholesterol N-Telopeptide X-linked 25-OH Vitamin D Total Free T4 TSH TSH 3rd Generation Total T3 Free Estradiol Total Estradiol Estradiol Ultra LCMSMS FSH Luteinizing Hormone Prolactin Undiluted Prolactin Diluted Sex Hormone Bind Glob Somatomedin-C Calcium (PTH Intact) Cortisol ACTH Microalb/Creat Ratio 16.7 06/10/20 06/10/20 06/10/20 08:30 08:30 08:30 Sodium 138 Potassium 4.1 Chloride BUN Creatinine 0.73 Estimated GFR > 60 Est GFR (Non-Af Amer) Fasting Glucose 285 H Hemoglobin A1c % 9.2 Osmolality Calcium 8.7 Ionized Calcium Phosphorus 4.2 Alk Phos Bone Specific PEP Interpretation Triglycerides 156 Cholesterol 201 LDL Cholesterol, Calc 129 LDL Cholesterol Direct HDL Cholesterol 41 N-Telopeptide X-linked 25-OH Vitamin D Total 24.9 Free T4 0.73 TSH 0.48 TSH 3rd Generation Total T3 Free Estradiol Total Estradiol Estradiol Ultra LCMSMS FSH Luteinizing Hormone Prolactin Undiluted Prolactin Diluted Sex Hormone Bind Glob Somatomedin-C Calcium (PTH Intact) Cortisol ACTH Microalb/Creat Ratio 06/10/20 06/10/20 06/10/20 08:30 08:30 08:30 Sodium Potassium Chloride BUN Creatinine Estimated GFR Est GFR (Non-Af Amer) Fasting Glucose Hemoglobin A1c % Osmolality Calcium Ionized Calcium 4.8 Phosphorus Alk Phos Bone Specific 18.0 PEP Interpretation Triglycerides Cholesterol LDL Cholesterol, Calc LDL Cholesterol Direct 136 H HDL Cholesterol N-Telopeptide X-linked 25-OH Vitamin D Total Free T4 TSH TSH 3rd Generation Total T3 111 Free Estradiol <0.04 Total Estradiol <2 Estradiol Ultra LCMSMS <2 FSH 1.0 L Luteinizing Hormone <0.2 L Prolactin Undiluted <1.0 L Prolactin Diluted SEE NOTE Sex Hormone Bind Glob 64 Somatomedin-C <10 L Calcium (PTH Intact) 8.8 Cortisol ACTH 43 Microalb/Creat Ratio 06/10/20 06/10/20 06/10/20 08:30 08:30 08:30 Sodium Potassium Chloride BUN Creatinine Estimated GFR Est GFR (Non-Af Amer) Fasting Glucose Hemoglobin A1c % Osmolality Calcium Ionized Calcium Phosphorus Alk Phos Bone Specific PEP Interpretation SEE NOTE Triglycerides Cholesterol LDL Cholesterol, Calc LDL Cholesterol Direct HDL Cholesterol N-Telopeptide X-linked 45 25-OH Vitamin D Total Free T4 TSH TSH 3rd Generation Total T3 Free Estradiol Total Estradiol Estradiol Ultra LCMSMS FSH Luteinizing Hormone Prolactin Undiluted Prolactin Diluted Sex Hormone Bind Glob Somatomedin-C Calcium (PTH Intact) Cortisol 3.8 ACTH Microalb/Creat Ratio [facility] Medical History Upper abdominal pain Gastroparesis Acute respiratory disease Hx of fracture of tibia GERD (gastroesophageal reflux disease) Interstitial cystitis Hypothyroidism Vitamin D deficiency HLD (hyperlipidemia) T2DM (type 2 diabetes mellitus) Pituitary macroadenoma Osteoporosis Bipolar 1 disorder Acute Crohn's disease Surgical History Hx of colonoscopy History of esophagogastroduodenoscopy (EGD) Hx of brain surgery History of surgery History of tubal ligation Status post breast reduction LAP-BAND surgery status History of bladder surgery History of section Family History Father HTN (hypertension) Mother Heart disease Brother Mental health disorder Sister Mental health disorder Social History Household Members: Children Housing: Apartment Alcohol intake: current Alcohol intake frequency: holidays/special occasions only Patient Tobacco Use Status: Never used Tobacco e-Cigarette/Vaping Use: Never Used Second Hand Smoke Exposure: Yes Substance Use Type: Marijuana service: No Current occupational status: disabled 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 Absence of acromegalic features. Neck exam reveals nl size thyroid about 15 gms. No thyroid nodules palpable. No carotid bruits present. Lungs CTA. Heart S1 S2, Reg R/R. No M/R/ G. Skin exam reveals absence of vitiligo or acanthosis nigricans. Abdominal exam reveals Soft NT/ND with NA BS. No organomegaly present. Neck Other: . Extrem Other: Visual exam of foot performed. No ulcerations or open lesions. No onchomycosis, no callouses.Pulses 2 + distally Sensation intact to monofilament exam. Vibratory sensation sensed is decreased with 128 Hz tuning fork Assessment & Plan Assessment & Plan (1) Uncontrolled diabetes mellitus: Code(s): E11.65 - Type 2 diabetes mellitus with hyperglycemia Category: Medical Qualifiers: Diabetes mellitus type: type 2 Glycemic state: with hyperglycemia Qualified Code(s): E11.65 - Type 2 diabetes mellitus with hyperglycemia Plan: This is a 54-year-old female with a history of type 2 diabetes currently being treated with basal-bolus insulin with poor glycemic control and known microvascular and macrovascular complication namely neuropathy and CAD . Plan is to start Ozempic 0.25 mg Q weekly with titration as tolerated. Went over side effects of Ozempic including but not limited to nausea, vomiting and rare risk of pancreatitis.Report any hypoglycemia (2) Osteoporosis: Code(s): M81.0 - Age-related osteoporosis without current pathological fracture Category: Medical Qualifiers: Osteoporosis type: unspecified Presence of current pathological fracture: unspecified Qualified Code(s): M81.0 - Age-related osteoporosis without current pathological fracture Plan: History of prior compression fracture of the spine with prior negative secondary workup but abnormal SPEP. However urine immunofixation as well as other workup was negative for secondary causes Considering compression fracture of the spine would strongly consider use of anabolic agent initially like Forteo or Tymlos proceeded by an anti resorptive agent. Also impressed on patient to continue the vitamin D3 2000 IU as well as 1200 mg of calcium. We will attempt to get coverage for Tymlos if not covered Forteo (3) Pituitary macroadenoma: Code(s): D35.2 - Benign neoplasm of pituitary gland Category: Medical Plan: Patient with a history of a pituitary macroadenoma, s/p 2 transphenoidal resections. Images from her most recent MRI were reviewed during today's visit and this does appear to have regrown. There does not appear to be compression on the optic apparatus. She is currently off levothyroxine and prednisone but is unclear whether this was stopped by the pharmacy order entry technician with the patient stopped on her own. Explained necessity of following up with Neurosurgery either locally or with specialist at [place] namely Dr. Anh Bhatia. Made referral to Dr. Bhatia who can coordinate a neuro ophthalmological consult. I urged her to restart the levothyroxine 88 mcg and recheck a free T4 in 4 weeks' time. She is to continue on the prednisone 5 mg . (4) Hypothyroidism: Code(s): E03.9 - Hypothyroidism, unspecified Category: Medical Qualifiers: Hypothyroidism type: unspecified Qualified Code(s): E03.9 - Hypothyroidism, unspecified Plan: History of secondary hypothyroidism. Was being replaced on 88 mcg levothyroxine with low free T4. Plan is to assess the adrenal axis prior to reinitiating levothyroxine Orders: Orders Free T4 (Free Thyroxine) 4 Weeks E03.9 - Hypothyroidism, unspecified Medications: New semaglutide (Ozempic) for 4 weeks 0.25 mg (0.368 mL) subcut QWEEK 3 mL 4RF Coding Level of Care Code Est Pt Level 4 (93811) Complex EM visit Add On G2211 Diagnoses Uncontrolled type 2 diabetes mellitus with hyperglycemia E11.65 Diabetes mellitus type: type 2 Glycemic state: with hyperglycemia Osteoporosis, unspecified osteoporosis type, unspecified pathological fracture presence M81.0 Osteoporosis type: unspecified Presence of current pathological fracture: unspecified Pituitary macroadenoma D35.2 Hypothyroidism, unspecified type E03.9 Hypothyroidism type: unspecified
[2024-11-22 11:29] LABS: Glucose, Whole Blood 190 mg/dL (60-115)
== END 2024-11-22 11:50 | disposition home or self-care (01) ==
LOC: HO.ENCR 11:13
PROVIDERS: Visit Provider Internal Medicine Endocrinology, Diabetes & Metabolism
DX: E11.65 Type 2 diabetes mellitus with hyperglycemia (principal); M81.0 Age-related osteoporosis without current pathological fracture; D35.2 Benign neoplasm of pituitary gland; E03.9 Hypothyroidism, unspecified
CPT/HCPCS: 99214; G2211

== ENCOUNTER → 2024-11-22 11:12 | Outpatient (BNVA) | payer OTHER, SELFPAY | PROVIDERS: Visit Provider Internal Medicine Endocrinology, Diabetes & Metabolism | DX: E11.65 Type 2 diabetes mellitus with hyperglycemia (principal); M81.0 Age-related osteoporosis without current pathological fracture; D35.2 Benign neoplasm of pituitary gland; E03.9 Hypothyroidism, unspecified | CPT/HCPCS: 82947; 99212 ==

== ENCOUNTER 2024-11-27 10:49 | Outpatient (AMB) | payer OTHER, SELFPAY ==
[2024-11-27 11:10] VITALS: BMI 29.7
--- NOTE | 2024-11-27 11:10 | A.OFFVIS_ITS ---
Vital Signs 11/27/24 11:10 Height 5 ft 4.76 in Weight 177 lb 7.554 oz BMI 29.7 Intake Visit Reasons: Pituitary macroadenoma/Osteoporosis Intake Note: Patient present today for Pituitary Macroadenoma and Osteoporosis follow up. Hand Alterations Seamstress Required: No Accompanied by: Self / Same As Patient Allergies codeine Allergy (Verified 11/27/24 11:14) Shortness of Breath Medication List - Last Reconciled 11/27/24 by Xiang Farias MD albuterol sulfate 90 mcg/actuation 2 puffs inhalation Q4-6H PRN atorvastatin 20 mg PO BEDTIME cholecalciferol (vitamin D3) 50 mcg PO BEDTIME 90 days diaper,brief,adult,disposable (Annie Briefs-Small) use daily divalproex 750 mg PO BID duloxetine 120 mg PO DAILY ezetimibe 10 mg PO DAILY flash glucose scanning reader ([employer]Style Kourtney 2 [place]) As directed fluticasone propionate 50 mcg/actuation 1 spray intranasal Q12H FreeStyle Kourtney 3 Plus Sensor (blood-glucose sensor) As directed change every 14 days NS FreeStyle Kourtney 3 [place] (blood-glucose,printer operator,cont) As directed NS insulin glargine (Lantus Solostar U-100 Insulin) 25 units (0.25 mL) subcut DAILY insulin lispro (Humalog KwikPen U-200 Insulin) 8 units (0.04 mL) subcut TID 30 days ketoconazole 2% 1 appl topical DAILY lancets (FreeStyle Lancets) tid testing levothyroxine 88 mcg PO DAILY loratadine 10 mg PO DAILY lorazepam 1 mg PO BID lumateperone (Caplyta) 42 mg PO DAILY ondansetron 4 mg PO Q8H PRN pantoprazole 40 mg PO DAILY pen needle, diabetic BID-Future refills from Endo prednisone 5 mg PO DAILY ropinirole 3 mg (3 x 1 mg) PO DAILY semaglutide (Ozempic) 0.25 mg (0.368 mL) subcut QWEEK sumatriptan succinate take 1 tab at onset of headache; if no relief may repeat 1 tab after at least 2 hrs; max = 4 tabs/24 hr PO suvorexant (Belsomra) 15 mg PO BEDTIME PRN triamcinolone acetonide 0.1% 1 appl topical BID-TID HPI Comments Details: 54 YO F with an extensive PMHx who is seen in F/U for T2DM, Pituitary Macroadenoma, Central hypothyroidism, and Osteoporosis . Today's visit focus is on the osteoporosis. 2) Osteoporosis: Patient had a prior compression fracture of the T7 vertebrae, which by definition gives her Osteoporosis regardless of her DEXA reading as Osteopenia. Her biochemical workup revealed an elevated NTX indicating rapid bone turnover. Her Vitamin D was slightly low and her Calcium was low normal. Unfortunately PTH was not drawn. She has never been treated for Osteoporosis. Has 0-1 servings of dietary calcium per day in the form of. Does not take a Calcium supplement. Does not take Vitamin D. Does use a PPI daily. Denies ever using anticoagulant, antiepileptic or glucocorticoid medication. Does no exercise. Fracture history: Has had many traumatic fractures in the past, as well as a compression fracture of the T7 vertebrae. However, could not find evidence of this T7 fracture Height loss: Has lost 1 inch. 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 Menses were regular, coming monthly. , did not breastfeed. Last menses was 1994. Was using Depo shots, but has not had any more menses since. History of Kidney stones: Has had multiple episodes. Denies a Family history of Osteoporosis or hip fracture. UTD on dental cleanings and sees dentist every 6 months. No planned upcoming dental work or extractions. DXA dated 04/09/2020: FINDINGS: AP SPINE L1-L4: Current: BMD 1.100 g/cm2, Z-score -0.7, T-score -0.7, normal, 1.0% increase from previous, 0.2% decrease from baseline (<5% change is not significant). Prior: BMD 1.089 g/cm2. Baseline: BMD 1.102 g/cm2. LEFT FEMUR, NECK: Current: BMD 0.788 g/cm2, Z-score -1.3, T-score -1.8, osteopenia. Prior: BMD 0.773 g/cm2. Baseline: BMD 0.829 g/cm2. LEFT FEMUR, TOTAL: Current: BMD 0.860 g/cm2, Z-score -1.1, T-score -1.2, osteopenia, 1.8% decrease from previous, 8.6% decrease from baseline (<5% change is not significant). Prior: BMD 0.876 g/cm2. Baseline: BMD 0.941 g/cm2. 3 Laboratory Tests 06/02/19 10/26/19 02/22/20 08:03 10:15 07:45 Sodium 142 Potassium 3.8 Chloride BUN Creatinine 0.81 Estimated GFR Est GFR (Non-Af Amer) > 60 Fasting Glucose Hemoglobin A1c % Osmolality Calcium Ionized Calcium Phosphorus Alk Phos Bone Specific PEP Interpretation Triglycerides 188 Cholesterol 171 LDL Cholesterol, Calc 98 LDL Cholesterol Direct HDL Cholesterol N-Telopeptide X-linked 25-OH Vitamin D Total 35.5 Free T4 0.66 L TSH TSH 3rd Generation 0.29 L Total T3 Free Estradiol Total Estradiol Estradiol Ultra LCMSMS FSH Luteinizing Hormone Prolactin Undiluted Prolactin Diluted Sex Hormone Bind Glob Somatomedin-C Calcium (PTH Intact) Cortisol ACTH Microalb/Creat Ratio 05/13/20 05/16/20 05/16/20 13:05 13:47 13:47 Sodium 137 Potassium 4.6 Chloride 98 BUN 24 H Creatinine 1.02 Estimated GFR 57 Est GFR (Non-Af Amer) Fasting Glucose Hemoglobin A1c % Osmolality 313 H Calcium 9.4 Ionized Calcium Phosphorus Alk Phos Bone Specific PEP Interpretation Triglycerides Cholesterol LDL Cholesterol, Calc LDL Cholesterol Direct HDL Cholesterol N-Telopeptide X-linked 25-OH Vitamin D Total Free T4 TSH TSH 3rd Generation Total T3 Free Estradiol Total Estradiol Estradiol Ultra LCMSMS FSH Luteinizing Hormone Prolactin Undiluted Prolactin Diluted Sex Hormone Bind Glob Somatomedin-C Calcium (PTH Intact) Cortisol ACTH Microalb/Creat Ratio 16.7 06/10/20 06/10/20 06/10/20 08:30 08:30 08:30 Sodium 138 Potassium 4.1 Chloride BUN Creatinine 0.73 Estimated GFR > 60 Est GFR (Non-Af Amer) Fasting Glucose 285 H Hemoglobin A1c % 9.2 Osmolality Calcium 8.7 Ionized Calcium Phosphorus 4.2 Alk Phos Bone Specific PEP Interpretation Triglycerides 156 Cholesterol 201 LDL Cholesterol, Calc 129 LDL Cholesterol Direct HDL Cholesterol 41 N-Telopeptide X-linked 25-OH Vitamin D Total 24.9 Free T4 0.73 TSH 0.48 TSH 3rd Generation Total T3 Free Estradiol Total Estradiol Estradiol Ultra LCMSMS FSH Luteinizing Hormone Prolactin Undiluted Prolactin Diluted Sex Hormone Bind Glob Somatomedin-C Calcium (PTH Intact) Cortisol ACTH Microalb/Creat Ratio 06/10/20 06/10/20 06/10/20 08:30 08:30 08:30 Sodium Potassium Chloride BUN Creatinine Estimated GFR Est GFR (Non-Af Amer) Fasting Glucose Hemoglobin A1c % Osmolality Calcium Ionized Calcium 4.8 Phosphorus Alk Phos Bone Specific 18.0 PEP Interpretation Triglycerides Cholesterol LDL Cholesterol, Calc LDL Cholesterol Direct 136 H HDL Cholesterol N-Telopeptide X-linked 25-OH Vitamin D Total Free T4 TSH TSH 3rd Generation Total T3 111 Free Estradiol <0.04 Total Estradiol <2 Estradiol Ultra LCMSMS <2 FSH 1.0 L Luteinizing Hormone <0.2 L Prolactin Undiluted <1.0 L Prolactin Diluted SEE NOTE Sex Hormone Bind Glob 64 Somatomedin-C <10 L Calcium (PTH Intact) 8.8 Cortisol ACTH 43 Microalb/Creat Ratio 06/10/20 06/10/20 06/10/20 08:30 08:30 08:30 Sodium Potassium Chloride BUN Creatinine Estimated GFR Est GFR (Non-Af Amer) Fasting Glucose Hemoglobin A1c % Osmolality Calcium Ionized Calcium Phosphorus Alk Phos Bone Specific PEP Interpretation SEE NOTE Triglycerides Cholesterol LDL Cholesterol, Calc LDL Cholesterol Direct HDL Cholesterol N-Telopeptide X-linked 45 25-OH Vitamin D Total Free T4 TSH TSH 3rd Generation Total T3 Free Estradiol Total Estradiol Estradiol Ultra LCMSMS FSH Luteinizing Hormone Prolactin Undiluted Prolactin Diluted Sex Hormone Bind Glob Somatomedin-C Calcium (PTH Intact) Cortisol 3.8 ACTH Microalb/Creat Ratio The patient is a 54-year-old female presenting with management of hypothyroidism, 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 The patient has been taking levothyroxine for central hypothyroidism, with a plan to check thyroid levels in four weeks to adjust the dosage if necessary due to weight gain concerns. 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 The patient has diabetes mellitus, with a plan to start Ozempic to help control blood sugar levels and manage weight. The patient has a history of osteoporosis and a vertebral compression fracture at T7in 2014 plans to start anabolic therapy namely Tymlos. COUNTS INCLUDE 234 BEDS AT THE [facility] Medical History Upper abdominal pain Gastroparesis Acute respiratory disease Hx of fracture of tibia GERD (gastroesophageal reflux disease) Interstitial cystitis Hypothyroidism Vitamin D deficiency HLD (hyperlipidemia) T2DM (type 2 diabetes mellitus) Pituitary macroadenoma Osteoporosis Bipolar 1 disorder Acute Crohn's disease Surgical History Hx of colonoscopy History of esophagogastroduodenoscopy (EGD) Hx of brain surgery History of surgery History of tubal ligation Status post breast reduction LAP-BAND surgery status History of bladder surgery History of section Family History Father HTN (hypertension) Mother Heart disease Brother Mental health disorder Sister Mental health disorder Social History Household Members: Children Housing: Apartment Alcohol intake: current Alcohol intake frequency: holidays/special occasions only Patient Tobacco Use Status: Never used Tobacco e-Cigarette/Vaping Use: Never Used Second Hand Smoke Exposure: Yes Substance Use Type: Marijuana service: No Current occupational status: disabled 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 Cognitive needs: No Hearing needs: No Vision needs: Yes Physical Exam Vital Signs: BMI result Body Mass Index 29.7 Assessment & Plan Assessment & Plan (1) Osteoporosis: Code(s): M81.0 - Age-related osteoporosis without current pathological fracture Category: Medical Qualifiers: Osteoporosis type: unspecified Presence of current pathological fracture: unspecified Qualified Code(s): M81.0 - Age-related osteoporosis without current pathological fracture Plan: History of ??prior compression fracture of the spine with prior negative secondary workup We will proceed with initiating Tymlos for osteoporosis considering the T7 compression fracture. Addition, patient is making preparation to see the pituitary surgeon at [facility]. We will also check an IGF-1 level along with a free T4 in 4 weeks' time. Lastly, she will start Ozempic 0.25 mg Q weekly for the diabetes. We once again went over the side effects of Ozempic including but not limited to nausea, vomiting and rare risk of pancreatitis Orders: Orders IGF-1 (Somatomedin C) 4 Weeks D35.2 - Benign neoplasm of pituitary gland Medications: New abaloparatide (Tymlos) inject into abdomen; do not inject within 2 inches of belly button/navel; rotate sites 80 mcg (0.04 mL) subcut DAILY 1.56 mL 11RF Coding Level of Care Code Est Pt Level 3 (68864) Diagnoses Osteoporosis, unspecified osteoporosis type, unspecified pathological fracture presence M81.0 Osteoporosis type: unspecified Presence of current pathological fracture: unspecified
--- OUTSIDE RECORDS SUMMARY | 2024-11-27 11:37 | XMS_ITS | Clinical Summary ---
Author Organization [facility] Address [address] [place] [address] Care Team Providers Care Retail Sales Specialist Name Role Phone Unavailable Primary Care Provider [...] 2013 Imm-Zoster, Recombinant (1 of 2) 2018 [id number] ( season) 2024 02/08/2021, 10/17/2020, 09/26/2020 Imm-Influenza (#1) 2024 02/05/2020, 1 06/19/2018, 03/08/2018 Alcohol and Drug Screen 05/31/2024 Depression Annual Screen 05/31/2024 Imm-DTaP/Tdap/Td (3 - Td or Tdap) 03/19/2029 019, 08/05/2010 Cervical Ablation/Cold-Knife Conization Discontinued Cervical Cryotherapy Discontinued Colposcopy Discontinued Endometrial Biopsy Discontinued Excision/Leep Discontinued HPV Genotyping Discontinued Vaginal Pap Discontinued Vulvoscopy Discontinued Insurance [employer] PLAN Member Subscriber Plan / Payer (Ef fective 2021-Present) Name:Nia Singer Relation to Subscriber:Self Name:Nia Singer Payer ID:[id number] Group ID:Not on file Type:Medicaid Address: [facility] [address] [place] [address]
== END 2024-11-27 11:38 | disposition home or self-care (01) ==
LOC: HO.ENCR 10:50
PROVIDERS: Visit Provider Internal Medicine Endocrinology, Diabetes & Metabolism
DX: M81.0 Age-related osteoporosis without current pathological fracture (principal)
CPT/HCPCS: 99213

== ENCOUNTER → 2024-11-27 10:49 | Outpatient (BNVA) | payer OTHER, SELFPAY | PROVIDERS: Visit Provider Internal Medicine Endocrinology, Diabetes & Metabolism | DX: M81.0 Age-related osteoporosis without current pathological fracture (principal); D35.2 Benign neoplasm of pituitary gland | CPT/HCPCS: 99212 ==

== ENCOUNTER 2025-02-07 13:01 | Outpatient (AMB) | payer OTHER, SELFPAY ==
--- NOTE | 2025-02-07 13:14 | A.OFFVIS_ITS ---
Vital Signs 02/07/25 13:23 Height 5 ft 4.76 in Weight 177 lb BMI 29.7 Intake Visit Reasons: Inj-Right thumb injection -last 10/12/24 Intake Note: Nia is a 54 year old left hand dominant female who presents today for follow up of her Right Thumb Pain. She was given a Right Basal Joint injection on 10/12/24 that lasted until the last month. She wishes to repeat it today. She continues wearing her comfort cool brace she got off the shelf. She is also using some pain patches she applies under the brace. Allergies codeine Allergy (Verified 02/07/25 13:23) Shortness of Breath HPI HPI Inj-Right thumb injection -last 10/12/24: Details: Nia is a 54 year old left hand dominant female who presents today for follow up of her Right Thumb Pain. She was given a Right Basal Joint injection on 10/12/24 that lasted until the last month. She wishes to repeat it today. She continues wearing her comfort cool brace she got off the shelf. She is also using some pain patches she applies under the brace. Of note, the patient does have diabetes, and reports that her blood sugar was approximately 400 yesterday. [facility] Medical History Upper abdominal pain Gastroparesis Acute respiratory disease Hx of fracture of tibia GERD (gastroesophageal reflux disease) Interstitial cystitis Hypothyroidism Vitamin D deficiency HLD (hyperlipidemia) T2DM (type 2 diabetes mellitus) Pituitary macroadenoma Osteoporosis Bipolar 1 disorder Acute Crohn's disease Surgical History Hx of colonoscopy History of esophagogastroduodenoscopy (EGD) Hx of brain surgery History of surgery History of tubal ligation Status post breast reduction LAP-BAND surgery status History of bladder surgery History of section Family History Father HTN (hypertension) Mother Heart disease Brother Mental health disorder Sister Mental health disorder Social History Household Members: Children Housing: Apartment Alcohol intake: current Alcohol intake frequency: holidays/special occasions only Patient Tobacco Use Status: Never used Tobacco e-Cigarette/Vaping Use: Never Used Second Hand Smoke Exposure: Yes Substance Use Type: Marijuana service: No Current occupational status: disabled 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 Neuro: Normal sensation of the tips of all digits of the right hand at this time Vascular: Cap refill brisk Pain: Tenderness to palpation about the CMC joint of the right thumb Positive CMC grind ROM: Patient is able to make a closed fist and extend all digits of the right hand fully Skin: Small, actively bleeding wound noted over the anatomical snuffbox/1st dorsal compartment of the right hand and wrist General: No ecchymosis, erythema, or evidence of infection. Psych: Appears grossly normal Affect normal Attitude cooperative Assessment & Plan Assessment & Plan (1) Osteoarthritis of first carpometacarpal (CMC) joint of one hand: Code(s): M18.9 - Osteoarthritis of first carpometacarpal joint, unspecified Category: Medical Plan 1. Right thumb basal joint OA Patient is educated about this condition Patient is educated about typical treatment course At this time, patient is informed that we can not perform an injection, as her blood sugars have been too high recently and there is a small wound in very close proximity to where the injection site is Patient will be booked for another appointment and one-week to try injection, we will need close blood sugar monitoring prior to this to ensure safe injection Patient understands this is amenable to this plan Coding Level of Care Code Est Pt Level 3 (06207) Diagnoses Osteoarthritis of first carpometacarpal (CMC) joint of one hand M18.9
[2025-02-07 13:23] VITALS: BMI 29.7
--- OUTSIDE RECORDS SUMMARY | 2025-02-07 16:02 | XMS_ITS | Clinical Summary ---
Author Organization [facility] Address [address] [place] [address] Care Team Providers Care Process Engineering Intern Name Role Phone Unavailable Primary Care Provider [...] 2013 Fecal DNA 2013 Flexible Sigmoidoscopy 2013 Imm-Pneumococcal 50+ (1 of 1 - PCV) 2018 Imm-Zoster, Recombinant (1 of 2) 2018 Alcohol and Drug Screen 05/31/2024 Depression Annual Screen 05/31/2024 [id number] ( season) 2025 02/08/2021, 10/17/2020, 09/26/2020 Imm-Influenza (#1) 2025 02/05/2020, 1 06/19/2018, 03/08/2018 Imm-DTaP/Tdap/Td (3 - Td or Tdap) 03/19/2029 019, 08/05/2010 Cervical Ablation/Cold-Knife Conization Discontinued Cervical Cryotherapy Discontinued Colposcopy Discontinued Endometrial Biopsy Discontinued Excision/Leep Discontinued HPV Genotyping Discontinued Vaginal Pap Discontinued Vulvoscopy Discontinued Insurance [employer] PLAN Member Subscriber Plan / Payer (Ef fective 2021-Present) Name:Nia Singer Relation to Subscriber:Self Name:Nia Singer Payer ID:[id number] Group ID:Not on file Type:Medicaid Address: [facility] [address] [place] [address]
== END 2025-02-07 13:50 | disposition home or self-care (01) ==
LOC: HO.HOS 13:02
DX: M18.11 Unilateral primary osteoarthritis of first carpometacarpal joint, right hand (principal)
CPT/HCPCS: 99213

== ENCOUNTER → 2025-02-07 13:01 | Outpatient (BNVA) | payer OTHER, SELFPAY | DX: M18.11 Unilateral primary osteoarthritis of first carpometacarpal joint, right hand (principal) | CPT/HCPCS: 99212 ==

== ENCOUNTER 2025-02-21 15:21 | Outpatient (AMB) | payer OTHER, SELFPAY ==
--- OUTSIDE RECORDS SUMMARY | 2003-02-14 06:00 | XMS_ITS | Continuity of Care Document ---
Author Organization [facility] Address [address] [place] [address] Phone Care Team Providers Care Informatics Educator Name Role Phone Huber Rene MD Unavailable Unavailable Advance Directives Directive Yes / No Effective Date File Name No Information Encounters Encounter Description Practice Location Reason(s) For Visit Diagnoses Date Provider Providers Copied on Encounter [facility] mar[facility] JACKSON, [address] [place], [place], [id number], tel:[phone] [facility] 94 No Information Anju Ngo. [address] [facility], [place], [address], [place]. tel:[phone] Referring Provider: Dora Almendarez, [address] [place] [address] [place], [address]. tel:[phone] Family History Family Member Type Diagnosis Age At Onset No Information Payers Payer name Insurance type Covered libertarian ID Authoriza tion(s) Medicaid [id number] Social History Type Description Quantity Date Captured Comments Sex Female Smoking Status No Information Chief Complaint And Reason For Visit No Information Reason For Referral Reason For Referral No Information History Of Present Illness Encounter Date Complaint History Of Prese nt Illness No Information Functional Status Date Functional Assessmen t No Information Instructions Date Instruction Additional Infor mation No Information Assessments Type Assessment Date No Information Patient Care Teams Name Effective Dates (start - stop) Status Members No Information
[2025-02-21 15:24] VITALS: BMI 30.2
--- NOTE | 2025-02-21 15:24 | MHC.OFFVIS ---
Vital Signs 02/21/25 15:24 Height 5 ft 4 in Weight 176 lb BMI 30.2 Handedness Left Intake Visit Reasons: Inj-Right thumb injection -last 10/12/24 Intake Note: Nia is a 54 year old left hand dominant woman who presents today for a follow up visit and repeat injection for her right thumb basal joint OA. Last basal jpint injeection in right thumb was on 10/12/24. Patient reports her blood sugar this morning was 99. Allergies codeine Allergy (Verified 02/21/25 15:37) Shortness of Breath HPI HPI Inj-Right thumb injection -last 10/12/24: Details: Nia is a 54 year old left hand dominant woman who presents today for a follow up visit and repeat injection for her right thumb basal joint OA. Last basal jpint injeection in right thumb was on 10/12/24. Patient reports her blood sugar this morning was 99. Patient expresses that she had ?the worst week of her life? because she was taking special care to keep a close eye on her blood sugars in order to be able to get injection today. [facility] Medical History Upper abdominal pain Gastroparesis Acute respiratory disease Hx of fracture of tibia GERD (gastroesophageal reflux disease) Interstitial cystitis Hypothyroidism Vitamin D deficiency HLD (hyperlipidemia) T2DM (type 2 diabetes mellitus) Pituitary macroadenoma Osteoporosis Bipolar 1 disorder Acute Crohn's disease Surgical History Hx of colonoscopy History of esophagogastroduodenoscopy (EGD) Hx of brain surgery History of surgery History of tubal ligation Status post breast reduction LAP-BAND surgery status History of bladder surgery History of section Family History Father HTN (hypertension) Mother Heart disease Brother Mental health disorder Sister Mental health disorder Social History Household Members: Children Housing: Apartment Alcohol intake: current Alcohol intake frequency: holidays/special occasions only Patient Tobacco Use Status: Never used Tobacco e-Cigarette/Vaping Use: Never Used Second Hand Smoke Exposure: Yes Substance Use Type: Marijuana service: No Current occupational status: disabled 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 Right basal joint arthritis Patient is educated about this condition Patient is educated about the typical treatment course Patient would like to proceed with steroid injection The risks and benefits of a steroid injection including but not limited to risk of damage to blood vessels, nerve, tendon, infection, skin bleaching, persistent or worsening pain, and failure to improve symptoms were discussed with the patient and they wish to proceed with the steroid injection. Once consent was obtained the skin over the dorsum of the right basal joint was sterilely prepped. The joint was then injected with a combination of 40 mg dexamethasone and 1% plain Lidocaine. The patient appears to have tolerated the procedure well and with no complications. He had good early relief before leaving clinic today. He knows that they may not have another steroid injection into this joint for least 4 months. Follow-up p.r.n. Coding Level of Care Code Procedure Only Diagnoses Osteoarthritis of first carpometacarpal (CMC) joint of one hand M18.9
--- OUTSIDE RECORDS SUMMARY | 2025-02-21 17:47 | XMS_ITS | Clinical Summary ---
Author Organization [facility] Address [address] [place] [address] Care Team Providers Care Hydraulic Barker Operator Name Role Phone Unavailable Primary Care [...] Drug Screen 05/31/2024 Depression Annual Screen 05/31/2024 [id number] ( season) 2025 02/08/2021, 10/17/2020, 09/26/2020 Imm-Influenza (#1) 2025 02/05/2020, 1 06/19/2018, 03/08/2018 Imm-DTaP/Tdap/Td (3 - Td or Tdap) 03/19/2029 019, 08/05/2010 Cervical Ablation/Cold-Knife Conization Discontinued Cervical Cryotherapy Discontinued Colposcopy Discontinued Endometrial Biopsy Discontinued Excision/Leep Discontinued HPV Genotyping Discontinued Vaginal Pap Discontinued Vulvoscopy Discontinued Insurance [employer] PLAN Member Subscriber Plan / Payer (Ef fective 2021-Present) Name:Nia Singer Relation to Subscriber:Self Name:Nia Singer Payer ID:[id number] Group ID:Not on file Type:Medicaid Address: [facility] [address] [place] [address]
== END 2025-02-21 15:53 | disposition home or self-care (01) ==
LOC: HO.HOS 15:21
DX: M18.9 Osteoarthritis of first carpometacarpal joint, unspecified (principal)
CPT/HCPCS: 20600

== ENCOUNTER → 2025-02-21 15:21 | Outpatient (BNVA) | payer OTHER, SELFPAY | DX: M18.11 Unilateral primary osteoarthritis of first carpometacarpal joint, right hand (principal) | CPT/HCPCS: 20600; J1100; J2003 ==

== ENCOUNTER 2025-04-13 10:56 | Outpatient (REF) | payer OTHER, SELFPAY ==
--- NOTE | ~2025-04-13 | MM_ITS ---
EXAMINATION: MM SCREENING DIGITAL BREAST TOMOSYNTHESIS, BILATERAL CLINICAL INFORMATION: Screening. Asymptomatic. COMPARISON: Mammography: Comparison is made with available priors TECHNIQUE: Digital breast mammography with tomosynthesis is performed in both the craniocaudal and mediolateral oblique views along with computer-aided detection (CAD). FINDINGS: There are scattered areas of fibroglandular density. Bilateral reduction mammoplasty. There are no significant masses, abnormal calcifications, or other abnormalities. MM/MM tomosynthesis screening BI IMPRESSION: No mammographic evidence of malignancy. ASSESSMENT: BI-RADS Category 2: Benign RECOMMENDATION: Routine annual mammography screening. 1 year F/U This examination should not preclude the clinical evaluation of a suspicious palpable abnormality. This patient's information was entered into a reminder system with a target due date for their next mammogram. Electronically signed by: Danyelle Lopez DO 04/17/2025 09:06 AM [facility]
== END 2025-04-13 10:57 | disposition home or self-care (01) ==
LOC: HO.MAMMO 10:56
DX: Z12.31 Encounter for screening mammogram for malignant neoplasm of breast (principal)
CPT/HCPCS: 77063; 77067

== ENCOUNTER → 2025-04-13 12:00 | Outpatient (BNV) | payer OTHER, SELFPAY | PROVIDERS: Visit Provider Internal Medicine | DX: Z12.31 Encounter for screening mammogram for malignant neoplasm of breast (principal) | CPT/HCPCS: 77063; 77067 ==

== ENCOUNTER 2025-04-20 15:12 | Outpatient (AMB) | payer OTHER, SELFPAY ==
--- NOTE | 2025-04-20 15:22 | A.OFFPC_ITS ---
Vital Signs 04/20/25 15:24 Height 5 ft 4 in Weight 160 lb BMI 27.5 BP 120/78 Blood Pressure Location Lt brachial Position Sitting Respiration 18 Pulse 83 Pulse Source Pulse Oximeter Temp Source Temporal Artery Scan Pulse Oximetry (%) 95 Oxygen Delivery Method Room Air Intake Visit Reasons: annual exam Glass Technician Required: No Accompanied by: Self / Same As Patient Allergies codeine Allergy (Verified 04/20/25 15:44) Shortness of Breath Medication List - Last Reconciled 04/20/25 by Franchesca Infante PA-C abaloparatide (Tymlos) 80 mcg (0.04 mL) subcut DAILY albuterol sulfate 90 mcg/actuation 2 puffs inhalation Q4-6H PRN atorvastatin 20 mg PO BEDTIME cholecalciferol (vitamin D3) 50 mcg PO BEDTIME 90 days diaper,brief,adult,disposable (Annie Briefs-Small) use daily divalproex 750 mg PO BID duloxetine 120 mg PO DAILY ezetimibe 10 mg PO DAILY flash glucose scanning reader (POLYBONAStyle Kourtney 2 [place]) As directed fluticasone propionate 50 mcg/actuation 1 spray intranasal Q12H FreeStyle Kourtney 3 Plus Sensor (blood-glucose sensor) As directed change every 14 days NS FreeStyle Kourtney 3 [place] (blood-glucose,baggage clerk,cont) As directed NS insulin glargine (Lantus Solostar U-100 Insulin) 25 units (0.25 mL) subcut DAILY insulin lispro (Humalog KwikPen U-200 Insulin) 8 units (0.04 mL) subcut TID 30 days ketoconazole 2% 1 appl topical DAILY lancets (FreeStyle Lancets) tid testing levothyroxine 88 mcg PO DAILY loratadine 10 mg PO DAILY lorazepam 1 mg PO BID lumateperone (Caplyta) 42 mg PO DAILY ondansetron 4 mg PO Q8H PRN pantoprazole 40 mg PO DAILY pen needle, diabetic BID-Future refills from Endo prednisone 5 mg PO DAILY ropinirole 3 mg (3 x 1 mg) PO DAILY semaglutide (Ozempic) 0.25 mg (0.368 mL) subcut QWEEK sumatriptan succinate take 1 tab at onset of headache; if no relief may repeat 1 tab after at least 2 hrs; max = 4 tabs/24 hr PO suvorexant (Belsomra) 15 mg PO BEDTIME PRN triamcinolone acetonide 0.1% 1 appl topical BID-TID vit B comp with C-calcium carb 300 mg-150 mg calcium (B-Complex Plus Vitamin C (and calcium)) 1 tab PO DAILY Tobacco use date assessed: 04/20/25 Dental Screening Dental Screen Date: 04/20/25 Did you have a dental visit in the last 12 months?: No Did you have a dental problem in the last 6 months where you did not have access to dental care?: No Was dental information given to patient?: No HPI annual exam HPI Details 54-year-old female with past medical his tory of uncontrolled diabetes mellitus, osteoporosis, hypertension, hyperlipidemia, leukopenia, thrombocytopenia last seen 09/2024 coming in for annual exam. In review of the notes, patient was seen by Orthopedics 02/2025 for steroid injection of the right hand. The patient sustained a foot injury three days ago after stepping on a rock, resulting in severe pain. A visit to urgent care ruled out a fracture. The patient also reports severe hand pain, for which a previous cortisone injection is no longer effective. The pain is similar to what the patient experienced with gout during , and a prior X-ray showed significant arthritis. Regarding chronic conditions, the patient has poorly controlled diabetes with a recent HbA1c of 9.4. The patient reports a diet primarily of carbohydrates like rice, potatoes, and bread, and loss of taste following four COVID-19 infections. The patient stopped taking Ozempic due to nausea and has been administering long-acting Lantus insulin multiple times a day instead of once daily. The patient is experiencing significant psychosocial distress, reporting homelessness for several years and currently staying with friends. The patient expresses profound grief and depression following the of a son, leading to family conflict and feelings of isolation, loneliness, and suicidal ideation. mammogram: 03/2025 colonoscopy: reminded about GI appt DEXA: 02/2024 vaccines: CAD [facility] Medical History Upper abdominal pain Gastroparesis Acute respiratory disease Hx of fracture of tibia GERD (gastroesophageal reflux disease) Interstitial cystitis Hypothyroidism Vitamin D deficiency HLD (hyperlipidemia) T2DM (type 2 diabetes mellitus) Pituitary macroadenoma Osteoporosis Bipolar 1 disorder Acute Crohn's disease Surgical History Hx of colonoscopy History of esophagogastroduodenoscopy (EGD) Hx of brain surgery History of surgery History of tubal ligation Status post breast reduction LAP-BAND surgery status History of bladder surgery History of section Family History Father HTN (hypertension) Mother Heart disease Brother Mental health disorder Sister Mental health disorder Social History Household Members: Children Housing: Apartment Alcohol intake: current Alcohol intake frequency: holidays/special occasions only Patient Tobacco Use Status: Never used Tobacco e-Cigarette/Vaping Use: Never Used Second Hand Smoke Exposure: Yes Substance Use Type: Marijuana service: No Current occupational status: disabled 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 Cognitive needs: No Hearing needs: No Vision needs: Yes Questionnaire Thrive Questionnaire Date Thrive assessed: 04/20/25 I am a: Patient What is your living situation today?: I do not have a steady places to live I am temporarily staying with others Within the past 12 months, did the food you bought not last and you didn't have the money to get more?: Often true Within the past 12 months, did you worry whether your food would run out before you got money to buy more?: Often true Do you have trouble paying for medicines?: I choose not to answer this question Do you have trouble getting transportation to medical appointments?: Yes Do you have trouble paying your heating and electricity bill?: Yes Do you have trouble taking care of your child, family member or friend?: I choose not to answer this question Do you have trouble with day-to-day activities such as bathing, preparing meals, shopping, managing finances, etc.?: Yes Are you currently unemployed and looking for a job?: No Are you interested in more education?: No THRIVE Score: 5 AUDIT C Alcohol Use Questionnaire (AUDIT-C) 1. How often do you have a drink containing alcohol?: Never Total Score: 0 PETER-7 AMB Questionnaire PETER-7 Date PETRE - 7 assessed: 09/20/24 Feeling nervous, anxious, or on edge: 0 = Not at all Not being able to stop or control worryin = Not at all Worrying too much about different things: 0 = Not at all Trouble relaxin = Not at all Being so restless that it is hard to sit still: 0 = Not at all Becoming easily annoyed or irritable: 0 = Not at all Feeling afraid as if something awful might happen: 0 = Not at all Total PETER-7 score (0-4 normal; 5-9 mild; 10-14 moderate; 15-21 severe): 0 Source: Developed by Drs. Xiang Griffin, Belen Garcia, Hernan Perez and colleagues, with an educational kendall from [employer]. PETER-7 Assessment Billing PETER-7 Assessment Tool: PETER-7 Assessment 70249 Review of Systems Const Denies body aches, Denies fatigue, Denies fever(s), Denies frequent falls, Denies headache(s) and Denies weakness Eyes Reports no additional complaints and Denies change in vision ENT Denies dizziness, Denies facial pain and Denies headache(s) Card Denies chest pain, Denies leg edema, Denies lightheadedness and Denies dyspnea Resp Denies dyspnea GI Denies abdominal pain, Denies dyspepsia, Denies nausea and Denies vomiting Musc Reports as per HPI, Denies back pain and Denies myalgias Skin/Breast Reports system reviewed and no additional complaints, except as documented Neuro Denies dizziness, Denies frequent falls, Denies headache(s) and Denies weakness Psych Reports no additional complaints Endo Denies fatigue Physical exam (Primary Care) Vital Signs: Last Vital Signs Pulse 83 04/20/25 15:24 Resp 18 04/20/25 15:24 BP 120/78 04/20/25 15:24 Pulse Ox 95 04/20/25 15:24 Oxygen Delivery Method Room Air 04/20/25 15:24 BMI result Body Mass Index 27.5 Tobacco/Smoking Status: Tobacco use Status Tobacco use date assessed 04/20/25 04/20/25 15:37 Patient Tobacco Use Status Never used Tobacco 04/20/25 15:23 e-Cigarette/Vaping Use Never Used 04/20/25 15:23 Thrive Assessment: Date of Thrive Assessment Date Thrive assessed 04/20/25 04/20/25 15:37 Const General: cooperative, healthy appearing, comfortable and no acute distress Orientation/consciousness: patient oriented x3 HENMT Head: Yes normocephalic Ears: hearing grossly normal bilaterally General nose exam: Normal external nose present Eyes General: appearance normal, both eyes and all related structures Conjunctivae: conjunctivae normal Neck Neck: Yes full ROM and Yes no lymphadenopathy Resp Effort & Inspection: normal respiratory effort Auscultation: clear to auscultation bilaterally, no crackles, no rales, no rhonchi and no wheezes Cardio Rate: regular rate Rhythm: regular rhythm Skin General skin exam: no rashes or lesions noted Neuro General: patient oriented x3 Gait exam (Neuro): Normal gait present Extrem Other: Blister on the aspect right middle finger without evidence of infection no drainage General: Yes normal to inspection, Yes full ROM and No edema Psych Affect: normal affect Attitude: cooperative Insight: Good insight present (Psych) Judgement: Good judgement present (Psych) Coding Level of Care Code Est Pt Level 4 (61593) Diagnoses Hyperlipidemia, unspecified hyperlipidemia type E78.5 Hyperlipidemia type: unspecified Uncontrolled type 2 diabetes mellitus with hyperglycemia E11.65 Diabetes mellitus type: type 2 Glycemic state: with hyperglycemia Hypothyroidism, unspecified type E03.9 Hypothyroidism type: unspecified Osteoporosis, unspecified osteoporosis type, unspecified pathological fracture presence M81.0 Osteoporosis type: unspecified Presence of current pathological fracture: unspecified Pituitary macroadenoma D35.2 Anemia D64.9 Osteoarthritis of first carpometacarpal (CMC) joint of one hand M18.9 Bipolar 1 disorder F31.9 Housing instability Z59.819 Left foot pain M79.672 Blister T14.8XXA Additional Codes PETER-7 Assessment Billing - PETER-7 Assessment Tool: PETER-7 Assessment 87703 ([id number]) Assessment & Plan Assessment & Plan (1) HLD (hyperlipidemia): Code(s): E78.5 - Hyperlipidemia, unspecified Category: Medical Qualifiers: Hyperlipidemia type: unspecified Qualified Code(s): E78.5 - Hyperlipidemia, unspecified Plan: Avoid foods that are high in cholesterol such as red meat, fried foods, eggs and baked goods. Triglyceride goal of less than 150 and LDL goal of less than 100. Continue on Atorvastatin. Ordered for repeat blood work. (2) Uncontrolled diabetes mellitus: Code(s): E11.65 - Type 2 diabetes mellitus with hyperglycemia Category: Medical Qualifiers: Diabetes mellitus type: type 2 Glycemic state: with hyperglycemia Qualified Code(s): E11.65 - Type 2 diabetes mellitus with hyperglycemia Plan: Decrease the amount of carbohydrates such as pasta, bread, rice, and potatoes and limit the amount of sweets. Although fruits are generally healthy they should be eaten in moderation as they are still high in sugar. Hemoglobin A1c goal of less than 7%. A1c is elevated 9.3% in the office today increased from last visit. She has been using her Lantus inappropriately has taken multiple times a day advised patient this should be a once daily dosing as it is a long-acting insulin. I did send a prescription for Humalog and changed Ozempic to Trulicity to reduce GI upset. Recommend patient follow up with Dr. Farias. (3) Hypothyroidism: Code(s): E03.9 - Hypothyroidism, unspecified Category: Medical Qualifiers: Hypothyroidism type: unspecified Qualified Code(s): E03.9 - Hypothyroidism, unspecified Plan: Continue on thyroid medication and ordered for repeat blood work. (4) Osteoporosis: Code(s): M81.0 - Age-related osteoporosis without current pathological fracture Category: Medical Qualifiers: Osteoporosis type: unspecified Presence of current pathological fracture: unspecified Qualified Code(s): M81.0 - Age-related osteoporosis without current pathological fracture Plan: Continue to follow with endocrinology. Last DEXA 2023. (5) Pituitary macroadenoma: Code(s): D35.2 - Benign neoplasm of pituitary gland Category: Medical Plan: Continue to follow with endocrinology. Advised to reschedule missed appointments. (6) Anemia: Code(s): D64.9 - Anemia, unspecified Category: Medical Plan: ordered for repeat blood work. (7) Osteoarthritis of first carpometacarpal (CMC) joint of one hand: Code(s): M18.9 - Osteoarthritis of first carpometacarpal joint, unspecified Category: Medical Plan: Ordered for uric acid at patient request. Continue to follow with orthopedics. (8) Bipolar 1 disorder: Code(s): F31.9 - Bipolar disorder, unspecified Category: Medical Plan: The patient is experiencing significant psychosocial distress due to homelessness and profound grief following a son's , reporting social isolation. A referral will be made to [facility] for therapy, and the community navigation team will be contacted for housing assistance. The patient will follow up if she has any concerns or is unable to schedule counseling. Denies SI at this time (9) Housing instability: Code(s): Z59.819 - Housing instability, housed unspecified Category: Social Hx Plan: See above (10) Left foot pain: Code(s): M79.672 - Pain in left foot Category: Medical Plan: The patient sustained a foot injury three days ago, with fracture ruled out at an urgent care. The patient was advised to use the supportive boot for ambulation but to remove it when resting and perform ankle [id number] exercises to prevent stiffness. (11) Blister: Code(s): T14.8XXA - Other injury of unspecified body region, initial encounter Category: Medical Plan: On the right middle finger. The patient has a recent superficial burn on the skin from the stove which was inspected and appears uninfected. The patient was given Bacitracin ointment to apply once daily and advised to leave the area open to air. Plan This note was constructed using voice recognition software. While every effort has been made to ensure accuracy and auto claim representative, still areas may have been included sometimes these areas may affect the content or meeting of the given symptoms. Total time spent caring for the patient today was 30 minutes. This includes time spent before the visit reviewing the chart, time spent during the visit, and time spent after the visit and documentation. Patient was informed and verbally consented to the use of an ambient scribe for clinic note documentation during this visit. Orders: Orders Complete Blood Count Auto Diff Today E11.65 - Type 2 diabetes mellitus with hyperglycemia, Z13.0 - Encounter for screening for diseases of the blood and blood-forming organs and certain disorders involving the immune mechanism Lipid Panel Today E11.65 - Type 2 diabetes mellitus with hyperglycemia, E78.00 - Pure hypercholesterolemia, unspecified Comprehensive Met. Panel Today E11.65 - Type 2 diabetes mellitus with hyperglycemia, Z00.00 - Encounter for general adult medical examination without abnormal findings TSH reflex Free T4 Today Z13.29 - Encounter for screening for other suspected endocrine disorder Vitamin B12 and Folate Today Z13.21 - Encounter for screening for nutritional disorder Vitamin D 25-OH Total Today Z13.21 - Encounter for screening for nutritional disorder Referrals Counseling Referral F31.9 - Bipolar disorder, unspecified Nurse Navigator Referral Z59.819 - Housing instability, housed unspecified Medications: New dulaglutide (Trulicity) 0.75 mg (0.5 mL) subcut QWEEK 2 mL 0RF Refilled insulin lispro (Humalog KwikPen U-200 Insulin) give before meals when sugar is above 140 8 units (0.04 mL) subcut TID 3.6 mL 0RF 30 days levothyroxine 88 mcg PO DAILY 90 tabs 1RF Discontinued ezetimibe Discontinued Reason: Patient no longer taking 10 mg PO DAILY 90 tabs 1RF triamcinolone acetonide 0.1% Discontinued Reason: Patient no longer taking 1 appl topical BID-TID 80 grams 0RF lancets (FreeStyle Lancets) Discontinued Reason: Patient no longer taking tid testing 300 ea 1RF E11.65 - Type 2 diabetes mellitus with hyperglycemia pen needle, diabetic Discontinued Reason: Patient no longer taking BID-Future refills from Endo 100 ea 0RF E11.69 - Type 2 diabetes mellitus with other specified complication, Z79.4 - extermination inspector (current) use of insulin loratadine Discontinued Reason: Patient no longer taking 10 mg PO DAILY 90 tabs 3RF ketoconazole 2% Discontinued Reason: Patient no longer taking 1 appl topical DAILY 30 grams 0RF albuterol sulfate 90 mcg/actuation Discontinued Reason: Patient no longer taking 2 puffs inhalation Q4-6H PRN 6.7 grams 0RF shortness of breath or wheezing J40 - Bronchitis, not specified as acute or chronic, R05 - Cough ondansetron Discontinued Reason: Patient no longer taking 4 mg PO Q8H PRN 20 tabs 0RF for nausea/vomiting semaglutide (Ozempic) for 4 weeks Discontinued Reason: Patient no longer taking 0.25 mg (0.368 mL) subcut QWEEK 3 mL 4RF
[2025-04-20 15:24] VITALS: BP 120/78; PULSE 83; RESP 18; O2SAT 95; BMI 27.5
== END 2025-04-20 16:29 | disposition home or self-care (01) ==
LOC: HO.HMCH 15:13
DX: E78.5 Hyperlipidemia, unspecified (principal); E11.65 Type 2 diabetes mellitus with hyperglycemia; D35.2 Benign neoplasm of pituitary gland; F31.9 Bipolar disorder, unspecified; E03.9 Hypothyroidism, unspecified; M81.0 Age-related osteoporosis without current pathological fracture; D64.9 Anemia, unspecified; M18.9 Osteoarthritis of first carpometacarpal joint, unspecified; Z59.819 Housing instability, housed unspecified; M79.672 Pain in left foot; T14.8XXA Other injury of unspecified body region, initial encounter

== ENCOUNTER → 2025-04-20 15:12 | Outpatient (BNVA) | payer OTHER, SELFPAY | DX: E11.65 Type 2 diabetes mellitus with hyperglycemia (principal); E11.69 Type 2 diabetes mellitus with other specified complication; E78.5 Hyperlipidemia, unspecified; E03.9 Hypothyroidism, unspecified; M81.0 Age-related osteoporosis without current pathological fracture; D35.2 Benign neoplasm of pituitary gland; D64.9 Anemia, unspecified; M18.9 Osteoarthritis of first carpometacarpal joint, unspecified; F31.9 Bipolar disorder, unspecified; M79.672 Pain in left foot; Z59.819 Housing instability, housed unspecified; Z79.4 Long term (current) use of insulin; Z63.4 Disappearance and death of family member | CPT/HCPCS: 96127; 99212 ==

== ENCOUNTER 2025-05-09 08:19 | Outpatient (REF) | payer OTHER, SELFPAY ==
[2025-05-09 08:39] LABS: MANUAL DIFF FLAG NO
[2025-05-09 09:23] LABS: Hematocrit 39.6 % (37.0-47.0); Hemoglobin 13.5 g/dl (12.0-16.0); Imm Gran Abs Auto 0.03 X10*3/uL (0.00-0.03); Imm Gran Pct Auto 0.4 % (0.0-0.4); Lymphocytes Absolute Auto 3.3 X10*3/uL (1.2-4.9); Mean Corpuscular HGB Conc 34.1 g/dl (31.0-35.0); Mean Corpuscular Hemoglobin 30.6 pg (27.0-33.0); Mean Corpuscular Volume 89.8 fL (80.0-98.0); NRBC Abs Auto 0.000 X10*3/uL (0.0-0.012); NRBC Pct Auto 0.0 /100WBC (0.0-0.2); Platelet Count 189 X10*3/uL (160-400); Red Blood Count 4.41 X10*6/uL (4.20-5.50); White Blood Count 6.9 X10*3/uL (4.8-10.8)
[2025-05-09 09:43] LABS: Appearance Urine Clear; Glucose Urine UA Negative (Negative); PH 5.5 (5.0-9.0); Specific Gravity - Urine >= 1.030 (1.005-1.025)
[2025-05-09 10:12] LABS: Alanine Aminotransferase 35 U/L (0-31); Albumin Level 4.9 g/dL (3.5-5.0); Alkaline Phosphatase 60 U/L (39-117); Anion Gap 12 (12-20); Aspartate Amino Transferase 55 U/L (5-31); Blood Urea Nitrogen 10 mg/dL (9-16); Calcium 8.8 mg/dL (8.4-10.2); Carbon Dioxide 28 mmol/L (22-29); Chloride 109 mmol/L (96-108); Cholesterol 212 mg/dL (<200); Estimated Glomerular Filt Rate > 60; HDL Cholesterol 54 mg/dL (>40); Potassium 3.4 mmol/L (3.3-5.1); Sodium 146 mmol/L (135-145); Total Protein 7.1 g/dL (6.5-8.0); Triglycerides 372 mg/dL (<150); Uric Acid 3.9 mg/dL (2.4-5.7)
[2025-05-09 10:38] LABS: Folate 9.6 ng/mL (> or = 4.0); Vitamin B12 413 pg/mL (200-900)
[2025-05-09 10:55] LABS: Microalbum/Creatinine Ratio Ur 7.3 ug/mg cr (<30)
[2025-05-09 10:56] LABS: Free T4 (Free Thyroxine) 0.62 ng/dL (0.71-1.85)
== END 2025-05-09 08:20 | disposition home or self-care (01) ==
LOC: HO.LAB 08:19
DX: Z00.00 Encounter for general adult medical examination without abnormal findings (principal); Z13.0 Encounter for screening for diseases of the blood and blood-forming organs and certain disorders involving the immune mechanism; Z13.21 Encounter for screening for nutritional disorder; Z13.29 Encounter for screening for other suspected endocrine disorder; E11.65 Type 2 diabetes mellitus with hyperglycemia; R35.89 Other polyuria; M18.9 Osteoarthritis of first carpometacarpal joint, unspecified; E78.00 Pure hypercholesterolemia, unspecified
CPT/HCPCS: 36415; 80053; 80061; 81003; 82043; 82306; 82570; 82607; 82746; 84439; 84443; 84550; 85025

== ENCOUNTER 2025-05-19 10:31 | Emergency (ER) | payer OTHER, SELFPAY ==
--- NOTE | ~2025-05-19 | CT_ITS ---
CLINICAL HISTORY: fall, pain CT maxillofacial without contrast. COMPARISON: CT head dated 05/19/25 at 11:06 EST FINDINGS: Bony orbits appear intact bilaterally. Globes appear intact bilaterally. No retrobulbar or postseptal hematoma. Nasal bones appear intact. Nasal septum is mildly deviated to the left. Maxilla and nasal spine of the maxilla appear intact. Zygomatic processes and pterygoid plates appear intact. Temporomandibular joints are appropriately seated. Mandible appears intact. Visualized portions of the upper cervical spine are unremarkable. Intracranial structures of the described on CT of the head performed at the same time. IMPRESSION: 1. No evidence of acute injury to the bones of the face or orbital soft tissues. This document has been electronically signed by: Antonio Cunha MD on 05/19/2025 15:14:09
--- NOTE | ~2025-05-19 | CT_ITS ---
CLINICAL HISTORY: fall, pain CT cervical spine without contrast. COMPARISON: CT head dated 05/19/25 at 11:06 EST FINDINGS: Grade 1 anterolisthesis of C5 on C6, degenerative. Chronic anterior wedge compression fracture of the superior endplate of the T1 vertebral body. Remaining vertebral body heights are maintained. No evidence of acute vertebral body injury Visualized paraspinal soft tissues are unremarkable. Intracranial structures including sellar mass are described on CT of the head performed at the same time. C5-C6: Anterior marginal osteophytes. Facet joint arthrosis. Remaining cervical levels are without significant degenerative changes. IMPRESSION: 1. No evidence of acute injury to the cervical spine. 2. Grade 1 anterolisthesis of C5 on C6, degenerative. 3. Chronic anterior wedge compression fracture of the superior endplate of the T1 vertebral body. This does not appear acute. This document has been electronically signed by: Antonio Cunha MD on 05/19/2025 15:17:19
--- NOTE | ~2025-05-19 | CT_ITS ---
CLINICAL HISTORY: fall, pain CT head without contrast. COMPARISON: CT head dated 09/23/24 at 01:00 EDT FINDINGS: Soft tissue edema along the anterior left frontal calvarium. No significant mucosal thickening within the visualized paranasal sinuses The mastoid air cells are clear. No calvarial fracture. Hyperostosis frontalis. Atherosclerotic intracranial vasculature. Mass within the sella turcica measuring proximately 2.3 x 2.3 x 2.1 cm expanding and eroding the freire of the sella turcica and sphenoid sinus with extension into the cavernous sinus on the right and sphenoid sinus posteriorly, similar to prior imaging. No intracranial hemorrhage or abnormal extra-axial fluid collection. No evidence of hydrocephalus. The basilar cisterns are patent. Posterior fossa appears unremarkable. IMPRESSION: 1. No acute intracranial findings. 2. Stable sellar mass with erosion into the sphenoid sinus and expansion of the sella turcica. This document has been electronically signed by: Antonio Cunha MD on 05/19/2025 15:08:26
[2025-05-19 10:35] VITALS: BP 106/67; BP 112/70; PULSE 73; RESP 18; TEMP 36.3; O2SAT 100; O2SAT 99; BMI 27.1
[2025-05-19 13:09] VITALS: BP 111/77; PULSE 75; RESP 16; TEMP 36.1; O2SAT 98
--- NOTE | 2025-05-19 13:30 | PC.NURSE ---
Patient ambulated to bed with steady gait with PCT. Patient resting, awaiting CT scan. No signs of distress.
--- NOTE | 2025-05-19 13:34 | ED_ITS ---
HPI - General Adult General Chief complaint: Head Injury Stated complaint: FALL 2 DAYS AGO BLURRY VISION Time Seen by Provider: 05/19/25 13:34 Source: patient and EMS Mode of arrival: EMS Limitations: no limitations History of Present Illness ED Provider: Emely Trevino PA-C HPI narrative: Patient is a 54 year old female with a history of bipolar 1 disorder, pituitary adenoma s/p transnala/transsphenoidal resection of mass with residual tumor within the right + inferior aspects of the sella turcica with extension into the sphenoid sinus, anemia, DM, osteoporosis, HLD, and hypothyroidism presenting to the emergency department today with facial bruising after a fall. Patient states that 2 days ago she had a fall with a head strike and unknown loss of consciousness. Patient states that she fell while moving [employer] decorations and hit her face on cement. Patient states that she initially had some blurry vision / increased weakness but that has improved some. Patient denies any other complaints at this time. Onset (ago): day(s) (2) Related Data Home Medications ?Medication ?Instructions ?Recorded ?Confirmed lumateperone 42 mg capsule 42 mg PO DAILY 02/19/22 (Caplyta) lorazepam 1 mg tablet 1 mg PO BID 09/29/23 5 divalproex 250 mg tablet,delayed 750 mg PO BID 4 04/20/25 release duloxetine 60 mg capsule,delayed 120 mg PO DAILY 01/1704/20/25 release suvorexant 5 mg tablet (Belsomra) 15 mg PO BEDTIME PRN 07/31/24 04/20/25 Previous Rx's ?Medication ?Instructions ?Recorded fluticasone propionate 50 1 spray intranasal Q12H #16 grams 07/31/24 mcg/actuation nasal spray,suspension insulin glargine 100 unit/mL (3 25 unit (0.25 mL) subc ut DAILY #45 08/11/24 mL) subcutaneous pen (Lantus mL Solostar U-100 Insulin) flash glucose scanning reader #1 ea 10/09/24 (FreeStyle Kourtney 2 [place]) FreeStyle Kourtney 3 Plus Sensor #2 ea 10/25/24 (blood-glucose sensor) FreeStyle Kourtney 3 [place] #1 ea 10/25/24 (blood-glucose,leather grader,cont) atorvastatin 20 mg tablet 20 mg PO BEDTIME #90 tabs sumatriptan succinate 25 mg tablet See Rx Instructions PO .COMPLEX 11/16/24 #20 tabs abaloparatide (Tymlos) 80 mcg (0.04 mL) subcut ROYER Y 11/27/24 #1.56 mL cholecalciferol (vitamin D3) 50 50 mcg PO BEDTIME 90 d ays #90 caps 11/28/24 mcg (2,000 unit) capsule ropinirole 1 mg tablet 3 mg (3 x 1 mg) PO DAILY #27 0 tabs 02/06/25 pantoprazole 40 mg tablet,delayed 40 mg PO DAILY #90 t abs 02/20/25 release vit B complex with C 300 1 tab PO DAILY #90 tabs 10/0 06/24 mg-calcium carbonate 150 mg calcium tablet (B-Complex Plus Vitamin C (and calcium)) dulaglutide 0.75 mg/0.5 mL 0.75 mg (0.5 mL) subcut QWE EK #2 mL 04/20/25 subcutaneous pen injector (Trulicity) insulin lispro 200 unit/mL (3 mL) 8 unit (0.04 mL) sub cut TID 30 04/20/25 subcutaneous pen (Humalog #3.6 mL U-200 Insulin) levothyroxine 88 mcg tablet 88 mcg PO DAILY #90 tabs 1 06/20/24 prednisone 5 mg tablet 5 mg PO DAILY #30 tabs 05/01 Allergies Allergy/AdvReac Type Severity Reaction Status Date / Time codeine Allergy Shortness Verified 05/19/25 10:41 of Breath Review of Systems 2 Constitutional: Constitutional: Reports as per HPI Eyes: Eyes: Reports as per HPI ENT: Reports as per HPI Cardiovascular: Cardiovascular: Reports as per HPI Respiratory: Respiratory: Reports as per HPI Gastrointestinal: Gastrointestinal: Reports as per HPI Genitourinary: Genitourinary: Reports as per HPI Musculoskeletal: Musculoskeletal: Reports as per HPI Integumentary/Breasts: Skin/Breast: Reports as per HPI Neurologic: Reports as per HPI Psychiatric: Psychiatric: Reports as per HPI Endocrine: Endocrine: Reports as per HPI Hematologic/Lymphatic: Hematologic/Lymphatic: Reports as per HPI Allergic/Immunologic: Allergic/Immunologic: Reports as per HPI [facility] Past Medical History Attestation statement: The following information was validated with the patient. Source: old records reviewed and nursing notes reviewed Medical History Upper abdominal pain Gastroparesis Acute respiratory disease Hx of fracture of tibia GERD (gastroesophageal reflux disease) Interstitial cystitis Hypothyroidism Vitamin D deficiency HLD (hyperlipidemia) T2DM (type 2 diabetes mellitus) Pituitary macroadenoma Osteoporosis Bipolar 1 disorder Acute Crohn's disease Surgical History Hx of colonoscopy History of esophagogastroduodenoscopy (EGD) Hx of brain surgery History of surgery History of tubal ligation Status post breast reduction LAP-BAND surgery status History of bladder surgery History of section Family History Family History Father HTN (hypertension) Mother Heart disease Brother Mental health disorder Sister Mental health disorder Social History Social History Household Members: Children Housing: Apartment Alcohol intake: current Alcohol intake frequency: holidays/special occasions only Patient Tobacco Use Status: Never used Tobacco e-Cigarette/Vaping Use: Never Used Second Hand Smoke Exposure: Yes Substance Use Type: Marijuana Advance Directives: No Advance Directives Information Provided: Yes Do you have a plan to hurt others: No Plan service: No Current occupational status: disabled 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 Cognitive needs: No Hearing needs: No Vision needs: Yes Physical Exam ED Vital Signs: Vital Signs - 24 hr 05/19/25 10:35 05/19/25 13:09 Temperature 97.3 F 97 F Pulse Rate 73 75 Respiratory Rate 18 16 Blood Pressure 106/67 111/77 Pulse Oximetry 100 98 Oxygen Delivery Method Room Air Room Air BMI result Body Mass Index 27.1 Const General: cooperative, no acute distress, alert and awake Nutritional Appearance: well nourished Orientation/consciousness: patient oriented x3 HENMT Other: Ears: hearing grossly normal bilaterally and external ears normal General nose exam: no nasal discharge noted and no epistaxis Mouth: Normal oral and palatal mucosa present, no drooling and no muffled voice Eyes Conjunctivae: conjunctivae normal Pupils: Equal, round and reactive pupils present EOM: EOMs intact bilaterally Neck Neck: Yes normal visual inspection and Yes full ROM Resp Effort & Inspection: normal respiratory effort and able to speak in complete sentences Neuro General: patient oriented x3, moves all extremities and CN's II-XI intact bilaterally Cranial nerves: Yes Equal, round and reactive pupils present Cognition (Neuro): normal cognition Extrem General: Yes normal to inspection, Yes full ROM and Yes capillary refill normal Psych Appearance: grossly normal Mental Status: mental status grossly normal Affect: normal affect Attitude: cooperative Thought process: Normal thought process present Thought content: Normal thought content present Insight: Good insight present (Psych) Medical Decision Making Medical Decision Making MDM Narrative: Patient is a 54 year old female with a history of bipolar 1 disorder, pituitary adenoma s/p transnala/transsphenoidal resection of mass with residual tumor within the right + inferior aspects of the sella turcica with extension into the sphenoid sinus, anemia, DM, osteoporosis, HLD, and hypothyroidism presenting to the emergency department today with facial bruising after a fall. Patient's physical exam was as noted in the physical exam portion of this note. Patient's CT head, c-spine, and facial bones showed no acute process. However, the patient's imaging showed a chronic anterior wedge compression fracture of the superior endplate of the T1 vertebral body which the radiologist states is not acute and a mass within the sella turcica measuring 2.3x2.3x2.1cm expanding and eroding the freire of the sella turcica and sphenoid sinus with extension into the cavernous sinus on the right + sphenoid sinus posteriorly. The radiologist cites this is similar in appearance to previous imaging however - previous imaging reports do not mention the erosion component. When I went to explain the results to the patient - I discovered she had eloped from the department. I called and spoke to the patient about her results and she stated she was not told she had anything remaining in her sinuses after her previous surgery to address the pituitary adenoma. I recommended the patient follow back up with her primary care provider about this finding. I stressed the importance of the patient taking her medication as directed (either prescribed or as the over the counter packaging recommends). I stressed the importance of the patient following up with her primary care provider. I stressed the importance of the patient returning to the emergency department immediately if her symptoms were to worsen or if she were to develop any dizziness, shortness of breath, difficulty breathing, chest pain, blurry vision, loss of vision, nausea, vomiting, abdominal pain, fever, chills, back pain, or any other complaints. Patient was provided all discharge information over the phone and verbalized understanding of all discharge instructions. Differential Diagnosis Differential Diagnoses: The differential diagnosis associated with the presentation includes Facial bruising Hematoma Contusion Intracranial hemorrhage Skull fracture Nasal fracture Admission/Observation Consideration of admission/observation: Escalation of care including admission/observation considered Patient would have been admitted to the hospital had her work up had any findings where hospital admission was appropriate and her clinical presentation warranted hospital admission. Independent Interpretation I performed an independent interpretation of an: CT Scan Interpretation: My interpretation is in agreement with the radiologist's impression of these imaging studies as written below. CLINICAL HISTORY: fall, pain CT head without contrast. COMPARISON: CT head dated 09/23/24 at 01:00 EDT FINDINGS: Soft tissue edema along the anterior left frontal calvarium. No significant mucosal thickening within the visualized paranasal sinuses The mastoid air cells are clear. No calvarial fracture. Hyperostosis frontalis. Atherosclerotic intracranial vasculature. Mass within the sella turcica measuring proximately 2.3 x 2.3 x 2.1 cm expanding and eroding the freire of the sella turcica and sphenoid sinus with extension into the cavernous sinus on the right and sphenoid sinus posteriorly, similar to prior imaging. No intracranial hemorrhage or abnormal extra-axial fluid collection. No evidence of hydrocephalus. The basilar cisterns are patent. Posterior fossa appears unremarkable. IMPRESSION: 1. No acute intracranial findings. 2. Stable sellar mass with erosion into the sphenoid sinus and expansion of the sella turcica. This document has been electronically signed by: Antonio Cunha MD on 05/19/2025 15:08:26 Dictated By: Antonio Cunha MD Signed By: Electronically signed by Antonio Cunha MD 05/19/25 1508 CLINICAL HISTORY: fall, pain CT maxillofacial without contrast. COMPARISON: CT head dated 05/19/25 at 11:06 EST FINDINGS: Bony orbits appear intact bilaterally. Globes appear intact bilaterally. No retrobulbar or postseptal hematoma. Nasal bones appear intact. Nasal septum is mildly deviated to the left. Maxilla and nasal spine of the maxilla appear intact. Zygomatic processes and pterygoid plates appear intact. Temporomandibular joints are appropriately seated. Mandible appears intact. Visualized portions of the upper cervical spine are unremarkable. Intracranial structures of the described on CT of the head performed at the same time. IMPRESSION: 1. No evidence of acute injury to the bones of the face or orbital soft tissues. This document has been electronically signed by: Antonio Cunha MD on 05/19/2025 15:14:09 Dictated By: Antonio Cunha MD Signed By: Electronically signed by Antonio Cunha MD 05/19/25 [id number] CLINICAL HISTORY: fall, pain CT cervical spine without contrast. COMPARISON: CT head dated 05/19/25 at 11:06 EST FINDINGS: Grade 1 anterolisthesis of C5 on C6, degenerative. Chronic anterior wedge compression fracture of the superior endplate of the T1 vertebral body. Remaining vertebral body heights are maintained. No evidence of acute vertebral body injury Visualized paraspinal soft tissues are unremarkable. Intracranial structures including sellar mass are described on CT of the head performed at the same time. C5-C6: Anterior marginal osteophytes. Facet joint arthrosis. Remaining cervical levels are without significant degenerative changes. IMPRESSION: 1. No evidence of acute injury to the cervical spine. 2. Grade 1 anterolisthesis of C5 on C6, degenerative. 3. Chronic anterior wedge compression fracture of the superior endplate of the T1 vertebral body. This does not appear acute. This document has been electronically signed by: Antonio Cunha MD on 05/19/2025 15:17:19 Dictated By: Antonio Cunha MD Signed By: Electronically signed by Antonio Cunha MD 05/19/25 1518 Radiology Impression Discussion of test interpretation with radiology: I have reviewed the radiologist's reading. Independent Historian Clinical information obtained from an independent historian. History obtained from or confirmed by: EMS (EMS provided additional history and confirmed the history provided by the patient. ) Discharge Plan Discharge Clinical Impression: Closed head injury Qualifiers: Encounter type: initial encounter Qualified Code(s): S09.90XA - Unspecified injury of head, initial encounter Patient Disposition: Home, Self-Care Additional Instructions: Your imaging today was reassuring there is no EMERGENT concerns however, it did show incidental findings of a remaining mass in your sella turcica measuring 2.3x2.3x2.1 that expans into and is eroding the freire of the sella turcica and sphenoid sinus. We discussed this at length and I have told you to follow up with your primary care provider about this given you were unaware some of the mass was left behind after your procedure several years ago. IF you are prescribed home medications and/or you are taking over the counter medications at home - it is very important you continue to do so as prescribed / directed unless told otherwise by a healthcare provider. Follow up with your primary care provider. Do your best to stay well hydrated and rest. Return to the emergency department immediately if your symptoms worsen or if you develop any numbness, tingling, dizziness, shortness of breath, difficulty breathing, chest pain, blurry vision, loss of vision, nausea, vomiting, abdominal pain, fever, chills, back pain, or any other complaints. Please see the information below about our Patient Portal. If you are not yet enrolled in the [facility] Patient Portal, you will receive an enrollment email invitation following your visit to any [facility] setting. You may also self-enroll in the Patient Portal by visiting our website: [email or web address] The following information is required to access the Patient Portal: - Your [facility] Medical Record Number - Your personal home email address (must match what is in your electronic medical record, Registration staff can assist with this) - Name - Date of Capabilities of the Patient Portal: - Message some providers - View upcoming appointments - Access your health summary, medical history, and visit history - View current conditions and allergies - View procedure and lab results - View your medications, including guidelines, side effects, and precautions - Complete pre-appointment questionnaires requested by your provider - Ready summary reports of your office visits and procedures To access the Patient Portal Mobile [employer], follow these directions: - Search [employer] in the [employer] Store or Google [employer]! Store - Download the [employer] - Search for [facility] - Enter your login/password Prescriptions: No Action insulin glargine [Lantus Solostar U-100 Insulin] 100 unit/mL (3 mL) insulin pen 25 unit subcut DAILY Qty: 45 1RF (DME) FreeStyle Kourtney 2 [place] Misc See Rx Instructions .Route Qty: 1 0RF Rx Instructions: As directed (DME) FreeStyle Kourtney 3 [place] Misc See Rx Instructions .Route Qty: 1 0RF Rx Instructions: As directed (DME) FreeStyle Kourtney 3 Plus Sensor Device See Rx Instructions .Route Qty: 2 4RF Rx Instructions: As directed change every 14 days atorvastatin 20 mg tablet 20 mg PO BEDTIME Qty: 90 1RF sumatriptan succinate 25 mg tablet See Rx Instructions PO .COMPLEX Qty: 20 0RF Rx Instructions: take 1 tab at onset of headache; if no relief may repeat 1 tab after at least 2 hrs; max = 4 tabs/24 hr PO cholecalciferol (vitamin D3) 50 mcg (2,000 unit) capsule 50 mcg PO BEDTIME 90 Days Qty: 90 1RF ropinirole 1 mg tablet 3 mg PO DAILY Qty: 270 1RF pantoprazole 40 mg tablet,delayed release (DR/EC) 40 mg PO DAILY Qty: 90 1RF B-Complex Plus Vit C (calcium) 300 mg-150 mg calcium tablet 1 tab PO DAILY Qty: 90 0RF prednisone 5 mg tablet 5 mg PO DAILY Qty: 30 4RF duloxetine 60 mg capsule,delayed release(DR/EC) 120 mg PO DAILY lorazepam 1 mg tablet 1 mg PO BID divalproex 250 mg tablet,delayed release (DR/EC) 750 [facility] BID [facility] tablet 15 mg PO BEDTIME PRN Caplyta 42 mg capsule 42 mg PO DAILY fluticasone propionate 50 mcg/actuation spray,suspension 1 spray intranasal Q12H Qty: 16 0RF Rx Instructions: administer into each nostril Tymlos 80 mcg (3,120 mcg/1.56 mL) pen injector 80 mcg subcut DAILY Qty: 1.56 11RF Rx Instructions: inject into abdomen; do not inject within 2 inches of belly button/navel; rotate sites Trulicity 0.75 mg/0.5 mL pen injector 0.75 mg subcut QWEEK Qty: 2 0RF Humalog KwikPen Insulin 200 unit/mL (3 mL) insulin pen 8 unit subcut TID 30 Days Qty: 3.6 0RF Rx Instructions: give before meals when sugar is above 140 levothyroxine 88 mcg tablet 88 mcg PO DAILY Qty: 90 1RF Referrals: Franchesca Infante PA-C [Primary Care Provider, Internal Medicine] Discharge Date/Time: 05/19/25 15:38 Print Language: Andorran
--- NOTE | 2025-05-19 15:37 | PC.NURSE ---
DC instructions reviewed with patient over the phone by RENETTA
== END 2025-05-19 15:38 | disposition home or self-care (01) ==
PROVIDERS: Emergency Provider Emergency Medicine
DX: S09.90XA Unspecified injury of head, initial encounter (principal); M81.0 Age-related osteoporosis without current pathological fracture; E11.9 Type 2 diabetes mellitus without complications; S00.83XA Contusion of other part of head, initial encounter; W01.0XXA Fall on same level from slipping, tripping and stumbling without subsequent striking against object, initial encounter; Y93.89 Activity, other specified; Y92.098 Other place in other non-institutional residence as the place of occurrence of the external cause; Y99.8 Other external cause status; Z79.899 Other long term (current) drug therapy
CPT/HCPCS: 70450; 70486; 72125; 99284

== ENCOUNTER → 2025-05-19 10:45 | Outpatient (BNV) | payer OTHER, SELFPAY | PROVIDERS: Emergency Provider Emergency Medicine; Visit Provider Radiology Diagnostic Radiology | DX: S22.010A Wedge compression fracture of first thoracic vertebra, initial encounter for closed fracture (principal); R51.9 Headache, unspecified; Z04.3 Encounter for examination and observation following other accident | CPT/HCPCS: 70450; 70486; 72125 ==